=== PATIENT | male | born 1970 | race African-American/Black ===

== ENCOUNTER 2017-02-20 00:51 | Inpatient (IN) | payer OTHER ==
[~2017-02-20] VITALS: Ht 170.2 cm; Wt 78.5 kg
[~2017-02-20 00:51] MED LIST: GLYB3TAB2 PO; LISI-313 PO; METF500T4 PO; PT NOT TAKING MEDS
[2017-02-20 00:56] VITALS: Ht 170.2 cm; Wt 78.5 kg
[2017-02-20] MEDS ORDERED: SOD CHLORIDE 0.9% 1,000 ML IV STA (02:03)
[2017-02-20] MEDS ORDERED: LACTATED RINGER'S 1,000 ML IV STA (02:03)
[2017-02-20 02:28] LABS: BASOPHILS % 0.6 % (0.0-2.0); EOSINOPHILS # 0.2 10^3/ul (0.0-0.5); EOSINOPHILS % 2.5 % (0.0-7.0); HEMATOCRIT 35.2 % (42.0-52.0); HEMOGLOBIN 11.6 g/dl (14.0-18.0); LYMPHOCYTES # 2.4 10^3/ul (0.8-2.9); MEAN CORPUSCULAR HEMOGLOBIN 27.5 pg (29.0-33.0); MEAN CORPUSCULAR VOLUME 83.4 fl (82.0-101.0); MEAN PLATELET VOLUME 10.2 fl (7.4-10.4); MONOCYTE # 0.6 10^3/ul (0.3-0.9); MONOCYTES % 9.9 % (0.0-11.0); NEUTROPHIL # 3.1 10^3/ul (1.6-7.5); NEUTROPHILS % 48.7 % (39.0-77.0); PLATELET COUNT 368 10^3/UL (140-415); RED BLOOD COUNT 4.22 10^6/ul (4.70-6.10); RED CELL DISTRIBUTION WIDTH 12.7 % (11.5-14.5); WHITE BLOOD COUNT 6.3 10^3/ul (4.8-10.8)
[2017-02-20 02:56] LABS: ALBUMIN 3.9 g/dl (3.3-4.9); ALBUMIN/GLOBULIN RATIO 1.25; BILIRUBIN,INDIRECT 0.4 mg/dl (0-1.1); BILIRUBIN,TOTAL 0.4 mg/dl (0.2-1.3); CALCIUM 9.4 mg/dl (8.4-10.2); CREATININE 0.9 mg/dl (0.61-1.24); MAGNESIUM 2.1 mg/dl (1.7-2.5); POTASSIUM 4.7 mmol/L (3.5-5.1)
[2017-02-20 03:03] LABS: ADD UMIC NO; UR ASCORBIC ACID NEGATIVE (NEGATIVE); UR BILIRUBIN (Dip) NEGATIVE (NEGATIVE); UR BLOOD (Dip) NEGATIVE (NEGATIVE); UR CLARITY CLEAR (CLEAR); UR COLOR COLORLESS (YELLOW); UR GLUCOSE (Dip) 3+ mg/dL (NEGATIVE); UR KETONES (Dip) NEGATIVE (NEGATIVE); UR LEUKOCYTE ESTERASE (Dip) NEGATIVE Leu/ul (NEGATIVE); UR NITRITE (Dip) NEGATIVE (NEGATIVE); UR TOTAL PROTEIN (Dip) NEGATIVE (NEGATIVE); UR UROBILINOGEN (Dip) NEGATIVE (NEGATIVE)
[2017-02-20] MEDS ORDERED: VANCOMYCIN 1 GM (PMX) 250 ML IVPB SCH (04:30)
[2017-02-20] MEDS ORDERED: ACETAMINOPHEN 325 MG TAB PO PRN ×2 (04:30→09:00)
[2017-02-20] MEDS ORDERED: ONDANSETRON 4 MG INJ IV PRN ×2 (04:30→09:00)
[2017-02-20] MEDS ORDERED: PIPER-TAZO 3.375 GM IV (PMX) 100 ML IVPB ONE (04:30)
[2017-02-20 05:40] VITALS: TEMP 98.2
[2017-02-20] MEDS ORDERED: INSULIN ASPART [NOVOLOG] 3 ML PEN SC ONE (06:30)
[2017-02-20 06:50] VITALS: BP 148/84; PULSE 90; RESP 18
--- NOTE | 2017-02-20 07:06 | RADRPT ---
PROCEDURE: CT BRAIN WITHOUT CONTRAST CLINICAL INDICATION: 46-year-old male with trauma. TECHNIQUE: The study was performed utilizing [employer] VCT 64-slice CT scanner. Direct axial sections were obtained from the foramen magnum to the vertex without the use of intravenous contrast material. Sagittal and coronal reformations were obtained. One or more of the following dose reduc tion techniques were utilized: automated exposure control, adjustment of the mA and/or kV according to patient's size or use of iterative reconstruction technique. The images were viewed on a PACS w orkstation. CTD/vol = 44.4 mGy; Total Exam DLP = 720.2 mGy-cm. COMPARISON: None. FINDINGS: There is mild prominence of the sulci and cisternal spaces consistent with diffuse volume loss. Oth erwise, the ventricles have a normal shape and position. There is no evidence for mass effect or mid line shift. There are no intracranial areas of abnormal attenuation. There is no evidence for acut e intra or extra-axial blood. The bony calvarium is intact. There is opacification of the partially visualized right ethmoid air cells with moderate mucosal thickening within the right frontal sinuses . No air-fluid levels are noted. The partially visualized mastoid air cells are without significan t soft tissue. IMPRESSION: 1. Mild diffuse volume loss. 2. Opacified partially visualized right ethmoid air cells with moderate mucosal thickening within t he right frontal sinuses. .Antony Martinez MD, Date Time Electronically viewed and signed by .Antony Martinez MD, on 02/20/2017 07:06 .Elise/
--- NOTE | 2017-02-20 07:17 | RADRPT ---
PROCEDURE: CT CERVICAL SPINE WITHOUT CONTRAST CLINICAL INDICATION: 46-year-old male with trauma and neck pain. TECHNIQUE: The study was performed utilizing a [employer] VCT 64-slice CT scanner. Direct axia l sections were obtained through the cervical spine. Coronal and sagittal re-formations were obtain ed. One or more of the following dose reduction techniques were utilized: automated exposure control , adjustment of the mA and/or kV according to patient's size or use of iterative reconstruction tech nique. The images were viewed on a PACS workstation. CTD/vol = 22.2 mGy; Total Exam DLP = 498.4 mGy -cm. COMPARISON: None. FINDINGS: The patients head/neck is mildly tilted to the right. There is straightening of the normal cervical lordosis. Otherwise, the cervical vertebral bodies have normal heights and anatomic alignment. The re is no evidence for acute cervical spine fracture or subluxation. Mild degenerative changes are s een within the atlantoaxial junction. At C2-3 the disk space has a normal appearance. There is no significant central or foraminal stenos is. At C3-4 there are minimal uncovertebral degenerative changes without significant central or foramina l stenosis. At C4-5 there is mild disk space narrowing. There is posterior disk-osteophyte complex projecting a pproximately 3 mm beyond the posterior margin. There are bilateral uncovertebral degenerative shearer es resulting in mild left foraminal stenosis. At C5-6 there is mild disk space narrowing. There is mild posterior disk-osteophyte complex project ing 2 mm beyond the posterior margin. There are mild bilateral uncovertebral degenerative changes m ore prominently on the right side resulting in mild right foraminal stenosis. At C6-7 there is a prominent anterior and right lateral osteophyte. There is no significant central or foraminal stenosis. At C7-T1 the disk space has a normal appearance. There is no significant central or foraminal steno sis. IMPRESSION: 1. Straightening of the normal cervical lordosis. 2. No CT evidence for acute cervical spine fracture. 3. Mild cervical spondylosis. .Antony Martinez MD, MD Date Time Electronically viewed and signed by .Antony Martinez MD, MD on 02/20/2017 07:17 .Lynne
[2017-02-20] MEDS ORDERED: VANCOMYCIN IV PER PHARMACY XX SCH ×2 (08:00→09:00)
[2017-02-20] MEDS ORDERED: morphine 4 MG/ML VIAL IV PRN (08:00)
[2017-02-20] MEDS ORDERED: GLUCAGON 1 MG INJ IM PRN (09:00)
[2017-02-20] MEDS ORDERED: CEFEPIME 1GM/50 ML (PMX) 50 ML IVPB SCH (09:00)
[2017-02-20] MEDS ORDERED: INSULIN GLARGINE [LANtus] 3 ML PEN SC SCH (09:00)
[2017-02-20] MEDS ORDERED: NACL 0.9% 3 ML SYG IV SCH (09:00)
[2017-02-20] MEDS ORDERED: DEXTROSE 50% 50 ML SYRINGE IV PRN ×2 (09:00)
[2017-02-20] MEDS ORDERED: morphine 2 MG INJ IV PRN (09:00)
[2017-02-20] MEDS ORDERED: GLUCOSE GEL 15 GRAM TUBE BUCCAL PRN (09:00)
[2017-02-20] MEDS ORDERED: GLUCOSE GEL 15 GRAM TUBE PO PRN ×2 (09:00)
--- NOTE | 2017-02-20 10:37 | HP ---
Date/Time of Note Date/Time of Note DATE: 02/20/17 TIME: 10:28 Assessment/Plan Assessment/Plan Assessment/Plan 1. Left lower extremity cellulitis -Will be placed on broad spectrum antibiotics. We will follow-up blood culture results. Consider MRI of the foot 2. Diabetes with hyperglycemia -Insulin while in house. Will check A1c 3. s/p Mechanical fall. -Head CT and cervical spine have been negative for acute findings HPI/ROS Admit Date/Time Admit Date/Time Feb 20, 2017 at 04:21 Hx of Present Illness This is a 46-year-old male with a history of diabetes hypertension and left lower extremity cellulitis/wound who presented to the emergency department status post a fall. He said he tripped and fell hitting his head and also experiencing loss of consciousness. He denied any chest pain palpitations or lightheadedness. He further complains of left lower extremity infection including some blisters and possible gangrene on his toe. Patient was admitted here in 2013 for left lower extremity cellulitis/wound which was initially started as work related injury. In the ER, head CT was negative for acute processes. Cervical CT was negative for fracture. His vitals were stable. Lab shows blood glucose of greater than 600. Patient has not been compliant with his medication. PMH/Family/Social Social History Smoking Status: Current every day smoker Exam/Review of Systems Vital Signs Vitals Vital Signs Date Time Temp Pulse Resp B/P Pulse Ox O2 Delivery O2 Flow Rate FiO2 02/20/17 06:50 98.3 90 18 148/84 98 Room Air Exam Constitutional: alert, oriented, well developed Head: atraumatic, normocephalic Eyes: EOMI, PERRL Respiratory: clear to auscultation, normal air movement Gastrointestinal: non-tender, soft Extremities: other (blisters on left toe), tenderness Labs Result Diagram: 02/20/17 0155 02/20/17 0155 Medications Medications Current Medications Diagnostic Test (Pha) (Accu-Chek) 1 XX ; Start 02/21/17 at 02:00 Insulin Glargine (Lantus) 15 unit DAILY@08 SC ; Start 02/20/17 at 09:00 Diagnostic Test (Pha) 1 ea XX ; Start 02/21/17 at 02:00 Cefepime HCl (Maxipime 1gm/50 ml (Pmx)) 50 ml @ 100 mls/hr Q12 IVPB ; Start at 09:00 Miscellaneous Information 1 ea NOTE XX ; Start 02/20/17 at 09:00 Glucose (Glutose) 15 gm Q15M PRN PO DECREASED GLUCOSE; Start 02/20/17 at 09:00 Glucose (Glutose) 22.5 gm Q15M PRN PO DECREASED GLUCOSE; Start 02/20/17 at 09: 00 Dextrose (D50w Syringe) 25 ml Q15M PRN IV DECREASED GLUCOSE; Start 02/20/17 at 09:00 Dextrose (D50w Syringe) 50 ml Q15M PRN IV DECREASED GLUCOSE; Start 02/20/17 at 09:00 Glucagon (Glucagen) 1 mg Q15M PRN IM DECREASED GLUCOSE; Start 02/20/17 at 09:00 Glucose 15 gm 15 gm Q15M PRN BUCCAL DECREASED GLUCOSE; Start 02/20/17 at 09:00 Vancomycin HCl/ Sodium Chloride (Vancocin/NS) 250 ml @ 83.333 mls/ hr Q12H IVPB ; Start 02/20/17 at 10:00 Ondansetron HCl (Zofran Inj) 4 mg Q6H PRN IV NAUSEA AND/OR VOMITING; Start at 09:00 Acetaminophen (Tylenol Tab) 650 mg Q6H PRN PO PAIN LEVEL 1-3 OR FEVER; Start at 09:00 Morphine Sulfate (morphine) 2 mg Q4H PRN IV SEVERE PAIN LEVEL 7-10; Start 02/20 at 09:00 Heparin Sodium (Porcine) (Heparin (5000 Units/0.5 ml)) 5,000 unit Q12 SC ; Start 02/20/17 at 09:00 EVERARDO OG MD Feb 20, 2017 10:37
[2017-02-20] MEDS: HEPARIN 5,000 UNIT/0.5 ML VIAL SC SCH ×2 (11:11→21:33)
[2017-02-20] MEDS: INSULIN ASPART [NOVOLOG] 3 ML PEN SC SCH ×7 (11:50→21:00)
[2017-02-20] MEDS: CEFEPIME 1GM/50 ML (PMX) 50 ML IVPB SCH ×2 (11:56→21:24)
--- NOTE | 2017-02-20 11:57 | RADRPT ---
PROCEDURE: MRI OF THE LEFT FOOT CLINICAL INDICATION: Left foot pain and swelling, injury a week ago, evaluate for osteomyelitis TECHNIQUE: Multiple MRI images were obtained utilizing multiple sequences in multiple planes. Image s were interpreted on a high-resolution PACS system. COMPARISON: None available FINDINGS: There is a distal ulceration of the great toe with adjacent soft tissue swelling underlying abnormal bone marrow signal at the tip of the first distal phalanx suspicious for osteomyelitis (sagittal 23 and axial 16). There is no drainable fluid collection. There is no involvement of the first proxi mal phalanx, first metatarsal head, or sesamoids. The remainder of the forefoot demonstrates extensive subcutaneous soft tissue swelling, greatest xochilt carlos. There is no evidence of tendon tear. There is mild nonspecific muscle edema. IMPRESSION: 1. Distal skin ulceration of the great toe with adjacent soft tissue swelling and probable osteomyel itis involving the first distal tuft. 2. Significant dorsal subcutaneous soft tissue swelling throughout the foot , query cellulitis, wit hout discrete drainable fluid collection. 3. No evidence of tendon tear. RPTAT: UU .Roger Barbosa MD, MD Date Time Electronically viewed and signed by .Roger Barbosa MD, on 02/20/2017 11:56 .K/
[2017-02-20] MEDS ORDERED: INSULIN ASPART [NOVOLOG] 3 ML PEN SC SCH ×2 (12:15)
[2017-02-20] MEDS: INSULIN GLARGINE [LANtus] 3 ML PEN SC SCH (12:18)
[2017-02-20] MEDS: VANCOMYCIN 1.25 GM in SOD CHLORIDE 0.9% 250 ML IVPB SCH ×2 (13:15→22:16)
--- NOTE | 2017-02-20 13:19 | QN ---
Documentation Comment Patient is a 46-year-old -[place] male with past medical history of diabetes who presents with left lower extremity wound, found to have likely osteomyelitis and also complaining of left upper extremity weakness Assessment Left lower extremity wound, likely cellulitis and osteomyelitis Diabetes Left upper extremity weakness Medical noncompliance Chemical fall Hyperglycemia Plan -MRI of the foot shows osteomyelitis, ID will be consulted -Left upper extremity weakness is unexplained, MRI brain pending, neurology has been consulted, Dr. Lezama -Insulin for patient's hyperglycemia -Broad-spectrum antibiotics for now, infectious disease recommendations appreciated -Follow-up with brain MRI ROSA Ortiz Feb 20, 2017 13:19
[2017-02-20 13:29] VITALS: BP 140/88; RESP 20
--- NOTE | 2017-02-20 17:56 | CONS ---
Date/Time of Note Date/Time of Note DATE: 02/20/17 TIME: 17:46 Assessment/Plan Assessment/Plan Chief Complaint/Hosp Course 46 year old male uncontrolled DM admitted for LLE cellulitis with LUE weakness worsening in the past week. Exam findings suggestive of weakness in left dorsal interossei involving left index finger and thumb with thenar atrophy suspecting chronic median neuropathy. Would suggest MRI Cervical Spine w/o contrast and imaging also of Brachial plexus a short course of steroids may help improvement pain if inflammation is present in the plexus however in light of advanced diabetes and active infection will hold off he will require further outpatient testing EMG/NCV studies to further localize will follow up after imaging completed Problems: Consultation Date/Type/Reason Admit Date/Time Feb 20, 2017 at 04:21 Date of Consultation: Feb 20, 2017 Type of Consultation: Neurology Reason for Consultation left arm weakness Referring Provider: ROSA QUINTERO Hx of Present Illness 46 year old male with history of uncontrolled DM, LLE cellulitis presented to the ED after a reported fall. He states he tripped and fell hit his head with LOC, he has history of cellulitis in LLE in [address] negative, CT C Spine negative for fx, glucose >600 range, he has not been compliant with meds currently living in his RV and not employed. He complains of left arm weakness also increased over the past week, he has notable atrophy in left hand in thenar region per patient this has been ongoing. He does admit to neck pain, reports weakness is mostly in the left digits. He denies prior work up in the past. He denies numbness/weakness in LLE , no speech issues or facial involvement. LUE weakness Social History Smoking Status: Current every day smoker Exam/Review of Systems Vital Signs Vitals Vital Signs Date Time Temp Pulse Resp B/P Pulse Ox O2 Delivery O2 Flow Rate FiO2 02/20/17 13:29 98.0 89 20 140/88 100 02/20/17 06:50 Room Air Exam awake and alert oriented x3 speech mildly dysarthric no aphasia CN: II-XII intact Motor RUE 5/5 RLE 5/5 LLE 5/5 LUE- proximal deltoids, biceps and triceps 5/5 wrist flexion and extension 5/5 weakness is present in the dorsal interossei and most prominent on flexion of thumb and index finger suggestive of a probably median neuropathy suspect anterior interosseus n. involvement atrophy in thenar region of left hand prominent indicating a chronic process Reflexes RUE 1+ Triceps and Biceps, LUE absent reflexes KJ 1+ bilateral absent AJ Sensory intact throughout Coordination intact FTN Results Result Diagram: 02/20/17 0155 02/20/17 0155 Results 24 hrs Laboratory Tests Test 02/20/17 01:51 02/20/17 01:55 02/20/17 02:10 02/20/17 02:20 Bedside Glucose > 595 *H White Blood Count 6.3 Red Blood Count 4.22 L Hemoglobin 11.6 L Hematocrit 35.2 L Mean Corpuscular Volume 83.4 Mean Corpuscular Hemoglobin 27.5 L Mean Corpuscular Hemoglobin Concent 33.0 Red Cell Distribution Width 12.7 Platelet Count 368 Mean Platelet Volume 10.2 Neutrophils % 48.7 Lymphocytes % 38.0 Monocytes % 9.9 Eosinophils % 2.5 Basophils % 0.6 Nucleated Red Blood Cells % 0.0 Neutrophils # 3.1 Lymphocytes # 2.4 Monocytes # 0.6 Eosinophils # 0.2 Basophils # 0.0 Nucleated Red Blood Cells # 0.0 Sodium Level 135 Potassium Level 4.7 Chloride Level 92 L Carbon Dioxide Level 29 Anion Gap 19 H Blood Urea Nitrogen 13 Creatinine 0.90 Glucose Level 623 *H Calcium Level 9.4 Magnesium Level 2.1 Total Bilirubin 0.4 Direct Bilirubin 0.00 Indirect Bilirubin 0.4 Aspartate Amino Transf (AST/SGOT) 32 Alanine Aminotransferase (ALT/SGPT) 47 Alkaline Phosphatase 137 H Total Protein 7.0 Albumin 3.9 Globulin 3.10 Albumin/Globulin Ratio 1.25 Lactic Acid Level 2.0 Urine Color COLORLESS Urine Clarity CLEAR Urine pH 5.0 Urine Specific Elkins 1.030 Urine Ketones NEGATIVE Urine Nitrite NEGATIVE Urine Bilirubin NEGATIVE Urine Urobilinogen NEGATIVE Urine Leukocyte Esterase NEGATIVE Urine Hemoglobin NEGATIVE Urine Glucose 3+ H Urine Total Protein NEGATIVE Test 02/20/17 04:57 02/20/17 06:07 02/20/17 11:58 02/20/17 17:23 Bedside Glucose 328 H 450 *H 240 H 147 Medications Medications Current Medications Diagnostic Test (Pha) (Accu-Chek) 1 ea 02 XX ; Start 02/21/17 at 02:00 Insulin Glargine (Lantus) 15 unit DAILY@08 SC Last administered on 02/20/17 12 :18; Admin Dose 15 UNIT; Start 02/20/17 at 09:00 Diagnostic Test (Pha) 1 ea 1 ea 02 XX ; Start 02/21/17 at 02:00 Cefepime HCl (Maxipime 1gm/50 ml (Pmx)) 50 ml @ 100 mls/hr Q12 IVPB Last administered on 02/20/17 11:56; Admin Dose 100 MLS/HR; Start 02/20/17 at 09:00 Miscellaneous Information 1 ea NOTE XX ; Start 02/20/17 at 09:00 Glucose (Glutose) 15 gm Q15M PRN PO DECREASED GLUCOSE; Start 02/20/17 at 09:00 Glucose (Glutose) 22.5 gm Q15M PRN PO DECREASED GLUCOSE; Start 02/20/17 at 09: 00 Dextrose (D50w Syringe) 25 ml Q15M PRN IV DECREASED GLUCOSE; Start 02/20/17 at 09:00 Dextrose (D50w Syringe) 50 ml Q15M PRN IV DECREASED GLUCOSE; Start 02/20/17 at 09:00 Glucagon (Glucagen) 1 mg Q15M PRN IM DECREASED GLUCOSE; Start 02/20/17 at 09:00 Glucose 15 gm 15 gm Q15M PRN BUCCAL DECREASED GLUCOSE; Start 02/20/17 at 09:00 Vancomycin HCl/ Sodium Chloride (Vancocin/NS) 250 ml @ 83.333 mls/ hr Q12H IVPB Last administered on 02/20/17 13:15; Admin Dose 83.333 MLS/HR; Start at 10:00 Ondansetron HCl (Zofran Inj) 4 mg Q6H PRN IV NAUSEA AND/OR VOMITING; Start at 09:00 Acetaminophen (Tylenol Tab) 650 mg Q6H PRN PO PAIN LEVEL 1-3 OR FEVER; Start at 09:00 Morphine Sulfate (morphine) 2 mg Q4H PRN IV SEVERE PAIN LEVEL 7-10; Start 02/20 at 09:00 Heparin Sodium (Porcine) (Heparin (5000 Units/0.5 ml)) 5,000 unit Q12 SC Last administered on 02/20/17 11:11; Admin Dose 5,000 UNIT; Start 02/20/17 at 09:00 PETER MORRIS MD Feb 20, 2017 17:56
[2017-02-20 19:36] VITALS: BP 141/86; RESP 19
[2017-02-21 02:00] VITALS: BP 129/70; RESP 18
[2017-02-21] MEDS: ACCU-CHEK XX SCH (02:00)
[2017-02-21] MEDS ORDERED: ACCU-CHEK XX SCH ×3 (02:00)
[2017-02-21 07:05] LABS: WHITE BLOOD COUNT 7.4 10^3/ul (4.8-10.8)
[2017-02-21 07:06] LABS: BASOPHILS % 0.4 % (0.0-2.0); EOSINOPHILS # 0.1 10^3/ul (0.0-0.5); EOSINOPHILS % 1.9 % (0.0-7.0); HEMATOCRIT 36.9 % (42.0-52.0); LYMPHOCYTES # 2.7 10^3/ul (0.8-2.9); MEAN CORPUSCULAR HEMOGLOBIN 27.3 pg (29.0-33.0); MEAN CORPUSCULAR HGB CONC 32.5 g/dl (32.0-37.0); MEAN CORPUSCULAR VOLUME 83.9 fl (82.0-101.0); MEAN PLATELET VOLUME 10.2 fl (7.4-10.4); MONOCYTE # 0.5 10^3/ul (0.3-0.9); MONOCYTES % 7.1 % (0.0-11.0); NEUTROPHIL # 3.9 10^3/ul (1.6-7.5); NEUTROPHILS % 53.5 % (39.0-77.0); PLATELET COUNT 388 10^3/UL (140-415); RED CELL DISTRIBUTION WIDTH 12.5 % (11.5-14.5)
[2017-02-21 07:37] LABS: ALBUMIN 3.3 g/dl (3.3-4.9); ALBUMIN/GLOBULIN RATIO 1.17; BILIRUBIN,INDIRECT 0.2 mg/dl (0-1.1); BILIRUBIN,TOTAL 0.2 mg/dl (0.2-1.3); CALCIUM 8.9 mg/dl (8.4-10.2); CHOL/HDL RATIO 2.4 RATIO; CREATININE 0.78 mg/dl (0.61-1.24); MAGNESIUM 1.8 mg/dl (1.7-2.5); PHOSPHORUS 3.7 mg/dl (2.5-4.9); POTASSIUM 4.5 mmol/L (3.5-5.1); TOTAL PROTEIN 6.1 g/dl (6.1-8.1)
[2017-02-21 07:48] VITALS: BP 118/78; RESP 20
--- NOTE | 2017-02-21 07:54 | RADRPT ---
PROCEDURE: MRI Brain without contrast. CLINICAL INDICATION: Left upper extremity weakness TECHNIQUE: Multiplanar MRI of the brain without contrast was performed on a 3.0 T scanner with the following sequences obtained: T1-weighted, T2-weighted/FLAIR, diffusion weighted (with ADC map), GR E. COMPARISON: CT brain 02/20/2017 FINDINGS: No acute/recent ischemic infarction or intracranial hemorrhage / blood degradation products are iden tified. No extra-axial fluid collection is seen. There is no mass effect. No midline shift is identified. The ventricles and sulci are mildly enlarged compatible with volume loss. The signal intensity is unremarkable throughout the cerebrum, brainstem and cerebellum. Flow voids are identified in the proximal intracranial arteries and dural sinuses suggesting patency . Noted are complete right maxillary, extensive right frontal and ethmoid sinus opacification, left ma xillary sinus mucous retention cysts and minimal mastoid air cell opacification. IMPRESSION: 1. No evidence of acute intracranial pathology. 2. Mild volume loss. RPTAT: EE .Edison García MD, MD Date Time Electronically viewed and signed by .Edison García MD, on 02/21/2017 07:53 .O/
--- NOTE | 2017-02-21 08:11 | RADRPT ---
PROCEDURE: MRI cervical spine without contrast CLINICAL INDICATION: Left upper extremity weakness TECHNIQUE: Multiplanar MRI of the cervical spine without contrast was performed on a 3.0 T scanner including the following sequences: T1-weighted, T2-weighted, STIR, GRE. COMPARISON: CT cervical spine 02/20/2017 FINDINGS: There is preservation of the lordosis of the cervical spine. Alignment appears intact. The vertebr al bodies are maintained in height. The marrow signal intensity is unremarkable. Anterior osteophy jasmyn are seen at C4-5 through C7-T1. There is mild moderate disk space narrowing at C2-3 through C5- 6. The cervical cord is within normal limits for signal intensity. The craniocervical junction is g rossly unremarkable. C2-3: No significant disk bulge or herniation is identified. There is no central canal stenosis or foraminal narrowing. C3-4: There is a posterior disk/osteophyte , more pronounced centrally with focal 3 mm central disk protrusion, with mild to moderate central canal stenosis. The ventral cord is slightly effaced. Th ere are left uncovertebral osteophytes with mild left foraminal narrowing. C4-5: There is a broad posterior disk/osteophyte, slightly more pronounced centrally with 2 mm centr al disk protrusion. There is mild to moderate central canal stenosis. The ventral cord is slightly effaced. There are uncovertebral and osteophytes and facet arthropathy with mild-moderate bilatera l foraminal narrowing. C5-6: There is a broad posterior disk/osteophyte, greater on the right. There is mild-moderate cent ral canal stenosis. The ventral cord is slightly effaced. There are uncovertebral osteophytes and facet arthropathy. Moderate to severe right, mild-moderate left foraminal narrowing. C6-7: There is a broad posterior disk/osteophyte, slightly more pronounced centrally with 2 mm centr al disk protrusion. There is mild central canal stenosis. There are uncovertebral osteophytes and facet arthropathy with mild-moderate bilateral foraminal narrowing. C7-T1: No disk bulge or herniation is identified. There is no central canal stenosis or foraminal n arrowing. IMPRESSION: 1. At C3-4, mild to moderate central canal stenosis due to posterior disk/osteophyte with 3 mm cent ral disk protrusion. 2. At C4-5, mild to moderate central canal stenosis due to posterior disk/osteophyte with 2 mm cent ral disk protrusion. 3. At C5-6, mild to moderate central canal stenosis due to posterior disk/osteophyte. 4. At C6-7, mild central canal stenosis due to posterior disk/osteophyte with 2 mm central disk pro trusion. 5. Multilevel foraminal narrowing outlined in detail above. 6. Cervical spondylosis/degenerative enthesopathy. 7. No cervical cord signal abnormality. RPTAT: EE .Edison García MD, Date Time Electronically viewed and signed by .Edison García MD, on 02/21/2017 08:11 .O/
[2017-02-21] MEDS: CEFEPIME 1GM/50 ML (PMX) 50 ML IVPB SCH (08:41)
[2017-02-21] MEDS: INSULIN ASPART [NOVOLOG] 3 ML PEN SC SCH ×7 (09:05→21:09)
[2017-02-21] MEDS: INSULIN GLARGINE [LANtus] 3 ML PEN SC SCH (09:05)
[2017-02-21] MEDS: HEPARIN 5,000 UNIT/0.5 ML VIAL SC SCH ×2 (09:06→21:48)
[2017-02-21] MEDS: VANCOMYCIN 1.25 GM in SOD CHLORIDE 0.9% 250 ML IVPB SCH ×2 (10:34→22:42)
[2017-02-21 14:25] VITALS: BP 117/73; RESP 20
--- NOTE | 2017-02-21 15:00 | PN ---
Date/Time of Note Date/Time of Note DATE: 02/21/17 TIME: 14:57 Assessment/Plan VTE Prophylaxis VTE Prophylaxis Intervention: heparin Assessment/Plan Chief Complaint/Hosp Course Patient is a 46-year-old -[place] male with past medical history of diabetes who presents with left lower extremity wound, found to have likely osteomyelitis and also complaining of left upper extremity weakness Assessment Left lower extremity wound, likely cellulitis and osteomyelitis Diabetes Left upper extremity weakness, mostly tactile function of left hand. Medical noncompliance Chemical fall Hyperglycemia Plan -MRI of the foot shows osteomyelitis, ID consulted, likely 8 weeks abx needed. -Left upper extremity weakness is unexplained, MRI brain shows mild volume loss , MRI neck shows mild-moderate stenosis, f/u with neurology recs. -starting gabapentin for numbness/tingling/pain of hands and feet -bilateral US ordered for swelling. -Insulin for patient's hyperglycemia/uncontrolled DM -Broad-spectrum antibiotics for now, infectious disease recommendations appreciated Vic Quintero DO Problems: Subjective 24 Hr Interval Summary Free Text/Dictation no new complaints. 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 Exam/Review of Systems Vital Signs Vitals Vital Signs Date Time Temp Pulse Resp B/P Pulse Ox O2 Delivery O2 Flow Rate FiO2 02/21/17 14:25 98.2 94 20 117/73 100 02/20/17 06:50 Room Air Intake and Output 02/20/17 02/20/17 02/21/17 15:00 23:00 07:00 Intake Total 50 ml 1500 ml 650 ml Balance 50 ml 1500 ml 650 ml Exam Physical exam General: Patient is laying in bed and answers questions appropriately Mentation: Patient is alert and oriented 4, Head: Normocephalic atraumatic Eyes: EOMI, pupils reactive to light Neck: Supple, nontender, midline Respiratory: Clear to auscultation bilaterally Cardiovascular: regular rate, no obvious murmurs Gastrointestinal: non-tender to palpation, bowel sounds heard. Neurological: Moves all extremities spontaneously Skin: superficial ulcer on R foot, left LE toe shows ulceration. Results Result Diagram: 02/21/17 0515 02/21/17 0515 Results 24 hrs Laboratory Tests Test 02/20/17 17:23 02/20/17 21:23 02/21/17 05:15 02/21/17 08:07 Bedside Glucose 147 136 268 H White Blood Count 7.4 Red Blood Count 4.40 L Hemoglobin 12.0 L Hematocrit 36.9 L Mean Corpuscular Volume 83.9 Mean Corpuscular Hemoglobin 27.3 L Mean Corpuscular Hemoglobin Concent 32.5 Red Cell Distribution Width 12.5 Platelet Count 388 Mean Platelet Volume 10.2 Neutrophils % 53.5 Lymphocytes % 37.0 Monocytes % 7.1 Eosinophils % 1.9 Basophils % 0.4 Nucleated Red Blood Cells % 0.0 Neutrophils # 3.9 Lymphocytes # 2.7 Monocytes # 0.5 Eosinophils # 0.1 Basophils # 0.0 Nucleated Red Blood Cells # 0.0 Sodium Level 141 Potassium Level 4.5 Chloride Level 102 # Carbon Dioxide Level 28 Anion Gap 16 Blood Urea Nitrogen 16 Creatinine 0.78 Glucose Level 245 #H Hemoglobin A1c Calcium Level 8.9 Phosphorus Level 3.7 Magnesium Level 1.8 Total Bilirubin 0.2 Direct Bilirubin 0.00 Indirect Bilirubin 0.2 Aspartate Amino Transf (AST/SGOT) 41 Alanine Aminotransferase (ALT/SGPT) 46 Alkaline Phosphatase 119 Total Protein 6.1 Albumin 3.3 Globulin 2.80 Albumin/Globulin Ratio 1.17 Triglycerides Level 157 H Cholesterol Level 131 LDL Cholesterol, Calculated 46 HDL Cholesterol 54 Cholesterol/HDL Ratio 2.4 Test 02/21/17 12:07 Bedside Glucose 158 Medications Medications Current Medications Diagnostic Test (Pha) (Accu-Chek) 1 ea 02 XX ; Start 02/21/17 at 02:00 Insulin Glargine 15 unit 15 unit DAILY@08 SC Last administered on 02/21/17 09: 05; Admin Dose 15 UNIT; Start 02/20/17 at 09:00 Cefepime HCl (Maxipime 1gm/50 ml (Pmx)) 50 ml @ 100 mls/hr Q12 IVPB Last administered on 02/21/17 08:41; Admin Dose 100 MLS/HR; Start 02/20/17 at 09:00 Miscellaneous Information 1 ea NOTE XX ; Start 02/20/17 at 09:00 Glucose (Glutose) 15 gm Q15M PRN PO DECREASED GLUCOSE; Start 02/20/17 at 09:00 Glucose (Glutose) 22.5 gm Q15M PRN PO DECREASED GLUCOSE; Start 02/20/17 at 09: 00 Dextrose (D50w Syringe) 25 ml Q15M PRN IV DECREASED GLUCOSE; Start 02/20/17 at 09:00 Dextrose (D50w Syringe) 50 ml Q15M PRN IV DECREASED GLUCOSE; Start 02/20/17 at 09:00 Glucagon (Glucagen) 1 mg Q15M PRN IM DECREASED GLUCOSE; Start 02/20/17 at 09:00 Glucose 15 gm 15 gm Q15M PRN BUCCAL DECREASED GLUCOSE; Start 02/20/17 at 09:00 Vancomycin HCl/ Sodium Chloride (Vancocin/NS) 250 ml @ 83.333 mls/ hr Q12H IVPB Last administered on 02/21/17 10:34; Admin Dose 83.333 MLS/HR; Start at 10:00 Ondansetron HCl (Zofran Inj) 4 mg Q6H PRN IV NAUSEA AND/OR VOMITING; Start at 09:00 Acetaminophen (Tylenol Tab) 650 mg Q6H PRN PO PAIN LEVEL 1-3 OR FEVER; Start at 09:00 Morphine Sulfate (morphine) 2 mg Q4H PRN IV SEVERE PAIN LEVEL 7-10 Last administered on 02/21/17 09:08; Admin Dose 2 MG; Start 02/20/17 at 09:00 Heparin Sodium (Porcine) (Heparin (5000 Units/0.5 ml)) 5,000 unit Q12 SC Last administered on 02/21/17 09:06; Admin Dose 5,000 UNIT; Start 02/20/17 at 09:00 Miscellaneous Information (*Rx Drug Level Order Reminder*) VANCOMYCIN TROUGH AT 2100 ONCE ONCE XX ; Start 02/21/17 at 21:00; Stop 02/21/17 at 21:01 VIC QUINTERO Feb 21, 2017 15:00
--- NOTE | 2017-02-21 15:12 | CONS ---
Date/Time of Note Date/Time of Note DATE: 02/21/17 TIME: 15:11 Assessment/Plan Assessment/Plan Chief Complaint/Hosp Course No acute changes patient is alert family at bedside no fevers pain is better WBC 7.4 H&H 12 and 36.9 platelets 388 BUN 16 creatinine 0.78 Antibiotics: Vanco cefepime physical examination: Well-developed middle-aged -[place] male who is alert in no distress. Head atraumatic normocephalic sclera nonicteric. Neck is supple. Chest rise symmetrical, breath sounds clear. Heart: S1-S2. Abdomen soft bowel sounds present. Extremities with bilateral lower extremities edema and trace erythema with left lower extremity swelling and redness of the great toe Assessment: 1. Left lower extremity cellulitis with evidence of first distal part of the toe osteomyelitis as per MRI 2. Diabetes mellitus Plan: Remain stable, will change cefepime to Levaquin, consider podiatry evaluation, continue vancomycin DW pt/staff Problems: Consultation Date/Type/Reason Admit Date/Time Feb 20, 2017 at 11:15 Initial Consult Date 02/20/17 Type of Consultation: ID Referring Provider: ROSA QUINTERO Exam/Review of Systems Vital Signs Vitals Vital Signs Date Time Temp Pulse Resp B/P Pulse Ox O2 Delivery O2 Flow Rate FiO2 02/21/17 14:25 98.2 94 20 117/73 100 02/20/17 06:50 Room Air Intake and Output 02/20/17 02/20/17 02/21/17 15:00 23:00 07:00 Intake Total 50 ml 1500 ml 650 ml Balance 50 ml 1500 ml 650 ml Results Result Diagram: 02/21/17 0515 02/21/17 0515 Results 24 hrs Laboratory Tests Test 02/20/17 17:23 02/20/17 21:23 02/21/17 05:15 02/21/17 08:07 Bedside Glucose 147 136 268 H White Blood Count 7.4 Red Blood Count 4.40 L Hemoglobin 12.0 L Hematocrit 36.9 L Mean Corpuscular Volume 83.9 Mean Corpuscular Hemoglobin 27.3 L Mean Corpuscular Hemoglobin Concent 32.5 Red Cell Distribution Width 12.5 Platelet Count 388 Mean Platelet Volume 10.2 Neutrophils % 53.5 Lymphocytes % 37.0 Monocytes % 7.1 Eosinophils % 1.9 Basophils % 0.4 Nucleated Red Blood Cells % 0.0 Neutrophils # 3.9 Lymphocytes # 2.7 Monocytes # 0.5 Eosinophils # 0.1 Basophils # 0.0 Nucleated Red Blood Cells # 0.0 Sodium Level 141 Potassium Level 4.5 Chloride Level 102 # Carbon Dioxide Level 28 Anion Gap 16 Blood Urea Nitrogen 16 Creatinine 0.78 Glucose Level 245 #H Hemoglobin A1c Calcium Level 8.9 Phosphorus Level 3.7 Magnesium Level 1.8 Total Bilirubin 0.2 Direct Bilirubin 0.00 Indirect Bilirubin 0.2 Aspartate Amino Transf (AST/SGOT) 41 Alanine Aminotransferase (ALT/SGPT) 46 Alkaline Phosphatase 119 Total Protein 6.1 Albumin 3.3 Globulin 2.80 Albumin/Globulin Ratio 1.17 Triglycerides Level 157 H Cholesterol Level 131 LDL Cholesterol, Calculated 46 HDL Cholesterol 54 Cholesterol/HDL Ratio 2.4 Test 02/21/17 12:07 Bedside Glucose 158 Medications Medications Current Medications Diagnostic Test (Pha) (Accu-Chek) 1 ea 02 XX ; Start 02/21/17 at 02:00 Insulin Glargine 15 unit 15 unit DAILY@08 SC Last administered on 02/21/17 09: 05; Admin Dose 15 UNIT; Start 02/20/17 at 09:00 Cefepime HCl (Maxipime 1gm/50 ml (Pmx)) 50 ml @ 100 mls/hr Q12 IVPB Last administered on 02/21/17 08:41; Admin Dose 100 MLS/HR; Start 02/20/17 at 09:00 Miscellaneous Information 1 ea NOTE XX ; Start 02/20/17 at 09:00 Glucose (Glutose) 15 gm Q15M PRN PO DECREASED GLUCOSE; Start 02/20/17 at 09:00 Glucose (Glutose) 22.5 gm Q15M PRN PO DECREASED GLUCOSE; Start 02/20/17 at 09: 00 Dextrose (D50w Syringe) 25 ml Q15M PRN IV DECREASED GLUCOSE; Start 02/20/17 at 09:00 Dextrose (D50w Syringe) 50 ml Q15M PRN IV DECREASED GLUCOSE; Start 02/20/17 at 09:00 Glucagon (Glucagen) 1 mg Q15M PRN IM DECREASED GLUCOSE; Start 02/20/17 at 09:00 Glucose 15 gm 15 gm Q15M PRN BUCCAL DECREASED GLUCOSE; Start 02/20/17 at 09:00 Vancomycin HCl/ Sodium Chloride (Vancocin/NS) 250 ml @ 83.333 mls/ hr Q12H IVPB Last administered on 02/21/17 10:34; Admin Dose 83.333 MLS/HR; Start at 10:00 Ondansetron HCl (Zofran Inj) 4 mg Q6H PRN IV NAUSEA AND/OR VOMITING; Start at 09:00 Acetaminophen (Tylenol Tab) 650 mg Q6H PRN PO PAIN LEVEL 1-3 OR FEVER; Start at 09:00 Morphine Sulfate (morphine) 2 mg Q4H PRN IV SEVERE PAIN LEVEL 7-10 Last administered on 02/21/17 09:08; Admin Dose 2 MG; Start 02/20/17 at 09:00 Heparin Sodium (Porcine) (Heparin (5000 Units/0.5 ml)) 5,000 unit Q12 SC Last administered on 02/21/17 09:06; Admin Dose 5,000 UNIT; Start 02/20/17 at 09:00 Miscellaneous Information (*Rx Drug Level Order Reminder*) VANCOMYCIN TROUGH AT 2100 ONCE ONCE XX ; Start 02/21/17 at 21:00; Stop 02/21/17 at 21:01 ROCIO CALDERON NP Feb 21, 2017 15:11
--- NOTE | 2017-02-21 17:11 | RADRPT ---
PROCEDURE: Bilateral upper extremity venous ultrasound CLINICAL INDICATION: Bilateral upper extremity pain and swelling. Deep venous thrombosis. TECHNIQUE: Benites scale, color doppler, spectral doppler ultrasound imaging of the venous system of the bilateral upper extremities. Augmentation maneuvers were utilized. COMPARISON: No prior studies are available for comparison. FINDINGS: RIGHT: Internal jugular vein: Patent. Subclavian vein: Patent. Axillary vein: Patent. Brachial vein: Patent. Basilic vein: Patent. Cephalic vein: Patent. Radial vein: Patent. Ulnar vein: Patent. LEFT: Internal jugular vein: Patent. Subclavian vein: Patent. Axillary vein: Patent. Brachial vein: Patent. Basilic vein: Patent. Cephalic vein: Patent. Radial vein: Patent. Ulnar vein: Patent. IMPRESSION: No evidence of a deep vein thrombosis involving the bilateral upper extremities. RPTAT: AADD .Shantanu Smith MD, Date Time Electronically viewed and signed by .Shantanu Smith MD, on 02/21/2017 17:10 .B/
--- NOTE | 2017-02-21 17:11 | RADRPT ---
PROCEDURE: Ultrasound of the bilateral lower extremity venous system. CLINICAL INDICATION: Bilateral leg pain and swelling, deep venous thrombosis TECHNIQUE: Benites scale with and without compression, color doppler, spectral doppler of the venous system of the bilateral lower extremities was performed. Venous augmentation maneuvers were utilized . COMPARISON: No prior studies are available for comparison. FINDINGS: RIGHT: Common femoral vein: Patent. Femoral vein: Patent. Popliteal vein: Patent. Calf veins: Patent. No soft tissue abnormalities are identified. LEFT: Common femoral vein: Patent. Femoral vein: Patent. Popliteal vein: Patent. Calf veins: Patent. No soft tissue abnormalities are identified. IMPRESSION: No evidence of a deep vein thrombosis within the bilateral lower extremities. RPTAT: AADD .Shantanu Smith MD, MD Date Time Electronically viewed and signed by .Shantanu Smith MD, on 02/21/2017 17:11 .B/
--- NOTE | 2017-02-21 18:00 | CONS ---
Date/Time of Note Date/Time of Note DATE: 02/21/17 TIME: 17:57 Consult Date/Type/Reason Admit Date/Time Feb 20, 2017 at 11:15 Initial Consult Date 02/20/17 Type of Consultation: Neurology Reason for Consultation LUE weakness Ordering Provider: ROSA QUINTERO Subjective patient reports he experienced bilateral UE weakness, not only left arm family has also noted chronic atrophy left UE in hand MRI C Spine completed as well as brain Objective Vital Signs Date Time Temp Pulse Resp B/P Pulse Ox O2 Delivery O2 Flow Rate FiO2 02/21/17 14:25 98.2 94 20 117/73 100 02/20/17 06:50 Room Air Intake and Output 02/20/17 02/20/17 02/21/17 15:00 23:00 07:00 Intake Total 50 ml 1500 ml 650 ml Balance 50 ml 1500 ml 650 ml Exam awake and alert oriented x3 speech mildly dysarthric no aphasia CN: II-XII intact Motor RUE 5/5 RLE 5/5 LLE 5/5 LUE- proximal deltoids, biceps and triceps 5/5 wrist flexion and extension 5/5 weakness is present in the dorsal interossei and most prominent on flexion of thumb and index finger suggestive of a probably median neuropathy suspect anterior interosseus n. involvement atrophy in thenar region of left hand prominent indicating a chronic process Reflexes RUE 1+ Triceps and Biceps, LUE absent reflexes KJ 1+ bilateral absent AJ Sensory intact throughout Coordination intact FTN Results/Medications Result Diagram: 02/21/17 0515 02/21/17 0515 Results 24 hrs Laboratory Tests Test 02/20/17 21:23 02/21/17 05:15 02/21/17 08:07 02/21/17 12:07 Bedside Glucose 136 268 H 158 White Blood Count 7.4 Red Blood Count 4.40 L Hemoglobin 12.0 L Hematocrit 36.9 L Mean Corpuscular Volume 83.9 Mean Corpuscular Hemoglobin 27.3 L Mean Corpuscular Hemoglobin Concent 32.5 Red Cell Distribution Width 12.5 Platelet Count 388 Mean Platelet Volume 10.2 Neutrophils % 53.5 Lymphocytes % 37.0 Monocytes % 7.1 Eosinophils % 1.9 Basophils % 0.4 Nucleated Red Blood Cells % 0.0 Neutrophils # 3.9 Lymphocytes # 2.7 Monocytes # 0.5 Eosinophils # 0.1 Basophils # 0.0 Nucleated Red Blood Cells # 0.0 Sodium Level 141 Potassium Level 4.5 Chloride Level 102 # Carbon Dioxide Level 28 Anion Gap 16 Blood Urea Nitrogen 16 Creatinine 0.78 Glucose Level 245 #H Hemoglobin A1c Calcium Level 8.9 Phosphorus Level 3.7 Magnesium Level 1.8 Total Bilirubin 0.2 Direct Bilirubin 0.00 Indirect Bilirubin 0.2 Aspartate Amino Transf (AST/SGOT) 41 Alanine Aminotransferase (ALT/SGPT) 46 Alkaline Phosphatase 119 Total Protein 6.1 Albumin 3.3 Globulin 2.80 Albumin/Globulin Ratio 1.17 Triglycerides Level 157 H Cholesterol Level 131 LDL Cholesterol, Calculated 46 HDL Cholesterol 54 Cholesterol/HDL Ratio 2.4 Test 02/21/17 17:10 Bedside Glucose 144 Medications Current Medications Diagnostic Test (Pha) (Accu-Chek) 1 ea 02 XX ; Start 02/21/17 at 02:00 Insulin Glargine (Lantus) 15 unit DAILY@08 SC Last administered on 02/21/17 09 :05; Admin Dose 15 UNIT; Start 02/20/17 at 09:00 Miscellaneous Information 1 ea NOTE XX ; Start 02/20/17 at 09:00 Glucose (Glutose) 15 gm Q15M PRN PO DECREASED GLUCOSE; Start 02/20/17 at 09:00 Glucose (Glutose) 22.5 gm Q15M PRN PO DECREASED GLUCOSE; Start 02/20/17 at 09: 00 Dextrose (D50w Syringe) 25 ml Q15M PRN IV DECREASED GLUCOSE; Start 02/20/17 at 09:00 Dextrose (D50w Syringe) 50 ml Q15M PRN IV DECREASED GLUCOSE; Start 02/20/17 at 09:00 Glucagon (Glucagen) 1 mg Q15M PRN IM DECREASED GLUCOSE; Start 02/20/17 at 09:00 Glucose 15 gm 15 gm Q15M PRN BUCCAL DECREASED GLUCOSE; Start 02/20/17 at 09:00 Vancomycin HCl/ Sodium Chloride (Vancocin/NS) 250 ml @ 83.333 mls/ hr Q12H IVPB Last administered on 02/21/17 10:34; Admin Dose 83.333 MLS/HR; Start at 10:00 Ondansetron HCl (Zofran Inj) 4 mg Q6H PRN IV NAUSEA AND/OR VOMITING; Start at 09:00 Acetaminophen (Tylenol Tab) 650 mg Q6H PRN PO PAIN LEVEL 1-3 OR FEVER; Start at 09:00 Morphine Sulfate (morphine) 2 mg Q4H PRN IV SEVERE PAIN LEVEL 7-10 Last administered on 02/21/17 09:08; Admin Dose 2 MG; Start 02/20/17 at 09:00 Heparin Sodium (Porcine) (Heparin (5000 Units/0.5 ml)) 5,000 unit Q12 SC Last administered on 02/21/17 09:06; Admin Dose 5,000 UNIT; Start 02/20/17 at 09:00 Miscellaneous Information (*Rx Drug Level Order Reminder*) VANCOMYCIN TROUGH AT 2100 ONCE ONCE XX ; Start 02/21/17 at 21:00; Stop 02/21/17 at 21:01 Levofloxacin (Levaquin) 500 mg DAILY@06 PO ; Start 02/22/17 at 06:00 Gabapentin (Neurontin) 300 mg TID NGT ; Start 02/21/17 at 21:00 Assessment/Plan Chief Complaint/Hosp Course 46 year old male uncontrolled DM admitted for LLE cellulitis with LUE weakness worsening in the past week. Exam findings suggestive of weakness in left dorsal interossei involving left index finger and thumb with thenar atrophy suspecting chronic median neuropathy. MRI Brain : negative, MRI C Spine 1. At C3-4, mild to moderate central canal stenosis due to posterior disk/ osteophyte with 3 mm central disk protrusion. 2. At C4-5, mild to moderate central canal stenosis due to posterior disk/ osteophyte with 2 mm central disk protrusion. 3. At C5-6, mild to moderate central canal stenosis due to posterior disk/ osteophyte. 4. At C6-7, mild central canal stenosis due to posterior disk/osteophyte with 2 mm central disk protrusion. 5. Multilevel foraminal narrowing outlined in detail above. 6. Cervical spondylosis/degenerative enthesopathy. 7. No cervical cord signal abnormality. he will require further outpatient testing EMG/NCV studies to further localize PT/OT eval outpatient neurology follow up no further inpatient testing required Problems: PETER MORRIS MD Feb 21, 2017 17:59
[2017-02-21 19:14] VITALS: BP 134/97; RESP 20
[2017-02-21] MEDS: GABAPENTIN 300 MG CAP NGT SCH (21:01)
--- NOTE | 2017-02-22 00:51 | ERA ---
ER Documentation Chief Complaint Date/Time DATE: 02/22/17 TIME: 00:37 Chief Complaint left arm weakness since 3 days ago, both feet swelling HPI 46 year old male with a history of DM, noncompliant with medications, presenting with multiple complaints. He complains of bilateral foot wounds that he recently noticed that look infected to him. He denies much associated pain. No fevers. He does endorse increased urination and thirst for quite some time. His other complaint is left arm weakness after a fall 3 days ago, where he tripped over a box and landed head first on the ground, with loss of consciousness. Initially he didnt have any significant arm weakness, but he later noticed it. No associated paresthesias. He endorses associated 8/10 headache, nonradiating, left sided as well as left neck pain. No nausea, vomiting, memory loss, confusion, photophobia or other focal weakness or numbness. ROS All systems reviewed and are negative except as per history of present illness. Medications Home Meds Reported Medications Glyburide,Micronized (Glyburide Micronized) 3 Mg Tablet, 3 10 PO DAILY 04/24/13 Lisinopril* (Lisinopril*) 5 Mg Tablet, 5 MG PO DAILY 04/24/13 Metformin* (Glucophage*) 500 Mg Tab, 500 MG PO BID 04/24/13 Discontinued Reported Medications [Pt Not Taking Meds] No Conflict Check 01/26/14 Allergies Allergies: Coded Allergies: No Known Allergy (Unverified , 02/20/17) PMhx/Soc History of Surgery: Yes (Right shoulder surgery 2008) Anesthesia Reaction: No Hx Neurological Disorder: Yes (Neuropathy) Hx Respiratory Disorders: No Hx Cardiac Disorders: Yes (HTN) Hx Psychiatric Problems: Yes (Depression) Hx Miscellaneous Medical Probl: No Hx Alcohol Use: Yes (Hard liqour, once a week) Hx Substance Use: Yes (Marijuana, "a bowl" 02/17/2017 ) Hx Tobacco Use: Yes (Two cigars a day) Smoking Status: Current every day smoker FmHx Family History: No coronary disease Physical Exam Vitals Vital Signs Date Time Temp Pulse Resp B/P Pulse Ox O2 Delivery O2 Flow Rate FiO2 02/20/17 02:15 98.0 72 20 151/86 98 Room Air 02/20/17 00:56 98.3 88 20 137/108 97 Physical Exam Const: well appearing, no apparent distress Head: Atraumatic Eyes: Normal Conjunctiva, PERRLA, EOMI, no nystagmus ENT: Normal External Ears, Nose and Mouth. Neck: Full range of motion..~ No meningismus. Resp: Clear to auscultation bilaterally Cardio: Regular rate and rhythm, no murmurs Abd: Soft, non tender, non distended. Normal bowel sounds Skin: No petechiae or rashes Back: No midline or flank tenderness Ext: No cyanosis. 2+ distal pulses. Bilateral pedal edema to ankles. Left big toe with large pustule with purulent fluid under skin. 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 Sensations grossly intact. Normal gait, speech, balance Psych: Normal Mood and Affect Result Diagram: 02/21/17 0515 02/21/17 0515 Results 24 hrs Laboratory Tests Test 02/20/17 01:51 02/20/17 01:55 02/20/17 02:10 02/20/17 02:20 Bedside Glucose > 595mg/dL White Blood Count 6.310^3/ul Red Blood Count 4.2210^6/ul Hemoglobin 11.6g/dl Hematocrit 35.2% Mean Corpuscular Volume 83.4fl Mean Corpuscular Hemoglobin 27.5pg Mean Corpuscular Hemoglobin Concent 33.0g/dl Red Cell Distribution Width 12.7% Platelet Count 70797^3/UL Mean Platelet Volume 10.2fl Neutrophils % 48.7% Lymphocytes % 38.0% Monocytes % 9.9% Eosinophils % 2.5% Basophils % 0.6% Nucleated Red Blood Cells % 0.0/100WBC Neutrophils # 3.110^3/ul Lymphocytes # 2.410^3/ul Monocytes # 0.610^3/ul Eosinophils # 0.210^3/ul Basophils # 0.010^3/ul Nucleated Red Blood Cells # 0.010^3/ul Sodium Level 135mmol/L Potassium Level 4.7mmol/L Chloride Level 92mmol/L Carbon Dioxide Level 29mmol/L Anion Gap 19 Blood Urea Nitrogen 13mg/dl Creatinine 0.90mg/dl Glucose Level 623mg/dl Calcium Level 9.4mg/dl Magnesium Level 2.1mg/dl Total Bilirubin 0.4mg/dl Direct Bilirubin 0.00mg/dl Indirect Bilirubin 0.4mg/dl Aspartate Amino Transf (AST/SGOT) 32IU/L Alanine Aminotransferase (ALT/SGPT) 47IU/L Alkaline Phosphatase 137IU/L Total Protein 7.0g/dl Albumin 3.9g/dl Globulin 3.10g/dl Albumin/Globulin Ratio 1.25 Lactic Acid Level 2.0mmol/L Urine Color COLORLESS Urine Clarity CLEAR Urine pH 5.0 Urine Specific [place] 1.030 Urine Ketones NEGATIVEmg/dL Urine Nitrite NEGATIVEmg/dL Urine Bilirubin NEGATIVEmg/dL Urine Urobilinogen NEGATIVEmg/dL Urine Leukocyte Esterase NEGATIVELeu/ul Urine Hemoglobin NEGATIVEmg/dL Urine Glucose 3+mg/dL Urine Total Protein NEGATIVEmg/dl Current Medications Medications (Trade) Dose Ordered Sig/Maryjo Route PRN Reason Start Time Stop Time Status Last Admin Dose Admin Sodium Chloride 1,000 ml @ 1,000 mls/hr Q1H STAT IV 02/20/17 02:03 02/20/17 03:02 DC 02/20/17 02:22 Lactated Ringer's (Lr) 1,000 ml @ 1,000 mls/hr Q1H STAT IV 02/20/17 02:03 02/20/17 03:02 DC 02/20/17 02:21 Procedures/MDM Labs: CBC: anemia CMP: hyperglycemia Lactate: 2 UA + glucose MDM Patient is presenting with multiple issues. Vitals are stable and he is afebrile. IV fluids were started. Insulin was given for hyperglycemia without evidence of ketoacidosis. IV antibiotics started for diabetic foot infection. Imaging of the head and C-spine were ordered to rule out intracranial hemorrhage and spinal injury, though I have a low suspicion for these. His left arm weakness is more likely due to a peripheral nerve injury based on the exam. Patient is however not stable for discharge. He will require admission for IV antibiotics, control of his diabetes and further workup of his acute arm weakness. Admit MD: Vimal Pending studies: CT head and C-spine Departure Diagnosis: Primary Impression: Left arm weakness Additional Impressions: Head injury Qualified Code: S09.90XA - Head injury, initial encounter Hyperglycemia due to type 2 diabetes mellitus Qualified Code: E11.65 - Type 2 diabetes mellitus with hyperglycemia, without long-term current use of insulin Diabetic foot infection Condition: Serious VENICE THOMAS MD Feb 22, 2017 00:49
[2017-02-22 02:00] VITALS: BP 132/81; RESP 18
[2017-02-22] MEDS: ACCU-CHEK XX SCH (02:02)
[2017-02-22] MEDS ORDERED: INSULIN ASPART [NOVOLOG] 3 ML PEN SC ONE (02:30)
--- NOTE | 2017-02-22 05:31 | RADRPT ---
PROCEDURE: MRI of the left upper extremity CLINICAL INDICATION: Left upper extremity weakness TECHNIQUE: Multiplanar multisequence images of the left upper extremity without IV contrast. Imag es were interpreted at a independent PACS workstation. COMPARISON: MRI of the cervical spine performed same day FINDINGS: This study includes large field of view images of the left shoulder as well as the brachial plexus. There is no evidence of acute fracture. There is moderate acromioclavicular osteoarthrosis (axial 2 2). The glenohumeral joint is grossly preserved. There is suggestion of mild nonspecific edema within the medial aspect of the infraspinatus muscle b mary kate (sagittal 22), without atrophy. Remaining rotator cuff muscle appearance is normal. The rotat or cuff tendons are grossly intact though suboptimally assessed. Limited evaluation of the brachial plexus demonstrates no gross abnormality. There is no mass lesio n. The nerve roots appear grossly unremarkable. There are is no evidence of lymphadenopathy. Limited assessment of the chest appears normal. There are degenerative changes of the cervical spine, separately assessed. IMPRESSION: 1. No acute osseous abnormality. 2. Moderate acromioclavicular osteoarthrosis. 3. Suggestion of mild nonspecific edema within the infraspinatus muscle belly, possibly low grade m uscle strain or denervation change. Consider dedicated MRI of the left shoulder for further evaluat ion. 4. Limited evaluation of the brachial plexus appears grossly unremarkable. 5. Please see separately dictated MRI of the cervical spine for further assessment. RPTAT: UU .Roger Barbosa MD, MD Date Time Electronically viewed and signed by .Roger Barbosa MD, on 02/22/2017 05:30 .K/
[2017-02-22] MEDS: LEVOFLOXACIN 500 MG TAB PO SCH (06:12)
[2017-02-22 06:15] LABS: BASOPHILS % 0.5 % (0.0-2.0); EOSINOPHILS # 0.1 10^3/ul (0.0-0.5); EOSINOPHILS % 2.2 % (0.0-7.0); HEMATOCRIT 34.6 % (42.0-52.0); HEMOGLOBIN 11.2 g/dl (14.0-18.0); LYMPHOCYTES # 2.5 10^3/ul (0.8-2.9); LYMPHOCYTES % 42.7 % (15.0-51.0); MEAN CORPUSCULAR HEMOGLOBIN 26.9 pg (29.0-33.0); MEAN CORPUSCULAR HGB CONC 32.4 g/dl (32.0-37.0); MEAN PLATELET VOLUME 9.9 fl (7.4-10.4); MONOCYTE # 0.4 10^3/ul (0.3-0.9); MONOCYTES % 6.8 % (0.0-11.0); NEUTROPHIL # 2.8 10^3/ul (1.6-7.5); NEUTROPHILS % 47.6 % (39.0-77.0); PLATELET COUNT 376 10^3/UL (140-415); RED BLOOD COUNT 4.17 10^6/ul (4.70-6.10); RED CELL DISTRIBUTION WIDTH 12.7 % (11.5-14.5); WHITE BLOOD COUNT 5.9 10^3/ul (4.8-10.8)
[2017-02-22 06:29] LABS: CALCIUM 8.9 mg/dl (8.4-10.2); CREATININE 0.79 mg/dl (0.61-1.24); MAGNESIUM 1.9 mg/dl (1.7-2.5); PHOSPHORUS 3.5 mg/dl (2.5-4.9); POTASSIUM 4.3 mmol/L (3.5-5.1)
[2017-02-22 07:46] VITALS: BP 119/79; RESP 20
[2017-02-22] MEDS: GABAPENTIN 300 MG CAP NGT SCH ×3 (08:09→21:00)
[2017-02-22] MEDS: INSULIN ASPART [NOVOLOG] 3 ML PEN SC SCH ×7 (08:12→21:00)
[2017-02-22] MEDS: HEPARIN 5,000 UNIT/0.5 ML VIAL SC SCH ×2 (08:13→21:00)
[2017-02-22] MEDS: INSULIN GLARGINE [LANtus] 3 ML PEN SC SCH (08:14)
[2017-02-22] MEDS ORDERED: INSULIN ASPART [NOVOLOG] 3 ML PEN SC SCH (08:15)
[2017-02-22] MEDS: VANCOMYCIN 1.25 GM in SOD CHLORIDE 0.9% 250 ML IVPB SCH (10:08)
--- NOTE | 2017-02-22 11:47 | PN ---
Date/Time of Note Date/Time of Note DATE: 02/22/17 TIME: 11:44 Assessment/Plan VTE Prophylaxis VTE Prophylaxis Intervention: LMWH Lines/Catheters IV Catheter Type (from Nrsg): Saline Lock Urinary Cath still in place: No Assessment/Plan Chief Complaint/Hosp Course 46 yo male wt poorly controlled DMII who presented with LUE weakness, found to have hyperglycemia and concern for osteomyelitis in DM foot ulcer of left great toe Foot ulcer: - Presumed osteomyelitis of L great toe - vanco/levaquin per ID consult. Would personally favor 1 month of PO abx and reassessment wt repeat MRI as outpatient - Await podiatry evaluation - IZABELA pending to asess vasculature - Unclear sorce of peripheral edema, reassurign that duplex in negative for DVT Acute neuropathy of LUE: - No KNOCKDOWN WORKER pathology on MRI - PT/OT - Nerve conduction study as outpatient DMII: - Poorly controlled, only on metformian and glyburide as outpatinet. patient requiries insluin therapy - Continue to uptitrate basal insulin with sliding scale coverage - PASTORA and statin also indicated Problems: Subjective 24 Hr Interval Summary Free Text/Dictation Major concern is of continued weakness in RUE. Spoke at length about his DMII and improtance of glycemic control, lifelong Exam/Review of Systems Vital Signs Vitals Vital Signs Date Time Temp Pulse Resp B/P Pulse Ox O2 Delivery O2 Flow Rate FiO2 02/22/17 07:46 98.3 86 20 119/79 99 02/20/17 06:50 Room Air Intake and Output 02/21/17 02/21/17 02/22/17 15:00 23:00 07:00 Intake Total 300 ml 1200 ml 1050 ml Output Total 0 ml 900 ml Balance 300 ml 1200 ml 150 ml Exam Well appearing, NAD, aox3 Flat neck veins, RRR Soft nt nd LUE with 4/5 strength at shoulder and elbow, decreased strength in hand to 4/5, hypothenar atrophy noted Ext with pitting edema to ankles L < R Left great toe with unroofed toenail, no drainage. No warmth or erthema. blister over tip of digit. L foot with erosion Poorly palpable pulses in ankles Results Result Diagram: 02/22/17 0545 02/22/17 0545 Results 24 hrs Laboratory Tests Test 02/21/17 12:07 02/21/17 17:10 02/21/17 20:45 02/21/17 21:00 Bedside Glucose 158 144 193 Vancomycin Level Trough 12.3 Test 02/22/17 02:01 02/22/17 05:45 02/22/17 08:08 Bedside Glucose 339 H 261 H White Blood Count 5.9 # Red Blood Count 4.17 L Hemoglobin 11.2 L Hematocrit 34.6 L Mean Corpuscular Volume 83.0 Mean Corpuscular Hemoglobin 26.9 L Mean Corpuscular Hemoglobin Concent 32.4 Red Cell Distribution Width 12.7 Platelet Count 376 Mean Platelet Volume 9.9 Neutrophils % 47.6 Lymphocytes % 42.7 Monocytes % 6.8 Eosinophils % 2.2 Basophils % 0.5 Nucleated Red Blood Cells % 0.0 Neutrophils # 2.8 Lymphocytes # 2.5 Monocytes # 0.4 Eosinophils # 0.1 Basophils # 0.0 Nucleated Red Blood Cells # 0.0 Sodium Level 139 Potassium Level 4.3 Chloride Level 102 Carbon Dioxide Level 26 Anion Gap 15 Blood Urea Nitrogen 17 Creatinine 0.79 Glucose Level 317 H Calcium Level 8.9 Phosphorus Level 3.5 Magnesium Level 1.9 Medications Medications Current Medications Diagnostic Test (Pha) (Accu-Chek) 1 ea 02 XX Last administered on 02/22/17t 02: 02; Admin Dose 1 EA; Start 02/21/17 at 02:00 Miscellaneous Information 1 ea NOTE XX ; Start 02/20/17 at 09:00 Glucose (Glutose) 15 gm Q15M PRN PO DECREASED GLUCOSE; Start 02/20/17 at 09:00 Glucose (Glutose) 22.5 gm Q15M PRN PO DECREASED GLUCOSE; Start 02/20/17 at 09: 00 Dextrose (D50w Syringe) 25 ml Q15M PRN IV DECREASED GLUCOSE; Start 02/20/17 at 09:00 Dextrose (D50w Syringe) 50 ml Q15M PRN IV DECREASED GLUCOSE; Start 02/20/17 at 09:00 Glucagon (Glucagen) 1 mg Q15M PRN IM DECREASED GLUCOSE; Start 02/20/17 at 09:00 Glucose 15 gm 15 gm Q15M PRN BUCCAL DECREASED GLUCOSE; Start 02/20/17 at 09:00 Vancomycin HCl/ Sodium Chloride (Vancocin/NS) 250 ml @ 83.333 mls/ hr Q12H IVPB Last administered on 02/22/17 10:08; Admin Dose 83.333 MLS/HR; Start at 10:00 Ondansetron HCl (Zofran Inj) 4 mg Q6H PRN IV NAUSEA AND/OR VOMITING; Start at 09:00 Acetaminophen (Tylenol Tab) 650 mg Q6H PRN PO PAIN LEVEL 1-3 OR FEVER Last administered on 02/21/17 21:11; Admin Dose 650 MG; Start 02/20/17 at 09:00 Morphine Sulfate (morphine) 2 mg Q4H PRN IV SEVERE PAIN LEVEL 7-10 Last administered on 02/21/17 09:08; Admin Dose 2 MG; Start 02/20/17 at 09:00 Heparin Sodium (Porcine) (Heparin (5000 Units/0.5 ml)) 5,000 unit Q12 SC Last administered on 02/22/17 08:13; Admin Dose 5,000 UNIT; Start 02/20/17 at 09:00 Levofloxacin (Levaquin) 500 mg DAILY@06 PO Last administered on 02/22/17 06:12 ; Admin Dose 500 MG; Start 02/22/17 at 06:00 Gabapentin (Neurontin) 300 mg TID NGT Last administered on 02/22/17 08:09; Admin Dose 300 MG; Start 02/21/17 at 21:00 Insulin Glargine (Lantus) 18 unit DAILY@08 SC Last administered on 02/22/17 08 :14; Admin Dose 18 UNIT; Start 02/22/17 at 08:00 LAURENCE LOPEZ MD Feb 22, 2017 11:47
--- NOTE | 2017-02-22 13:19 | CONS ---
Date/Time of Note Date/Time of Note DATE: 02/22/17 TIME: 13:17 Assessment/Plan Assessment/Plan Chief Complaint/Hosp Course No acute changes patient is alert family looks comfortable, no fevers Antibiotics: Vanco Levaquin physical examination: Well-developed middle-aged -[place]ong[place]ian male who is alert in no distress. Head atraumatic normocephalic sclera nonicteric. Neck is supple. Chest rise symmetrical, breath sounds clear. Heart: S1-S2. Abdomen soft bowel sounds present. Extremities with bilateral lower extremities edema and trace erythema with left lower extremity swelling and redness of the great toe Assessment: 1. Left lower extremity cellulitis with evidence of first distal part of the toe osteomyelitis as per MRI 2. Diabetes mellitus 2. Bilateral lower extremities edema Plan: Remain stable, continue antibiotics, await for podiatry evaluation, patient will require 6 weeks of IV vancomycin and oral Levaquin if osteomyelitis confirmed by podiatry DW pt/staff Problems: Consultation Date/Type/Reason Admit Date/Time Feb 20, 2017 at 11:15 Initial Consult Date 02/20/17 Type of Consultation: id Referring Provider: ROSA QUINTERO Exam/Review of Systems Vital Signs Vitals Vital Signs Date Time Temp Pulse Resp B/P Pulse Ox O2 Delivery O2 Flow Rate FiO2 02/22/17 07:46 98.3 86 20 119/79 99 02/20/17 06:50 Room Air Intake and Output 02/21/17 02/21/17 02/22/17 15:00 23:00 07:00 Intake Total 300 ml 1200 ml 1050 ml Output Total 0 ml 900 ml Balance 300 ml 1200 ml 150 ml Results Result Diagram: 02/22/17 0545 02/22/17 0545 Results 24 hrs Laboratory Tests Test 02/21/17 17:10 02/21/17 20:45 02/21/17 21:00 02/22/17 02:01 Bedside Glucose 144 193 339 H Vancomycin Level Trough 12.3 Test 02/22/17 05:45 02/22/17 08:08 02/22/17 12:06 White Blood Count 5.9 # Red Blood Count 4.17 L Hemoglobin 11.2 L Hematocrit 34.6 L Mean Corpuscular Volume 83.0 Mean Corpuscular Hemoglobin 26.9 L Mean Corpuscular Hemoglobin Concent 32.4 Red Cell Distribution Width 12.7 Platelet Count 376 Mean Platelet Volume 9.9 Neutrophils % 47.6 Lymphocytes % 42.7 Monocytes % 6.8 Eosinophils % 2.2 Basophils % 0.5 Nucleated Red Blood Cells % 0.0 Neutrophils # 2.8 Lymphocytes # 2.5 Monocytes # 0.4 Eosinophils # 0.1 Basophils # 0.0 Nucleated Red Blood Cells # 0.0 Sodium Level 139 Potassium Level 4.3 Chloride Level 102 Carbon Dioxide Level 26 Anion Gap 15 Blood Urea Nitrogen 17 Creatinine 0.79 Glucose Level 317 H Calcium Level 8.9 Phosphorus Level 3.5 Magnesium Level 1.9 Bedside Glucose 261 H 188 Medications Medications Current Medications Diagnostic Test (Pha) (Accu-Chek) 1 ea 02 XX Last administered on 02/22/17 02: 02; Admin Dose 1 EA; Start 02/21/17 at 02:00 Miscellaneous Information 1 ea NOTE XX ; Start 02/20/17 at 09:00 Glucose (Glutose) 15 gm Q15M PRN PO DECREASED GLUCOSE; Start 02/20/17 at 09:00 Glucose (Glutose) 22.5 gm Q15M PRN PO DECREASED GLUCOSE; Start 02/20/17 at 09: 00 Dextrose (D50w Syringe) 25 ml Q15M PRN IV DECREASED GLUCOSE; Start 02/20/17 at 09:00 Dextrose (D50w Syringe) 50 ml Q15M PRN IV DECREASED GLUCOSE; Start 02/20/17 at 09:00 Glucagon (Glucagen) 1 mg Q15M PRN IM DECREASED GLUCOSE; Start 02/20/17 at 09:00 Glucose 15 gm 15 gm Q15M PRN BUCCAL DECREASED GLUCOSE; Start 02/20/17 at 09:00 Vancomycin HCl/ Sodium Chloride (Vancocin/NS) 250 ml @ 83.333 mls/ hr Q12H IVPB Last administered on 02/22/17 10:08; Admin Dose 83.333 MLS/HR; Start at 10:00 Ondansetron HCl (Zofran Inj) 4 mg Q6H PRN IV NAUSEA AND/OR VOMITING; Start at 09:00 Acetaminophen (Tylenol Tab) 650 mg Q6H PRN PO PAIN LEVEL 1-3 OR FEVER Last administered on 02/21/17 21:11; Admin Dose 650 MG; Start 02/20/17 at 09:00 Morphine Sulfate (morphine) 2 mg Q4H PRN IV SEVERE PAIN LEVEL 7-10 Last administered on 02/21/17 09:08; Admin Dose 2 MG; Start 02/20/17 at 09:00 Heparin Sodium (Porcine) (Heparin (5000 Units/0.5 ml)) 5,000 unit Q12 SC Last administered on 02/22/17 08:13; Admin Dose 5,000 UNIT; Start 02/20/17 at 09:00 Levofloxacin (Levaquin) 500 mg DAILY@06 PO Last administered on 02/22/17 06:12 ; Admin Dose 500 MG; Start 02/22/17 at 06:00 Gabapentin (Neurontin) 300 mg TID NGT Last administered on 02/22/17 08:09; Admin Dose 300 MG; Start 02/21/17 at 21:00 Insulin Glargine (Lantus) 18 unit DAILY@08 SC Last administered on 02/22/17 08 :14; Admin Dose 18 UNIT; Start 02/22/17 at 08:00 Atorvastatin Calcium (Lipitor) 20 mg HS PO ; Start 02/22/17 at 21:00 Aspirin (Aspirin) 81 mg DAILY PO ; Start 02/23/17 at 09:00 ROCIO CALDERON NP Feb 22, 2017 13:19
[2017-02-22 15:06] VITALS: BP 119/74; RESP 20
[2017-02-22 19:34] VITALS: BP 126/83; RESP 18
[2017-02-22] MEDS ORDERED: ATORVASTATIN 20 MG TAB PO SCH (21:00)
[2017-02-22] MEDS: VANCOMYCIN 1.5 GM in SOD CHLORIDE 0.9% 250 ML IVPB SCH (22:00)
[2017-02-23] MEDS: ACCU-CHEK XX SCH (01:53)
[2017-02-23 02:00] VITALS: BP 118/66; RESP 18
[2017-02-23 06:14] LABS: BASOPHILS % 0.6 % (0.0-2.0); EOSINOPHILS # 0.1 10^3/ul (0.0-0.5); EOSINOPHILS % 2.3 % (0.0-7.0); HEMATOCRIT 34.1 % (42.0-52.0); LYMPHOCYTES # 2.4 10^3/ul (0.8-2.9); LYMPHOCYTES % 47.7 % (15.0-51.0); MEAN CORPUSCULAR HEMOGLOBIN 27.2 pg (29.0-33.0); MEAN CORPUSCULAR HGB CONC 32.3 g/dl (32.0-37.0); MEAN CORPUSCULAR VOLUME 84.2 fl (82.0-101.0); MEAN PLATELET VOLUME 9.9 fl (7.4-10.4); MONOCYTE # 0.4 10^3/ul (0.3-0.9); MONOCYTES % 7.6 % (0.0-11.0); NEUTROPHIL # 2.1 10^3/ul (1.6-7.5); NEUTROPHILS % 41.6 % (39.0-77.0); PLATELET COUNT 357 10^3/UL (140-415); RED BLOOD COUNT 4.05 10^6/ul (4.70-6.10); RED CELL DISTRIBUTION WIDTH 12.7 % (11.5-14.5); WHITE BLOOD COUNT 5.1 10^3/ul (4.8-10.8)
[2017-02-23] MEDS: LEVOFLOXACIN 500 MG TAB PO SCH (06:48)
[2017-02-23 07:06] LABS: CREATININE 0.77 mg/dl (0.61-1.24); POTASSIUM 4.3 mmol/L (3.5-5.1)
[2017-02-23 07:18] VITALS: BP 131/91; RESP 18
[2017-02-23] MEDS: GABAPENTIN 300 MG CAP NGT SCH ×2 (08:24→12:17)
--- NOTE | 2017-02-23 08:34 | CONS ---
Date/Time of Note Date/Time of Note DATE: 02/23/17 TIME: 08:06 Assessment/Plan Assessment/Plan Chief Complaint/Hosp Course ID PROGRESS NOTE 24H INTERVAL SUMMARY * No F/C/N/V/D -- patient doing OK tells me BLEXT still edematous, yet erythema pre-tibial has improved. Denies significant pain at Bilateral feet ulcer sites. Patient had been soaking feet in full strength H202 followed by warm/hot water soaks prior to seeking medical attention for worsening left great toe edema/pain. I explained to patient warm/hot water soaks are contraindicated due to his peripheral neuropathy as he can't feel the temperature and this puts him at risk for thermal tissue injury; advised 1/2 strength H202 + water better than full strength as full strength also kills new granulation tissue. Patient has never been seen by DPM for DM foot care, he has hyperkeratotic thick, long toenails, I explained to him that only DPM recommended to cut nails, do not cut on his own, no nail salons. Lengthy discussion on basic DM foot care today. * Patient tells me he follows with OP Primary care on his HTN, and DM; however his A1c was a "send out lab" which indicates that his DM is poorly controlled if [facility] lab cannot calculate his A1C it must be significantly elevated. PROCEDURE: MRI OF THE LEFT FOOT CLINICAL INDICATION: Left foot pain and swelling, injury a week ago, evaluate for osteomyelitis TECHNIQUE: Multiple MRI images were obtained utilizing multiple sequences in multiple planes. Images were interpreted on a high-resolution PACS system. COMPARISON: None available FINDINGS: There is a distal ulceration of the great toe with adjacent soft tissue swelling underlying abnormal bone marrow signal at the tip of the first distal phalanx suspicious for osteomyelitis (sagittal 23 and axial 16). There is no drainable fluid collection. There is no involvement of the first proximal phalanx, first metatarsal head, or sesamoids. The remainder of the forefoot demonstrates extensive subcutaneous soft tissue swelling, greatest dorsally. There is no evidence of tendon tear. There is mild nonspecific muscle edema. IMPRESSION: 1. Distal skin ulceration of the great toe with adjacent soft tissue swelling and probable osteomyelitis involving the first distal tuft. 2. Significant dorsal subcutaneous soft tissue swelling throughout the foot , query cellulitis, without discrete drainable fluid collection. 3. No evidence of tendon tear. EXAM GEN: 46 yo M, WN,WD, NAD VITALS: Afebrile, VSS HEENT: Unremarkable, no oral thrush NECK: Supple, full ROM CHEST: Equal chest rise bilaterally, without dyspnea on room air on observation CV: Radial pulse RRR ABD: Soft, NT : Deferred EXT: Warm, (+)2+bilateral ankle edema/1(+)bilateral dorsal feet edema, (+)BLEXT hyperpigmentation/thickened skin pre-tibial/ankles, (+)hyperkeratotic thick long toenails, (+)right foot superficial ulcer ~5cm diameter w/small amount purulent drainage; left great toe w/closed blister at tip in addition to dry crusted healing ulcer at tip under raised toenail bed without drainage. SKIN: No rash, no diaphoresis, (+)tattoos upper ext NEURO: Grossly intact w/known Dm peripheral neuropathy ID ASSESSMENT 46 yo M admit with: 1. Bilateral lower extremity cellulitis w/bilateral diabetic feet infection as below: * Left great toe closed blister, open crusty healing ulcer, and evidence of first distal part of the toe osteomyelitis as per MRI * Right lateral dorsal healing ulcer w/mostly closed dry wound bed and small amount of purulent drainage today at wound border. 2. Diabetes mellitus w/complication of DM peripheral neuropathy 3. Bilateral lower extremities edema w/chronic venous stasis hyperpigmentation/ hyperkeratotic thick skin changes/hyperkeratotic long toenails in need of trimming * BLEXT US: No evidence of a deep vein thrombosis within the bilateral lower extremities. * 2013 2D ECHO: Normal systolic fx, mild cLVH, EF 60%, normal for age. 4. HTN w/possible HTN heart disease per (+)mild concentric LVH on 2013 ECHO, normal ECG this admission 5. DJD: * Left shoulder pain: MRI No acute process w/ Moderate acromioclavicular osteoarthrosis (+/-) ?mild nonspecific edema within the infraspinatus muscle belly, possibly low grade muscle strain or denervation change. * Hx of right shoulder surgery 6. Cervicalgia w/imaging findings: Multilevel foraminal narrowing outlined in detail above.Cervical spondylosis/degenerative enthesopathy. No cervical cord signal abnormality. 7. Chronic sinusitis per MRI/CT Brain * CT: Opacified partially visualized right ethmoid air cells with moderate mucosal thickening within the right frontal sinuses. * MRI: Noted are complete right maxillary, extensive right frontal and ethmoid sinus opacification, left maxillary sinus mucous retention cysts and minimal mastoid air cell opacification. 8. Tobaccoism -> 2 cigars/day 9. 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 Socioeconomic barriers to care: Homeless living out of w/friend CURRENT ABX: Vanco IV + Levaquin ID RECOMMENDATIONS 1. WOUND CULTURE TODAY PERFORMED at bedside * I sent wound culture (swab) from R-foot purulent drainage to micro for C&S. * Bilateral nares swab for MRSA screening sent 2. Lengthy patient education discussed with patient today at bedside: * No safe level tobacco-> smoking cessation strongly advocated * I discussed in lay terms with the patient the importance of seeking care with outpatient bilingual research interviewer for ongoing DM foot care, no hot water soaking, no self trimming of toenails, only Podiatry to cut nails. Pathophysiology of DM foot infections risk of severe injury, loss of limb function, risk of amputation and amputation prevention concepts discussed (Medical Tx of HTN, Hyperlipidemia, Blood Glucose, DPM outpatient monitoring, s/sx of DM infection; risk of injury due to peripheral neuropathy, need for DM shoes, elevation of legs with BLEXT edema, foot hygiene, and other aspects such as nutrition, smoking cessation, seek early medical care for worsening pain, edema, redness, eschar, fevers, chills. Patient expressed understanding and motivation to follow up with OP DPM and assume responsibility for compliance with medical recommendations. 3. Bilateral compression stockings - MAUREEN hose, low pressure, elevate BLEXT as much as possible= Ordered, I instructed nurse. 4. DM shoes -- Not sure who provides these @ [facility], usually ordered by DPM; will place order PTx/OTx? 5. Recommend inpatient vs OK to follow up with DPM/AP[facility] outpatient -- Case management order placed to assist. 6. DM Nutrition education consult in place per RN 7. Recommended to patient to follow up with [facility] APC center in 4 week with repeat imaging and evaluation by APC who will have access to wound and nares cultures sent today. 8. FINAL DISPOSITION ABX RECOMMENDATIONS => Continue IV Vanco + Levaquin while he remains on inpatient status => When cleared by primary care, patient may DC home on PO ABX as follows: * Bactrim DS 1 TAB PO Q12 w/full glass H20 for total 28 days * Levaquin 500mg PO daily for 28 days * Patient to follow up with primary care provider w/renal labs and DM management in 2 weeks, Patient to follow up with DPM in 4 weeks. Patient may f/ u with Dr. Funez OP; however I explained to patient that follow up with DPM/ APC in 4 weeks priority as APC can contact Dr. Funez directly if indicated on future ABX and treatment recommendations. * Patient expressed understanding and agreement with with my lengthy recommendations. I explained that the hourly sales staff will follow up with written education materials and he will be given contact information for DPM/APC consult and Dr. Funez contact info upon DC. . Problems: Consultation Date/Type/Reason Admit Date/Time Feb 20, 2017 at 11:15 Initial Consult Date 02/20/17 Type of Consultation: ID Referring Provider: ROSA QUINTERO Exam/Review of Systems Vital Signs Vitals Vital Signs Date Time Temp Pulse Resp B/P Pulse Ox O2 Delivery O2 Flow Rate FiO2 02/23/17 07:18 98.3 78 18 131/91 100 02/20/17 06:50 Room Air Intake and Output 02/22/17 02/22/17 02/23/17 15:00 23:00 07:00 Intake Total 250 ml 1440 ml 700 ml Output Total 1000 ml Balance 250 ml 440 ml 700 ml Results Result Diagram: 02/23/17 0520 02/23/17 0520 Results 24 hrs Laboratory Tests Test 02/22/17 08:08 02/22/17 12:06 02/22/17 17:26 02/22/17 21:24 Bedside Glucose 261 H 188 181 172 Test 02/23/17 05:20 White Blood Count 5.1 Red Blood Count 4.05 L Hemoglobin 11.0 L Hematocrit 34.1 L Mean Corpuscular Volume 84.2 Mean Corpuscular Hemoglobin 27.2 L Mean Corpuscular Hemoglobin Concent 32.3 Red Cell Distribution Width 12.7 Platelet Count 357 Mean Platelet Volume 9.9 Neutrophils % 41.6 Lymphocytes % 47.7 Monocytes % 7.6 Eosinophils % 2.3 Basophils % 0.6 Nucleated Red Blood Cells % 0.0 Neutrophils # 2.1 Lymphocytes # 2.4 Monocytes # 0.4 Eosinophils # 0.1 Basophils # 0.0 Nucleated Red Blood Cells # 0.0 Sodium Level 141 Potassium Level 4.3 Chloride Level 104 Carbon Dioxide Level 26 Anion Gap 15 Blood Urea Nitrogen 15 Creatinine 0.77 Glucose Level 201 # Calcium Level 9.0 Medications Medications Current Medications Diagnostic Test (Pha) (Accu-Chek) 1 ea 02 XX Last administered on 02/22/17 02: 02; Admin Dose 1 EA; Start 02/21/17 at 02:00 Miscellaneous Information 1 ea NOTE XX ; Start 02/20/17 at 09:00 Glucose (Glutose) 15 gm Q15M PRN PO DECREASED GLUCOSE; Start 02/20/17 at 09:00 Glucose (Glutose) 22.5 gm Q15M PRN PO DECREASED GLUCOSE; Start 02/20/17 at 09: 00 Dextrose (D50w Syringe) 25 ml Q15M PRN IV DECREASED GLUCOSE; Start 02/20/17 at 09:00 Dextrose (D50w Syringe) 50 ml Q15M PRN IV DECREASED GLUCOSE; Start 02/20/17 at 09:00 Glucagon (Glucagen) 1 mg Q15M PRN IM DECREASED GLUCOSE; Start 02/20/17 at 09:00 Glucose (Glutose) 15 gm Q15M PRN BUCCAL DECREASED GLUCOSE; Start 02/20/17 at 09 :00 Ondansetron HCl (Zofran Inj) 4 mg Q6H PRN IV NAUSEA AND/OR VOMITING; Start at 09:00 Acetaminophen (Tylenol Tab) 650 mg Q6H PRN PO PAIN LEVEL 1-3 OR FEVER Last administered on 02/21/17 21:11; Admin Dose 650 MG; Start 02/20/17 at 09:00 Morphine Sulfate (morphine) 2 mg Q4H PRN IV SEVERE PAIN LEVEL 7-10 Last administered on 02/21/17 09:08; Admin Dose 2 MG; Start 02/20/17 at 09:00 Heparin Sodium (Porcine) (Heparin (5000 Units/0.5 ml)) 5,000 unit Q12 SC Last administered on 02/22/17 21:00; Admin Dose 5,000 UNIT; Start 02/20/17 at 09:00 Levofloxacin (Levaquin) 500 mg DAILY@06 PO Last administered on 02/23/17 06:48 ; Admin Dose 500 MG; Start 02/22/17 at 06:00 Gabapentin (Neurontin) 300 mg TID NGT Last administered on 02/22/17 21:00; Admin Dose 300 MG; Start 02/21/17 at 21:00 Insulin Glargine (Lantus) 18 unit DAILY@08 SC Last administered on 02/22/17 08 :14; Admin Dose 18 UNIT; Start 02/22/17 at 08:00 Atorvastatin Calcium (Lipitor) 20 mg HS PO Last administered on 02/22/17 21:00 ; Admin Dose 20 MG; Start 02/22/17 at 21:00 Aspirin 81 mg 81 mg DAILY PO ; Start 02/23/17 at 09:00 Vancomycin HCl/ Sodium Chloride (Vancocin/NS) 250 ml @ 83.333 mls/ hr Q12H IVPB Last administered on 02/22/17 22:00; Admin Dose 83.333 MLS/HR; Start at 22:00 MARIANO VACA NP Feb 23, 2017 08:20
[2017-02-23] MEDS: INSULIN ASPART [NOVOLOG] 3 ML PEN SC SCH ×6 (08:37→17:55)
[2017-02-23] MEDS: INSULIN GLARGINE [LANtus] 3 ML PEN SC SCH (08:37)
[2017-02-23] MEDS: HEPARIN 5,000 UNIT/0.5 ML VIAL SC SCH (08:38)
[2017-02-23] MEDS ORDERED: ASPIRIN 81 MG TAB PO SCH (09:00)
[2017-02-23] MEDS: VANCOMYCIN 1.5 GM in SOD CHLORIDE 0.9% 250 ML IVPB SCH (10:03)
[2017-02-23] MEDS ORDERED: SILVER SULFADIAZINE 1% 25 GM CR TOP ONE (10:13)
[2017-02-23] MEDS ORDERED: SILVER SULFADIAZINE 1% 25 GM CR TOP SCH (11:30)
--- NOTE | 2017-02-23 13:09 | PDOCDIS ---
Discharge Instructions CONDITION Patient Condition: Good HOME CARE INSTRUCTIONS: Special Diet: CARB CONTROLLED ACTIVITY: Activity Restrictions: No Restrictions FOLLOW UP/APPOINTMENTS Follow-up Plan Follow up with primary care provider and hydro pneumatic tester within the next 1-2 weeks as well as your neurologist for your hand weakness It is very improtant for you to ensure you have good control of your blood sugar and to take your insulin SCHOOL/WORK RELEASE May return to School/Work with: No Restrictions LAURENCE LOPEZ MD Feb 23, 2017 13:09
[2017-02-23] MEDS ORDERED: LANT3I SC (13:17)
[2017-02-23] MEDS ORDERED: LEVO500T72 PO (13:17)
[2017-02-23] MEDS ORDERED: ASPI81TA3 PO (13:17)
[2017-02-23] MEDS ORDERED: ATOR20TA65 PO (13:17)
[2017-02-23] MEDS ORDERED: SULF1TAB31 PO (13:17)
--- NOTE | 2017-02-23 13:23 | DS ---
Date/Time of Note Date/Time of Note DATE: 02/23/17 TIME: 13:18 Discharge Summary Admission/Discharge Info Admit Date/Time Feb 20, 2017 at 11:15 Discharge Date/Time Discharge Diagnosis Diabetic foot ulcer, osteomyelitis, peripheral neuropathy Patient Condition: Good Consults Neurology Infectious Disease Hx of Present Illness This is a 46-year-old male with a history of diabetes hypertension and left lower extremity cellulitis/wound who presented to the emergency department status post a fall. He said he tripped and fell hitting his head and also experiencing loss of consciousness. He denied any chest pain palpitations or lightheadedness. He further complains of left lower extremity infection including some blisters and possible gangrene on his toe. Patient was admitted here in 2013 for left lower extremity cellulitis/wound which was initially started as work related injury. In the ER, head CT was negative for acute processes. Cervical CT was negative for fracture. His vitals were stable. Lab shows blood glucose of greater than 600. Patient has not been compliant with his medication. Hospital Course: MRI of head/spine showed no acute pathology. Seen by neurology consult who felt left hand pathology was related to peripheral nerve disease and recommended further workup as an outpatinet. MRI of foot showed likely L great toe osteomyelitis. He was treated with vancomycin and levaquin, which was converted to PO bactrim and PO levaquin at discharge to complete 4 weeks of therapy. He was started on basal insulin with adequate glycemic control. He was extensively counseled on importance of lifelong glycemic control. He was prescribed 20 units of lantus daily and continued on metformin. He will follow up with outpatient primary care for further diabetic management. Hospital Course ID PROGRESS NOTE 24H INTERVAL SUMMARY * No F/C/N/V/D -- patient doing OK tells me BLEXT still edematous, yet erythema pre-tibial has improved. Denies significant pain at Bilateral feet ulcer sites. Patient had been soaking feet in full strength H202 followed by warm/hot water soaks prior to seeking medical attention for worsening left great toe edema/pain. I explained to patient warm/hot water soaks are contraindicated due to his peripheral neuropathy as he can't feel the temperature and this puts him at risk for thermal tissue injury; advised 1/2 strength H202 + water better than full strength as full strength also kills new granulation tissue. Patient has never been seen by DPM for DM foot care, he has hyperkeratotic thick, long toenails, I explained to him that only DPM recommended to cut nails, do not cut on his own, no nail salons. Lengthy discussion on basic DM foot care today. * Patient tells me he follows with OP Primary care on his HTN, and DM; however his A1c was a "send out lab" which indicates that his DM is poorly controlled if [facility] lab cannot calculate his A1C it must be significantly elevated. PROCEDURE: MRI OF THE LEFT FOOT CLINICAL INDICATION: Left foot pain and swelling, injury a week ago, evaluate for osteomyelitis TECHNIQUE: Multiple MRI images were obtained utilizing multiple sequences in multiple planes. Images were interpreted on a high-resolution PACS system. COMPARISON: None available FINDINGS: There is a distal ulceration of the great toe with adjacent soft tissue swelling underlying abnormal bone marrow signal at the tip of the first distal phalanx suspicious for osteomyelitis (sagittal 23 and axial 16). There is no drainable fluid collection. There is no involvement of the first proximal phalanx, first metatarsal head, or sesamoids. The remainder of the forefoot demonstrates extensive subcutaneous soft tissue swelling, greatest dorsally. There is no evidence of tendon tear. There is mild nonspecific muscle edema. IMPRESSION: 1. Distal skin ulceration of the great toe with adjacent soft tissue swelling and probable osteomyelitis involving the first distal tuft. 2. Significant dorsal subcutaneous soft tissue swelling throughout the foot , query cellulitis, without discrete drainable fluid collection. 3. No evidence of tendon tear. EXAM GEN: 46 yo M, WN,WD, NAD VITALS: Afebrile, VSS HEENT: Unremarkable, no oral thrush NECK: Supple, full ROM CHEST: Equal chest rise bilaterally, without dyspnea on room air on observation CV: Radial pulse RRR ABD: Soft, NT : Deferred EXT: Warm, (+)2+bilateral ankle edema/1(+)bilateral dorsal feet edema, (+)BLEXT hyperpigmentation/thickened skin pre-tibial/ankles, (+)hyperkeratotic thick long toenails, (+)right foot superficial ulcer ~5cm diameter w/small amount purulent drainage; left great toe w/closed blister at tip in addition to dry crusted healing ulcer at tip under raised toenail bed without drainage. SKIN: No rash, no diaphoresis, (+)tattoos upper ext NEURO: Grossly intact w/known Dm peripheral neuropathy ID ASSESSMENT 46 yo M admit with: 1. Bilateral lower extremity cellulitis w/bilateral diabetic feet infection as below: * Left great toe closed blister, open crusty healing ulcer, and evidence of first distal part of the toe osteomyelitis as per MRI * Right lateral dorsal healing ulcer w/mostly closed dry wound bed and small amount of purulent drainage today at wound border. 2. Diabetes mellitus w/complication of DM peripheral neuropathy 3. Bilateral lower extremities edema w/chronic venous stasis hyperpigmentation/ hyperkeratotic thick skin changes/hyperkeratotic long toenails in need of trimming * BLEXT US: No evidence of a deep vein thrombosis within the bilateral lower extremities. * 2013 2D ECHO: Normal systolic fx, mild cLVH, EF 60%, normal for age. 4. HTN w/possible HTN heart disease per (+)mild concentric LVH on 2013 ECHO, normal ECG this admission 5. DJD: * Left shoulder pain: MRI No acute process w/ Moderate acromioclavicular osteoarthrosis (+/-) ?mild nonspecific edema within the infraspinatus muscle belly, possibly low grade muscle strain or denervation change. * Hx of right shoulder surgery 6. Cervicalgia w/imaging findings: Multilevel foraminal narrowing outlined in detail above.Cervical spondylosis/degenerative enthesopathy. No cervical cord signal abnormality. 7. Chronic sinusitis per MRI/CT Brain * CT: Opacified partially visualized right ethmoid air cells with moderate mucosal thickening within the right frontal sinuses. * MRI: Noted are complete right maxillary, extensive right frontal and ethmoid sinus opacification, left maxillary sinus mucous retention cysts and minimal mastoid air cell opacification. 8. Tobaccoism -> 2 cigars/day 9. 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 Socioeconomic barriers to care: Homeless living out of RV w/friend CURRENT ABX: Vanco IV + Levaquin ID RECOMMENDATIONS 1. WOUND CULTURE TODAY PERFORMED at bedside * I sent wound culture (swab) from R-foot purulent drainage to micro for C&S. * Bilateral nares swab for MRSA screening sent 2. Lengthy patient education discussed with patient today at bedside: * No safe level tobacco-> smoking cessation strongly advocated * I discussed in lay terms with the patient the importance of seeking care with outpatient spiritual care coordinator for ongoing DM foot care, no hot water soaking, no self trimming of toenails, only Podiatry to cut nails. Pathophysiology of DM foot infections risk of severe injury, loss of limb function, risk of amputation and amputation prevention concepts discussed (Medical Tx of HTN, Hyperlipidemia, Blood Glucose, DPM outpatient monitoring, s/sx of DM infection; risk of injury due to peripheral neuropathy, need for DM shoes, elevation of legs with BLEXT edema, foot hygiene, and other aspects such as nutrition, smoking cessation, seek early medical care for worsening pain, edema, redness, eschar, fevers, chills. Patient expressed understanding and motivation to follow up with OP DPM and assume responsibility for compliance with medical recommendations. 3. Bilateral compression stockings - MAUREEN hose, low pressure, elevate BLEXT as much as possible= Ordered, I instructed nurse. 4. DM shoes -- Not sure who provides these @ [facility], usually ordered by DPM; will place order PTx/OTx? 5. Recommend inpatient vs OK to follow up with DPM/[facility] outpatient -- Case management order placed to assist. 6. DM Nutrition education consult in place per RN 7. Recommended to patient to follow up with [facility] center in 4 week with repeat imaging and evaluation by [facility] who will have access to wound and nares cultures sent today. 8. FINAL DISPOSITION ABX RECOMMENDATIONS => Continue IV Vanco + Levaquin while he remains on inpatient status => When cleared by primary care, patient may DC home on PO ABX as follows: * Bactrim DS 1 TAB PO Q12 w/full glass H20 for total 28 days * Levaquin 500mg PO daily for 28 days * Patient to follow up with primary care provider w/renal labs and DM management in 2 weeks, Patient to follow up with DPM in 4 weeks. Patient may f/ u with Dr. Funez OP; however I explained to patient that follow up with DPM/ [facility] in 4 weeks priority as [facility] can contact Dr. Funez directly if indicated on future ABX and treatment recommendations. * Patient expressed understanding and agreement with with my lengthy recommendations. I explained that the administrative staff supervisor will follow up with written education materials and he will be given contact information for DPM/[facility] consult and Dr. Funez contact info upon DC. . Home Meds Active Scripts Atorvastatin Calcium (Atorvastatin Calcium) 20 Mg Tablet, 20 MG PO HS for 90 Days, #90 TAB Prov:LAURENCE LOPEZ MD 02/23/17 Sulfamethoxazole/Trimethoprim* (Bactrim Ds* Tablet) 1 Each Tablet, 1 TAB PO BID for 28 Days, #56 TAB Prov:LAURENCE LOPEZ MD 02/23/17 Insulin Glargine* (Lantus*) 100 Unit/Ml Soln, 20 UNIT SC DAILY for 90 Days, #90 Prov:LAURENCE LOPEZ MD 02/23/17 Aspirin (Aspirin) 81 Mg Chew, 81 MG PO DAILY for 90 Days, #90 TAB Prov:LAURENCE LOPEZ MD 02/23/17 Levofloxacin* (Levaquin*) 500 Mg Tablet, 500 MG PO DAILY for 28 Days, #28 TAB Prov:LAURENCE LOPEZ MD 02/23/17 Reported Medications Lisinopril* (Lisinopril*) 5 Mg Tablet, 5 MG PO DAILY 04/24/13 Metformin* (Glucophage*) 500 Mg Tab, 500 MG PO BID 04/24/13 Discontinued Reported Medications Glyburide,Micronized (Glyburide Micronized) 3 Mg Tablet, 3 10 PO DAILY 04/24/13 [Pt Not Taking Meds] No Conflict Check 01/26/14 Follow-up Plan Complete 28 days of levaquin and bactrim for osteomyelitis after discharge Continue basal insulin, follow up with primary care for further diabetes management Follow up with neurology for further management of hand weakness Primary Care Provider Not On Staff Doctor Time spent on discharge: > 30 minutes Pending Labs Laboratory Tests Test 02/22/17 17:26 02/22/17 21:24 02/23/17 05:20 02/23/17 08:21 Bedside Glucose 181mg/dL (70-220) 172mg/dL (70-220) 283mg/dL (70-220) White Blood Count 5.110^3/ul (4.8-10.8) Red Blood Count 4.0510^6/ul (4.70-6.10) Hemoglobin 11.0g/dl (14.0-18.0) Hematocrit 34.1% (42.0-52.0) Mean Corpuscular Volume 84.2fl (82.0-101.0) Mean Corpuscular Hemoglobin 27.2pg (29.0-33.0) Mean Corpuscular Hemoglobin Concent 32.3g/dl (32.0-37.0) Red Cell Distribution Width 12.7% (11.5-14.5) Platelet Count 45960^3/UL (140-415) Mean Platelet Volume 9.9fl (7.4-10.4) Neutrophils % 41.6% (39.0-77.0) Lymphocytes % 47.7% (15.0-51.0) Monocytes % 7.6% (0.0-11.0) Eosinophils % 2.3% (0.0-7.0) Basophils % 0.6% (0.0-2.0) Nucleated Red Blood Cells % 0.0/100WBC (0.0-0.0) Neutrophils # 2.110^3/ul (1.6-7.5) Lymphocytes # 2.410^3/ul (0.8-2.9) Monocytes # 0.410^3/ul (0.3-0.9) Eosinophils # 0.110^3/ul (0.0-0.5) Basophils # 0.010^3/ul (0.0-0.1) Nucleated Red Blood Cells # 0.010^3/ul (0.0-0.0) Sodium Level 141mmol/L (135-144) Potassium Level 4.3mmol/L (3.5-5.1) Chloride Level 104mmol/L (97-110) Carbon Dioxide Level 26mmol/L (21-31) Anion Gap 15 (8-16) Blood Urea Nitrogen 15mg/dl (7-20) Creatinine 0.77mg/dl (0.61-1.24) Glucose Level 201mg/dl (70-220) Calcium Level 9.0mg/dl (8.4-10.2) Test 02/23/17 09:51 02/23/17 12:19 Lab Scanned Report REFERENCE [id number] Bedside Glucose 184mg/dL (70-220) LAURENCE LOPEZ MD Feb 23, 2017 13:23
[2017-02-23 14:33] VITALS: BP 118/76; RESP 18
[2017-02-23] MEDS ORDERED: PEN1DIS.48 MC (14:34)
== END 2017-02-23 19:35 | disposition home or self-care (01) | DRG 638 ==
LOC: E/R 00:51 → MS2 04:21 → OBSVTOIN 11:15
PROVIDERS: ADMIT Internal Medicine; ATTEND Internal Medicine
DX: E11.69 Type 2 diabetes mellitus with other specified complication (principal); M86.8X7 Other osteomyelitis, ankle and foot; E11.52 Type 2 diabetes mellitus with diabetic peripheral angiopathy with gangrene; E11.621 Type 2 diabetes mellitus with foot ulcer; L03.115 Cellulitis of right lower limb; I11.9 Hypertensive heart disease without heart failure; S06.9X9A Unspecified intracranial injury with loss of consciousness of unspecified duration, initial encounter; E11.42 Type 2 diabetes mellitus with diabetic polyneuropathy; L03.116 Cellulitis of left lower limb; E11.65 Type 2 diabetes mellitus with hyperglycemia; I87.8 Other specified disorders of veins; F17.290 Nicotine dependence, other tobacco product, uncomplicated; F32.9 Major depressive disorder, single episode, unspecified; F12.90 Cannabis use, unspecified, uncomplicated; L97.519 Non-pressure chronic ulcer of other part of right foot with unspecified severity; M19.012 Primary osteoarthritis, left shoulder; M47.892 Other spondylosis, cervical region; J32.9 Chronic sinusitis, unspecified; Z59.0 Homelessness; Z79.84 Long term (current) use of oral hypoglycemic drugs; Z91.14 Patient's other noncompliance with medication regimen; W18.09XA Striking against other object with subsequent fall, initial encounter
CPT/HCPCS: 36415; 70450; 70551; 72125; 72141; 73218; 73718; 80048; 80053; 80061; 80202; 81003; 82962; 83036; 83605; 83735; 84100; 85025; 87040; 87070; 87081; 93005; 93970; 96372; 96374; 96375; 97162; G0378; J0692; J1644; J1815; J2270; J2543; J3370; J7030; J7050; J7120

== ENCOUNTER 2019-02-01 12:59 | Inpatient (IN) | payer OTHER ==
[~2019-02-01] VITALS: Ht 180.3 cm; Wt 70.0 kg
[~2019-02-01 12:59] MED LIST changes: +ASPI-831 PO; +ATOR20TA65 PO; -GLYB3TAB2 PO; +LANT3I SC; +LEVO500T48 PO; +METF-849 PO; -METF500T4 PO; +PEN1DIS.48 MC; -PT NOT TAKING MEDS; +SULF1TAB31 PO
[2019-02-01] MEDS ORDERED: SODIUM CHLORIDE 0.9% 1L BAG IV* STA (13:08)
[2019-02-01] MEDS ORDERED: VANCOMYCIN 1 GM (PMX) 250 ML IVPB STA (13:08)
[2019-02-01] MEDS ORDERED: PIPER-TAZO 3.375 GM IV (PMX) 100 ML IVPB STA (13:08)
[2019-02-01 13:16] VITALS: Ht 180.3 cm; Wt 70.0 kg
--- NOTE | 2019-02-01 13:38 | ERD ---
ER Documentation Chief Complaint Chief Complaint brought in from [place] [facility] for intermittent fever, wounds to feet HPI 48-year-old male presents by paramedics for evaluation of fever and wounds to his feet. Patient is a poor historian providing only limited insight. According to the transfer paperwork, patient developed a fever at his nursing care facility and was transported to the emergency department. No further history is available for transfer paperwork. ROS All systems reviewed and are negative except as per history of present illness. Medications Home Meds Active Scripts Pen Needle, Diabetic (Insulin Pen Needle) 1 Each Dis.needle, 1 EACH MC DAILY, #90 Prov:LAURENCE LOPEZ MD 02/23/17 Atorvastatin Calcium (Atorvastatin Calcium) 20 Mg Tablet, 20 MG PO HS for 90 Days, #90 TAB Prov:LAURENCE LOPEZ MD 02/23/17 Sulfamethoxazole/Trimethoprim* (Bactrim Ds* Tablet) 1 Each Tablet, 1 TAB PO BID for 28 Days, #56 TAB Prov:LAURENCE LOPEZ MD 02/23/17 Insulin Glargine* (Lantus*) 100 Unit/Ml Soln, 20 UNIT SC DAILY for 90 Days, #90 Prov:LAURENCE LOPEZ MD 02/23/17 Aspirin (Aspirin) 81 Mg Chew, 81 MG PO DAILY for 90 Days, #90 TAB Prov:LAURENCE LOPEZ MD 02/23/17 Levofloxacin* (Levaquin*) 500 Mg Tablet, 500 MG PO DAILY for 28 Days, #28 TAB Prov:LAURENCE LOPEZ MD 02/23/17 Reported Medications Lisinopril* (Lisinopril*) 5 Mg Tablet, 5 MG PO DAILY 04/24/13 Metformin* (Glucophage*) 500 Mg Tab, 500 MG PO BID 04/24/13 Allergies Allergies: Coded Allergies: No Known Allergy (Unverified , 02/20/17) PMhx/Soc History of Surgery: Yes (Right shoulder surgery 2008) Anesthesia Reaction: No Hx Neurological Disorder: Yes (Neuropathy) Hx Respiratory Disorders: No Hx Cardiac Disorders: Yes (HTN) Hx Psychiatric Problems: Yes (Depression) Hx Miscellaneous Medical Probl: Yes (cellulitis) Hx Alcohol Use: Yes (Hard liqour, once a week) Hx Substance Use: Yes (marijuana) Hx Tobacco Use: Yes (Two cigars a day) Smoking Status: Current every day smoker FmHx Noncontributory for chief complaint Physical Exam Vitals Vital Signs Date Temp Pulse Resp B/P (MAP) Pulse Ox O2 O2 Flow FiO2 Time Delivery Rate 02/01/19 98.3 79 18 105/67 97 13:16 (80) Physical Exam GENERAL: Frail, chronically ill male in no acute distress HEENT: Pupils equal, round, and reactive to light. EOMI. There is no scleral icterus. NECK: C-spine is soft and supple, there is no meningismus. There is no cervical lymphadenopathy. LUNGS: Clear to auscultation bilaterally. There are no rales, wheezes or rhonchi. HEART: Regular rate and rhythm, no murmurs, clicks, rubs or gallops. ABDOMEN: Soft, non-tender, non-distended. There are bowel sounds in all four quadrants. No rebound or guarding. EXTREMITIES: There is no peripheral cyanosis or edema. No focal swelling or erythema. NEURO: The patient moves all four extremities with 5/5 strength. Cranial nerves II - XII are intact. Normal gait. Alert and oriented SKIN: Multiple nonhealing wounds with what appear to be a acute infection in the left foot. He has multiple wounds on the right lower extremity as well. There are cellulitic changes. HEME/LYMPHATIC: There is no evidence of excessive bruising or lymphedema. PSYCHIATRIC: The patient does not appear anxious or depressed. He has a bizarre affect and demeanor Result Diagram: 02/01/19 1314 02/01/19 1314 Results 24 hrs Laboratory Tests Test 02/01/19 13:14 White Blood Count 14.0 10^3/ul Red Blood Count 3.85 10^6/ul Hemoglobin 10.1 g/dl Hematocrit 31.3 % Mean Corpuscular Volume 81.3 fl Mean Corpuscular Hemoglobin 26.2 pg Mean Corpuscular Hemoglobin Concent 32.3 g/dl Red Cell Distribution Width 12.6 % Platelet Count 288 10^3/UL Mean Platelet Volume 9.3 fl Immature Granulocytes % 1.100 % Neutrophils % 80.7 % Lymphocytes % 11.6 % Monocytes % 6.1 % Eosinophils % 0.3 % Basophils % 0.2 % Nucleated Red Blood Cells % 0.0 /100WBC Immature Granulocytes # 0.150 10^3/ul Neutrophils # 11.3 10^3/ul Lymphocytes # 1.6 10^3/ul Monocytes # 0.9 10^3/ul Eosinophils # 0.0 10^3/ul Basophils # 0.0 10^3/ul Nucleated Red Blood Cells # 0.0 10^3/ul Sodium Level 135 mmol/L Potassium Level 4.8 mmol/L Chloride Level 96 mmol/L Carbon Dioxide Level 30 mmol/L Anion Gap 9 Blood Urea Nitrogen 18 mg/dl Creatinine 1.10 mg/dl Est Glomerular Filtrat Rate mL/min > 60 mL/min Glucose Level 269 mg/dl Calcium Level 9.2 mg/dl Total Bilirubin 0.8 mg/dl Direct Bilirubin 0.00 mg/dl Indirect Bilirubin 0.8 mg/dl Aspartate Amino Transf (AST/SGOT) 18 IU/L Alanine Aminotransferase (ALT/SGPT) 17 IU/L Alkaline Phosphatase 129 IU/L Troponin I Pending Total Protein 7.2 g/dl Albumin 3.3 g/dl Globulin 3.90 g/dl Albumin/Globulin Ratio 0.84 Current Medications Medications Dose Sig/Maryjo Start Time Status Last (Trade) Ordered Route PRN Stop Time Admin Dose Reason Admin Sodium 2,100 ml BOLUS OVER 2 02/01/19 DC 02/01/19 Chloride HOURS STAT 13:08 02/01/19 13:27 (NS) IV* 13:09 Vancomycin 250 ml @ ONCE STAT 02/01/19 HCl 125 mls/hr IVPB 13:08 02/01/19 15:07 Piperacillin 100 ml @ ONCE STAT 02/01/19 DC 02/01/19 Sod/ 200 mls/hr IVPB 13:08 02/01/19 13:34 Tazobactam 13:37 Sod Procedures/MDM Patient was taken to a room, seen and evaluated. Comfort measures were initiated. A code sepsis was initiated upon arrival Diagnostic tests were ordered and reviewed. 3 LEAD RHYTHM STRIP: Normal sinus rhythm without ectopy EK lead EKG reviewed by myself: Normal Sinus Rhythm Normal [place] and intervals No ST elevation, depression, or T wave inversion Impression: Normal EKG RADIOLOGY: Reviewed with the radiologist CONSULTATION: Hospitalist was notified for admission REEVALUATION: [id number]: Diagnostic tests were appreciated and arrangements were made for admission. Patient remained hemodynamically stable and comfortable. MEDICAL DECISION MAKIN-year-old male with multiple comorbid conditions including uncontrolled diabetes presents the emergency department with a fever. She has clear evidence of what appears to be an osteomyelitis versus significant soft tissue infection of the left lower extremity which is likely source. Patient will be admitted to the hospital for IV fluids, IV antibiotics and further supportive care SEVERE SEPSIS CRITERIA: Infectious source: Soft tissue infections, likely osteomyelitis End organ damage indicated by: NA- no evidence of severe sepsis, lactate < 2. SEPSIS MANAGEMENT Time of recognition of sepsis: Upon arrival. Time of recognition of severe sepsis: No severe sepsis at this time. Time of recognition of septic shock: No septic shock at this time. 3 HOUR BUNDLE Blood cultures x 2 before broad-spectrum antibiotics: Yes 30 ml/kg NS bolus completed Initial lactate reviewed Repeat lactate pending SEPTIC SHOCK ASSESSMENT: No lactic acid > 4.0 No persistent hypotension (SBP < 90 or 40 mmHg drop, MAP < 65) despite 30 mL/kg IV fluid bolus Departure Diagnosis: Primary Impression: Cellulitis Condition: DEVI Johnson Feb 01, 2019 13:38
[2019-02-01] MEDS ORDERED: ONDANSETRON 4 MG INJ IV PRN ×2 (14:00→14:30)
[2019-02-01] MEDS ORDERED: ACETAMINOPHEN 325 MG TAB PO PRN (14:00)
[2019-02-01] MEDS ORDERED: SOD CHLORIDE 0.9% 1,000 ML IV SCH (14:11)
[2019-02-01] MEDS ORDERED: NACL 0.9% 3 ML SYG IV SCH (14:30)
[2019-02-01] MEDS ORDERED: HYDROCODONE/APAP (5/325) TAB PO PRN (14:30)
[2019-02-01] MEDS ORDERED: VANCOMYCIN IV PER PHARMACY XX SCH (14:30)
[2019-02-01] MEDS ORDERED: ARGI1POW19 PO (14:35)
[2019-02-01] MEDS ORDERED: ACET-2047 PO (14:36)
[2019-02-01] MEDS ORDERED: SERT25TA83 PO (14:37)
[2019-02-01] MEDS ORDERED: ZINC220T PO (14:37)
[2019-02-01] MEDS ORDERED: ASCO500C7 PO (14:37)
[2019-02-01] MEDS ORDERED: AMIN30LI5 PO (14:38)
[2019-02-01] MEDS ORDERED: METF100010 PO (14:39)
[2019-02-01] MEDS ORDERED: MULT-275 PO (14:39)
[2019-02-01] MEDS ORDERED: LISI-313 PO (14:40)
[2019-02-01] MEDS ORDERED: IBUP-1542 PO (14:41)
[2019-02-01] MEDS ORDERED: LANT3I SC (14:41)
[2019-02-01] MEDS ORDERED: INSU500I SQ (14:43)
[2019-02-01] MEDS ORDERED: GABA100C14 PO (14:43)
--- NOTE | 2019-02-01 14:48 | HP ---
Date/Time of Note Date/Time of Note DATE: 02/01/19 TIME: 14:48 Assessment/Plan VTE Prophylaxis Pharmacological prophylaxis: other Lines/Catheters IV Catheter Type (from Nrs): Saline Lock Assessment/Plan Hospital Course Patient is a -Danish male with a past medical history significant for chronic foot wounds, diabetes mellitus, dyslipidemia, hypertension who presents to [facility] from custodial for worsening left foot ulcer. Patient states that he woke up this morning and found the foot worse however does not know the onset. Patient was recently hospitalized at [facility] for similar foot wounds and was [facility] to [facility]. Patient states that his issues with his chronic foot wounds has been going on for months and has been getting worse and worse. Patient otherwise feels well, denies chest pain, shortness of breath, headache, nausea, vomiting, abdominal pain or bowel or bladder dysfunction. Patient denies any surgical history Patient denies smoking or drinking, has a remote history of using cocaine more than 5 years ago Objective Physical exam General: Patient is laying in bed and answers questions appropriately Mentation: Patient is alert and oriented 4, Head: Normocephalic atraumatic Eyes: EOMI, pupils reactive to light Neck: Supple, nontender, midline Respiratory: Clear to auscultation bilaterally Cardiovascular: regular rate, no obvious murmurs Gastrointestinal: non-tender to palpation, bowel sounds heard. Neurological: Moves all extremities spontaneously Skin: Chronic venous stasis changes bilaterally on lower extremity, left foot wound has pustular drainage on the ventral side Assessment and plan Bilateral lower extremity wounds, postural left foot wound -X-ray and MRI pending -IV antibiotic -Infectious disease and podiatry consulted -Wound cultures pending Diabetes mellitus -Insulin while in house Dyslipidemia -Continue atorvastatin Questionable history of CVA -No known residual effect -Continue daily aspirin Chronic diabetic foot wounds -Patient was homeless previous to his current stay at his [facility] facility, likely chronic diabetic foot wounds due to homeless nature and noncompliant medical care. Disposition -MRI and x-ray pending, infectious disease and podiatry recommendations appreciated, continue broad-spectrum antibiotics Result Diagram: 02/01/19 1314 02/01/19 1314 Results 24hrs Laboratory Tests Test 02/01/19 13:14 02/01/19 13:17 White Blood Count 14.0 #H Red Blood Count 3.85 L Hemoglobin 10.1 L Hematocrit 31.3 L Mean Corpuscular Volume 81.3 L Mean Corpuscular Hemoglobin 26.2 L Mean Corpuscular Hemoglobin Concent 32.3 Red Cell Distribution Width 12.6 Platelet Count 288 Mean Platelet Volume 9.3 Immature Granulocytes % 1.100 H Neutrophils % 80.7 H Lymphocytes % 11.6 L Monocytes % 6.1 Eosinophils % 0.3 Basophils % 0.2 Nucleated Red Blood Cells % 0.0 Immature Granulocytes # 0.150 H Neutrophils # 11.3 H Lymphocytes # 1.6 Monocytes # 0.9 Eosinophils # 0.0 Basophils # 0.0 Nucleated Red Blood Cells # 0.0 Prothrombin Time 14.0 Prothrombin Time Ratio 1.1 INR International Normalized Ratio 1.07 Activated Partial Thromboplast Time 36.9 H Sodium Level 135 Potassium Level 4.8 Chloride Level 96 L Carbon Dioxide Level 30 Anion Gap 9 Blood Urea Nitrogen 18 Creatinine 1.10 Est Glomerular Filtrat Rate mL/min > 60 Glucose Level 269 H Calcium Level 9.2 Total Bilirubin 0.8 Direct Bilirubin 0.00 Indirect Bilirubin 0.8 Aspartate Amino Transf (AST/SGOT) 18 Alanine Aminotransferase (ALT/SGPT) 17 Alkaline Phosphatase 129 H Troponin I < 0.012 Total Protein 7.2 Albumin 3.3 Globulin 3.90 H Albumin/Globulin Ratio 0.84 POC Venous Lactate 1.8 HPI/ROS Admit Date/Time Admit Date/Time PMH/Family/Social Past Medical History Medications Current Medications Vancomycin HCl 250 ml @ 125 mls/hr ONCE STAT IVPB Last administered on 02/01/19at 14:17; Admin Dose 125 MLS/HR; Start 02/01/19 at 13:08; Stop 02/01/19 at 15:07 Sodium Chloride 1,000 ml @ 50 mls/hr Q20H IV ; Start 02/01/19 at 14:11; Stop 02/02/19 at 10:10 IV Flush (NS 3 ml) 3 ml PER PROTOCOL IV ; Start 02/01/19 at 14:30 Ondansetron HCl (Zofran Inj) 4 mg Q6H PRN IV NAUSEA/VOMITING; Start 02/01/19 at 14:30 Acetaminophen (Tylenol Tab) 650 mg Q6H PRN PO .PAIN 1-3 OR TEMP; Start 02/01/19 at 14:30 Acetaminophen/ Hydrocodone Bitart ([place] (5/325)) 1 tab Q6H PRN PO .PAIN 4-6; Start 02/01/19 at 14:30 Morphine Sulfate (morphine) 2 mg Q4H PRN IV .PAIN 7-10; Start 02/01/19 at 14:30 Piperacillin Sod/ Tazobactam Sod 100 ml @ 200 mls/hr Q6 IVPB ; Start 02/01/19 at 18:00 Vancomycin HCl (Vanco Iv Per Pharmacy) VANCOMYCIN PER PHARMACY PER PROTOCOL XX ; Start 02/01/19 at 14:30 Diagnostic Test (Pha) (Accu-Chek) XX ; Start 02/02/19 at 02:00 Insulin Glargine (Lantus) 18 units DAILY@2000 SC ; Start 02/01/19 at 20:00 Insulin Aspart (Novolog Insulin Pen) 6 unit WITH MEALS SC ; Start 02/01/19 at 18:00 Insulin Aspart (Novolog Insulin Pen) NOVOLOG *MILD* ALGORITHM WITH MEALS BEDTIME SC ; Start 02/01/19 at 18:00 Coded Allergies: No Known Allergy (Unverified , 02/20/17) Social History Smoking Status: Current every day smoker Exam/Review of Systems Vital Signs Vitals Vital Signs Date Temp Pulse Resp B/P (MAP) Pulse Ox O2 O2 Flow FiO2 Time Delivery Rate 02/01/19 97.8 76 16 113/82 100 Room Air 14:43 (92) ROSA QUINTERO Feb 01, 2019 14:48
--- NOTE | 2019-02-01 15:53 | CONS ---
Assessment/Plan Assessment/Plan Assessment/Plan (Daily) b/l diabetic foot ulcerations Left foot abscess Left lower extremity cellulitis Left lower extremity edema Left foot soft tissue mass Left foot deep tissue injury DM2 with peripheral neuropathy leukocytosis Homelessness Plan Consent was obtained and performed excisional debridement of bilateral foot ulceration sites of skin/subQ to the right and skin/subQ/muscle/fascia of the left. Necrotic and fibrotic tissue removed of bilateral feet, along with 4mL of purulence to the left foot. Scalpel blade and scissor/pickup was used. Cultures were obtained of bilateral feet. Biopsy of hypertrophied ulceration/mass of left foot. 38.46cm2 area was debrided. Reviewed X-rays and no sign of soft tissue gas or acute osteomyelitis. MRI of foot and ankle ordered bilateral. Non invasive arterial studies ordered. Venous studies also ordered concern for DVT. Appreciate input from ID and abx recommendations. Recommend tight glycemic control. Appreciate input case management regarding SNF placement or if patient can return to previous SNF location. Nails debrided x10 with nail nipper Consultation Date/Type/Reason Admit Date/Time Date/Time of Note DATE: 02/01/19 TIME: 15:53 Hx of Present Illness 48 y/o diabetic M patient who presents to the floor with bilateral foot wounds. Patient states he didn't notice wounds to his feet until the last two months ago. He reports signs of infection to the left foot within the last couple days. He noticed increased swelling, redness and pain. He was previously hospitalized at [facility] and then discharged to [facility]. Patient reports that he is homeless. Patient states mild pain to the left posterior calf which also began around the same time as the infection. Patient states he does a lot of walking because he is homeless. Patient had denied fevers, nausea vomiting, chest pains or shortness of breath, but he did notice chills for the past couple days. ROS Negative except for HPI Past Medical History chronic foot wounds, diabetes mellitus, dyslipidemia, hypertension Home Meds Reported Medications Gabapentin* (Gabapentin*) 100 Mg Capsule, 100 MG PO TID, #90 CAP 02/01/19 Insulin Regular, Human (Humulin R U-500 Kwikpen) 500 Unit/1 Ml Insuln.pen, 7 UNIT SQ AC A 02/01/19 Ibuprofen* (Motrin*) 600 Mg Tab, 600 MG PO Q8H PRN for PAIN LEVEL 6-10, TAB 02/01/19 Insulin Glargine* (Lantus*) 100 Unit/Ml Soln, 10 UNIT SC QHS, #1 VIAL 02/01/19 Lisinopril* (Lisinopril*) 5 Mg Tablet, 5 MG PO DAILY, #30 TAB HOLD IF SBP <110 OR HR <60 02/01/19 Metformin Hcl* (Metformin Hcl*) 1,000 Mg Tablet, 1000 MG PO WITH BREAKFAST DINNE, #60 TAB 02/01/19 Multivitamin with Minerals (Daily Vitamin Formula-Minerals) 1 Each Tablet, 1 EACH PO DAILY, TAB 02/01/19 Amino Acids/Protein Hydrolys (Pro-Stat Awc Liquid) 30 Ml Liquid, 30 ML PO BID 02/01/19 Sertraline Hcl* (Sertraline Hcl*) 25 Mg Tablet, 25 MG PO DAILY, #30 TAB 02/01/19 Ascorbic Acid* (Vitamin C*) 500 Mg Capsule.sa, 500 MG PO DAILY, CAP 02/01/19 Zinc Sulfate* (Zinc Sulfate*) 220 Mg Tablet, 220 MG PO DAILY, TAB STOP 7-8-02/01/19 Acetaminophen* (Acetaminophen*) 650 Mg Tablet, 650 MG PO Q6H PRN for PAIN LEVEL 1-5, #30 TAB AND FEVER 02/01/19 Arginine/Ascorbate Sod/Fred AC (Arginaid Powder) 1 Each Powd.pack, 1 EACH PO BID 02/01/19 Discontinued Reported Medications Lisinopril* (Lisinopril*) 5 Mg Tablet, 5 MG PO DAILY 04/24/13 Metformin* (Glucophage*) 500 Mg Tab, 500 MG PO BID 04/24/13 Discontinued Scripts Pen Needle, Diabetic (Insulin Pen Needle) 1 Each Dis.needle, 1 EACH [facility] DAILY, #90 Prov:LAURENCE LOPEZ MD 02/23/17 Atorvastatin Calcium (Atorvastatin Calcium) 20 Mg Tablet, 20 MG PO HS for 90 Days, #90 TAB Prov:LAURENCE LOPEZ MD 02/23/17 Sulfamethoxazole/Trimethoprim* (Bactrim Ds* Tablet) 1 Each Tablet, 1 TAB PO BID for 28 Days, #56 TAB Prov:LAURENCE LOPEZ MD 02/23/17 Insulin Glargine* (Lantus*) 100 Unit/Ml Soln, 20 UNIT SC DAILY for 90 Days, #90 Prov:LAURENCE LOPEZ MD 02/23/17 Aspirin (Aspirin) 81 Mg Chew, 81 MG PO DAILY for 90 Days, #90 TAB Prov:LAURENCE LOPEZ MD 02/23/17 Levofloxacin* (Levaquin*) 500 Mg Tablet, 500 MG PO DAILY for 28 Days, #28 TAB Prov:LAURENCE LOPEZ MD 02/23/17 Medications Current Medications Sodium Chloride 1,000 ml @ 50 mls/hr Q20H IV ; Start 02/01/19 at 14:11; Stop 02/02/19 at 10:10 IV Flush (NS 3 ml) 3 ml PER PROTOCOL IV ; Start 02/01/19 at 14:30 Ondansetron HCl (Zofran Inj) 4 mg Q6H PRN IV NAUSEA/VOMITING; Start 02/01/19 at 14:30 Acetaminophen (Tylenol Tab) 650 mg Q6H PRN PO .PAIN 1-3 OR TEMP; Start 02/01/19 at 14:30 Acetaminophen/ Hydrocodone Bitart ([place] (5/325)) 1 tab Q6H PRN PO .PAIN 4-6; Start 02/01/19 at 14:30 Morphine Sulfate (morphine) 2 mg Q4H PRN IV .PAIN 7-10; Start 02/01/19 at 14:30 Piperacillin Sod/ Tazobactam Sod 100 ml @ 200 mls/hr Q6 IVPB ; Start 02/01/19 at 18:00 Vancomycin HCl (Vanco Iv Per Pharmacy) VANCOMYCIN PER PHARMACY PER PROTOCOL XX ; Start 02/01/19 at 14:30 Diagnostic Test (Pha) (Accu-Chek) XX ; Start 02/02/19 at 02:00 Insulin Glargine (Lantus) 18 units DAILY@2000 SC ; Start 02/01/19 at 20:00 Insulin Aspart (Novolog Insulin Pen) 6 unit WITH MEALS SC ; Start 02/01/19 at 18:00 Insulin Aspart (Novolog Insulin Pen) NOVOLOG *MILD* ALGORITHM WITH MEALS BEDTIME SC ; Start 02/01/19 at 18:00 Vancomycin HCl 250 ml @ 125 mls/hr Q12H IVPB ; Start 02/01/19 at 21:00 Ascorbic Acid (Vitamin C) 500 mg DAILY PO ; Start 02/02/19 at 09:00 Gabapentin (Neurontin) 300 mg TID PO ; Start 02/01/19 at 21:00 Lisinopril (Zestril) 5 mg DAILY PO ; Start 02/02/19 at 09:00 Sertraline HCl (Zoloft) 25 mg DAILY PO ; Start 02/02/19 at 09:00 Zinc Sulfate (Zinc Sulfate) 220 mg DAILY PO ; Start 02/02/19 at 09:00 Allergies: Coded Allergies: No Known Allergy (Unverified , 02/20/17) Past Surgical History clavicle surgery 20 years ago Social History homeless Smoking Status: Current every day smoker Exam/Review of Systems Exam Vitals Vital Signs Date Temp Pulse Resp B/P (MAP) Pulse Ox O2 O2 Flow FiO2 Time Delivery Rate 02/01/19 79 13 141/99 100 Room Air 15:25 (113) 02/01/19 97.8 14:43 Exam DP pulses palpable Right PT pulse palpable unable to palpate left PT pulse 2+ pitting edema left lower extremity Absent protective sensations Diffuse dry xerosis White scaling lesions mycotic toe nails Pain to the ulceration sites Right hallux HPK lesions Right plantar 1st metatarsal 1.5 x 1.2 x 0.2cm fibrogranular wound bed Right plantar 4th and 5th ulceration 1.5 x 3 x 0.2cm fibrogranular wound bed Right plantar 5th metatarsal base extending to heel ulceration 6 x 3 x 0.2cm fibronecrotic wound base with areas of granular tissue Left medial 1st MPJ ulceration granular with surrounding erythema and purulent drainage, granular wound bed 3 x 4 x 0.5cm Left plantar 1st metatarsal ulcer 0.8 x 0.6 x 0.5 cm ulceration fibrogranular with purulent drainage Left plantar 5th metatarsal ulceration 1.2 x 1.4 x 0.4 hypergranular tissue with purulent drainage appreciated Left plantar heel deep tissue injury noted Results Result Diagram: 02/01/19 1314 02/01/19 1314 Results 24hrs Laboratory Tests Test 02/01/19 13:14 02/01/19 13:17 White Blood Count 14.0 #H Red Blood Count 3.85 L Hemoglobin 10.1 L Hematocrit 31.3 L Mean Corpuscular Volume 81.3 L Mean Corpuscular Hemoglobin 26.2 L Mean Corpuscular Hemoglobin Concent 32.3 Red Cell Distribution Width 12.6 Platelet Count 288 Mean Platelet Volume 9.3 Immature Granulocytes % 1.100 H Neutrophils % 80.7 H Lymphocytes % 11.6 L Monocytes % 6.1 Eosinophils % 0.3 Basophils % 0.2 Nucleated Red Blood Cells % 0.0 Immature Granulocytes # 0.150 H Neutrophils # 11.3 H Lymphocytes # 1.6 Monocytes # 0.9 Eosinophils # 0.0 Basophils # 0.0 Nucleated Red Blood Cells # 0.0 Prothrombin Time 14.0 Prothrombin Time Ratio 1.1 INR International Normalized Ratio 1.07 Activated Partial Thromboplast Time 36.9 H Sodium Level 135 Potassium Level 4.8 Chloride Level 96 L Carbon Dioxide Level 30 Anion Gap 9 Blood Urea Nitrogen 18 Creatinine 1.10 Est Glomerular Filtrat Rate mL/min > 60 Glucose Level 269 H Calcium Level 9.2 Total Bilirubin 0.8 Direct Bilirubin 0.00 Indirect Bilirubin 0.8 Aspartate Amino Transf (AST/SGOT) 18 Alanine Aminotransferase (ALT/SGPT) 17 Alkaline Phosphatase 129 H Troponin I < 0.012 Total Protein 7.2 Albumin 3.3 Globulin 3.90 H Albumin/Globulin Ratio 0.84 POC Venous Lactate 1.8 Medications Medication Current Medications Sodium Chloride 1,000 ml @ 50 mls/hr Q20H IV ; Start 02/01/19 at 14:11; Stop 02/02/19 at 10:10 IV Flush (NS 3 ml) 3 ml PER PROTOCOL IV ; Start 02/01/19 at 14:30 Ondansetron HCl (Zofran Inj) 4 mg Q6H PRN IV NAUSEA/VOMITING; Start 02/01/19 at 14:30 Acetaminophen (Tylenol Tab) 650 mg Q6H PRN PO .PAIN 1-3 OR TEMP; Start 02/01/19 at 14:30 Acetaminophen/ Hydrocodone Bitart ([place] (5/325)) 1 tab Q6H PRN PO .PAIN 4-6; Start 02/01/19 at 14:30 Morphine Sulfate (morphine) 2 mg Q4H PRN IV .PAIN 7-10; Start 02/01/19 at 14:30 Piperacillin Sod/ Tazobactam Sod 100 ml @ 200 mls/hr Q6 IVPB ; Start 02/01/19 at 18:00 Vancomycin HCl (Vanco Iv Per Pharmacy) VANCOMYCIN PER PHARMACY PER PROTOCOL XX ; Start 7/3/19 at 14:30 Diagnostic Test (Pha) (Accu-Chek) 1 ea 02 XX ; Start 02/02/19 at 02:00 Insulin Glargine (Lantus) 18 units DAILY@2000 SC ; Start 02/01/19 at 20:00 Insulin Aspart (Novolog Insulin Pen) 6 unit WITH MEALS SC ; Start 02/01/19 at 18:00 Insulin Aspart (Novolog Insulin Pen) NOVOLOG *MILD* ALGORITHM WITH MEALS BEDTIME SC ; Start 02/01/19 at 18:00 Vancomycin HCl 250 ml @ 125 mls/hr Q12H IVPB ; Start 02/01/19 at 21:00 Ascorbic Acid (Vitamin C) 500 mg DAILY PO ; Start 02/02/19 at 09:00 Gabapentin (Neurontin) 300 mg TID PO ; Start 02/01/19 at 21:00 Lisinopril (Zestril) 5 mg DAILY PO ; Start 02/02/19 at 09:00 Sertraline HCl (Zoloft) 25 mg DAILY PO ; Start 02/02/19 at 09:00 Zinc Sulfate (Zinc Sulfate) 220 mg DAILY PO ; Start 02/02/19 at 09:00 YING ALMAZAN DPM Feb 01, 2019 15:53
[2019-02-01 16:00] VITALS: BP 160/96; PULSE 82; RESP 17
[2019-02-01] MEDS ORDERED: LIDOCAINE 1% (MPF) 30 ML INJ INJ PRN (16:30)
--- NOTE | 2019-02-01 17:55 | CONS ---
DATE OF ADMISSION: 02/01/2019 DATE OF CONSULTATION: 02/01/2019 TYPE OF CONSULTATION: Infectious disease. REASON FOR CONSULTATION: Antibiotic management. HISTORY OF PRESENT ILLNESS: Luis Enrique Hoff is a 48-year-old male who comes in from custodial with fe ruslan and wounds on his feet. He is a poor historian. His past problems include: 1. Right shoulder surgery. 2. Hypertension. 3. Peripheral neuropathy. 4. Depression. 5. Cellulitis. FAMILY HISTORY: Noncontributory. SOCIAL HISTORY: He is a current every day smoker, 2 cigars a day. He drinks. He uses marijuana. PHYSICAL EXAMINATION: GENERAL: A frail, chronically ill male in no acute distress. VITAL SIGNS: Stable. He is afebrile. SKIN: Without generalized rash. HEENT: Within normal limits. NECK: Supple. LYMPH NODES: None palpable. CHEST: Decreased breath sounds at the bases. HEART: Without murmur or gallop. ABDOMEN: Soft, nontender without organosplenomegaly or masses. EXTREMITIES: Without cyanosis, clubbing or edema. He has multiple wounds on the right lower extremi ty with cellulitic changes. RECTAL AND GENITAL: Deferred. NEUROLOGIC: No focal neurological abnormality. ANCILLARY LABORATORY DATA: White count 14,000, H and H 10.1 and 31.3, platelet count 288,000. BUN a nd creatinine is 18/1.1, glucose of 269 with 81% neutrophils. IMPRESSION AND PLAN: The patient was started on vancomycin and Zosyn. He should be seen by podiatry . Chest x-ray shows no acute cardiopulmonary disease. The patient may have likely osteomyelitis. W e will continue him on vancomycin and Zosyn, have podiatry see and probably do an MRI of the foot. I will dictate my findings to the hospitalist. Dictated By: ABEL BACK MD, JD/KUNAL Conf#: [id number] DID#: [id number] CC: ROSA QUINTERO MD;*EndCC*
[2019-02-01] MEDS: PIPER-TAZO 3.375 GM IV (PMX) 100 ML IVPB SCH (18:03)
[2019-02-01] MEDS: INSULIN ASPART [NOVOLOG] 3 ML PEN SC SCH ×3 (18:06→23:00)
[2019-02-01 20:09] VITALS: BP 140/86; PULSE 104; RESP 16
[2019-02-01] MEDS: ACETAMINOPHEN 325 MG TAB PO PRN (20:47)
[2019-02-01] MEDS: VANCOMYCIN 1 GM 250 ML IVPB SCH (20:50)
[2019-02-01] MEDS: GABAPENTIN 300 MG CAP PO SCH (22:59)
[2019-02-01] MEDS: INSULIN GLARGINE [LANTus] (100 UNITS/ML) SYG SC SCH (22:59)
[2019-02-02] MEDS: PIPER-TAZO 3.375 GM IV (PMX) 100 ML IVPB SCH ×4 (01:07→17:36)
[2019-02-02 01:58] VITALS: BP 112/61; PULSE 92; RESP 16
[2019-02-02] MEDS: ACCU-CHEK XX SCH (02:00)
[2019-02-02 08:06] VITALS: BP 101/56; PULSE 68; RESP 20
[2019-02-02] MEDS: VANCOMYCIN 1 GM 250 ML IVPB SCH ×2 (08:11→21:32)
[2019-02-02] MEDS: ZINC SULFATE 220 MG CAP PO SCH (08:13)
[2019-02-02] MEDS: ASCORBIC ACID 500 MG TAB PO SCH (08:13)
[2019-02-02] MEDS: GABAPENTIN 300 MG CAP PO SCH ×3 (08:13→21:31)
[2019-02-02] MEDS: LISINOPRIL 5 MG TAB PO SCH (08:14)
[2019-02-02] MEDS: SERTRALINE 50 MG TAB PO SCH (08:14)
[2019-02-02] MEDS: COLLAGENASE 5 GM (UD JAR) TOP SCH (08:20)
[2019-02-02] MEDS: ACETAMINOPHEN 325 MG TAB PO PRN ×2 (08:20→17:36)
[2019-02-02] MEDS: INSULIN ASPART [NOVOLOG] 3 ML PEN SC SCH ×7 (08:24→21:00)
[2019-02-02] MEDS ORDERED: GLUCAGON 1 MG INJ IM PRN (08:30)
[2019-02-02] MEDS ORDERED: DEXTROSE 50% 50 ML SYRINGE IV PRN ×2 (08:30)
[2019-02-02] MEDS ORDERED: GLUCOSE GEL 15 GRAM TUBE PO PRN ×2 (08:30)
[2019-02-02] MEDS ORDERED: GLUCOSE GEL 15 GRAM TUBE BUCCAL PRN (08:30)
[2019-02-02] MEDS: DAKINS 0.0125%(1/40) 473 ML SOLUTION TP SCH (12:28)
--- NOTE | 2019-02-02 12:40 | CONS ---
Assessment/Plan Assessment/Plan Assessment/Plan (Daily) b/l diabetic foot ulcerations Left foot osteomyelitis Left foot abscess Left lower extremity cellulitis Left lower extremity edema Left foot soft tissue mass Left foot deep tissue injury DM2 with peripheral neuropathy Possible early signs of charcot neuroarthropathy leukocytosis Homelessness Plan Dressings were changed and copious dakins irrigation was used for the wound site. Left foot plantar 1st metatarsal wound was dilated and thoroughly irrigated with dakins. Additional 2-3mL of purulence to the left foot was expressed. Cultures were obtained of bilateral feet currently showing strep group A. Biopsy of hypertrophied ulceration/mass of left foot and results are pending. MRI of foot and ankle ordered bilateral which showed osteomyelitis to the left foot, fracture deformities and neuropathic changes. Concern for early signs of charcot neuroarthropathy. Non invasive arterial studies ordered. Venous studies showed negative findings of DVT. Appreciate input from ID and abx recommendations. Recommend tight glycemic control A1C is 12.6 and patient w ould benefit from diabetes education. Appreciate input case management regarding SNF placement or if patient can return to previous SNF location. Plan to take to OR tomorrow for further debridement, NPO after midnight tonight. Consultation Date/Type/Reason Admit Date/Time Feb 01, 2019 at 13:59 Initial Consult Date Date/Time of Note DATE: 02/02/19 TIME: 12:39 24 HR Interval Summary Free Text/Dictation reported fevers over night Exam/Review of Systems Exam Vitals Vital Signs Date Temp Pulse Resp B/P (MAP) Pulse Ox O2 O2 Flow FiO2 Time Delivery Rate 02/02/19 99.8 09:19 02/02/19 68 20 101/56 93 08:06 (71) 02/01/19 Room Air 15:25 Intake and Output 02/01/19 02/01/19 02/02/19 1515:00 23:00 07:00 IntakeIntake Total 100 ml 590 ml 800 ml OutputOutput Total 1200 ml BalanceBalance 100 ml -610 ml 800 ml Exam DP pulses palpable Right PT pulse palpable unable to palpate left PT pulse 2+ pitting edema left lower extremity Absent protective sensations Diffuse dry xerosis White scaling lesions mycotic toe nails Pain to the ulceration sites Right hallux HPK lesions Right plantar 1st metatarsal 1.5 x 1.2 x 0.2cm fibrogranular wound bed Right plantar 4th and 5th ulceration 1.5 x 3 x 0.2cm fibrogranular wound bed Right plantar 5th metatarsal base extending to heel ulceration 6 x 3 x 0.2cm fibronecrotic wound base with areas of granular tissue Left medial 1st MPJ ulceration granular with surrounding erythema and purulent drainage, granular wound bed 3 x 4 x 0.5cm Left plantar 1st metatarsal ulcer 2 x 2 x 1.5 cm ulceration fibrogranular with purulent drainage there is tunneling noted towards the 2nd metatarsal region left 1st and 5th metatarsal ulcers probe to bone Left plantar 5th metatarsal ulceration 1.2 x 1.4 x 0.4 hypergranular tissue with purulent drainage appreciated Left plantar heel deep tissue injury noted Results Result Diagram: 02/02/19 0516 02/02/19 0517 Results 24hrs Laboratory Tests Test 02/01/19 13:14 02/01/19 13:17 02/01/19 16:00 02/01/19 18:02 White Blood Count 14.0 #H Red Blood Count 3.85 L Hemoglobin 10.1 L Hematocrit 31.3 L Mean Corpuscular Volume 81.3 L Mean Corpuscular 26.2 L Hemoglobin Mean Corpuscular 32.3 Hemoglobin Concent Red Cell Distribution 12.6 Width Platelet Count 288 Mean Platelet Volume 9.3 Immature Granulocytes % 1.100 H Neutrophils % 80.7 H Lymphocytes % 11.6 L Monocytes % 6.1 Eosinophils % 0.3 Basophils % 0.2 Nucleated Red Blood 0.0 Cells % Immature Granulocytes # 0.150 H Neutrophils # 11.3 H Lymphocytes # 1.6 Monocytes # 0.9 Eosinophils # 0.0 Basophils # 0.0 Nucleated Red Blood 0.0 Cells # Prothrombin Time 14.0 Prothrombin Time Ratio 1.1 INR International 1.07 Normalized Ratio Activated 36.9 H Partial Thromboplast Time Sodium Level 135 Potassium Level 4.8 Chloride Level 96 L Carbon Dioxide Level 30 Anion Gap 9 Blood Urea Nitrogen 18 Creatinine 1.10 Est Glomerular Filtrat > 60 Rate mL/min Glucose Level 269 H Calcium Level 9.2 Total Bilirubin 0.8 Direct Bilirubin 0.00 Indirect Bilirubin 0.8 Aspartate Amino 18 Transf (AST/SGOT) Alanine 17 Aminotransferase (ALT/SG PT) Alkaline Phosphatase 129 H Troponin I < 0.012 Total Protein 7.2 Albumin 3.3 Globulin 3.90 H Albumin/Globulin Ratio 0.84 POC Venous Lactate 1.8 Lactic Acid Level 2.0 Bedside Glucose 153 Test 02/01/19 18:19 02/01/19 22:57 02/02/19 02:40 02/02/19 05:15 Erythrocyte 102 H 100 H Sedimentation Rate Lactic Acid Level 2.3 *H 1.3 C-Reactive Protein 21.9 H 24.3 H Procalcitonin 0.98 H 1.14 H Bedside Glucose 176 Test 02/02/19 05:16 02/02/19 05:17 02/02/19 08:10 02/02/19 12:25 White Blood Count 11.9 H Red Blood Count 3.60 L Hemoglobin 9.3 L Hematocrit 28.8 L Mean Corpuscular Volume 80.0 L Mean Corpuscular 25.8 L Hemoglobin Mean Corpuscular 32.3 Hemoglobin Concent Red Cell Distribution 12.7 Width Platelet Count 287 Mean Platelet Volume 9.9 Immature Granulocytes % 1.400 H Neutrophils % 72.2 Lymphocytes % 17.2 Monocytes % 8.0 Eosinophils % 0.9 Basophils % 0.3 Nucleated Red Blood 0.0 Cells % Immature Granulocytes # 0.170 H Neutrophils # 8.6 H Lymphocytes # 2.0 Monocytes # 1.0 H Eosinophils # 0.1 Basophils # 0.0 Nucleated Red Blood 0.0 Cells # Sodium Level 137 Potassium Level 4.7 Chloride Level 100 Carbon Dioxide Level 28 Anion Gap 9 Blood Urea Nitrogen 16 Creatinine 1.01 Est Glomerular Filtrat > 60 Rate mL/min Glucose Level 184 Hemoglobin A1c 12.6 H Calcium Level 8.9 Magnesium Level 1.8 Total Bilirubin 0.7 Direct Bilirubin 0.00 Indirect Bilirubin 0.7 Aspartate Amino 33 # Transf (AST/SGOT) Alanine 21 Aminotransferase (ALT/SG PT) Alkaline Phosphatase 145 H Total Protein 7.0 Albumin 3.2 L Globulin 3.80 H Albumin/Globulin Ratio 0.84 Triglycerides Level 90 Cholesterol Level 107 LDL Cholesterol, 61 Calculated HDL Cholesterol 28 Cholesterol/HDL Ratio 3.8 Thyroid Stimulating 1.120 Hormone (TSH) Bedside Glucose 144 134 Medications Medication Current Medications IV Flush (NS 3 ml) 3 ml PER PROTOCOL IV ; Start 02/01/19 at 14:30 Ondansetron HCl (Zofran Inj) 4 mg Q6H PRN IV NAUSEA/VOMITING; Start 02/01/19 at 14:30 Acetaminophen (Tylenol Tab) 650 mg Q6H PRN PO .PAIN 1-3 OR TEMP Last administered on 02/02/19 08:20; Admin Dose 650 MG; Start 02/01/19 at 14:30 Acetaminophen/ Hydrocodone Bitart ([place] (5/325)) 1 tab Q6H PRN PO .PAIN 4-6; Start 02/01/19 at 14:30 Morphine Sulfate (morphine) 2 mg Q4H PRN IV .PAIN 7-10; Start 02/01/19 at 14:30 Piperacillin Sod/ Tazobactam Sod 100 ml @ 200 mls/hr Q6 IVPB Last administered on 02/02/19at 05:17; Admin Dose 200 MLS/HR; Start 02/01/19 at 18:00 Vancomycin HCl (Vanco Iv Per Pharmacy) VANCOMYCIN PER PHARMACY PER PROTOCOL XX ; Start 02/01/19 at 14:30 Diagnostic Test (Pha) (Accu-Chek) 1 ea XX ; Start 02/02/19 at 02:00 Insulin Glargine (Lantus) 18 units DAILY@2000 SC Last administered on 02/01/19at 22:59; Admin Dose 18 UNITS; Start 02/01/19 at 20:00 Insulin Aspart (Novolog Insulin Pen) 6 unit WITH MEALS SC Last administered on 02/02/19 08:24; Admin Dose 6 UNIT; Start 02/01/19 at 18:00 Insulin Aspart (Novolog Insulin Pen) NOVOLOG *MILD* ALGORITHM WITH MEALS BEDTIME SC Last administered on 02/02/19 08:24; Admin Dose 1 UNIT; Start 02/01/19 at 18:00 Vancomycin HCl 250 ml @ 125 mls/hr Q12H IVPB Last administered on 02/02/19at 08:11; Admin Dose 125 MLS/HR; Start 02/01/19 at 21:00 Ascorbic Acid (Vitamin C) 500 mg DAILY PO Last administered on 02/02/19 08:13; Admin Dose 500 MG; Start 02/02/19 at 09:00 Gabapentin (Neurontin) 300 mg TID PO Last administered on 02/02/19 08:13; Admin Dose 300 MG; Start 02/01/19 at 21:00 Lisinopril (Zestril) 5 mg DAILY PO ; Start 02/02/19 at 09:00 Sertraline HCl (Zoloft) 25 mg DAILY PO Last administered on 02/02/19at 08:14; Admin Dose 25 MG; Start 02/02/19 at 09:00 Zinc Sulfate (Zinc Sulfate) 220 mg DAILY PO Last administered on 02/02/19at 08:13; Admin Dose 220 MG; Start 02/02/19 at 09:00 Lidocaine (Xylocaine 1% (Mpf)) 30 ml ONCE PRN INJ PAIN; Start 02/01/19 at 16:30 Collagenase (Santyl) 1 applic DAILY TOP Last administered on 02/02/19at 08:20; Admin Dose 1 APPLIC; Start 02/02/19 at 09:00 Miscellaneous Information 1 ea NOTE XX ; Start 02/02/19 at 08:30 Glucose (Glutose) 15 gm Q15M PRN PO DECREASED GLUCOSE; Start 02/02/19 at 08:30 Glucose (Glutose) 22.5 gm Q15M PRN PO DECREASED GLUCOSE; Start 02/02/19 at 08:30 Dextrose (D50w Syringe) 25 ml Q15M PRN IV DECREASED GLUCOSE; Start 02/02/19 at 08:30 Dextrose (D50w Syringe) 50 ml Q15M PRN IV DECREASED GLUCOSE; Start 02/02/19 at 08:30 Glucagon (Glucagen) 1 mg Q15M PRN IM DECREASED GLUCOSE; Start 02/02/19 at 08:30 Glucose (Glutose) 15 gm Q15M PRN BUCCAL DECREASED GLUCOSE; Start 02/02/19 at 08:30 Miscellaneous Information (*Rx Drug Level Order Reminder*) VANCO TROUGH @ 0,800 ON... 0800 ONCE XX ; Start 02/03/19 at 08:00; Stop 02/03/19 at 08:01 Sodium Hypochlorite (Dakins Diluted ()) 1 applic DAILY TP ; Start 02/02/19 at 11:30 YING ALMAZAN DPElise Feb 02, 2019 12:39
--- NOTE | 2019-02-02 14:51 | PN ---
Date/Time of Note Date/Time of Note DATE: 02/02/19 TIME: 14:50 Objective Vitals Vital Signs Date Temp Pulse Resp B/P (MAP) Pulse Ox O2 O2 Flow FiO2 Time Delivery Rate 02/02/19 99.8 09:19 02/02/19 68 20 101/56 93 08:06 (71) 02/01/19 Room Air 15:25 Intake and Output 02/01/19 02/01/19 02/02/19 1515:00 23:00 07:00 IntakeIntake Total 100 ml 590 ml 800 ml OutputOutput Total 1200 ml BalanceBalance 100 ml -610 ml 800 ml Results Result Diagram: 02/02/19 0516 02/02/19 0517 Medications Medications Current Medications IV Flush (NS 3 ml) 3 ml PER PROTOCOL IV ; Start 02/01/19 at 14:30 Ondansetron HCl (Zofran Inj) 4 mg Q6H PRN IV NAUSEA/VOMITING; Start 02/01/19 at 14:30 Acetaminophen (Tylenol Tab) 650 mg Q6H PRN PO .PAIN 1-3 OR TEMP Last administered on 02/02/19at 08:20; Admin Dose 650 MG; Start 02/01/19 at 14:30 Acetaminophen/ Hydrocodone Bitart ([place] (5/325)) 1 tab Q6H PRN PO .PAIN 4-6; Start 02/01/19 at 14:30 Morphine Sulfate (morphine) 2 mg Q4H PRN IV .PAIN 7-10; Start 02/01/19 at 14:30 Piperacillin Sod/ Tazobactam Sod 100 ml @ 200 mls/hr Q6 IVPB Last administered on 02/02/19at 12:28; Admin Dose 200 MLS/HR; Start 02/01/19 at 18:00 Vancomycin HCl (Vanco Iv Per Pharmacy) VANCOMYCIN PER PHARMACY PER PROTOCOL XX ; Start 02/01/19 at 14:30 Diagnostic Test (Pha) (Accu-Chek) XX ; Start 02/02/19 at 02:00 Insulin Glargine (Lantus) 18 units DAILY@2000 SC Last administered on 02/01/19at 22:59; Admin Dose 18 UNITS; Start 02/01/19 at 20:00 Insulin Aspart (Novolog Insulin Pen) 6 unit WITH MEALS SC Last administered on 7/4/19at 12:29; Admin Dose 6 UNIT; Start 02/01/19 at 18:00 Insulin Aspart (Novolog Insulin Pen) NOVOLOG *MILD* ALGORITHM WITH MEALS BEDTIME SC Last administered on 02/02/19 08:24; Admin Dose 1 UNIT; Start 02/01/19 at 18:00 Vancomycin HCl 250 ml @ 125 mls/hr Q12H IVPB Last administered on 02/02/19 08:11; Admin Dose 125 MLS/HR; Start 02/01/19 at 21:00 Ascorbic Acid (Vitamin C) 500 mg DAILY PO Last administered on 02/02/19 08:13; Admin Dose 500 MG; Start 02/02/19 at 09:00 Gabapentin (Neurontin) 300 mg TID PO Last administered on 02/02/19 12:26; Admin Dose 300 MG; Start 02/01/19 at 21:00 Lisinopril (Zestril) 5 mg DAILY PO ; Start 02/02/19 at 09:00 Sertraline HCl (Zoloft) 25 mg DAILY PO Last administered on 02/02/19at 08:14; Admin Dose 25 MG; Start 02/02/19 at 09:00 Zinc Sulfate (Zinc Sulfate) 220 mg DAILY PO Last administered on 02/02/19 08:13; Admin Dose 220 MG; Start 02/02/19 at 09:00 Lidocaine (Xylocaine 1% (Mpf)) 30 ml ONCE PRN INJ PAIN; Start 02/01/19 at 16:30 Collagenase (Santyl) 1 applic DAILY TOP Last administered on 02/02/19 08:20; Admin Dose 1 APPLIC; Start 02/02/19 at 09:00 Miscellaneous Information 1 ea NOTE XX ; Start 02/02/19 at 08:30 Glucose (Glutose) 15 gm Q15M PRN PO DECREASED GLUCOSE; Start 02/02/19 at 08:30 Glucose (Glutose) 22.5 gm Q15M PRN PO DECREASED GLUCOSE; Start 02/02/19 at 08:30 Dextrose (D50w Syringe) 25 ml Q15M PRN IV DECREASED GLUCOSE; Start 02/02/19 at 08:30 Dextrose (D50w Syringe) 50 ml Q15M PRN IV DECREASED GLUCOSE; Start 02/02/19 at 08:30 Glucagon (Glucagen) 1 mg Q15M PRN IM DECREASED GLUCOSE; Start 02/02/19 at 08:30 Glucose (Glutose) 15 gm Q15M PRN BUCCAL DECREASED GLUCOSE; Start 02/02/19 at 08:30 Miscellaneous Information (*Rx Drug Level Order Reminder*) VANCO TROUGH @ 0,800 ON... 0800 ONCE XX ; Start 02/03/19 at 08:00; Stop 02/03/19 at 08:01 Sodium Hypochlorite (Dakins Diluted ()) 1 applic DAILY TP Last administered on 02/02/19at 12:28; Admin Dose 1 APPLIC; Start 02/02/19 at 11:30 VTE Prophylaxis [place] [facility] risk: 4 SCD applied [place] [facility] No SCD contraindication: other Lines/Catheters IV Catheter Type: Mccormick in Place: No Assessment/Plan Hospital Course Subjective Other than foot pain patient doing well no acute changes Objective Physical exam General: Patient is laying in bed and answers questions appropriately Mentation: Patient is alert and oriented 4, Head: Normocephalic atraumatic Eyes: EOMI, pupils reactive to light Neck: Supple, nontender, midline Respiratory: Clear to auscultation bilaterally Cardiovascular: regular rate, no obvious murmurs Gastrointestinal: non-tender to palpation, bowel sounds heard. Neurological: Moves all extremities spontaneously Skin: Chronic venous stasis changes bilaterally on lower extremity, left foot wound has pustular drainage on the ventral side Assessment and plan Bilateral lower extremity wounds, left foot osteomyelitis -X-ray and MRI noted -IV antibiotic -Infectious disease and podiatry consulted -Wound cultures pending Diabetes mellitus -Insulin while in house Dyslipidemia -Continue atorvastatin Questionable history of CVA -No known residual effect -Continue daily aspirin Chronic diabetic foot wounds -Patient was homeless previous to his current stay at his alf [facility], likely chronic diabetic foot wounds due to homeless nature and noncompliant medical care. Disposition -Infectious disease and podiatry recommendations for osteomyelitis. ROSA QUINTERO Feb 02, 2019 14:51
[2019-02-02 16:43] VITALS: BP 177/88; PULSE 106; RESP 20
[2019-02-02 17:23] VITALS: BP 181/99; PULSE 112; RESP 20
--- NOTE | 2019-02-02 19:04 | CONS ---
Assessment/Plan Assessment/Plan Hospital Course (Demo Recall) ID PROGRESS NOTE CURRENT ABX: DAY #2 =>VANCO IV + Zosyn 02/02/19 0516 02/02/19 0517 24H INTERVAL SUMMARY * Sepsis on admission resolved -- feels better * Bilateral complex DM Charcot neuroarthropathic feet w/open ulcers DIAGNOSTIC IMAGING * 02/01/19 RIGHT FOOT/ANKLE MRI: Charcot foot changes w/no evidence osteomyelitis reported. * 02/01/19 LEFT FOOT/ANKLE MRI: 1. Osteomyelitis of the proximal phalanx of the left great toe, with soft tissue ulceration at the medial aspect of the base of the left great toe. 2. Soft tissue ulceration is also seen at the plantar aspect of the head of the first metatarsal, with suspected osteomyelitis in the sesamoids at the plantar aspect of the head of the fifth metatarsal. * 02/01/19 BLEXT VENOUS US: 1. No evidence of deep vein thrombosis involving either lower extremity. * 02/01/19 LEFT LOWER EXT ARTERIAL US: 2. Atypical monophasic wave form of the left dorsalis pedis artery suggests a degree of stenosis. MICRO * 02/01/19 BCX (-) * 02/01/19 LEFT FOOT CX (+) WOUND CULTURE Preliminary Organism 1 STREP PYOGENES (GRP A) QUANTITY 2+ * 02/01/19 RIGHT FOOT CX => PENDING PHYSICAL EXAMINATION: GEN: 46 yo M, WN,WD, NAD VITALS: Afebrile, VSS HEENT: Unremarkable, no oral thrush NECK: Supple, full ROM CHEST: Equal chest rise bilaterally, without dyspnea on room air on observation CV: Radial pulse RRR ABD: Soft, NT : Deferred EXT: Warm, LEFT LEG 2+ pitting edema noted, left foot wound has pustular drainage on the ventral side, right foot ulcers SKIN: No rash, no diaphoresis, (+)tattoos upper ext NEURO: Grossly intact w/known Dm peripheral neuropathy ID ASSESSMENT 48 yo M admit with: 1. Sepsis indicators on admission: Fever 102.7, Leukocytosis, lactic acid 2.3, procalcitonin 0.98-> 1.14 , ESR 110, CRP >24 2. COMPLEX Bilateral lower extremity cellulitis w/bilateral diabetic feet infection as below: * Left foot osteomyelitis / abscess w/gas / cellulitis / tissue mass / deep tissue injury / edema per MRI 7/3/19 * 02/01/19 LEFT FOOT CX (+) WOUND CULTURE Preliminary Organism 1 STREP PYOGENES (GRP A) QUANTITY 2+ * Right foot Charcot foot changes w/open ulcerations/cellulitis, no evidence osteomyelitis on MRI 02/01/19 * 02/01/19 RIGHT FOOT CX => PENDING 2. Diabetes mellitus w/complication of DM peripheral neuropathy * 02/02/19 A1C @ 12.4 * BILATERAL FEET Charcot neuroarthropathy 3. PERIPHERAL ARTERIAL AND VENOUS artery disease * Bilateral lower extremities edema w/chronic venous stasis hyperpigm entation/hyperkeratotic thick skin changes/hyperkeratotic long toenails * 02/01/19 LEFT LOWER EXT ARTERIAL US: 2. Atypical monophasic wave form of the left dorsalis pedis artery suggests a degree of stenosis. 4. HTN w/possible HTN heart disease per (+)mild concentric LVH on 2013 ECHO w/EF 60% 5. DJD: * Left shoulder pain: PRIOR MRI No acute process * Hx of right shoulder surgery 6. Cervicalgia w/prior imaging findings: * Multilevel foraminal narrowing outlined in detail above.Cervical spondylosis/degenerative enthesopathy. No cervical cord signal abnormality. 7. Chronic sinusitis per MRI/CT Brain prior admission * CT: Opacified partially visualized right ethmoid air cells with moderate mucosal thickening within the right frontal sinuses. * MRI: Noted are complete right maxillary, extensive right frontal and ethmoid sinus opacification, left maxillary sinus mucous retention cysts and minimal mastoid air cell opacification. 8. Tobaccoism -> 2 cigars/day 9. 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 Socioeconomic barriers to care: Homeless prior was living in w/friend - >recently living @ SNF prior to admission ABX ALLERGIES: KNDA INVASIVES: PIV CURRENT ABX: DAY # 2=> =>VANCO IV + Zosyn ID RECOMMENDATIONS/PLAN: 1. Continue current ABX -Awaiting final micro * Watch renal fx closely on this renally cleared ABX combo 2. Plan per Podiatry -> TO OR = follow APC recommendations 3. SMOKING CESSATION STRONGLY ADVOCATED 4. Hx of noncompliance @ SNF -- multiple barriers to self-care Consultation Date/Type/Reason Admit Date/Time Feb 01, 2019 at 13:59 Initial Consult Date Date/Time of Note DATE: 02/02/19 TIME: 19:01 Exam/Review of Systems Exam Vitals Vital Signs Date Temp Pulse Resp B/P (MAP) Pulse Ox O2 O2 Flow FiO2 Time Delivery Rate 02/02/19 100.0 18:21 02/02/19 112 20 181/99 100 Room Air 17:23 (126) Intake and Output 02/01/19 02/01/19 02/02/19 1515:00 23:00 07:00 IntakeIntake Total 100 ml 590 ml 800 ml OutputOutput Total 1200 ml BalanceBalance 100 ml -610 ml 800 ml Results Result Diagram: 02/02/19 0516 02/02/19 0517 Results 24hrs Laboratory Tests Test 02/01/19 22:57 02/02/19 02:40 02/02/19 05:15 02/02/19 05:16 Bedside Glucose 176 Lactic Acid Level 1.3 Erythrocyte 100 H Sedimentation Rate C-Reactive Protein 24.3 H Procalcitonin 1.14 H White Blood Count 11.9 H Red Blood Count 3.60 L Hemoglobin 9.3 L Hematocrit 28.8 L Mean Corpuscular Volume 80.0 L Mean Corpuscular 25.8 L Hemoglobin Mean Corpuscular 32.3 Hemoglobin Concent Red Cell Distribution 12.7 Width Platelet Count 287 Mean Platelet Volume 9.9 Immature Granulocytes % 1.400 H Neutrophils % 72.2 Lymphocytes % 17.2 Monocytes % 8.0 Eosinophils % 0.9 Basophils % 0.3 Nucleated Red Blood 0.0 Cells % Immature Granulocytes # 0.170 H Neutrophils # 8.6 H Lymphocytes # 2.0 Monocytes # 1.0 H Eosinophils # 0.1 Basophils # 0.0 Nucleated Red Blood 0.0 Cells # Test 02/02/19 05:17 02/02/19 08:10 02/02/19 12:25 02/02/19 17:35 Sodium Level 137 Potassium Level 4.7 Chloride Level 100 Carbon Dioxide Level 28 Anion Gap 9 Blood Urea Nitrogen 16 Creatinine 1.01 Est Glomerular Filtrat > 60 Rate mL/min Glucose Level 184 Hemoglobin A1c 12.6 H Calcium Level 8.9 Magnesium Level 1.8 Total Bilirubin 0.7 Direct Bilirubin 0.00 Indirect Bilirubin 0.7 Aspartate Amino 33 # Transf (AST/SGOT) Alanine 21 Aminotransferase (ALT/SG PT) Alkaline Phosphatase 145 H Total Protein 7.0 Albumin 3.2 L Globulin 3.80 H Albumin/Globulin Ratio 0.84 Triglycerides Level 90 Cholesterol Level 107 LDL Cholesterol, 61 Calculated HDL Cholesterol 28 Cholesterol/HDL Ratio 3.8 Thyroid Stimulating 1.120 Hormone (TSH) Bedside Glucose 144 134 146 Medications Medication Current Medications IV Flush (NS 3 ml) 3 ml PER PROTOCOL IV ; Start 02/01/19 at 14:30 Ondansetron HCl (Zofran Inj) 4 mg Q6H PRN IV NAUSEA/VOMITING; Start 02/01/19 at 14:30 Acetaminophen (Tylenol Tab) 650 mg Q6H PRN PO .PAIN 1-3 OR TEMP Last administered on 02/02/19 17:36; Admin Dose 650 MG; Start 02/01/19 at 14:30 Acetaminophen/ Hydrocodone Bitart ([employer] (5/325)) 1 tab Q6H PRN PO .PAIN 4-6; Start 02/01/19 at 14:30 Morphine Sulfate (morphine) 2 mg Q4H PRN IV .PAIN 7-10; Start 02/01/19 at 14:30 Piperacillin Sod/ Tazobactam Sod 100 ml @ 200 mls/hr Q6 IVPB Last administered on 02/02/19 17:36; Admin Dose 200 MLS/HR; Start 02/01/19 at 18:00 Vancomycin HCl (Vanco Iv Per Pharmacy) VANCOMYCIN PER PHARMACY PER PROTOCOL XX ; Start 02/01/19 at 14:30 Diagnostic Test (Pha) (Accu-Chek) 1 XX ; Start 02/02/19 at 02:00 Insulin Glargine (Lantus) 18 units DAILY@2000 SC Last administered on 02/01/19 22:59; Admin Dose 18 UNITS; Start 02/01/19 at 20:00 Insulin Aspart (Novolog Insulin Pen) 6 unit WITH MEALS SC Last administered on 02/02/19 17:43; Admin Dose 6 UNIT; Start 02/01/19 at 18:00 Insulin Aspart (Novolog Insulin Pen) NOVOLOG *MILD* ALGORITHM WITH MEALS BEDTIME SC Last administered on 02/02/19 17:43; Admin Dose 1 UNIT; Start at 18:00 Vancomycin HCl 250 ml @ 125 mls/hr Q12H IVPB Last administered on 02/02/19 08:11; Admin Dose 125 MLS/HR; Start 02/01/19 at 21:00 Ascorbic Acid (Vitamin C) 500 mg DAILY PO Last administered on 02/02/19at 08:13; Admin Dose 500 MG; Start 02/02/19 at 09:00 Gabapentin (Neurontin) 300 mg TID PO Last administered on 02/02/19at 12:26; Admin Dose 300 MG; Start 02/01/19 at 21:00 Lisinopril (Zestril) 5 mg DAILY PO ; Start 02/02/19 at 09:00 Sertraline HCl (Zoloft) 25 mg DAILY PO Last administered on 02/02/19at 08:14; Admin Dose 25 MG; Start 02/02/19 at 09:00 Zinc Sulfate (Zinc Sulfate) 220 mg DAILY PO Last administered on 02/02/19at 08:13; Admin Dose 220 MG; Start 02/02/19 at 09:00 Lidocaine (Xylocaine 1% (Mpf)) 30 ml ONCE PRN INJ PAIN; Start 02/01/19 at 16:30 Collagenase (Santyl) 1 applic DAILY TOP Last administered on 02/02/19at 08:20; Admin Dose 1 APPLIC; Start 02/02/19 at 09:00 Miscellaneous Information 1 ea NOTE XX ; Start 02/02/19 at 08:30 Glucose (Glutose) 15 gm Q15M PRN PO DECREASED GLUCOSE; Start 02/02/19 at 08:30 Glucose (Glutose) 22.5 gm Q15M PRN PO DECREASED GLUCOSE; Start 02/02/19 at 08:30 Dextrose (D50w Syringe) 25 ml Q15M PRN IV DECREASED GLUCOSE; Start 02/02/19 at 08:30 Dextrose (D50w Syringe) 50 ml Q15M PRN IV DECREASED GLUCOSE; Start 02/02/19 at 08:30 Glucagon (Glucagen) 1 mg Q15M PRN IM DECREASED GLUCOSE; Start 02/02/19 at 08:30 Glucose (Glutose) 15 gm Q15M PRN BUCCAL DECREASED GLUCOSE; Start 02/02/19 at 08:30 Miscellaneous Information (*Rx Drug Level Order Reminder*) VANCO TROUGH @ 0,800 ON... 0800 ONCE XX ; Start 02/03/19 at 08:00; Stop 02/03/19 at 08:01 Sodium Hypochlorite (Dakins Diluted (1/40)) 1 applic DAILY TP Last administered on 02/02/19at 12:28; Admin Dose 1 APPLIC; Start 02/02/19 at 11:30 Clonidine (Catapres) 0.1 mg Q6H PRN PO ELEVATED BLOOD PRESSURE Last administered on 02/02/19at 17:35; Admin Dose 0.1 MG; Start 02/02/19 at 17:30 MARIANO VACA NP Feb 02, 2019 19:04
[2019-02-02 19:40] VITALS: BP 110/57; PULSE 95; RESP 18
[2019-02-02] MEDS: INSULIN GLARGINE [LANTus] (100 UNITS/ML) SYG SC SCH (21:31)
[2019-02-03] VITALS (16 sets, daily range): BP systolic 90–157; BP diastolic 53–95; PULSE 72–78; RESP 13–23
[2019-02-03] MEDS: PIPER-TAZO 3.375 GM IV (PMX) 100 ML IVPB SCH ×4 (00:28→20:12)
[2019-02-03] MEDS: ACCU-CHEK XX SCH (01:38)
[2019-02-03] MEDS: morphine 2 MG INJ IV PRN ×2 (05:48→22:42)
[2019-02-03] MEDS: INSULIN ASPART [NOVOLOG] 3 ML PEN SC SCH ×7 (08:00→22:36)
[2019-02-03] MEDS: DEXTROSE 5%-0.45% NACL 1,000 ML IV SCH ×2 (08:06→16:30)
[2019-02-03] MEDS: ZINC SULFATE 220 MG CAP PO SCH (08:08)
[2019-02-03] MEDS: GABAPENTIN 300 MG CAP PO SCH ×3 (08:08→22:37)
[2019-02-03] MEDS: SERTRALINE 50 MG TAB PO SCH (08:08)
[2019-02-03] MEDS: ASCORBIC ACID 500 MG TAB PO SCH (08:08)
[2019-02-03] MEDS: LISINOPRIL 5 MG TAB PO SCH (08:11)
[2019-02-03] MEDS: COLLAGENASE 5 GM (UD JAR) TOP SCH (08:12)
[2019-02-03] MEDS: DAKINS 0.0125%(1/40) 473 ML SOLUTION TP SCH (08:12)
[2019-02-03] MEDS: VANCOMYCIN 1 GM 250 ML IVPB SCH ×2 (08:58→22:37)
--- NOTE | 2019-02-03 09:11 | HPN ---
Date/Time of Note Date/Time of Note DATE: 02/03/19 TIME: 09:11 Interval H&P Admission Note Pt. seen H&P reviewed: No system changes YING ALMAZAN DPM Feb 03, 2019 09:11
--- NOTE | 2019-02-03 13:51 | PREAC ---
Date/Time of Note Date/Time of Note DATE: 02/03/19 TIME: 13:49 Anesthesia Eval and Record Evaluation Time Pre-Procedure Interview DATE: 02/03/19 TIME: 13:49 Age 48 Sex male NPO: 8 hrs Preoperative diagnosis bilateral diabetic foot wounds Planned procedure bilateral foot wound excisional debridement, incision and drainage, possible application of allograft, possible wound closure. Past Medical History Past Medical History: Includes Cardio: HTN, Dyslipidemia, Other (vascular disease ) Endo: Diabetes Recreational drugs: Marijuana Surgery & Anesthesia Issues No known issue Meds Anticoagulation: No Beta Kaylan within 24 hr: No Reason Beta Kaylan not given: Pt. not on B-Kaylan Reported Medications Gabapentin* (Gabapentin*) 100 Mg Capsule, 100 MG PO TID, #90 CAP 02/01/19 Insulin Regular, Human (Humulin R U-500 Kwikpen) 500 Unit/1 Ml Insuln.pen, 7 UNIT SQ AC A 02/01/19 Ibuprofen* (Motrin*) 600 Mg Tab, 600 MG PO Q8H PRN for PAIN LEVEL 6-10, TAB 02/01/19 Insulin Glargine* (Lantus*) 100 Unit/Ml Soln, 10 UNIT SC QHS, #1 VIAL 02/01/19 Lisinopril* (Lisinopril*) 5 Mg Tablet, 5 MG PO DAILY, #30 TAB HOLD IF SBP <110 OR HR <60 02/01/19 Metformin Hcl* (Metformin Hcl*) 1,000 Mg Tablet, 1000 MG PO WITH BREAKFAST DINNE, #60 TAB 02/01/19 Multivitamin with Minerals (Daily Vitamin Formula-Minerals) 1 Each Tablet, 1 EACH PO DAILY, TAB 02/01/19 Amino Acids/Protein Hydrolys (Pro-Stat Awc Liquid) 30 Ml Liquid, 30 ML PO BID 02/01/19 Sertraline Hcl* (Sertraline Hcl*) 25 Mg Tablet, 25 MG PO DAILY, #30 TAB 02/01/19 Ascorbic Acid* (Vitamin C*) 500 Mg Capsule.sa, 500 MG PO DAILY, CAP 02/01/19 Zinc Sulfate* (Zinc Sulfate*) 220 Mg Tablet, 220 MG PO DAILY, TAB STOP 7-8-19 02/01/19 Acetaminophen* (Acetaminophen*) 650 Mg Tablet, 650 MG PO Q6H PRN for PAIN LEVEL 1-5, #30 TAB AND FEVER 02/01/19 Arginine/Ascorbate Sod/Fred AC (Arginaid Powder) 1 Each Powd.pack, 1 EACH PO BID 02/01/19 Discontinued Reported Medications Lisinopril* (Lisinopril*) 5 Mg Tablet, 5 MG PO DAILY 04/24/13 Metformin* (Glucophage*) 500 Mg Tab, 500 MG PO BID 04/24/13 Discontinued Scripts Pen Needle, Diabetic (Insulin Pen Needle) 1 Each Dis.needle, 1 EACH MC DAILY, #90 Prov:LAURENCE LOPEZ MD 02/23/17 Atorvastatin Calcium (Atorvastatin Calcium) 20 Mg Tablet, 20 MG PO HS for 90 Days, #90 TAB Prov:LAURENCE LOPEZ MD 02/23/17 Sulfamethoxazole/Trimethoprim* (Bactrim Ds* Tablet) 1 Each Tablet, 1 TAB PO BID for 28 Days, #56 TAB Prov:LAURENCE LOPEZ MD 02/23/17 Insulin Glargine* (Lantus*) 100 Unit/Ml Soln, 20 UNIT SC DAILY for 90 Days, #90 Prov:LAURENCE LOPEZ MD 02/23/17 Aspirin (Aspirin) 81 Mg Chew, 81 MG PO DAILY for 90 Days, #90 TAB Prov:LAURENCE LOPEZ MD 02/23/17 Levofloxacin* (Levaquin*) 500 Mg Tablet, 500 MG PO DAILY for 28 Days, #28 TAB Prov:LAURENCE LOPEZ MD 02/23/17 Current Medications IV Flush (NS 3 ml) 3 ml PER PROTOCOL IV ; Start 02/01/19 at 14:30 Ondansetron HCl (Zofran Inj) 4 mg Q6H PRN IV NAUSEA/VOMITING; Start 02/01/19 at 14:30 Acetaminophen (Tylenol Tab) 650 mg Q6H PRN PO .PAIN 1-3 OR TEMP Last administered on 02/02/19at 17:36; Admin Dose 650 MG; Start 02/01/19 at 14:30 Acetaminophen/ Hydrocodone Bitart ([place] (5/325)) 1 tab Q6H PRN PO .PAIN 4-6; Start 02/01/19 at 14:30 Morphine Sulfate (morphine) 2 mg Q4H PRN IV .PAIN 7-10 Last administered on 02/03/19at 05:48; Admin Dose 2 MG; Start 02/01/19 at 14:30 Piperacillin Sod/ Tazobactam Sod 100 ml @ 200 mls/hr Q6 IVPB Last administered on 02/03/19 05:47; Admin Dose 200 MLS/HR; Start 02/01/19 at 18:00 Vancomycin HCl (Vanco Iv Per Pharmacy) VANCOMYCIN PER PHARMACY PER PROTOCOL XX ; Start 02/01/19 at 14:30 Insulin Glargine (Lantus) 18 units DAILY@2000 SC Last administered on 02/01/19 22:59; Admin Dose 18 UNITS; Start 02/01/19 at 20:00 Insulin Aspart (Novolog Insulin Pen) 6 unit WITH MEALS SC Last administered on 02/02/19 17:43; Admin Dose 6 UNIT; Start 02/01/19 at 18:00 Vancomycin HCl 250 ml @ 125 mls/hr Q12H IVPB Last administered on 02/03/19 08:58; Admin Dose 125 MLS/HR; Start 02/01/19 at 21:00 Ascorbic Acid (Vitamin C) 500 mg DAILY PO Last administered on 02/03/19at 08:08; Admin Dose 500 MG; Start 02/02/19 at 09:00 Gabapentin (Neurontin) 300 mg TID PO Last administered on 02/03/19 08:08; Admin Dose 300 MG; Start 02/01/19 at 21:00 Lisinopril (Zestril) 5 mg DAILY PO ; Start 02/02/19 at 09:00 Sertraline HCl (Zoloft) 25 mg DAILY PO Last administered on 02/03/19at 08:08; A dmin Dose 25 MG; Start 02/02/19 at 09:00 Zinc Sulfate (Zinc Sulfate) 220 mg DAILY PO Last administered on 02/03/19at 08:08; Admin Dose 220 MG; Start 02/02/19 at 09:00 Lidocaine (Xylocaine 1% (Mpf)) 30 ml ONCE PRN INJ PAIN; Start 02/01/19 at 16:30 Collagenase (Santyl) 1 applic DAILY TOP Last administered on 02/03/19at 08:12; Admin Dose 1 APPLIC; Start 02/02/19 at 09:00 Miscellaneous Information 1 ea NOTE XX ; Start 02/02/19 at 08:30 Glucose (Glutose) 15 gm Q15M PRN PO DECREASED GLUCOSE; Start 02/02/19 at 08:30 Glucose (Glutose) 22.5 gm Q15M PRN PO DECREASED GLUCOSE; Start 02/02/19 at 08:30 Dextrose (D50w Syringe) 25 ml Q15M PRN IV DECREASED GLUCOSE; Start 02/02/19 at 08:30 Dextrose (D50w Syringe) 50 ml Q15M PRN IV DECREASED GLUCOSE; Start 02/02/19 at 08:30 Glucagon (Glucagen) 1 mg Q15M PRN IM DECREASED GLUCOSE; Start 02/02/19 at 08:30 Glucose (Glutose) 15 gm Q15M PRN BUCCAL DECREASED GLUCOSE; Start 02/02/19 at 08:30 Sodium Hypochlorite (Dakins Diluted ()) 1 applic DAILY TP Last administered on 02/03/19at 08:12; Admin Dose 1 APPLIC; Start 02/02/19 at 11:30 Clonidine (Catapres) 0.1 mg Q6H PRN PO ELEVATED BLOOD PRESSURE Last administered on 02/02/19at 17:35; Admin Dose 0.1 MG; Start 02/02/19 at 17:30 Insulin Aspart (Novolog Insulin Pen) NOVOLOG *MILD* ALGORI... Q4 SC Last administered on 02/03/19at 08:18; Admin Dose 3 UNIT; Start 02/03/19 at 09:00 Dextrose/Sodium Chloride 1,000 ml @ 100 mls/hr Q10H IV Last administered on 02/03/19at 08:06; Admin Dose 100 MLS/HR; Start 02/03/19 at 06:30 Meds reviewed: Yes Allergies Coded Allergies: No Known Allergy (Unverified , 02/20/17) Allergies Reviewed: Yes Labs/Studies Labs Reviewed: Reviewed by anesthesiologist Result Diagram: 02/02/1951502/02/19516 test: N/A Pre-procedure Exam Last vitals Vital Signs Date Temp Pulse Resp B/P (MAP) Pulse Ox O2 O2 Flow FiO2 Time Delivery Rate 02/03/19 99.4 75 18 90/53 (65) 95 Room Air 08:00 Airway: Adequate mouth opening, Adequate thyromental dist Mallampati: Mallampati II Teeth: Abnormal (poor dentition. decay. multiple missing and chipped ) Lung: Normal Heart: Normal ASA Physical Status ASA physical status: 3 Emergency: None Planned Anesthetic General/MAC: Mask (vs. ), LMA Planned Pain Management Parenteral pain med Pre-operative Attestations Prior to commencing anesthesia and surgery, the patient was re-evaluated, there was verification of: *The patient's identity *The results of appropriate recent lab work and preoperative vital signs *The above evaluation not changing prior to induction *Anesthetic plan, risk benefits, alternative and complications discussed with patient/family; questions answered; patient/family understands, accepts and wishes to proceed. JARED KRAMER MD Feb 03, 2019 13:51
[2019-02-03] MEDS ORDERED: FENTAnyl 50 MCG/ML VIAL IV PRN (14:00)
[2019-02-03] MEDS ORDERED: MEPERIDINE 25 MG INJ IV PRN (14:00)
[2019-02-03] MEDS ORDERED: DIPHENHYDRAMINE 50 MG INJ IV PRN (14:00)
[2019-02-03] MEDS ORDERED: HYDROmorphONE 1 MG/5 ML IV SYRINGE IV PRN ×3 (14:00)
[2019-02-03] MEDS ORDERED: PROCHLORPERAZINE 10 MG INJ IV PRN (14:00)
[2019-02-03] MEDS ORDERED: ONDANSETRON 4 MG INJ IV PRN (14:00)
[2019-02-03] MEDS ORDERED: POLYMYXIN B 500000 UNIT INJ ONE (14:02)
[2019-02-03] MEDS ORDERED: POLYMYXIN/BACITRACIN 1L IRRIG ONE (14:02)
[2019-02-03] MEDS ORDERED: BACITRACIN 50000 UNITS INJ ONE (14:04)
[2019-02-03] MEDS ORDERED: MIDAZOLAM 1 MG/ML 2 ML INJ ONE (14:10)
[2019-02-03] MEDS ORDERED: FENTAnyl 50 MCG/ML VIAL ONE (14:27)
[2019-02-03] MEDS ORDERED: LIDOCAINE 2% (SDV) 5 ML INJ ONE (14:27)
[2019-02-03] MEDS ORDERED: PROPOFOL 20 ML ONE (14:27)
[2019-02-03] MEDS ORDERED: FAMOTIDINE 20 MG INJ ONE (14:28)
[2019-02-03] MEDS ORDERED: EPHEDrine 25 MG/5 ML SYG ONE (14:28)
[2019-02-03] MEDS ORDERED: ONDANSETRON 4 MG INJ ONE (14:29)
[2019-02-03] MEDS ORDERED: LIDOCAINE 1% (MPF) 30 ML INJ ONE (14:36)
[2019-02-03] MEDS ORDERED: VANCOMYCIN 1 GM INJ ONE (14:36)
--- NOTE | 2019-02-03 14:55 | PN ---
Date/Time of Note Date/Time of Note DATE: 02/03/19 TIME: 14:53 Objective Vitals Vital Signs Date Temp Pulse Resp B/P (MAP) Pulse Ox O2 O2 Flow FiO2 Time Delivery Rate 02/03/19 99.4 75 18 90/53 (65) 95 Room Air 08:00 Intake and Output 02/02/19 02/02/19 02/03/19 1515:00 23:00 07:00 IntakeIntake Total 1370 ml 100 ml 450 ml OutputOutput Total 200 ml BalanceBalance 1170 ml 100 ml 450 ml Results Result Diagram: 02/02/19 0516 02/02/19 0517 Medications Medications Current Medications IV Flush (NS 3 ml) 3 ml PER PROTOCOL IV ; Start 02/01/19 at 14:30 Ondansetron HCl (Zofran Inj) 4 mg Q6H PRN IV NAUSEA/VOMITING; Start 02/01/19 at 14:30 Acetaminophen (Tylenol Tab) 650 mg Q6H PRN PO .PAIN 1-3 OR TEMP Last administered on 02/02/19at 17:36; Admin Dose 650 MG; Start 02/01/19 at 14:30 Acetaminophen/ Hydrocodone Bitart ([place] (5/325)) 1 tab Q6H PRN PO .PAIN 4-6; Start 02/01/19 at 14:30 Morphine Sulfate (morphine) 2 mg Q4H PRN IV .PAIN 7-10 Last administered on 02/03/19at 05:48; Admin Dose 2 MG; Start 02/01/19 at 14:30 Piperacillin Sod/ Tazobactam Sod 100 ml @ 200 mls/hr Q6 IVPB Last administered on 02/03/19at 05:47; Admin Dose 200 MLS/HR; Start 02/01/19 at 18:00 Vancomycin HCl (Vanco Iv Per Pharmacy) VANCOMYCIN PER PHARMACY PER PROTOCOL XX ; Start 02/01/19 at 14:30 Insulin Glargine (Lantus) 18 units DAILY@2000 SC Last administered on 02/01/19at 22:59; Admin Dose 18 UNITS; Start 02/01/19 at 20:00 Insulin Aspart (Novolog Insulin Pen) 6 unit WITH MEALS SC Last administered on 02/02/19at 17:43; Admin Dose 6 UNIT; Start 02/01/19 at 18:00 Vancomycin HCl 250 ml @ 125 mls/hr Q12H IVPB Last administered on 02/03/19at 08:58; Admin Dose 125 MLS/HR; Start 02/01/19 at 21:00 Ascorbic Acid (Vitamin C) 500 mg DAILY PO Last administered on 02/03/19at 08:08; Admin Dose 500 MG; Start 02/02/19 at 09:00 Gabapentin (Neurontin) 300 mg TID PO Last administered on 02/03/19at 08:08; Admin Dose 300 MG; Start 02/01/19 at 21:00 Lisinopril (Zestril) 5 mg DAILY PO ; Start 02/02/19 at 09:00 Sertraline HCl (Zoloft) 25 mg DAILY PO Last administered on 02/03/19at 08:08; Admin Dose 25 MG; Start 02/02/19 at 09:00 Zinc Sulfate (Zinc Sulfate) 220 mg DAILY PO Last administered on 02/03/19at 08:08; Admin Dose 220 MG; Start 02/02/19 at 09:00 Lidocaine (Xylocaine 1% (Mpf)) 30 ml ONCE PRN INJ PAIN; Start 02/01/19 at 16:30 Collagenase (Santyl) 1 applic DAILY TOP Last administered on 02/03/19at 08:12; Admin Dose 1 APPLIC; Start 02/02/19 at 09:00 Miscellaneous Information 1 ea NOTE XX ; Start 02/02/19 at 08:30 Glucose (Glutose) 15 gm Q15M PRN PO DECREASED GLUCOSE; Start 02/02/19 at 08:30 Glucose (Glutose) 22.5 gm Q15M PRN PO DECREASED GLUCOSE; Start 02/02/19 at 08:30 Dextrose (D50w Syringe) 25 ml Q15M PRN IV DECREASED GLUCOSE; Start 02/02/19 at 08:30 Dextrose (D50w Syringe) 50 ml Q15M PRN IV DECREASED GLUCOSE; Start 02/02/19 at 08:30 Glucagon (Glucagen) 1 mg Q15M PRN IM DECREASED GLUCOSE; Start 02/02/19 at 08:30 Glucose (Glutose) 15 gm Q15M PRN BUCCAL DECREASED GLUCOSE; Start 02/02/19 at 08:30 Sodium Hypochlorite (Dakins Diluted (1/40)) 1 applic DAILY TP Last administered on 02/03/19at 08:12; Admin Dose 1 APPLIC; Start 02/02/19 at 11:30 Clonidine (Catapres) 0.1 mg Q6H PRN PO ELEVATED BLOOD PRESSURE Last administered on 02/02/19at 17:35; Admin Dose 0.1 MG; Start 02/02/19 at 17:30 Insulin Aspart (Novolog Insulin Pen) NOVOLOG *MILD* ALGORI... Q4 SC Last administered on 02/03/19at 08:18; Admin Dose 3 UNIT; Start 02/03/19 at 09:00 Dextrose/Sodium Chloride 1,000 ml @ 100 mls/hr Q10H IV Last administered on 02/03/19at 08:06; Admin Dose 100 MLS/HR; Start 02/03/19 at 06:30 Hydromorphone HCl (Dilaudid) 0.2 mg PACU PRN IV MILD PAIN 1-3; Start 02/03/19 at 14:00; Stop 02/03/19 at 18:00 Hydromorphone HCl (Dilaudid) 0.4 mg PACU PRN IV MOD PAIN 4-6; Start 02/03/19 at 14:00; Stop 02/03/19 at 18:00 Hydromorphone HCl (Dilaudid) 0.6 mg PACU PRN IV SEVERE PAIN 7-10; Start 02/03/19 at 14:00; Stop 02/03/19 at 18:00 Fentanyl (Sublimaze) 25 mcg PACU ORDER PRN IV MILD PAIN 1-3; Start 02/03/19 at 14:00; Stop 02/03/19 at 18:00 Ondansetron HCl (Zofran Inj) 4 mg PACU ORDER PRN IV NAUSEA/VOMITING; Start 02/03/19 at 14:00; Stop 02/03/19 at 18:00 Prochlorperazine (Compazine Inj) 5 mg PACU ORDER PRN IV NAUSEA/VOMITING; Start 02/03/19 at 14:00; Stop 02/03/19 at 18:00 Meperidine HCl (Demerol) 25 mg PACU ORDER PRN IV .RIGORS; Start 02/03/19 at 14:00; Stop 02/03/19 at 18:00 Diphenhydramine HCl (Benadryl) 25 mg PACU ORDER PRN IV .PRURITUS; Start 02/03/19 at 14:00; Stop 02/03/19 at 18:00 VTE Prophylaxis Risk score (from Ns)>0 risk: 2 SCD applied (from [facility]): Yes Lines/Catheters IV Catheter Type: Mccormick in Place: No Assessment/Plan Hospital Course Subjective Patient away getting debridement, according to the nurse patient had some subjective stiffness of her arms bilaterally with no numbness tingling or weakness. Assessment and plan Bilateral lower extremity wounds, left foot osteomyelitis -X-ray and MRI noted -IV antibiotic -Infectious disease and podiatry consulted -Wound cultures pending arm stiffness -will get mri cervical (patient states this has happened before they got an MRI.) Diabetes mellitus -Insulin while in house Dyslipidemia -Continue atorvastatin Questionable history of CVA -No known residual effect -Continue daily aspirin Chronic diabetic foot wounds -Patient was homeless previous to his current stay at his residential facility, likely chronic diabetic foot wounds due to homeless nature and noncompliant medical care. Disposition -Pending debridement and MRI ROSA QUINTERO Feb 03, 2019 14:55
--- NOTE | 2019-02-03 15:40 | SIPON ---
Date/Time of Note Date/Time of Note DATE: 02/03/19 TIME: 15:40 Operative Report Preoperative Diagnosis b/l diabetic foot ulcerations Left foot osteomyelitis Left foot abscess Left lower extremity cellulitis Left lower extremity edema Left foot deep tissue injury DM2 with peripheral neuropathy Postoperative Diagnosis b/l diabetic foot ulcerations Left foot osteomyelitis Left foot abscess Left lower extremity cellulitis Left lower extremity edema Left foot callus DM2 with peripheral neuropathy Operation/Procedure Performed bilateral foot excisional debridement biopsy of left foot bone Surgeon see signature line nurse assistant none Anesthesia: general Estimated blood loss: 10 - 50 ml's Transfusion Required none Specimen left foot wound culture right foot wound culture Left tibial sesamoid bone pathology left hallux bone pathology left 5th metatarsal bone Grafts/Implants none Complications none YING ALMAZAN DPElise Feb 03, 2019 15:40
--- NOTE | 2019-02-03 15:48 | OPR ---
Date/Time of Note Date/Time of Note DATE: 02/03/19 TIME: 15:48 Operative Report Preoperative Diagnosis b/l diabetic foot ulcerations Left foot osteomyelitis Left foot abscess Left lower extremity cellulitis Left lower extremity edema Left foot deep tissue injury DM2 with peripheral neuropathy Postoperative Diagnosis b/l diabetic foot ulcerations Left foot osteomyelitis Left foot abscess Left lower extremity cellulitis Left lower extremity edema Left foot callus DM2 with peripheral neuropathy Operation/Procedure Performed bilateral foot excisional debridement biopsy of left foot bone Left heel callus paring Surgeon see signature line Packing And Shipping Clerk none Anesthesia Type: general Estimated Blood Loss: 10 - 50 ml's Transfusion none Specimen left foot wound culture right foot wound culture Left tibial sesamoid bone pathology left hallux bone pathology left 5th metatarsal bone Grafts/Implants none Complications none Indications 48 y/o poorly controlled diabetic male patient who is homeless presents with bilateral diabetic foot ulcerations and osteomyelitis to the left foot. Patient had persistent ulcerations and infection, discussed surgical intervention to further debride and remove infection from the foot. Patient is amenable to surgical treatment. Addressed all of the patient's questions and concerns. No promises or guarantees were given. Procedure Description Patient was brought into the OR and placed in the supine position. Bilateral lower extremities were scrubbed, prepped, and draped in the usual aseptic manner. A formal time out was conducted. Attention was directed to the left foot. There is a plantar left 1st metatarsal ulceration and a medial which communicated which each other. An incision was made to decompress the ulceration and infection site. There was also tunneling toward the left 2nd metatarsal area and to the left 1st webspace. An incision was made to the tunneling of the left 1st webspace and the incision was dilated and purulence was appreciated. There was also purulence noted to the proximal plantar aspect of the 1st metatarsal and tunneling was noted. The tunneling site was dilated and purulence was appreciated at this site as well. Total left 1st MPJ ulceration wound dimension 3 x 6 x 2.0 cm, there was approximately 2-3cm of tunneling at each site. Excisional debridement of skin/subQ/muscle/tendon/bone using scalpel and rongeurs. The ulceration site was also deepened to the tibial sesamoid and 1st metatarsal phalangeal joint sites and additional 1-2mL of purulence was expressed. Bone biopsies were obtained from the tibial sesamoid and left hallux sites. These specimens were sent for pathology studies. 18cm2 of area was debrided, necrotic, fibrotic tissue was removed. Total of 5-6mL of purulence was expressed from the left 1st MPJ ulceration site. Next, excisional debridement of skin/subQ/muscle/tendon/bone using scalpel and rongeurs of the left 5th metatarsal plantar ulceration site. Left plantar 5th metatarsal ulceration 1.2 x 1.4 x 0.4cm which probed to bone. Bone biopsy was obtained of the left 5th metatarsal and sent for pathology specimens. Fibrotic and necrotic tissue was removed. 1.68cm2 of area was debrided. No purulence was expressed from the ulceration site. Subsequently, left heel callus paring was performed and no deep tissue injury and no open ulceration was appreciated. Copious antibiotic infused pulse lavage saline irrigation was used at all ulcerations sites of the left foot. Left foot wound cultures were obtained. Vancomycin powder was applied to the ulceration sites, 1/4in iodoform packing was applied to the left 1st MPJ ulceration site. Betadine 4x4 gauze was applied, dry sterile dressings with zita wrap applied to the left lower extremity. Attention was directed to the right foot. Excisional debridement of skin/subQ was performed using versajet water scalpel. Right plantar 1st metatarsal 1.5 x 1.2 x 0.2cm fibrogranular wound bed. Right plantar 4th and 5th ulceration 1.5 x 3 x 0.2cm fibrogranular wound bed. Right plantar 5th metatarsal base extending to heel ulceration 6 x 3 x 0.2cm fibrogranular wound bed. None of the wounds probed to bone, no purulence was appreciated. Fibrotic and biofilm tissue was removed from the wound beds. Copious irrigation was used at the right foot ulceration sites. Right foot wound cultures were obtained. Betadine 4x4 gauze was applied, dry sterile dressings with zita wrap applied to the right lower extremity. Total area of debridement: 43.98cm2 Patient was transferred to PACU with vital signs stable and neurovascular status intact. YING ALMAZAN DPM Feb 03, 2019 15:48
--- NOTE | 2019-02-03 15:50 | PAC ---
Date/Time of Note Date/Time of Note DATE: 02/03/19 TIME: 15:49 Post-Anesthesia Notes Post-Anesthesia Note Last documented vital signs Vital Signs Date Temp Pulse Resp B/P (MAP) Pulse Ox O2 O2 Flow FiO2 Time Delivery Rate 02/03/19 99.4 75 18 90/53 (65) 95 Room Air 08:00 Activity: WNL Respiratory function: WNL Cardiovascular function: WNL Mental status: Baseline Pain reasonably controlled: Yes Hydration appropriate: Yes Nausea/Vomiting absent: Yes Comments BP: 124/76 HR: 75 RR: 15 T: 97.6 SaO2: 99 JARED KRAMER MD Feb 03, 2019 15:50
--- NOTE | 2019-02-03 17:30 | CONS ---
Assessment/Plan Assessment/Plan Hospital Course (Demo Recall) ID PROGRESS NOTE CURRENT ABX: DAY #23 =>VANCO IV + Zosyn 02/02/19 0516 02/02/19 0517 24H INTERVAL SUMMARY * Awake, pain issues persisting -- afebrile, WBC down, ESR elevated to 110 * s/p Sepsis on admission resolved -- feels better * Bilateral complex DM Charcot neuroarthropathic feet w/open ulcers DIAGNOSTIC IMAGING * * 02/03/19 left-ANKLE: 1. No acute osseous abnormality.2. Moderate osteoarthritis.3. Plantar calcaneal spur.4. Soft tissue swelling. * 02/01/19 RIGHT FOOT/ANKLE MRI: Charcot foot changes w/no evidence osteomyelitis reported. * 02/01/19 LEFT FOOT/ANKLE MRI: 1. Osteomyelitis of the proximal phalanx of the left great toe, with soft tissue ulceration at the medial aspect of the base of the left great toe. 2. Soft tissue ulceration is also seen at the plantar aspect of the head of the first metatarsal, with suspected osteomyelitis in the sesamoids at the plantar aspect of the head of the fifth metatarsal. * 02/01/19 BLEXT VENOUS US: 1. No evidence of deep vein thrombosis involving either lower extremity. * 02/01/19 LEFT LOWER EXT ARTERIAL US: 2. Atypical monophasic wave form of the left dorsalis pedis artery suggests a degree of stenosis. MICRO * 02/01/19 BCX (-) * 02/01/19 LEFT FOOT CX (+) WOUND CULTURE Preliminary Organism 1 STAPHYLOCOCCUS AUREUS QUANTITY 2+ Organism 2 STREP PYOGENES (GRP A) QUANTITY 1+ Organism 3 STAPHYLOCOCCUS SPECIES QUANTITY 1+ * 02/01/19 RIGHT FOOT CX => WOUND CULTURE Preliminary Organism 1 STAPHYLOCOCCUS AUREUS QUANTITY SCANT GROWTH Organism 2 STREP PYOGENES (GRP A) QUANTITY SCANT GROWTH Organism 3 STAPHYLOCOCCUS SPECIES QUANTITY 1+ PHYSICAL EXAMINATION: GEN: 46 yo M, WN,WD, NAD VITALS: Afebrile, VSS HEENT: Unremarkable, no oral thrush NECK: Supple, full ROM CHEST: Equal chest rise bilaterally, without dyspnea on room air on observation CV: Radial pulse RRR ABD: Soft, NT : Deferred EXT: Warm, LEFT LEG 2+ pitting edema noted, left foot wound has pustular drainage on the ventral side, right foot ulcers SKIN: No rash, no diaphoresis, (+)tattoos upper ext NEURO: Grossly intact w/known Dm peripheral neuropathy ID ASSESSMENT 48 yo M admit with: 1. Sepsis indicators on admission: Fever 102.7, Leukocytosis, lactic acid 2.3, procalcitonin 0.98-> 1.14 , ESR 110, CRP >24 2. COMPLEX Bilateral lower extremity cellulitis w/bilateral diabetic feet infection as below: * Left foot osteomyelitis / abscess w/gas / cellulitis / tissue mass / deep tissue injury / edema per MRI 02/01/19 * 02/01/19 LEFT FOOT CX (+) WOUND CULTURE STAPH X2 + STREP PYOGENES * Right foot Charcot foot changes w/open ulcerations/cellulitis, no evidence osteomyelitis on MRI 02/01/19 * 02/01/19 RIGHT FOOT CX (+) WOUND CULTURE STAPH X2 + STREP PYOGENES 2. Diabetes mellitus w/complication of DM peripheral neuropathy * 02/02/19 A1C @ 12.4 * BILATERAL FEET Charcot neuroarthropathy 3. PERIPHERAL ARTERIAL AND VENOUS artery disease * Bilateral lower extremities edema w/chronic venous stasis hyperpigmentation/hyperkeratotic thick skin changes/hyperkeratotic long toenails * 02/01/19 LEFT LOWER EXT ARTERIAL US: 2. Atypical monophasic wave form of the left dorsalis pedis artery suggests a degree of stenosis. 4. HTN w/possible HTN heart disease per (+)mild concentric LVH on 2013 ECHO w/EF 60% 5. DJD: * Left shoulder pain: PRIOR MRI No acute process * Hx of right shoulder surgery 6. Cervicalgia w/prior imaging findings: * Multilevel foraminal narrowing outlined in detail above.Cervical spondylosis/degenerative enthesopathy. No cervical cord signal abnormality. 7. Chronic sinusitis per MRI/CT Brain prior admission * CT: Opacified partially visualized right ethmoid air cells with moderate mucosal thickening within the right frontal sinuses. * MRI: Noted are complete right maxillary, extensive right frontal and ethmoid sinus opacification, left maxillary sinus mucous retention cysts and minimal mastoid air cell opacification. 8. Tobaccoism -> 2 cigars/day 9. 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 Socioeconomic barriers to care: Homeless prior was living in RV w/friend - >recently living @ SNF prior to admission ABX ALLERGIES: KNDA INVASIVES: PIV CURRENT ABX: DAY # 3=> =>VANCO IV + Zosyn ID RECOMMENDATIONS/PLAN: 1. Continue current ABX -Awaiting final micro * Watch renal fx closely on this renally cleared ABX combo 2. Plan per Podiatry -> TO OR = follow APC recommendations 3. SMOKING CESSATION STRONGLY ADVOCATED 4. Hx of noncompliance @ SNF -- multiple barriers to self-care Consultation Date/Type/Reason Admit Date/Time Feb 01, 2019 at 13:59 Initial Consult Date Date/Time of Note DATE: 02/03/19 TIME: 17:26 Exam/Review of Systems Exam Vitals Vital Signs Date Temp Pulse Resp B/P (MAP) Pulse Ox O2 O2 Flow FiO2 Time Delivery Rate 02/03/19 72 13 143/87 97 Room Air 16:49 (105) 02/03/19 6.0 16:08 02/03/19 97.6 15:53 Intake and Output 02/02/19 02/02/19 02/03/19 1414:59 22:59 06:59 IntakeIntake Total 1370 ml 100 ml 450 ml OutputOutput Total 200 ml BalanceBalance 1170 ml 100 ml 450 ml Results Result Diagram: 02/02/19 0516 02/02/19 0517 Results 24hrs Laboratory Tests Test 02/02/19 17:35 02/02/19 21:31 02/03/19 07:58 02/03/19 13:55 Bedside Glucose 146 84 231 H 205 Erythrocyte 111 H Sedimentation Rate C-Reactive Protein 20.6 H Procalcitonin 0.97 H Vancomycin Level Trough 15.0 Test 02/03/19 17:06 Bedside Glucose 216 Medications Medication Current Medications IV Flush (NS 3 ml) 3 ml PER PROTOCOL IV ; Start 02/01/19 at 14:30 Ondansetron HCl (Zofran Inj) 4 mg Q6H PRN IV NAUSEA/VOMITING; Start 02/01/19 at 14:30 Acetaminophen (Tylenol Tab) 650 mg Q6H PRN PO .PAIN 1-3 OR TEMP Last administered on 02/02/19at 17:36; Admin Dose 650 MG; Start 02/01/19 at 14:30 Acetaminophen/ Hydrocodone Bitart ([place] (5/325)) 1 tab Q6H PRN PO .PAIN 4-6; Start 02/01/19 at 14:30 Morphine Sulfate (morphine) 2 mg Q4H PRN IV .PAIN 7-10 Last administered on 02/03/19 05:48; Admin Dose 2 MG; Start 02/01/19 at 14:30 Piperacillin Sod/ Tazobactam Sod 100 ml @ 200 mls/hr Q6 IVPB Last administered on 02/03/19 05:47; Admin Dose 200 MLS/HR; Start 02/01/19 at 18:00 Vancomycin HCl (Vanco Iv Per Pharmacy) VANCOMYCIN PER PHARMACY PER PROTOCOL XX ; Start 02/01/19 at 14:30 Insulin Glargine (Lantus) 18 units DAILY@2000 SC Last administered on 02/01/19 22:59; Admin Dose 18 UNITS; Start 02/01/19 at 20:00 Insulin Aspart (Novolog Insulin Pen) 6 unit WITH MEALS SC Last administered on 02/02/19 17:43; Admin Dose 6 UNIT; Start 02/01/19 at 18:00 Vancomycin HCl 250 ml @ 125 mls/hr Q12H IVPB Last administered on 02/03/19 08:58; Admin Dose 125 MLS/HR; Start 02/01/19 at 21:00 Ascorbic Acid (Vitamin C) 500 mg DAILY PO Last administered on 02/03/19 08:08; Admin Dose 500 MG; Start 02/02/19 at 09:00 Gabapentin (Neurontin) 300 mg TID PO Last administered on 02/03/19 08:08; Admin Dose 300 MG; Start 02/01/19 at 21:00 Lisinopril (Zestril) 5 mg DAILY PO ; Start 02/02/19 at 09:00 Sertraline HCl (Zoloft) 25 mg DAILY PO Last administered on 02/03/19 08:08; Admin Dose 25 MG; Start 02/02/19 at 09:00 Zinc Sulfate (Zinc Sulfate) 220 mg DAILY PO Last administered on 02/03/19 08:08; Admin Dose 220 MG; Start 02/02/19 at 09:00 Lidocaine (Xylocaine 1% (Mpf)) 30 ml ONCE PRN INJ PAIN; Start 02/01/19 at 16:30 Collagenase (Santyl) 1 applic DAILY TOP Last administered on 02/03/19 08:12; Admin Dose 1 APPLIC; Start 02/02/19 at 09:00 Miscellaneous Information 1 ea NOTE XX ; Start 02/02/19 at 08:30 Glucose (Glutose) 15 gm Q15M PRN PO DECREASED GLUCOSE; Start 02/02/19 at 08:30 Glucose (Glutose) 22.5 gm Q15M PRN PO DECREASED GLUCOSE; Start 02/02/19 at 08:30 Dextrose (D50w Syringe) 25 ml Q15M PRN IV DECREASED GLUCOSE; Start 02/02/19 at 08:30 Dextrose (D50w Syringe) 50 ml Q15M PRN IV DECREASED GLUCOSE; Start 02/02/19 at 08:30 Glucagon (Glucagen) 1 mg Q15M PRN IM DECREASED GLUCOSE; Start 02/02/19 at 08:30 Glucose (Glutose) 15 gm Q15M PRN BUCCAL DECREASED GLUCOSE; Start 02/02/19 at 08:30 Sodium Hypochlorite (Dakins Diluted ()) 1 applic DAILY TP Last administered on 02/03/19at 08:12; Admin Dose 1 APPLIC; Start 02/02/19 at 11:30 Clonidine (Catapres) 0.1 mg Q6H PRN PO ELEVATED BLOOD PRESSURE Last administered on 02/02/19at 17:35; Admin Dose 0.1 MG; Start 02/02/19 at 17:30 Insulin Aspart (Novolog Insulin Pen) NOVOLOG *MILD* ALGORI... Q4 SC Last administered on 02/03/19at 08:18; Admin Dose 3 UNIT; Start 02/03/19 at 09:00 Dextrose/Sodium Chloride 1,000 ml @ 100 mls/hr Q10H IV Last administered on 02/03/19at 08:06; Admin Dose 100 MLS/HR; Start 02/03/19 at 06:30 Hydromorphone HCl (Dilaudid) 0.2 mg PACU PRN IV MILD PAIN 1-3; Start 02/03/19 at 14:00; Stop 02/03/19 at 18:00 Hydromorphone HCl (Dilaudid) 0.4 mg PACU PRN IV MOD PAIN 4-6; Start 02/03/19 at 14:00; Stop 02/03/19 at 18:00 Hydromorphone HCl (Dilaudid) 0.6 mg PACU PRN IV SEVERE PAIN 7-10; Start 02/03/19 at 14:00; Stop 02/03/19 at 18:00 Fentanyl (Sublimaze) 25 mcg PACU ORDER PRN IV MILD PAIN 1-3; Start 02/03/19 at 14:00; Stop 02/03/19 at 18:00 Ondansetron HCl (Zofran Inj) 4 mg PACU ORDER PRN IV NAUSEA/VOMITING; Start 02/03/19 at 14:00; Stop 02/03/19 at 18:00 Prochlorperazine (Compazine Inj) 5 mg PACU ORDER PRN IV NAUSEA/VOMITING; Start 02/03/19 at 14:00; Stop 02/03/19 at 18:00 Meperidine HCl (Demerol) 25 mg PACU ORDER PRN IV .RIGORS; Start 02/03/19 at 14:00; Stop 02/03/19 at 18:00 Diphenhydramine HCl (Benadryl) 25 mg PACU ORDER PRN IV .PRURITUS; Start 02/03/19 at 14:00; Stop 02/03/19 at 18:00 MARIANO VACA NP Feb 03, 2019 17:30
[2019-02-03] MEDS: INSULIN GLARGINE [LANTus] (100 UNITS/ML) SYG SC SCH (22:36)
[2019-02-04] MEDS: PIPER-TAZO 3.375 GM IV (PMX) 100 ML IVPB SCH ×5 (01:08→23:55)
[2019-02-04] MEDS: INSULIN ASPART [NOVOLOG] 3 ML PEN SC SCH ×9 (01:45→20:35)
[2019-02-04 02:08] VITALS: BP 128/74; PULSE 82; RESP 18
[2019-02-04] MEDS: DEXTROSE 5%-0.45% NACL 1,000 ML IV SCH ×4 (02:30→22:30)
[2019-02-04] MEDS: morphine 2 MG INJ IV PRN ×2 (07:42→20:51)
--- NOTE | 2019-02-04 07:48 | CONS ---
Assessment/Plan Assessment/Plan Assessment/Plan (Daily) b/l diabetic foot ulcerations Villatoro stage 3 ulcerations Left foot osteomyelitis Left foot abscess Left lower extremity cellulitis Left lower extremity edema Left foot callus PAD DM2 with peripheral neuropathy Possible early signs of charcot neuroarthropathy leukocytosis Homelessness Plan Patient is s/p debridement and tolerated procedure well. There was no purulence expressed during evaluation of the wound sites. Discussed with patient concerns for charcot neuroarthropathy in both feet due to the MRI findings of neuropathic changes. Patient would benefit from a vascular evaluation given the results of his arterial studies. Awaiting intra op cultures and pathology. Also awaiting soft tissue specimen biopsy results. Continue with daily dressing changes. Re commend non weight bearing bilateral. Recommend SNF placement. Due to his osteomyelitis patient will likely benefit from HBO therapy in the outpatient setting. Consultation Date/Type/Reason Admit Date/Time Feb 01, 2019 at 13:59 Initial Consult Date Date/Time of Note DATE: 02/04/19 TIME: 07:47 24 HR Interval Summary Free Text/Dictation No acute events overnight. Exam/Review of Systems Exam Vitals Vital Signs Date Temp Pulse Resp B/P (MAP) Pulse Ox O2 O2 Flow FiO2 Time Delivery Rate 02/04/19 100.0 82 18 128/74 97 02:08 (92) 02/03/19 Room Air 16:49 02/03/19 6.0 16:08 Intake and Output 02/03/19 02/03/19 02/04/19 1515:00 23:00 07:00 IntakeIntake Total 250 ml 1220 ml 1250 ml OutputOutput Total 20 ml 1700 ml BalanceBalance 250 ml 1200 ml -450 ml Exam left 1st MPJ ulceration wound dimension 3 x 6 x 2.0 cm, there was approximately 2-3cm of tunneling towards 2nd metatarsal area and 1st webspace area, wound base more fibrogranular Left plantar 5th metatarsal ulceration 1.2 x 1.4 x 0.4cm which probed to bone. Granular wound base No purulence expressed at the left foot ulceration site Right plantar 1st metatarsal 1.5 x 1.2 x 0.2cm fibrogranular wound bed. Right plantar 4th and 5th ulceration 1.5 x 3 x 0.2cm fibrogranular wound bed. Right plantar 5th metatarsal base extending to heel ulceration 6 x 3 x 0.2cm fibrogranular wound bed. None of the wounds probed to bone, no purulence was appreciated. Absent protective sensations Decreased edema to left lower extremity Results Result Diagram: 02/04/19 0516 02/04/19 0516 Results 24hrs Laboratory Tests Test 02/03/19 07:58 02/03/19 13:55 02/03/19 17:06 02/03/19 22:32 Erythrocyte 111 H Sedimentation Rate Bedside Glucose 231 H 205 216 189 C-Reactive Protein 20.6 H Procalcitonin 0.97 H Vancomycin Level Trough 15.0 Test 02/04/19 01:42 02/04/19 05:15 02/04/19 05:16 Bedside Glucose 196 195 White Blood Count 11.3 H Red Blood Count 2.79 #L Hemoglobin 7.2 #L Hematocrit 22.5 #L Mean Corpuscular Volume 80.6 L Mean Corpuscular 25.8 L Hemoglobin Mean Corpuscular 32.0 Hemoglobin Concent Red Cell Distribution 12.8 Width Platelet Count 289 Mean Platelet Volume 9.5 Immature Granulocytes % 0.700 H Neutrophils % Lymphocytes % Monocytes % Eosinophils % Basophils % Nucleated Red Blood 0.0 Cells % Immature Granulocytes # 0.080 H Neutrophils # Lymphocytes # Monocytes # Eosinophils # Basophils # Nucleated Red Blood Cells # Erythrocyte 123 H Sedimentation Rate Sodium Level 138 Potassium Level 4.3 Chloride Level 107 Carbon Dioxide Level 26 Anion Gap 5 Blood Urea Nitrogen 11 Creatinine 1.14 Est Glomerular Filtrat > 60 Rate mL/min Glucose Level 166 Calcium Level 8.2 L Phosphorus Level 3.3 Magnesium Level 1.9 C-Reactive Protein 15.7 H Procalcitonin 0.58 H Medications Medication Current Medications IV Flush (NS 3 ml) 3 ml PER PROTOCOL IV ; Start 02/01/19 at 14:30 Ondansetron HCl (Zofran Inj) 4 mg Q6H PRN IV NAUSEA/VOMITING; Start 02/01/19 at 14:30 Acetaminophen (Tylenol Tab) 650 mg Q6H PRN PO .PAIN 1-3 OR TEMP Last administered on 02/02/19at 17:36; Admin Dose 650 MG; Start 02/01/19 at 14:30 Acetaminophen/ Hydrocodone Bitart ([place] (5/325)) 1 tab Q6H PRN PO .PAIN 4-6; Start 02/01/19 at 14:30 Morphine Sulfate (morphine) 2 mg Q4H PRN IV .PAIN 7-10 Last administered on 02/04/19 07:42; Admin Dose 2 MG; Start 02/01/19 at 14:30 Piperacillin Sod/ Tazobactam Sod 100 ml @ 200 mls/hr Q6 IVPB Last administered on 02/04/19 05:46; Admin Dose 200 MLS/HR; Start 02/01/19 at 18:00 Vancomycin HCl (Vanco Iv Per Pharmacy) VANCOMYCIN PER PHARMACY PER PROTOCOL XX ; Start 02/01/19 at 14:30 Insulin Glargine (Lantus) 18 units DAILY@2000 SC Last administered on 02/03/19 22:36; Admin Dose 18 UNITS; Start 02/01/19 at 20:00 Insulin Aspart (Novolog Insulin Pen) 6 unit WITH MEALS SC Last administered on 02/03/19 17:36; Admin Dose 6 UNIT; Start 02/01/19 at 18:00 Vancomycin HCl 250 ml @ 125 mls/hr Q12H IVPB Last administered on 02/03/19 22:37; Admin Dose 125 MLS/HR; Start 02/01/19 at 21:00 Ascorbic Acid (Vitamin C) 500 mg DAILY PO Last administered on 02/03/19 08:08; Admin Dose 500 MG; Start 02/02/19 at 09:00 Gabapentin (Neurontin) 300 mg TID PO Last administered on 02/03/19 22:37; Admin Dose 300 MG; Start 02/01/19 at 21:00 Lisinopril (Zestril) 5 mg DAILY PO ; Start 02/02/19 at 09:00 Sertraline HCl (Zoloft) 25 mg DAILY PO Last administered on 02/03/19 08:08; Admin Dose 25 MG; Start 02/02/19 at 09:00 Zinc Sulfate (Zinc Sulfate) 220 mg DAILY PO Last administered on 02/03/19 08:08; Admin Dose 220 MG; Start 02/02/19 at 09:00 Lidocaine (Xylocaine 1% (Mpf)) 30 ml ONCE PRN INJ PAIN; Start 02/01/19 at 16:30 Collagenase (Santyl) 1 applic DAILY TOP Last administered on 02/03/19 08:12; Admin Dose 1 APPLIC; Start 02/02/19 at 09:00 Miscellaneous Information 1 ea NOTE XX ; Start 02/02/19 at 08:30 Glucose (Glutose) 15 gm Q15M PRN PO DECREASED GLUCOSE; Start 02/02/19 at 08:30 Glucose (Glutose) 22.5 gm Q15M PRN PO DECREASED GLUCOSE; Start 02/02/19 at 08:30 Dextrose (D50w Syringe) 25 ml Q15M PRN IV DECREASED GLUCOSE; Start 02/02/19 at 08:30 Dextrose (D50w Syringe) 50 ml Q15M PRN IV DECREASED GLUCOSE; Start 02/02/19 at 08:30 Glucagon (Glucagen) 1 mg Q15M PRN IM DECREASED GLUCOSE; Start 02/02/19 at 08:30 Glucose (Glutose) 15 gm Q15M PRN BUCCAL DECREASED GLUCOSE; Start 02/02/19 at 08:30 Sodium Hypochlorite (Dakins Diluted ()) 1 applic DAILY TP Last administered on 02/03/19at 08:12; Admin Dose 1 APPLIC; Start 02/02/19 at 11:30 Clonidine (Catapres) 0.1 mg Q6H PRN PO ELEVATED BLOOD PRESSURE Last administered on 02/02/19at 17:35; Admin Dose 0.1 MG; Start 02/02/19 at 17:30 Insulin Aspart (Novolog Insulin Pen) NOVOLOG *MILD* ALGORI... Q4 SC Last administered on 02/04/19at 05:20; Admin Dose 2 UNIT; Start 02/03/19 at 09:00 Dextrose/Sodium Chloride 1,000 ml @ 100 mls/hr Q10H IV Last administered on 02/03/19at 08:06; Admin Dose 100 MLS/HR; Start 02/03/19 at 06:30 YING ALMAZAN DPElise Feb 04, 2019 07:48
[2019-02-04 07:56] VITALS: BP 125/75; PULSE 74; RESP 20
[2019-02-04] MEDS: COLLAGENASE 5 GM (UD JAR) TOP SCH (08:12)
[2019-02-04] MEDS: DAKINS 0.0125%(1/40) 473 ML SOLUTION TP SCH (08:12)
[2019-02-04] MEDS: VANCOMYCIN 1 GM 250 ML IVPB SCH ×2 (09:42→20:33)
[2019-02-04] MEDS: GABAPENTIN 300 MG CAP PO SCH ×3 (09:43→20:34)
[2019-02-04] MEDS: ZINC SULFATE 220 MG CAP PO SCH (09:43)
[2019-02-04] MEDS: ASCORBIC ACID 500 MG TAB PO SCH (09:43)
[2019-02-04] MEDS: LISINOPRIL 5 MG TAB PO SCH (09:43)
[2019-02-04] MEDS: SERTRALINE 50 MG TAB PO SCH (09:43)
--- NOTE | 2019-02-04 13:41 | PN ---
Date/Time of Note Date/Time of Note DATE: 02/04/19 TIME: 13:35 Objective Vitals Vital Signs Date Temp Pulse Resp B/P (MAP) Pulse Ox O2 O2 Flow FiO2 Time Delivery Rate 02/04/19 99.6 74 20 125/75 98 07:56 (92) 02/03/19 Room Air 16:49 02/03/19 6.0 16:08 Intake and Output 02/03/19 02/03/19 02/04/19 1515:00 23:00 07:00 IntakeIntake Total 250 ml 1220 ml 1250 ml OutputOutput Total 20 ml 1700 ml BalanceBalance 250 ml 1200 ml -450 ml Results Result Diagram: 02/04/19 0516 02/04/19 0516 Medications Medications Current Medications IV Flush (NS 3 ml) 3 ml PER PROTOCOL IV ; Start 02/01/19 at 14:30 Ondansetron HCl (Zofran Inj) 4 mg Q6H PRN IV NAUSEA/VOMITING; Start 02/01/19 at 14:30 Acetaminophen (Tylenol Tab) 650 mg Q6H PRN PO .PAIN 1-3 OR TEMP Last administered on 02/02/19at 17:36; Admin Dose 650 MG; Start 02/01/19 at 14:30 Acetaminophen/ Hydrocodone Bitart ([place] (5/325)) 1 tab Q6H PRN PO .PAIN 4-6; Start 02/01/19 at 14:30 Morphine Sulfate (morphine) 2 mg Q4H PRN IV .PAIN 7-10 Last administered on at 07:42; Admin Dose 2 MG; Start 02/01/19 at 14:30 Piperacillin Sod/ Tazobactam Sod 100 ml @ 200 mls/hr Q6 IVPB Last administered on 02/04/19at 12:38; Admin Dose 200 MLS/HR; Start 02/01/19 at 18:00 Vancomycin HCl (Vanco Iv Per Pharmacy) VANCOMYCIN PER PHARMACY PER PROTOCOL XX ; Start 02/01/19 at 14:30 Insulin Glargine (Lantus) 18 units DAILY@2000 SC Last administered on 02/03/19at 22:36; Admin Dose 18 UNITS; Start 02/01/19 at 20:00 Insulin Aspart (Novolog Insulin Pen) 6 unit WITH MEALS SC Last administered on 02/04/19at 12:44; Admin Dose 6 UNIT; Start 02/01/19 at 18:00 Vancomycin HCl 250 ml @ 125 mls/hr Q12H IVPB Last administered on 02/04/19 09:42; Admin Dose 125 MLS/HR; Start 02/01/19 at 21:00 Ascorbic Acid (Vitamin C) 500 mg DAILY PO Last administered on 02/04/19 09:43; Admin Dose 500 MG; Start 02/02/19 at 09:00 Gabapentin (Neurontin) 300 mg TID PO Last administered on 02/04/19 09:43; Admin Dose 300 MG; Start 02/01/19 at 21:00 Lisinopril (Zestril) 5 mg DAILY PO Last administered on 02/04/19 09:43; Admin Dose 5 MG; Start 02/02/19 at 09:00 Sertraline HCl (Zoloft) 25 mg DAILY PO Last administered on 02/04/19 09:43; Admin Dose 25 MG; Start 02/02/19 at 09:00 Zinc Sulfate (Zinc Sulfate) 220 mg DAILY PO Last administered on 02/04/19 09:43; Admin Dose 220 MG; Start 02/02/19 at 09:00 Lidocaine (Xylocaine 1% (Mpf)) 30 ml ONCE PRN INJ PAIN; Start 02/01/19 at 16:30 Collagenase (Santyl) 1 applic DAILY TOP Last administered on 02/03/19at 08:12; Admin Dose 1 APPLIC; Start 02/02/19 at 09:00 Miscellaneous Information 1 ea NOTE XX ; Start 02/02/19 at 08:30 Glucose (Glutose) 15 gm Q15M PRN PO DECREASED GLUCOSE; Start 02/02/19 at 08:30 Glucose (Glutose) 22.5 gm Q15M PRN PO DECREASED GLUCOSE; Start 02/02/19 at 08:30 Dextrose (D50w Syringe) 25 ml Q15M PRN IV DECREASED GLUCOSE; Start 02/02/19 at 08:30 Dextrose (D50w Syringe) 50 ml Q15M PRN IV DECREASED GLUCOSE; Start 02/02/19 at 08:30 Glucagon (Glucagen) 1 mg Q15M PRN IM DECREASED GLUCOSE; Start 02/02/19 at 08:30 Glucose (Glutose) 15 gm Q15M PRN BUCCAL DECREASED GLUCOSE; Start 02/02/19 at 08:30 Sodium Hypochlorite (Dakins Diluted ()) 1 applic DAILY TP Last administered on 02/03/19at 08:12; Admin Dose 1 APPLIC; Start 02/02/19 at 11:30 Clonidine (Catapres) 0.1 mg Q6H PRN PO ELEVATED BLOOD PRESSURE Last administered on 02/02/19at 17:35; Admin Dose 0.1 MG; Start 02/02/19 at 17:30 Insulin Aspart (Novolog Insulin Pen) NOVOLOG *MILD* ALGORI... Q4 SC Last administered on 02/04/19 12:44; Admin Dose 1 UNIT; Start 02/03/19 at 09:00 Dextrose/Sodium Chloride 1,000 ml @ 100 mls/hr Q10H IV Last administered on 02/04/19 09:44; Admin Dose 100 MLS/HR; Start 02/03/19 at 06:30 VTE Prophylaxis Risk score (from [facility] [place])>0 risk: 2 SCD applied (from [facility] [place]): No SCD contraindication: other Lines/Catheters IV Catheter Type: Mccormick in Place: No Assessment/Plan Hospital Course Subjective No acute issues overnight Objective Physical exam General: Patient is laying in bed and answers questions appropriately Mentation: Patient is alert and oriented 4, Head: Normocephalic atraumatic Eyes: EOMI, pupils reactive to light Neck: Supple, nontender, midline Respiratory: Clear to auscultation bilaterally Cardiovascular: regular rate, no obvious murmurs Gastrointestinal: non-tender to palpation, bowel sounds heard. Neurological: Moves all extremities spontaneously Skin: bilateral feet, bandaged, CDI Assessment and plan Bilateral lower extremity wounds, left foot osteomyelitis -Status post multiple debridement -X-ray and MRI noted -IV antibiotic -Infectious disease and podiatry consulted -Wound cultures pending arm stiffness, persistent tingling, -Chronic since 2017 -Patient states that there was some issues with previous MRI -Current MRI showing moderate canal stenosis, will monitor for now, patient may benefit from outpatient neurology follow-up, will discuss case with neurosurgeon Diabetes mellitus -Insulin while in house Dyslipidemia -Continue atorvastatin Questionable history of CVA -No known residual effect -Continue daily aspirin Chronic diabetic foot wounds -Patient was homeless previous to his current stay at his long term facility, likely chronic diabetic foot wounds due to homeless nature and noncompliant medical care. Disposition -awaiting cultures ROSA QUINTERO Feb 04, 2019 13:41
[2019-02-04 13:42] VITALS: BP 108/61; PULSE 81; RESP 20
--- NOTE | 2019-02-04 18:06 | CONS ---
Assessment/Plan Assessment/Plan Hospital Course (Demo Recall) ID PROGRESS NOTE CURRENT ABX: DAY #4 =>VANCO IV + Zosyn 02/04/19 0516 02/04/19 0516 24H INTERVAL SUMMARY * NO NEW ISSUES -- Awake, pain issues persisting -- afebrile, WBC down * ESR 123 - CRP 15.7 - Procalcitonin 0.58 * Bilateral complex DM Charcot neuroarthropathic feet w/open ulcers * FINAL MICRO RESULTS STILL PENDING == WAITING FOR ENTEROCOCCUS RESULT TO R/O VRE DIAGNOSTIC IMAGING * * 02/03/19 left-ANKLE: 1. No acute osseous abnormality.2. Moderate osteoarthritis.3. Plantar calcaneal spur.4. Soft tissue swelling. * 02/01/19 RIGHT FOOT/ANKLE MRI: Charcot foot changes w/no evidence osteomyelitis reported. * 02/01/19 LEFT FOOT/ANKLE MRI: 1. Osteomyelitis of the proximal phalanx of the left great toe, with soft tissue ulceration at the medial aspect of the base of the left great toe. 2. Soft tissue ulceration is also seen at the plantar aspect of the head of the first metatarsal, with suspected osteomyelitis in the sesamoids at the plantar aspect of the head of the fifth metatarsal. * 02/01/19 BLEXT VENOUS US: 1. No evidence of deep vein thrombosis involving either lower extremity. * 02/01/19 LEFT LOWER EXT ARTERIAL US: 2. Atypical monophasic wave form of the left dorsalis pedis artery suggests a degree of stenosis. MICRO * 02/01/19 BCX (-) * 02/01/19 LEFT FOOT CX (+) WOUND CULTURE Preliminary Organism 1 STAPHYLOCOCCUS AUREUS QUANTITY 2+ Organism 2 STREP PYOGENES (GRP A) QUANTITY 1+ Organism 3 STAPHYLOCOCCUS SPECIES QUANTITY 1+ * 02/01/19 RIGHT FOOT CX => WOUND CULTURE Preliminary Organism 1 STAPHYLOCOCCUS AUREUS QUANTITY SCANT GROWTH Organism 2 STREP PYOGENES (GRP A) QUANTITY SCANT GROWTH Organism 3 STAPHYLOCOCCUS SPECIES QUANTITY 1+ PHYSICAL EXAMINATION: GEN: 46 yo M, WN,WD, NAD VITALS: Afebrile, VSS HEENT: Unremarkable, no oral thrush NECK: Supple, full ROM CHEST: Equal chest rise bilaterally, without dyspnea on room air on observation CV: Radial pulse RRR ABD: Soft, NT : Deferred EXT: Warm, LEFT LEG 2+ pitting edema noted, left foot wound has pustular drainage on the ventral side, right foot ulcers SKIN: No rash, no diaphoresis, (+)tattoos upper ext NEURO: Grossly intact w/known Dm peripheral neuropathy ID ASSESSMENT 48 yo M admit with: 1. Sepsis indicators on admission: Fever 102.7, Leukocytosis, lactic acid 2.3, procalcitonin 0.98-> 1.14 , ESR 110, CRP >24 2. COMPLEX Bilateral lower extremity cellulitis w/bilateral diabetic feet infection as below: * Left foot osteomyelitis / abscess w/gas / cellulitis / tissue mass / deep tissue injury / edema per MRI 02/01/19 * 02/01/19 LEFT FOOT CX (+) WOUND CULTURE STAPH X2 + STREP PYOGENES * Right foot Charcot foot changes w/open ulcerations/cellulitis, no evidence osteomyelitis on MRI 02/01/19 * 02/01/19 RIGHT FOOT CX (+) WOUND CULTURE STAPH X2 + STREP PYOGENES 2. Diabetes mellitus w/complication of DM peripheral neuropathy * 02/02/19 A1C @ 12.4 * BILATERAL FEET Charcot neuroarthropathy 3. PERIPHERAL ARTERIAL AND VENOUS artery disease * Bilateral lower extremities edema w/chronic venous stasis hyperpigmentation/hyperkeratotic thick skin changes/hyperkeratotic long toenails * 02/01/19 LEFT LOWER EXT ARTERIAL US: 2. Atypical monophasic wave form of the left dorsalis pedis artery suggests a degree of stenosis. 4. HTN w/possible HTN heart disease per (+)mild concentric LVH on 2013 ECHO w/EF 60% 5. DJD: * Left shoulder pain: PRIOR MRI No acute process * Hx of right shoulder surgery 6. Cervicalgia w/prior imaging findings: * Multilevel foraminal narrowing outlined in detail above.Cervical spondylosis/degenerative enthesopathy. No cervical cord signal abnormality. 7. Chronic sinusitis per MRI/CT Brain prior admission * CT: Opacified partially visualized right ethmoid air cells with moderate mucosal thickening within the right frontal sinuses. * MRI: Noted are complete right maxillary, extensive right frontal and ethmoid sinus opacification, left maxillary sinus mucous retention cysts and minimal mastoid air cell opacification. 8. Tobaccoism -> 2 cigars/day 9. 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 Socioeconomic barriers to care: Homeless prior was living in RV w/friend - >recently living @ SNF prior to admission ABX ALLERGIES: KNDA INVASIVES: PIV CURRENT ABX: DAY #4=> =>VANCO IV + Zosyn ID RECOMMENDATIONS/PLAN: 1. Continue current ABX -Awaiting final micro * Watch renal fx closely on this renally cleared ABX combo * FINAL MICRO RESULTS STILL PENDING == WAITING FOR ENTEROCOCCUS RESULT TO R/O VRE 2.Follow APC recommendations 3. SMOKING CESSATION STRONGLY ADVOCATED 4. Hx of noncompliance @ SNF -- multiple barriers to self-care Consultation Date/Type/Reason Admit Date/Time Feb 01, 2019 at 13:59 Initial Consult Date Date/Time of Note DATE: 02/04/19 TIME: 18:01 Exam/Review of Systems Exam Vitals Vital Signs Date Temp Pulse Resp B/P (MAP) Pulse Ox O2 O2 Flow FiO2 Time Delivery Rate 02/04/19 99.6 81 20 108/61 98 13:42 (77) 02/03/19 Room Air 16:49 02/03/19 6.0 16:08 Intake and Output 02/03/19 02/03/19 02/04/19 1515:00 23:00 07:00 IntakeIntake Total 250 ml 1220 ml 1250 ml OutputOutput Total 20 ml 1700 ml BalanceBalance 250 ml 1200 ml -450 ml Results Result Diagram: 02/04/19 0516 02/04/19 0516 Results 24hrs Laboratory Tests Test 02/03/19 22:32 02/04/19 01:42 02/04/19 05:15 02/04/19 05:16 Bedside Glucose 189 196 195 White Blood Count 11.3 H Red Blood Count 2.79 #L Hemoglobin 7.2 #L Hematocrit 22.5 #L Mean Corpuscular Volume 80.6 L Mean Corpuscular 25.8 L Hemoglobin Mean Corpuscular 32.0 Hemoglobin Concent Red Cell Distribution 12.8 Width Platelet Count 289 Mean Platelet Volume 9.5 Immature Granulocytes % 0.700 H Neutrophils % Segmented Neutrophils 64 % (Manual) Band Neutrophils % 11 H (Manual) Lymphocytes % Lymphocytes % (Manual) 19 Monocytes % Monocytes % (Manual) 5 Eosinophils % Eosinophils % (Manual) 1 Basophils % Nucleated Red Blood 0.0 Cells % Immature Granulocytes # 0.080 H Neutrophils # Neutrophils # (Manual) 7.4 Band Neutrophils # 1.2 H Lymphocytes (Manual) 2.1 Lymphocytes # Monocytes # Monocytes # (Manual) 0.5 Eosinophils # Basophils # Nucleated Red Blood Cells # Platelet Estimate NORMAL Giant Platelets 2 H Polychromasia 3+ Poikilocytosis 3+ Anisocytosis 1+ Ovalocytes 1+ Erythrocyte 123 H Sedimentation Rate Sodium Level 138 Potassium Level 4.3 Chloride Level 107 Carbon Dioxide Level 26 Anion Gap 5 Blood Urea Nitrogen 11 Creatinine 1.14 Est Glomerular Filtrat > 60 Rate mL/min Glucose Level 166 Calcium Level 8.2 L Phosphorus Level 3.3 Magnesium Level 1.9 C-Reactive Protein 15.7 H Procalcitonin 0.58 H Test 02/04/19 08:04 02/04/19 12:37 02/04/19 17:47 Bedside Glucose 182 148 230 H Medications Medication Current Medications IV Flush (NS 3 ml) 3 ml PER PROTOCOL IV ; Start 02/01/19 at 14:30 Ondansetron HCl (Zofran Inj) 4 mg Q6H PRN IV NAUSEA/VOMITING; Start 02/01/19 at 14:30 Acetaminophen (Tylenol Tab) 650 mg Q6H PRN PO .PAIN 1-3 OR TEMP Last administered on 02/02/19 17:36; Admin Dose 650 MG; Start 02/01/19 at 14:30 Acetaminophen/ Hydrocodone Bitart ([place] (5/325)) 1 tab Q6H PRN PO .PAIN 4-6; Start 02/01/19 at 14:30 Morphine Sulfate (morphine) 2 mg Q4H PRN IV .PAIN 7-10 Last administered on 02/04/19at 07:42; Admin Dose 2 MG; Start 02/01/19 at 14:30 Piperacillin Sod/ Tazobactam Sod 100 ml @ 200 mls/hr Q6 IVPB Last administered on 02/04/19at 12:38; Admin Dose 200 MLS/HR; Start 02/01/19 at 18:00 Vancomycin HCl (Vanco Iv Per Pharmacy) VANCOMYCIN PER PHARMACY PER PROTOCOL XX ; Start 02/01/19 at 14:30 Insulin Glargine (Lantus) 18 units DAILY@2000 SC Last administered on 02/03/19at 22:36; Admin Dose 18 UNITS; Start 02/01/19 at 20:00 Insulin Aspart (Novolog Insulin Pen) 6 unit WITH MEALS SC Last administered on 02/04/19at 12:44; Admin Dose 6 UNIT; Start 02/01/19 at 18:00 Vancomycin HCl 250 ml @ 125 mls/hr Q12H IVPB Last administered on 02/04/19 09:42; Admin Dose 125 MLS/HR; Start 02/01/19 at 21:00 Ascorbic Acid (Vitamin C) 500 mg DAILY PO Last administered on 02/04/19 09:43; Admin Dose 500 MG; Start 02/02/19 at 09:00 Gabapentin (Neurontin) 300 mg TID PO Last administered on 02/04/19 09:43; Admin Dose 300 MG; Start 02/01/19 at 21:00 Lisinopril (Zestril) 5 mg DAILY PO Last administered on 02/04/19 09:43; Admin Dose 5 MG; Start 02/02/19 at 09:00 Sertraline HCl (Zoloft) 25 mg DAILY PO Last administered on 02/04/19 09:43; Admin Dose 25 MG; Start 02/02/19 at 09:00 Zinc Sulfate (Zinc Sulfate) 220 mg DAILY PO Last administered on 02/04/19 09:43; Admin Dose 220 MG; Start 02/02/19 at 09:00 Lidocaine (Xylocaine 1% (Mpf)) 30 ml ONCE PRN INJ PAIN; Start 02/01/19 at 16:30 Collagenase (Santyl) 1 applic DAILY TOP Last administered on 02/03/19at 08:12; Admin Dose 1 APPLIC; Start 02/02/19 at 09:00 Miscellaneous Information 1 ea NOTE XX ; Start 02/02/19 at 08:30 Glucose (Glutose) 15 gm Q15M PRN PO DECREASED GLUCOSE; Start 02/02/19 at 08:30 Glucose (Glutose) 22.5 gm Q15M PRN PO DECREASED GLUCOSE; Start 02/02/19 at 08:30 Dextrose (D50w Syringe) 25 ml Q15M PRN IV DECREASED GLUCOSE; Start 02/02/19 at 08:30 Dextrose (D50w Syringe) 50 ml Q15M PRN IV DECREASED GLUCOSE; Start 02/02/19 at 08:30 Glucagon (Glucagen) 1 mg Q15M PRN IM DECREASED GLUCOSE; Start 02/02/19 at 08:30 Glucose (Glutose) 15 gm Q15M PRN BUCCAL DECREASED GLUCOSE; Start 02/02/19 at 08:30 Sodium Hypochlorite (Dakins Diluted ()) 1 applic DAILY TP Last administered on 02/03/19at 08:12; Admin Dose 1 APPLIC; Start 02/02/19 at 11:30 Clonidine (Catapres) 0.1 mg Q6H PRN PO ELEVATED BLOOD PRESSURE Last administered on 02/02/19at 17:35; Admin Dose 0.1 MG; Start 02/02/19 at 17:30 Insulin Aspart (Novolog Insulin Pen) NOVOLOG *MILD* ALGORI... Q4 SC Last a dministered on 02/04/19 12:44; Admin Dose 1 UNIT; Start 02/03/19 at 09:00 Dextrose/Sodium Chloride 1,000 ml @ 100 mls/hr Q10H IV Last administered on 02/04/19 09:44; Admin Dose 100 MLS/HR; Start 02/03/19 at 06:30 MARIANO VACA NP Feb 04, 2019 18:06
[2019-02-04 20:30] VITALS: BP 117/66; PULSE 78; RESP 18
[2019-02-04] MEDS: INSULIN GLARGINE [LANTus] (100 UNITS/ML) SYG SC SCH (20:36)
[2019-02-05] MEDS: INSULIN ASPART [NOVOLOG] 3 ML PEN SC SCH ×9 (01:14→20:36)
[2019-02-05 02:00] VITALS: BP 132/78; PULSE 73; RESP 16
[2019-02-05] MEDS: DEXTROSE 5%-0.45% NACL 1,000 ML IV SCH ×2 (03:58→08:21)
[2019-02-05] MEDS: PIPER-TAZO 3.375 GM IV (PMX) 100 ML IVPB SCH ×3 (05:45→17:09)
[2019-02-05 07:45] VITALS: BP 129/82; PULSE 79; RESP 20
[2019-02-05] MEDS: ZINC SULFATE 220 MG CAP PO SCH (08:14)
[2019-02-05] MEDS: GABAPENTIN 300 MG CAP PO SCH ×3 (08:14→20:21)
[2019-02-05] MEDS: SERTRALINE 50 MG TAB PO SCH (08:14)
[2019-02-05] MEDS: LISINOPRIL 5 MG TAB PO SCH (08:14)
[2019-02-05] MEDS: ASCORBIC ACID 500 MG TAB PO SCH (08:14)
[2019-02-05] MEDS: VANCOMYCIN 1 GM 250 ML IVPB SCH ×2 (08:20→20:21)
[2019-02-05] MEDS: ACETAMINOPHEN 325 MG TAB PO PRN (08:31)
[2019-02-05] MEDS: COLLAGENASE 5 GM (UD JAR) TOP SCH ×2 (09:00→14:20)
[2019-02-05] MEDS: DAKINS 0.0125%(1/40) 473 ML SOLUTION TP SCH ×2 (09:00→14:20)
--- NOTE | 2019-02-05 09:53 | PN ---
Date/Time of Note Date/Time of Note DATE: 02/05/19 TIME: 09:52 Objective Vitals Vital Signs Date Temp Pulse Resp B/P (MAP) Pulse Ox O2 O2 Flow FiO2 Time Delivery Rate 02/05/19 99.4 79 20 129/82 95 07:45 (98) 02/03/19 Room Air 16:49 02/03/19 6.0 16:08 Intake and Output 02/04/19 02/04/19 02/05/19 1515:00 23:00 07:00 IntakeIntake Total 1430 ml 1260 ml 850 ml OutputOutput Total 550 ml 1300 ml BalanceBalance 880 ml -40 ml 850 ml Results Result Diagram: 02/05/1950 02/05/19 0548 Medications Medications Current Medications IV Flush (NS 3 ml) 3 ml PER PROTOCOL IV ; Start 02/01/19 at 14:30 Ondansetron HCl (Zofran Inj) 4 mg Q6H PRN IV NAUSEA/VOMITING; Start 02/01/19 at 14:30 Acetaminophen (Tylenol Tab) 650 mg Q6H PRN PO .PAIN 1-3 OR TEMP Last administered on 02/05/19at 08:31; Admin Dose 650 MG; Start 02/01/19 at 14:30 Acetaminophen/ Hydrocodone Bitart ([place] (5/325)) 1 tab Q6H PRN PO .PAIN 4-6; Start 02/01/19 at 14:30 Morphine Sulfate (morphine) 2 mg Q4H PRN IV .PAIN 7-10 Last administered on 02/04/19at 20:51; Admin Dose 2 MG; Start 02/01/19 at 14:30 Piperacillin Sod/ Tazobactam Sod 100 ml @ 200 mls/hr Q6 IVPB Last administered on 02/05/19at 05:45; Admin Dose 200 MLS/HR; Start 02/01/19 at 18:00 Vancomycin HCl (Vanco Iv Per Pharmacy) VANCOMYCIN PER PHARMACY PER PROTOCOL XX ; Start 02/01/19 at 14:30 Insulin Glargine (Lantus) 18 units DAILY@2000 SC Last administered on 02/04/19at 20:36; Admin Dose 18 UNITS; Start 02/01/19 at 20:00 Insulin Aspart (Novolog Insulin Pen) 6 unit WITH MEALS SC Last administered on 02/05/19at 08:19; Admin Dose 6 UNIT; Start 02/01/19 at 18:00 Vancomycin HCl 250 ml @ 125 mls/hr Q12H IVPB Last administered on 02/05/19 08:20; Admin Dose 125 MLS/HR; Start 02/01/19 at 21:00 Ascorbic Acid (Vitamin C) 500 mg DAILY PO Last administered on 02/05/19 08:14; Admin Dose 500 MG; Start 02/02/19 at 09:00 Gabapentin (Neurontin) 300 mg TID PO Last administered on 02/05/19 08:14; Admin Dose 300 MG; Start 02/01/19 at 21:00 Lisinopril (Zestril) 5 mg DAILY PO Last administered on 02/05/19 08:14; Admin Dose 5 MG; Start 02/02/19 at 09:00 Sertraline HCl (Zoloft) 25 mg DAILY PO Last administered on 02/05/19 08:14; Admin Dose 25 MG; Start 02/02/19 at 09:00 Zinc Sulfate (Zinc Sulfate) 220 mg DAILY PO Last administered on 02/05/19 08:14; Admin Dose 220 MG; Start 02/02/19 at 09:00 Lidocaine (Xylocaine 1% (Mpf)) 30 ml ONCE PRN INJ PAIN; Start 02/01/19 at 16:30 Collagenase (Santyl) 1 applic DAILY TOP Last administered on 02/03/19at 08:12; Admin Dose 1 APPLIC; Start 02/02/19 at 09:00 Miscellaneous Information 1 ea NOTE XX ; Start 02/02/19 at 08:30 Glucose (Glutose) 15 gm Q15M PRN PO DECREASED GLUCOSE; Start 02/02/19 at 08:30 Glucose (Glutose) 22.5 gm Q15M PRN PO DECREASED GLUCOSE; Start 02/02/19 at 08:30 Dextrose (D50w Syringe) 25 ml Q15M PRN IV DECREASED GLUCOSE; Start 02/02/19 at 08:30 Dextrose (D50w Syringe) 50 ml Q15M PRN IV DECREASED GLUCOSE; Start 02/02/19 at 08:30 Glucagon (Glucagen) 1 mg Q15M PRN IM DECREASED GLUCOSE; Start 02/02/19 at 08:30 Glucose (Glutose) 15 gm Q15M PRN BUCCAL DECREASED GLUCOSE; Start 02/02/19 at 08:30 Sodium Hypochlorite (Dakins Diluted (40)) 1 applic DAILY TP Last administered on 02/03/19at 08:12; Admin Dose 1 APPLIC; Start 02/02/19 at 11:30 Clonidine (Catapres) 0.1 mg Q6H PRN PO ELEVATED BLOOD PRESSURE Last administered on 02/02/19at 17:35; Admin Dose 0.1 MG; Start 02/02/19 at 17:30 Insulin Aspart (Novolog Insulin Pen) NOVOLOG *MILD* ALGORI... Q4 SC Last administered on 02/05/19at 08:19; Admin Dose 1 UNIT; Start 02/03/19 at 09:00 Diagnostic Test (Pha) (Accu-Chek) 1 ea AC MEALS AND BEDTIME XX ; Start 02/05/19 at 11:30 VTE Prophylaxis Risk score (from [facility])>0 risk: 2 SCD applied (from [facility]): No SCD contraindication: other Lines/Catheters IV Catheter Type: Mccormick in Place: No Assessment/Plan Hospital Course Subjective No acute issues overnight Objective Physical exam General: Patient is laying in bed and answers questions appropriately Mentation: Patient is alert and oriented 4, Head: Normocephalic atraumatic Eyes: EOMI, pupils reactive to light Neck: Supple, nontender, midline Respiratory: Clear to auscultation bilaterally Cardiovascular: regular rate, no obvious murmurs Gastrointestinal: non-tender to palpation, bowel sounds heard. Neurological: Moves all extremities spontaneously Skin: bilateral feet, bandaged, CDI Assessment and plan Bilateral lower extremity wounds, left foot osteomyelitis -Status post multiple debridement -X-ray and MRI noted -IV antibiotic -Infectious disease and podiatry consulted -Wound cultures pending Cervical stenosis, arm stiffness, persistent tingling, -Chronic since 2017 -Patient states that there was some issues with previous MRI -Current MRI showing moderate canal stenosis, neurosurgeon states likely elective outpatient surgery should be pursued given current infection, neurosurgery will consult and see patient today. Dr. Branch Diabetes mellitus -Insulin while in house Dyslipidemia -Continue atorvastatin Questionable history of CVA -No known residual effect -Continue daily aspirin Chronic diabetic foot wounds -Patient was homeless previous to his current stay at his [facility] facility, likely chronic diabetic foot wounds due to homeless nature and noncompliant medical care. Disposition -awaiting cultures ROSA QUINTERO Feb 05, 2019 09:53
--- NOTE | 2019-02-05 09:59 | CONS ---
Assessment/Plan Assessment/Plan Assessment/Plan (Daily) Diagnosis: 1) Cervical stenosis 2) Diabetic neuropathy Mr. Hoff is a 48 year old male with multiple medical comorbidities who possibly would benefit from cervical decompression. However, he should recover from his current infection before considering surgery. He should first follow-up with neurology as an outpatient to obtain an EMG/NCS and determine if his changes are purely diabetic, or if there is an element of cervical radiculopathy. Consultation Date/Type/Reason Admit Date/Time Feb 01, 2019 at 13:59 Type of Consult Neurosurgery Reason for Consultation Cervical radiculopathy Date/Time of Note DATE: 02/05/19 TIME: 09:52 Hx of Present Illness 48 year old male with diabetic neuropathy and foot osteomyelitis who has had hand numbness and weakness since August 2016 after a fall. He has had progressive worsening of these changes. He is here for treatment of foot osteo and sepsis. Past Medical History Home Meds Reported Medications Gabapentin* (Gabapentin*) 100 Mg Capsule, 100 MG PO TID, #90 CAP 02/01/19 Insulin Regular, Human (Humulin R U-500 Kwikpen) 500 Unit/1 Ml Insuln.pen, 7 UNIT SQ AC A 02/01/19 Ibuprofen* (Motrin*) 600 Mg Tab, 600 MG PO Q8H PRN for PAIN LEVEL 6-10, TAB 02/01/19 Insulin Glargine* (Lantus*) 100 Unit/Ml Soln, 10 UNIT SC QHS, #1 VIAL 02/01/19 Lisinopril* (Lisinopril*) 5 Mg Tablet, 5 MG PO DAILY, #30 TAB HOLD IF SBP <110 OR HR <60 02/01/19 Metformin Hcl* (Metformin Hcl*) 1,000 Mg Tablet, 1000 MG PO WITH BREAKFAST DINNE, #60 TAB 02/01/19 Multivitamin with Minerals (Daily Vitamin Formula-Minerals) 1 Each Tablet, 1 EACH PO DAILY, TAB 02/01/19 Amino Acids/Protein Hydrolys (Pro-Stat Awc Liquid) 30 Ml Liquid, 30 ML PO BID 02/01/19 Sertraline Hcl* (Sertraline Hcl*) 25 Mg Tablet, 25 MG PO DAILY, #30 TAB 02/01/19 Ascorbic Acid* (Vitamin C*) 500 Mg Capsule.sa, 500 MG PO DAILY, CAP 02/01/19 Zinc Sulfate* (Zinc Sulfate*) 220 Mg Tablet, 220 MG PO DAILY, TAB STOP 02-06-19 02/01/19 Acetaminophen* (Acetaminophen*) 650 Mg Tablet, 650 MG PO Q6H PRN for PAIN LEVEL 1-5, #30 TAB AND FEVER 02/01/19 Arginine/Ascorbate Sod/Fred AC (Arginaid Powder) 1 Each Powd.pack, 1 EACH PO BID 02/01/19 Discontinued Reported Medications Lisinopril* (Lisinopril*) 5 Mg Tablet, 5 MG PO DAILY 04/24/13 Metformin* (Glucophage*) 500 Mg Tab, 500 MG PO BID 04/24/13 Discontinued Scripts Pen Needle, Diabetic (Insulin Pen Needle) 1 Each Dis.needle, 1 EACH MC DAILY, #90 Prov:LAURENCE LOPEZ MD 02/23/17 Atorvastatin Calcium (Atorvastatin Calcium) 20 Mg Tablet, 20 MG PO HS for 90 Days, #90 TAB Prov:LAURENCE LOPEZ MD 02/23/17 Sulfamethoxazole/Trimethoprim* (Bactrim Ds* Tablet) 1 Each Tablet, 1 TAB PO BID for 28 Days, #56 TAB Prov:LAURENCE LOPEZ MD 02/23/17 Insulin Glargine* (Lantus*) 100 Unit/Ml Soln, 20 UNIT SC DAILY for 90 Days, #90 Prov:LAURENCE LOPEZ MD 02/23/17 Aspirin (Aspirin) 81 Mg Chew, 81 MG PO DAILY for 90 Days, #90 TAB Prov:LAURENCE LOPEZ MD 02/23/17 Levofloxacin* (Levaquin*) 500 Mg Tablet, 500 MG PO DAILY for 28 Days, #28 TAB Prov:LAURENCE LOPEZ MD 02/23/17 Medications Current Medications IV Flush (NS 3 ml) 3 ml PER PROTOCOL IV ; Start 02/01/19 at 14:30 Ondansetron HCl (Zofran Inj) 4 mg Q6H PRN IV NAUSEA/VOMITING; Start 02/01/19 at 14:30 Acetaminophen (Tylenol Tab) 650 mg Q6H PRN PO .PAIN 1-3 OR TEMP Last administered on 02/05/19at 08:31; Admin Dose 650 MG; Start 02/01/19 at 14:30 Acetaminophen/ Hydrocodone Bitart ([place] (5/325)) 1 tab Q6H PRN PO .PAIN 4-6; Start 02/01/19 at 14:30 Morphine Sulfate (morphine) 2 mg Q4H PRN IV .PAIN 7-10 Last administered on 02/04/19 20:51; Admin Dose 2 MG; Start 02/01/19 at 14:30 Piperacillin Sod/ Tazobactam Sod 100 ml @ 200 mls/hr Q6 IVPB Last administered on 02/05/19 05:45; Admin Dose 200 MLS/HR; Start 02/01/19 at 18:00 Vancomycin HCl (Vanco Iv Per Pharmacy) VANCOMYCIN PER PHARMACY PER PROTOCOL XX ; Start 02/01/19 at 14:30 Insulin Glargine (Lantus) 18 units DAILY@2000 SC Last administered on 02/04/19 20:36; Admin Dose 18 UNITS; Start 02/01/19 at 20:00 Insulin Aspart (Novolog Insulin Pen) 6 unit WITH MEALS SC Last administered on 02/05/19 08:19; Admin Dose 6 UNIT; Start 02/01/19 at 18:00 Vancomycin HCl 250 ml @ 125 mls/hr Q12H IVPB Last administered on 02/05/19 08:20; Admin Dose 125 MLS/HR; Start 02/01/19 at 21:00 Ascorbic Acid (Vitamin C) 500 mg DAILY PO Last administered on 02/05/19 08:14; Admin Dose 500 MG; Start 02/02/19 at 09:00 Gabapentin (Neurontin) 300 mg TID PO Last administered on 02/05/19 08:14; Admin Dose 300 MG; Start 02/01/19 at 21:00 Lisinopril (Zestril) 5 mg DAILY PO Last administered on 02/05/19 08:14; Admin Dose 5 MG; Start 02/02/19 at 09:00 Sertraline HCl (Zoloft) 25 mg DAILY PO Last administered on 02/05/19 08:14; Admin Dose 25 MG; Start 02/02/19 at 09:00 Zinc Sulfate (Zinc Sulfate) 220 mg DAILY PO Last administered on 02/05/19 08:14; Admin Dose 220 MG; Start 02/02/19 at 09:00 Lidocaine (Xylocaine 1% (Mpf)) 30 ml ONCE PRN INJ PAIN; Start 02/01/19 at 16:30 Collagenase (Santyl) 1 applic DAILY TOP Last administered on 02/03/19at 08:12; Admin Dose 1 APPLIC; Start 02/02/19 at 09:00 Miscellaneous Information 1 ea NOTE XX ; Start 02/02/19 at 08:30 Glucose (Glutose) 15 gm Q15M PRN PO DECREASED GLUCOSE; Start 02/02/19 at 08:30 Glucose (Glutose) 22.5 gm Q15M PRN PO DECREASED GLUCOSE; Start 02/02/19 at 08:30 Dextrose (D50w Syringe) 25 ml Q15M PRN IV DECREASED GLUCOSE; Start 02/02/19 at 08:30 Dextrose (D50w Syringe) 50 ml Q15M PRN IV DECREASED GLUCOSE; Start 02/02/19 at 08:30 Glucagon (Glucagen) 1 mg Q15M PRN IM DECREASED GLUCOSE; Start 02/02/19 at 08:30 Glucose (Glutose) 15 gm Q15M PRN BUCCAL DECREASED GLUCOSE; Start 02/02/19 at 08:30 Sodium Hypochlorite (Dakins Diluted (40)) 1 applic DAILY TP Last administered on 02/03/19at 08:12; Admin Dose 1 APPLIC; Start 02/02/19 at 11:30 Clonidine (Catapres) 0.1 mg Q6H PRN PO ELEVATED BLOOD PRESSURE Last administered on 02/02/19at 17:35; Admin Dose 0.1 MG; Start 02/02/19 at 17:30 Insulin Aspart (Novolog Insulin Pen) NOVOLOG *MILD* ALGORI... Q4 SC Last administered on 02/05/19at 08:19; Admin Dose 1 UNIT; Start 02/03/19 at 09:00 Diagnostic Test (Pha) (Accu-Chek) 1 ea AC MEALS AND BEDTIME XX ; Start 02/05/19 at 11:30 Allergies: Coded Allergies: No Known Allergy (Unverified , 02/20/17) Social History Smoking Status: Smoker,current status unk Exam/Review of Systems Exam Vitals Vital Signs Date Temp Pulse Resp B/P (MAP) Pulse Ox O2 O2 Flow FiO2 Time Delivery Rate 02/05/19 99.4 79 20 129/82 95 07:45 (98) 02/03/19 Room Air 16:49 02/03/19 6.0 16:08 Intake and Output 02/04/19 02/04/19 02/05/19 1515:00 23:00 07:00 IntakeIntake Total 1430 ml 1260 ml 850 ml OutputOutput Total 550 ml 1300 ml BalanceBalance 880 ml -40 ml 850 ml Exam 5/5 B delts/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 no LE weakness feet bandaged, but reports numbness Results Result Diagram: 02/05/19 0548 02/05/19 0548 Results 24hrs Laboratory Tests Test 02/04/19 12:37 02/04/19 17:47 02/04/19 20:31 02/05/19 01:13 Bedside Glucose 148 230 H 176 205 Test 02/05/19 05:47 02/05/19 05:48 02/05/19 08:05 Bedside Glucose 189 166 White Blood Count 10.3 Red Blood Count 2.90 L Hemoglobin 7.4 L Hematocrit 23.7 L Mean Corpuscular Volume 81.7 L Mean Corpuscular 25.5 L Hemoglobin Mean Corpuscular 31.2 L Hemoglobin Concent Red Cell Distribution 13.2 Width Platelet Count 357 # Mean Platelet Volume 9.6 Immature Granulocytes % 1.200 H Neutrophils % 63.6 Lymphocytes % 25.9 Monocytes % 5.8 Eosinophils % 3.2 Basophils % 0.3 Nucleated Red Blood 0.0 Cells % Immature Granulocytes # 0.120 H Neutrophils # 6.5 Lymphocytes # 2.7 Monocytes # 0.6 Eosinophils # 0.3 Basophils # 0.0 Nucleated Red Blood 0.0 Cells # Sodium Level 141 Potassium Level 4.6 Chloride Level 108 Carbon Dioxide Level 27 Anion Gap 6 Blood Urea Nitrogen 9 Creatinine 1.22 Est Glomerular Filtrat > 60 Rate mL/min Glucose Level 182 Calcium Level 8.7 Phosphorus Level 3.4 Magnesium Level 2.0 Imaging Imaging Multilevel cervical degenerative changes extending from C3/4 to C6/7. Cervical stenosis at C5/6 to C6/7. There is neuroforaminal stenosis bilaterally at C4/5- C6/7 Medications Medication Current Medications IV Flush (NS 3 ml) 3 ml PER PROTOCOL IV ; Start 02/01/19 at 14:30 Ondansetron HCl (Zofran Inj) 4 mg Q6H PRN IV NAUSEA/VOMITING; Start 02/01/19 at 14:30 Acetaminophen (Tylenol Tab) 650 mg Q6H PRN PO .PAIN 1-3 OR TEMP Last administered on 02/05/19 08:31; Admin Dose 650 MG; Start 02/01/19 at 14:30 Acetaminophen/ Hydrocodone Bitart ([place] (5/325)) 1 tab Q6H PRN PO .PAIN 4-6; Start 02/01/19 at 14:30 Morphine Sulfate (morphine) 2 mg Q4H PRN IV .PAIN 7-10 Last administered on 02/04/19 20:51; Admin Dose 2 MG; Start 02/01/19 at 14:30 Piperacillin Sod/ Tazobactam Sod 100 ml @ 200 mls/hr Q6 IVPB Last administered on 02/05/19 05:45; Admin Dose 200 MLS/HR; Start 02/01/19 at 18:00 Vancomycin HCl (Vanco Iv Per Pharmacy) VANCOMYCIN PER PHARMACY PER PROTOCOL XX ; Start 02/01/19 at 14:30 Insulin Glargine (Lantus) 18 units DAILY@2000 SC Last administered on 02/04/19 20:36; Admin Dose 18 UNITS; Start 02/01/19 at 20:00 Insulin Aspart (Novolog Insulin Pen) 6 unit WITH MEALS SC Last administered on 02/05/19 08:19; Admin Dose 6 UNIT; Start 02/01/19 at 18:00 Vancomycin HCl 250 ml @ 125 mls/hr Q12H IVPB Last administered on 02/05/19 08:20; Admin Dose 125 MLS/HR; Start 02/01/19 at 21:00 Ascorbic Acid (Vitamin C) 500 mg DAILY PO Last administered on 02/05/19 08:14; Admin Dose 500 MG; Start 02/02/19 at 09:00 Gabapentin (Neurontin) 300 mg TID PO Last administered on 02/05/19 08:14; Admin Dose 300 MG; Start 02/01/19 at 21:00 Lisinopril (Zestril) 5 mg DAILY PO Last administered on 02/05/19 08:14; Admin Dose 5 MG; Start 02/02/19 at 09:00 Sertraline HCl (Zoloft) 25 mg DAILY PO Last administered on 02/05/19 08:14; Admin Dose 25 MG; Start 02/02/19 at 09:00 Zinc Sulfate (Zinc Sulfate) 220 mg DAILY PO Last administered on 02/05/19at 08:14; Admin Dose 220 MG; Start 02/02/19 at 09:00 Lidocaine (Xylocaine 1% (Mpf)) 30 ml ONCE PRN INJ PAIN; Start 02/01/19 at 16:30 Collagenase (Santyl) 1 applic DAILY TOP Last administered on 02/03/19 08:12; Admin Dose 1 APPLIC; Start 02/02/19 at 09:00 Miscellaneous Information 1 ea NOTE XX ; Start 02/02/19 at 08:30 Glucose (Glutose) 15 gm Q15M PRN PO DECREASED GLUCOSE; Start 02/02/19 at 08:30 Glucose (Glutose) 22.5 gm Q15M PRN PO DECREASED GLUCOSE; Start 02/02/19 at 08:30 Dextrose (D50w Syringe) 25 ml Q15M PRN IV DECREASED GLUCOSE; Start 02/02/19 at 08:30 Dextrose (D50w Syringe) 50 ml Q15M PRN IV DECREASED GLUCOSE; Start 02/02/19 at 08:30 Glucagon (Glucagen) 1 mg Q15M PRN IM DECREASED GLUCOSE; Start 02/02/19 at 08:30 Glucose (Glutose) 15 gm Q15M PRN BUCCAL DECREASED GLUCOSE; Start 02/02/19 at 08:30 Sodium Hypochlorite (Dakins Diluted (1/40)) 1 applic DAILY TP Last administered on 02/03/19at 08:12; Admin Dose 1 APPLIC; Start 02/02/19 at 11:30 Clonidine (Catapres) 0.1 mg Q6H PRN PO ELEVATED BLOOD PRESSURE Last administered on 02/02/19at 17:35; Admin Dose 0.1 MG; Start 02/02/19 at 17:30 Insulin Aspart (Novolog Insulin Pen) NOVOLOG *MILD* ALGORI... Q4 SC Last administered on 02/05/19at 08:19; Admin Dose 1 UNIT; Start 02/03/19 at 09:00 Diagnostic Test (Pha) (Accu-Chek) 1 ea AC MEALS AND BEDTIME XX ; Start 02/05/19 at 11:30 FAVIOLA REZA MD Feb 05, 2019 09:59
[2019-02-05] MEDS: ACCU-CHEK XX SCH ×3 (11:30→21:00)
[2019-02-05 13:43] VITALS: BP 106/65; PULSE 73; RESP 18
--- NOTE | 2019-02-05 17:28 | CONS ---
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 Discussed with patient concerns for [place] neuroarthropathy in both feet due to the MRI findings of neuropathic changes and would benefit from being non weight bearing. Appreciate and PT/OT input. Patient would benefit from a vascular evaluation given the results of his arterial studies. Intra op cultures currently showing right foot with staph aureus and left foot no growth. Intra op pathology pending. Also awaiting soft tissue specimen biopsy results. Recommend SNF placement. Due to his osteomyelitis patient will likely benefit from HBO therapy in the outpatient setting. Patient would also benefit from PICC line IV abx. Patient in the past had positive HepA results and spoke with primary physician who will order a hep panel. Consultation Date/Type/Reason Admit Date/Time Feb 01, 2019 at 13:59 Initial Consult Date Date/Time of Note DATE: 02/05/19 TIME: 17:27 24 HR Interval Summary Free Text/Dictation No acute events overnight. Exam/Review of Systems Exam Vitals Vital Signs Date Temp Pulse Resp B/P (MAP) Pulse Ox O2 O2 Flow FiO2 Time Delivery Rate 02/05/19 97.9 73 18 106/65 97 13:43 (79) 02/03/19 Room Air 16:49 02/03/19 6.0 16:08 Intake and Output 02/04/19 02/04/19 02/05/19 1414:59 22:59 06:59 IntakeIntake Total 1430 ml 1260 ml 850 ml OutputOutput Total 550 ml 1300 ml BalanceBalance 880 ml -40 ml 850 ml Exam left 1st MPJ ulceration wound dimension 3 x 6 x 2.0 cm, there was approximately 2-3cm of tunneling towards 2nd metatarsal area and 1st webspace area, wound base more fibrogranular Left plantar 5th metatarsal ulceration 1.2 x 1.4 x 0.4cm which probed to bone. Granular wound base No purulence expressed at the left foot ulceration site Right plantar 1st metatarsal 1.5 x 1.2 x 0.2cm fibrogranular wound bed. Right plantar 4th and 5th ulceration 1.5 x 3 x 0.2cm fibrogranular wound bed. Right plantar 5th metatarsal base extending to heel ulceration 6 x 3 x 0.2cm fibrogranular wound bed. None of the wounds probed to bone, no purulence was appreciated. Absent protective sensations Decreased edema to left lower extremity Results Result Diagram: 02/05/19 0548 02/05/19 0548 Results 24hrs Laboratory Tests Test 02/04/19 17:47 02/04/19 20:31 02/05/19 01:13 02/05/19 05:47 Bedside Glucose 230 H 176 205 189 Test 02/05/19 05:48 02/05/19 08:05 02/05/19 12:29 White Blood Count 10.3 Red Blood Count 2.90 L Hemoglobin 7.4 L Hematocrit 23.7 L Mean Corpuscular Volume 81.7 L Mean Corpuscular 25.5 L Hemoglobin Mean Corpuscular 31.2 L Hemoglobin Concent Red Cell Distribution 13.2 Width Platelet Count 357 # Mean Platelet Volume 9.6 Immature Granulocytes % 1.200 H Neutrophils % 63.6 Lymphocytes % 25.9 Monocytes % 5.8 Eosinophils % 3.2 Basophils % 0.3 Nucleated Red Blood 0.0 Cells % Immature Granulocytes # 0.120 H Neutrophils # 6.5 Lymphocytes # 2.7 Monocytes # 0.6 Eosinophils # 0.3 Basophils # 0.0 Nucleated Red Blood 0.0 Cells # Sodium Level 141 Potassium Level 4.6 Chloride Level 108 Carbon Dioxide Level 27 Anion Gap 6 Blood Urea Nitrogen 9 Creatinine 1.22 Est Glomerular Filtrat > 60 Rate mL/min Glucose Level 182 Calcium Level 8.7 Phosphorus Level 3.4 Magnesium Level 2.0 Bedside Glucose 166 135 Medications Medication Current Medications IV Flush (NS 3 ml) 3 ml PER PROTOCOL IV ; Start 02/01/19 at 14:30 Ondansetron HCl (Zofran Inj) 4 mg Q6H PRN IV NAUSEA/VOMITING; Start 02/01/19 at 14:30 Acetaminophen (Tylenol Tab) 650 mg Q6H PRN PO .PAIN 1-3 OR TEMP Last administered on 02/05/19at 08:31; Admin Dose 650 MG; Start 02/01/19 at 14:30 Acetaminophen/ Hydrocodone Bitart ([place] (5/325)) 1 tab Q6H PRN PO .PAIN 4-6; Start 02/01/19 at 14:30 Morphine Sulfate (morphine) 2 mg Q4H PRN IV .PAIN 7-10 Last administered on 02/04/19 20:51; Admin Dose 2 MG; Start 02/01/19 at 14:30 Piperacillin Sod/ Tazobactam Sod 100 ml @ 200 mls/hr Q6 IVPB Last administered on 02/05/19 17:09; Admin Dose 200 MLS/HR; Start 02/01/19 at 18:00 Vancomycin HCl (Vanco Iv Per Pharmacy) VANCOMYCIN PER PHARMACY PER PROTOCOL XX ; Start 02/01/19 at 14:30 Insulin Glargine (Lantus) 18 units DAILY@2000 SC Last administered on 02/04/19 20:36; Admin Dose 18 UNITS; Start 02/01/19 at 20:00 Insulin Aspart (Novolog Insulin Pen) 6 unit WITH MEALS SC Last administered on 02/05/19 12:36; Admin Dose 6 UNIT; Start 02/01/19 at 18:00 Vancomycin HCl 250 ml @ 125 mls/hr Q12H IVPB Last administered on 02/05/19 08:20; Admin Dose 125 MLS/HR; Start 02/01/19 at 21:00 Ascorbic Acid (Vitamin C) 500 mg DAILY PO Last administered on 02/05/19 08:14; Admin Dose 500 MG; Start 02/02/19 at 09:00 Gabapentin (Neurontin) 300 mg TID PO Last administered on 02/05/19 12:30; Admin Dose 300 MG; Start 02/01/19 at 21:00 Lisinopril (Zestril) 5 mg DAILY PO Last administered on 02/05/19 08:14; Admin Dose 5 MG; Start 02/02/19 at 09:00 Sertraline HCl (Zoloft) 25 mg DAILY PO Last administered on 02/05/19 08:14; Admin Dose 25 MG; Start 02/02/19 at 09:00 Zinc Sulfate (Zinc Sulfate) 220 mg DAILY PO Last administered on 02/05/19 08:14; Admin Dose 220 MG; Start 02/02/19 at 09:00 Lidocaine (Xylocaine 1% (Mpf)) 30 ml ONCE PRN INJ PAIN; Start 02/01/19 at 16:30 Collagenase (Santyl) 1 applic DAILY TOP Last administered on 02/05/19 14:20; Admin Dose 1 APPLIC; Start 02/02/19 at 09:00 Miscellaneous Information 1 ea NOTE XX ; Start 02/02/19 at 08:30 Glucose (Glutose) 15 gm Q15M PRN PO DECREASED GLUCOSE; Start 02/02/19 at 08:30 Glucose (Glutose) 22.5 gm Q15M PRN PO DECREASED GLUCOSE; Start 02/02/19 at 08:30 Dextrose (D50w Syringe) 25 ml Q15M PRN IV DECREASED GLUCOSE; Start 02/02/19 at 08:30 Dextrose (D50w Syringe) 50 ml Q15M PRN IV DECREASED GLUCOSE; Start 02/02/19 at 08:30 Glucagon (Glucagen) 1 mg Q15M PRN IM DECREASED GLUCOSE; Start 02/02/19 at 08:30 Glucose (Glutose) 15 gm Q15M PRN BUCCAL DECREASED GLUCOSE; Start 02/02/19 at 08:30 Sodium Hypochlorite (Dakins Diluted (40)) 1 applic DAILY TP Last administered on 02/05/19at 14:20; Admin Dose 1 APPLIC; Start 02/02/19 at 11:30 Clonidine (Catapres) 0.1 mg Q6H PRN PO ELEVATED BLOOD PRESSURE Last administered on 02/02/19 17:35; Admin Dose 0.1 MG; Start 02/02/19 at 17:30 Insulin Aspart (Novolog Insulin Pen) NOVOLOG *MILD* ALGORI... Q4 SC Last administered on 02/05/19 08:19; Admin Dose 1 UNIT; Start 02/03/19 at 09:00 Diagnostic Test (Pha) (Accu-Chek) 1 ea AC MEALS AND BEDTIME XX Last ad ministered on 02/05/19 11:30; Admin Dose 1 EA; Start 02/05/19 at 11:30 YING ALMAZAN DPElise Feb 05, 2019 17:27
--- NOTE | 2019-02-05 18:02 | CONS ---
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 MULTI DRUG RESISTANT ORGANISM Organism 2 STREP PYOGENES (GRP A) QUANTITY SCANT GROWTH Organism 3 COAGULASE NEGATIVE STAPH QUANTITY 1+ Organism 4 ENTEROCOCCUS SPECIES QUANTITY 1+ Organism 5 CORYNEBACTERIUM SPECIES QUANTITY 1+ RE: STREPTOCOCCUS PYOGENES Susceptibilities previously reported, see prior culture report of same specimen site. VanC genotype resistance is an intrinsic characteristic of Enterococcus gallinarum and Enterococcus casseliflavus strain, not a true Vancomycin reistant enterococcus (VRE). The need to differentiate VanC strain is clinically significant for therapeutic infection control and surveillance reason. Clinical susceptibiltiy testing standard for this organism have not been established. However, this organism has demonstrated in vitro growth inhibition to the following chemotherapeutic agents listed as susceptible. MRSA COAG NEG ENT SPS M.I.C. RX M.I.C. RX M.I.C. RX --------- --- --------- --- --------- --- AMPICILLIN <=2 S CEFAZOLIN R R CIPROFLOXACIN >=8 R >=8 R CLINDAMYCIN <=0.25 S >=8 R DOXYCYCLINE S S ERYTHROMYCIN <=0.25 S >=8 R GENTAMICIN 8 I LEVOFLOXACIN >=8 R >=8 R OXACILLIN >=4 R >=4 R PENICILLIN-G >=0.5 R >=0.5 R 1 S RIFAMPIN <=0.5 S <=0.5 S VANCOMYCIN <=0.5 S 2 S R TRIMETHOPRIM/SULFAMETHOXAZOLE <=10 S <=10 S CORYN SPS Zone Size RX --------- --- * AMPICILLIN S * CEFAZOLIN S * CEFOTAXIME S * CEFUROXIME S * CIPROFLOXACIN R * CLINDAMYCIN R * ERYTHROMYCIN R * PENICILLIN S * VANCOMYCIN S DIAGNOSTIC IMAGING * 02/03/19 left-ANKLE: 1. No acute osseous abnormality.2. Moderate osteoarthritis.3. Plantar calcaneal spur.4. Soft tissue swelling. * 02/01/19 RIGHT FOOT/ANKLE MRI: Charcot foot changes w/no evidence osteomyelitis reported. * 02/01/19 LEFT FOOT/ANKLE MRI: 1. Osteomyelitis of the proximal phalanx of the left great toe, with soft tissue ulceration at the medial aspect of the base of the left great toe. 2. Soft tissue ulceration is also seen at the plantar aspect of the head of the first metatarsal, with suspected osteomyelitis in the sesamoids at the plantar aspect of the head of the fifth metatarsal. * 02/01/19 BLEXT VENOUS US: 1. No evidence of deep vein thrombosis involving either lower extremity. * 02/01/19 LEFT LOWER EXT ARTERIAL US: 2. Atypical monophasic wave form of the left dorsalis pedis artery suggests a degree of stenosis. PHYSICAL EXAMINATION: GEN: 46 yo M, WN,WD, NAD VITALS: Afebrile, VSS HEENT: Unremarkable, no oral thrush NECK: Supple, full ROM CHEST: Equal chest rise bilaterally, without dyspnea on room air on observation CV: Radial pulse RRR ABD: Soft, NT : Deferred EXT: Warm, LEFT LEG 2+ pitting edema noted, left foot wound has pustular drainage on the ventral side, right foot ulcers SKIN: No rash, no diaphoresis, (+)tattoos upper ext NEURO: Grossly intact w/known Dm peripheral neuropathy ID ASSESSMENT 48 yo M admit with: 1. Sepsis indicators on admission: Fever 102.7, Leukocytosis, lactic acid 2.3, procalcitonin 0.98-> 1.14 , ESR 110, CRP >24 2. COMPLEX Bilateral lower extremity cellulitis w/bilateral diabetic feet infection as below: * Left foot osteomyelitis / abscess w/gas / cellulitis / tissue mass / deep tissue injury / edema per MRI 02/01/19 * Right foot Charcot foot changes w/open ulcerations/cellulitis, no evidence osteomyelitis on MRI 02/01/19 2. Diabetes mellitus w/complication of DM peripheral neuropathy * 02/02/19 A1C @ 12.4 * BILATERAL FEET Charcot neuroarthropathy 3. PERIPHERAL ARTERIAL AND VENOUS artery disease * Bilateral lower extremities edema w/chronic venous stasis hyperpigmentation/hyperkeratotic thick skin changes/hyperkeratotic long toenails * 02/01/19 LEFT LOWER EXT ARTERIAL US: 2. Atypical monophasic wave form of the left dorsalis pedis artery suggests a degree of stenosis. 4. HTN w/possible HTN heart disease per (+)mild concentric LVH on 2013 ECHO w/EF 60% 5. DJD: * Left shoulder pain: PRIOR MRI No acute process * Hx of right shoulder surgery 6. Cervicalgia w/prior imaging findings: * Multilevel foraminal narrowing outlined in detail above.Cervical spondylosis/ degenerative enthesopathy. No cervical cord signal abnormality. 7. Chronic sinusitis per MRI/CT Brain prior admission * CT: Opacified partially visualized right ethmoid air cells with moderate mucosal thickening within the right frontal sinuses. * MRI: Noted are complete right maxillary, extensive right frontal and ethmoid sinus opacification, left maxillary sinus mucous retention cysts and minimal mastoid air cell opacification. 8. Tobaccoism -> 2 cigars/day 9. 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 Socioeconomic barriers to care: Homeless prior was living in RV w/friend -> recently living @ SNF prior to admission ABX ALLERGIES: KNDA INVASIVES: PIV CURRENT ABX: DAY #5=> =>VANCO IV + Zosyn ID RECOMMENDATIONS/PLAN: 1. Continue current ABX -Awaiting final micro * Watch renal fx closely on this renally cleared ABX combo .Follow APC recommendations 3. SMOKING CESSATION STRONGLY ADVOCATED 4. Hx of noncompliance @ [facility] -- multiple barriers to self-care Consultation Date/Type/Reason Admit Date/Time Feb 01, 2019 at 13:59 Initial Consult Date Date/Time of Note DATE: 02/05/19 TIME: 17:54 Exam/Review of Systems Exam Vitals Vital Signs Date Temp Pulse Resp B/P (MAP) Pulse Ox O2 O2 Flow FiO2 Time Delivery Rate 02/05/19 97.9 73 18 106/65 97 13:43 (79) 02/03/19 Room Air 16:49 02/03/19 6.0 16:08 Intake and Output 02/04/19 02/04/19 02/05/19 1515:00 23:00 07:00 IntakeIntake Total 1430 ml 1260 ml 850 ml OutputOutput Total 550 ml 1300 ml BalanceBalance 880 ml -40 ml 850 ml Results Result Diagram: 02/05/19 0548 02/05/19 0548 Results 24hrs Laboratory Tests Test 02/04/19 20:31 02/05/19 01:13 02/05/19 05:45 02/05/19 05:47 Bedside Glucose 176 205 189 Procalcitonin 0.35 H Test 02/05/19 05:48 02/05/19 08:05 02/05/19 12:29 02/05/19 17:28 White Blood Count 10.3 Red Blood Count 2.90 L Hemoglobin 7.4 L Hematocrit 23.7 L Mean Corpuscular Volume 81.7 L Mean Corpuscular 25.5 L Hemoglobin Mean Corpuscular 31.2 L Hemoglobin Concent Red Cell Distribution 13.2 Width Platelet Count 357 # Mean Platelet Volume 9.6 Immature Granulocytes % 1.200 H Neutrophils % 63.6 Lymphocytes % 25.9 Monocytes % 5.8 Eosinophils % 3.2 Basophils % 0.3 Nucleated Red Blood 0.0 Cells % Immature Granulocytes # 0.120 H Neutrophils # 6.5 Lymphocytes # 2.7 Monocytes # 0.6 Eosinophils # 0.3 Basophils # 0.0 Nucleated Red Blood 0.0 Cells # Sodium Level 141 Potassium Level 4.6 Chloride Level 108 Carbon Dioxide Level 27 Anion Gap 6 Blood Urea Nitrogen 9 Creatinine 1.22 Est Glomerular Filtrat > 60 Rate mL/min Glucose Level 182 Calcium Level 8.7 Phosphorus Level 3.4 Magnesium Level 2.0 Bedside Glucose 166 135 124 Medications Medication Current Medications IV Flush (NS 3 ml) 3 ml PER PROTOCOL IV ; Start 02/01/19 at 14:30 Ondansetron HCl (Zofran Inj) 4 mg Q6H PRN IV NAUSEA/VOMITING; Start 02/01/19 at 14:30 Acetaminophen (Tylenol Tab) 650 mg Q6H PRN PO .PAIN 1-3 OR TEMP Last administered on 02/05/19 08:31; Admin Dose 650 MG; Start 02/01/19 at 14:30 Acetaminophen/ Hydrocodone Bitart ([place] (5/325)) 1 tab Q6H PRN PO .PAIN 4-6; Start 02/01/19 at 14:30 Morphine Sulfate (morphine) 2 mg Q4H PRN IV .PAIN 7-10 Last administered on 02/04/19 20:51; Admin Dose 2 MG; Start 02/01/19 at 14:30 Piperacillin Sod/ Tazobactam Sod 100 ml @ 200 mls/hr Q6 IVPB Last administered on 02/05/19 17:09; Admin Dose 200 MLS/HR; Start 02/01/19 at 18:00 Vancomycin HCl (Vanco Iv Per Pharmacy) VANCOMYCIN PER PHARMACY PER PROTOCOL XX ; Start 02/01/19 at 14:30 Insulin Glargine (Lantus) 18 units DAILY@2000 SC Last administered on 02/04/19 20:36; Admin Dose 18 UNITS; Start 02/01/19 at 20:00 Insulin Aspart (Novolog Insulin Pen) 6 unit WITH MEALS SC Last administered on 02/05/19 17:31; Admin Dose 6 UNIT; Start 02/01/19 at 18:00 Vancomycin HCl 250 ml @ 125 mls/hr Q12H IVPB Last administered on 02/05/19 08:20; Admin Dose 125 MLS/HR; Start 02/01/19 at 21:00 Ascorbic Acid (Vitamin C) 500 mg DAILY PO Last administered on 02/05/19 08:14; Admin Dose 500 MG; Start 02/02/19 at 09:00 Gabapentin (Neurontin) 300 mg TID PO Last administered on 02/05/19at 12:30; Admin Dose 300 MG; Start 02/01/19 at 21:00 Lisinopril (Zestril) 5 mg DAILY PO Last administered on 02/05/19 08:14; Admin Dose 5 MG; Start 02/02/19 at 09:00 Sertraline HCl (Zoloft) 25 mg DAILY PO Last administered on 02/05/19 08:14; Admin Dose 25 MG; Start 02/02/19 at 09:00 Zinc Sulfate (Zinc Sulfate) 220 mg DAILY PO Last administered on 02/05/19 08:14; Admin Dose 220 MG; Start 02/02/19 at 09:00 Lidocaine (Xylocaine 1% (Mpf)) 30 ml ONCE PRN INJ PAIN; Start 02/01/19 at 16:30 Collagenase (Santyl) 1 applic DAILY TOP Last administered on 02/05/19 14:20; Admin Dose 1 APPLIC; Start 02/02/19 at 09:00 Miscellaneous Information 1 ea NOTE XX ; Start 02/02/19 at 08:30 Glucose (Glutose) 15 gm Q15M PRN PO DECREASED GLUCOSE; Start 02/02/19 at 08:30 Glucose (Glutose) 22.5 gm Q15M PRN PO DECREASED GLUCOSE; Start 02/02/19 at 08:30 Dextrose (D50w Syringe) 25 ml Q15M PRN IV DECREASED GLUCOSE; Start 02/02/19 at 08:30 Dextrose (D50w Syringe) 50 ml Q15M PRN IV DECREASED GLUCOSE; Start 02/02/19 at 08:30 Glucagon (Glucagen) 1 mg Q15M PRN IM DECREASED GLUCOSE; Start 02/02/19 at 08:30 Glucose (Glutose) 15 gm Q15M PRN BUCCAL DECREASED GLUCOSE; Start 02/02/19 at 08:30 Sodium Hypochlorite (Dakins Diluted ()) 1 applic DAILY TP Last administered on 02/05/19at 14:20; Admin Dose 1 APPLIC; Start 02/02/19 at 11:30 Clonidine (Catapres) 0.1 mg Q6H PRN PO ELEVATED BLOOD PRESSURE Last administered on 02/02/19at 17:35; Admin Dose 0.1 MG; Start 02/02/19 at 17:30 Insulin Aspart (Novolog Insulin Pen) NOVOLOG *MILD* ALGORI... Q4 SC Last administered on 02/05/19at 08:19; Admin Dose 1 UNIT; Start 02/03/19 at 09:00 Diagnostic Test (Pha) (Accu-Chek) 1 ea AC MEALS AND BEDTIME XX Last administered on 02/05/19at 17:29; Admin Dose 1 EA; Start 02/05/19 at 11:30 MARIANO VACA NP Feb 05, 2019 18:02
[2019-02-05 20:00] VITALS: BP 145/76; PULSE 75; RESP 18
[2019-02-05] MEDS: morphine 2 MG INJ IV PRN (20:21)
[2019-02-05] MEDS: INSULIN GLARGINE [LANTus] (100 UNITS/ML) SYG SC SCH (20:38)
[2019-02-06] MEDS: PIPER-TAZO 3.375 GM IV (PMX) 100 ML IVPB SCH ×3 (00:55→12:45)
[2019-02-06] MEDS: INSULIN ASPART [NOVOLOG] 3 ML PEN SC SCH ×8 (01:05→21:00)
[2019-02-06] MEDS: ACETAMINOPHEN 325 MG TAB PO PRN (01:24)
[2019-02-06 02:00] VITALS: BP 163/106; PULSE 77; RESP 18
[2019-02-06 05:15] VITALS: BP 126/79; PULSE 76
[2019-02-06] MEDS: morphine 2 MG INJ IV PRN (05:17)
[2019-02-06] MEDS: ACCU-CHEK XX SCH ×4 (07:00→21:00)
[2019-02-06 08:03] VITALS: BP 119/82; PULSE 70; RESP 20
[2019-02-06] MEDS: LISINOPRIL 5 MG TAB PO SCH (08:21)
[2019-02-06] MEDS: GABAPENTIN 300 MG CAP PO SCH ×4 (08:21→21:00)
[2019-02-06] MEDS: VANCOMYCIN 1 GM 250 ML IVPB SCH ×2 (08:21→21:11)
[2019-02-06] MEDS: SERTRALINE 50 MG TAB PO SCH (08:22)
[2019-02-06] MEDS: ZINC SULFATE 220 MG CAP PO SCH (08:22)
[2019-02-06] MEDS: ASCORBIC ACID 500 MG TAB PO SCH (08:22)
--- NOTE | 2019-02-06 08:30 | CONS ---
DATE OF ADMISSION: 02/01/2019 DATE OF CONSULTATION: 02/06/2019 REFERRING PHYSICIAN: Dr. Karlo Johnson and Dr. Ying Almazan. REASON FOR CONSULTATION: Left foot abscess. HISTORY OF PRESENT ILLNESS: This is a 48-year-old diabetic hypertensive gentleman, who was admitted with an abscess in the left foot. He has had a blister on the right foot, but that has apparently go ne on to heal. He had incision and drainage of the abscess several days ago and had arterial studies which were done some days prior to that, which were essentially normal. He has triphasic flow all t he way down except the distal dorsalis pedis is monophasic flow on the left, but otherwise normal. I was asked to evaluate from the vascular standpoint. PAST MEDICAL HISTORY: Significant for diabetes, poorly controlled. He admits his hemoglobin A1c is over 10. He has had problems with foot wounds for months, especially this left foot ulcer. His past medical history otherwise is significant for diabetes, hyperlipidemia, diabetic foot wounds, questio nable history of stroke, he does not appear to have any residual from that. MEDICATIONS: Currently consist of: 1. Insulin. 2. NovoLog. 3. Catapres. 4. Vitamin C. 5. Zestril. 6. Zoloft. 7. Zinc. 8. Santyl. 9. Gabapentin. 10. Vancomycin. 11. Lantus. 12. Zosyn. ALLERGIES: NO KNOWN DRUG ALLERGIES. SOCIAL HISTORY: He smokes cigars. He denies alcohol or drug abuse. FAMILY HISTORY: Significant for coronary disease in his mother. REVIEW OF SYSTEMS: Currently he denies any chest pain, shortness of breath, nausea, vomiting, diarrh ea. No fever, no chills, no recent weight gain or weight loss. No abdominal or back pain. PHYSICAL EXAMINATION: GENERAL: He is a middle-aged -[place] gentleman. He is in no acute distress. He speaks Eng marianne fluently. VITAL SIGNS: He has been afebrile. His blood pressure is 126/79, heart rate 76, respiratory rate is 18. He is 98% sat on room air. NECK: He has 2+ radial, brachial, and carotid pulses bilaterally. LUNGS: Clear. HEART: Regular rate and rhythm. ABDOMEN: Soft, nontender, nondistended. EXTREMITIES: He has 2+ femoral and popliteal pulses bilaterally. His feet are both wrapped, but he can feel PT pulses bilaterally. The DP is under the dressings. He has got on the left foot about st aining coming in from the bottom of the foot, where it was debrided and we repeated his arterial stud ies that were done on the and are essentially normal all the way down. He has got triphasic flow all the way down on the right. On the left, he has got triphasic flow in the posterior tibial and m onophasic in dorsalis pedis. This is really significant. It appears a fairly normal studies consist ent with his clinical exam. LABORATORY DATA: White count has come down to 7.8. His creatinine is 1.2, slightly elevated from hi s baseline when he came in, not terribly high and has had the left foot abscess incision and drainage . IMPRESSION AND PLAN: Diabetic foot infection left foot with status post incision and drainage of the abscess. Based on his arterial studies and clinical exam it looks like he has had good circulation to heal. I will follow him along with you. I will set him up in the wound center, so I can keep an eye on him there in the future, but I do not see any need for any further intervention at this time f rom a vascular standpoint. Dictated By: ESTELLE FERNANDEZ/KUNAL Conf#: [id number] DID#: [id number] CC: ROSA QUINTERO MD; ABEL BACK MD; YING ALMAZAN; KARLO JOHNSON DPM;*EndCC*
[2019-02-06] MEDS: COLLAGENASE 5 GM (UD JAR) TOP SCH (09:00)
[2019-02-06] MEDS: DAKINS 0.0125%(1/40) 473 ML SOLUTION TP SCH (09:00)
--- NOTE | 2019-02-06 12:45 | PN ---
Date/Time of Note Date/Time of Note DATE: 02/06/19 TIME: 12:31 Assessment/Plan VTE Prophylaxis Risk score (from Ns)>0 risk: 3 SCD applied (from Ns): No SCD contraindicated: other Pharmacological prophylaxis: heparin Lines/Catheters IV Catheter Type (from [facility]): Saline Lock Urinary Cath still in place: No Assessment/Plan Assessment/Plan 1. Bilateral lower extremity wounds with left foot osteomyelitis - Podiatry on board and appreciate recommendations. Will need IV antibiotics and HBO treatment to help with wound healing as outpatient. Continue local wound care and awaiting intraoperative path/bx results - Status post multiple debridement - Imaging studies reviewed. - ID on board and appreciate recommendations - Vascular input appreciated as well and no need for intervention at this time. Will need to follow up as outpatient 2. Cervical stenosis, arm stiffness, persistent tingling - Neurosurgery consultation appreciated and recommending outpatient follow up once osteomyelitis treatment is completed - Chronic since 2017 - MRI showing moderate canal stenosis 3. Diabetes mellitus - A1c noted - continue lantus and novolog - ISS and accuchecks 4. Dyslipidemia - Continue atorvastatin 5. Questionable history of CVA - No known residual effect - Continue daily aspirin 6. Chronic diabetic foot wounds - Podiatry on board - local wound care - pain control 7. Disposition - Awaiting intraoperative path and bx results. Antibiotics per ID - Pain control adjusted with plans to transition to PO Result Diagram: 02/06/199 02/06/19448 Results 24hrs Laboratory Tests Test 02/05/19 17:28 02/05/19 17:45 02/05/19 20:31 02/06/19 00:59 Bedside Glucose 124 188 144 Erythrocyte 113 H Sedimentation Rate Test 02/06/19 04:44 02/06/19 04:48 02/06/19 04:49 02/06/19 05:22 Erythrocyte 93 H Sedimentation Rate C-Reactive Protein 5.7 H Procalcitonin 0.23 H Hepatitis A Antibody BORDERLINE Total Hepatitis B Surface NEGATIVE Antigen Hepatitis B Core NEGATIVE Total Antibody Hepatitis C Antibody NEGATIVE White Blood Count 7.8 # Red Blood Count 2.96 L Hemoglobin 7.6 L Hematocrit 24.2 L Mean Corpuscular Volume 81.8 L Mean Corpuscular 25.7 L Hemoglobin Mean Corpuscular 31.4 L Hemoglobin Concent Red Cell Distribution 13.2 Width Platelet Count 417 H Mean Platelet Volume 9.4 Immature Granulocytes % 1.000 H Neutrophils % 71.1 Lymphocytes % 20.2 Monocytes % 5.0 Eosinophils % 2.4 Basophils % 0.3 Nucleated Red Blood 0.0 Cells % Immature Granulocytes # 0.080 H Neutrophils # 5.6 Lymphocytes # 1.6 Monocytes # 0.4 Eosinophils # 0.2 Basophils # 0.0 Nucleated Red Blood 0.0 Cells # Sodium Level 140 Potassium Level 4.2 Chloride Level 107 Carbon Dioxide Level 29 Anion Gap 4 L Blood Urea Nitrogen 11 Creatinine 1.26 H Est Glomerular Filtrat > 60 Rate mL/min Glucose Level 99 # Calcium Level 8.7 Phosphorus Level 3.3 Magnesium Level 1.9 Bedside Glucose 111 Test 02/06/19 08:19 Bedside Glucose 84 Subjective 24 Hr Interval Summary Free Text/Dictation Patient doing well and states pain controlled with Morphine. Discussed needing to transition off IV pain control prior to d/c. Exam/Review of Systems Exam Vitals Vital Signs Date Temp Pulse Resp B/P (MAP) Pulse Ox O2 O2 Flow FiO2 Time Delivery Rate 02/06/19 98.2 70 20 119/82 98 Room Air 08:03 (94) 02/03/19 6.0 16:08 Intake and Output 02/05/19 02/05/19 02/06/19 1515:00 23:00 07:00 IntakeIntake Total 1660 ml 1030 ml 300 ml OutputOutput Total 700 ml 500 ml 1400 ml BalanceBalance 960 ml 530 ml -1100 ml Exam General: Patient is laying in bed and answers questions appropriately. no acute distress Neck: Supple, nontender, midline Respiratory: Clear to auscultation bilaterally. no wheezing or rhonchi Cardiovascular: regular rate and rhythm, no obvious murmurs Gastrointestinal: soft, non-tender to palpation, nondistended, bowel sounds heard. Neurological: Moves all extremities spontaneously Skin: bilateral feet, bandaged, CDI Results Results 24hrs Laboratory Tests Test 02/05/19 17:28 02/05/19 17:45 02/05/19 20:31 02/06/19 00:59 Bedside Glucose 124 188 144 Erythrocyte 113 H Sedimentation Rate Test 02/06/19 04:44 02/06/19 04:48 02/06/19 04:49 02/06/19 05:22 Erythrocyte 93 H Sedimentation Rate C-Reactive Protein 5.7 H Procalcitonin 0.23 H Hepatitis A Antibody BORDERLINE Total Hepatitis B Surface NEGATIVE Antigen Hepatitis B Core NEGATIVE Total Antibody Hepatitis C Antibody NEGATIVE White Blood Count 7.8 # Red Blood Count 2.96 L Hemoglobin 7.6 L Hematocrit 24.2 L Mean Corpuscular Volume 81.8 L Mean Corpuscular 25.7 L Hemoglobin Mean Corpuscular 31.4 L Hemoglobin Concent Red Cell Distribution 13.2 Width Platelet Count 417 H Mean Platelet Volume 9.4 Immature Granulocytes % 1.000 H Neutrophils % 71.1 Lymphocytes % 20.2 Monocytes % 5.0 Eosinophils % 2.4 Basophils % 0.3 Nucleated Red Blood 0.0 Cells % Immature Granulocytes # 0.080 H Neutrophils # 5.6 Lymphocytes # 1.6 Monocytes # 0.4 Eosinophils # 0.2 Basophils # 0.0 Nucleated Red Blood 0.0 Cells # Sodium Level 140 Potassium Level 4.2 Chloride Level 107 Carbon Dioxide Level 29 Anion Gap 4 L Blood Urea Nitrogen 11 Creatinine 1.26 H Est Glomerular Filtrat > 60 Rate mL/min Glucose Level 99 # Calcium Level 8.7 Phosphorus Level 3.3 Magnesium Level 1.9 Bedside Glucose 111 Test 02/06/19 08:19 Bedside Glucose 84 Medications Medication Current Medications IV Flush (NS 3 ml) 3 ml PER PROTOCOL IV ; Start 02/01/19 at 14:30 Ondansetron HCl (Zofran Inj) 4 mg Q6H PRN IV NAUSEA/VOMITING; Start 02/01/19 at 14:30 Acetaminophen (Tylenol Tab) 650 mg Q6H PRN PO .PAIN 1-3 OR TEMP Last administered on 02/06/19at 01:24; Admin Dose 650 MG; Start 02/01/19 at 14:30 Acetaminophen/ Hydrocodone Bitart ([place] (5/325)) 1 tab Q6H PRN PO .PAIN 4-6; Start 02/01/19 at 14:30 Morphine Sulfate (morphine) 2 mg Q4H PRN IV .PAIN 7-10 Last administered on 02/06/19at 05:17; Admin Dose 2 MG; Start 02/01/19 at 14:30 Piperacillin Sod/ Tazobactam Sod 100 ml @ 200 mls/hr Q6 IVPB Last administered on 02/06/19at 06:39; Admin Dose 200 MLS/HR; Start 02/01/19 at 18:00 Vancomycin HCl (Vanco Iv Per Pharmacy) VANCOMYCIN PER PHARMACY PER PROTOCOL XX ; Start 02/01/19 at 14:30 Insulin Glargine (Lantus) 18 units DAILY@2000 SC Last administered on 02/05/19 20:38; Admin Dose 18 UNITS; Start 02/01/19 at 20:00 Insulin Aspart (Novolog Insulin Pen) 6 unit WITH MEALS SC Last administered on 02/06/19 08:28; Admin Dose 6 UNIT; Start 02/01/19 at 18:00 Vancomycin HCl 250 ml @ 125 mls/hr Q12H IVPB Last administered on 02/06/19 08:21; Admin Dose 125 MLS/HR; Start 02/01/19 at 21:00 Ascorbic Acid (Vitamin C) 500 mg DAILY PO Last administered on 02/06/19 08:22; Admin Dose 500 MG; Start 02/02/19 at 09:00 Gabapentin (Neurontin) 300 mg TID PO Last administered on 02/06/19 08:21; Admin Dose 300 MG; Start 02/01/19 at 21:00 Lisinopril (Zestril) 5 mg DAILY PO Last administered on 02/06/19 08:21; Admin Dose 5 MG; Start 02/02/19 at 09:00 Sertraline HCl (Zoloft) 25 mg DAILY PO Last administered on 02/06/19 08:22; Admin Dose 25 MG; Start 02/02/19 at 09:00 Zinc Sulfate (Zinc Sulfate) 220 mg DAILY PO Last administered on 02/06/19 08:22; Admin Dose 220 MG; Start 02/02/19 at 09:00 Lidocaine (Xylocaine 1% (Mpf)) 30 ml ONCE PRN INJ PAIN; Start 02/01/19 at 16:30 Collagenase (Santyl) 1 applic DAILY TOP Last administered on 02/05/19 14:20; Admin Dose 1 APPLIC; Start 02/02/19 at 09:00 Miscellaneous Information 1 ea NOTE XX ; Start 02/02/19 at 08:30 Glucose (Glutose) 15 gm Q15M PRN PO DECREASED GLUCOSE; Start 02/02/19 at 08:30 Glucose (Glutose) 22.5 gm Q15M PRN PO DECREASED GLUCOSE; Start 02/02/19 at 08:30 Dextrose (D50w Syringe) 25 ml Q15M PRN IV DECREASED GLUCOSE; Start 02/02/19 at 08:30 Dextrose (D50w Syringe) 50 ml Q15M PRN IV DECREASED GLUCOSE; Start 02/02/19 at 08:30 Glucagon (Glucagen) 1 mg Q15M PRN IM DECREASED GLUCOSE; Start 02/02/19 at 08:30 Glucose (Glutose) 15 gm Q15M PRN BUCCAL DECREASED GLUCOSE; Start 02/02/19 at 08:30 Sodium Hypochlorite (Dakins Diluted ()) 1 applic DAILY TP Last administered on 02/05/19at 14:20; Admin Dose 1 APPLIC; Start 02/02/19 at 11:30 Clonidine (Catapres) 0.1 mg Q6H PRN PO ELEVATED BLOOD PRESSURE Last administered on 02/06/19at 01:18; Admin Dose 0.1 MG; Start 02/02/19 at 17:30 Diagnostic Test (Pha) (Accu-Chek) 1 ea AC MEALS AND BEDTIME XX Last administe red on 02/05/19at 17:29; Admin Dose 1 EA; Start 02/05/19 at 11:30 Tramadol HCl (Ultram) 50 mg Q6H PRN PO MODERATE PAIN LEVEL 4-6; Start 02/06/19 at 10:30 Acetaminophen/ Hydrocodone Bitart ([place] (5/325)) 1 tab Q4H PRN PO SEVERE PAIN LEVEL 7-10; Start 02/06/19 at 10:30 Miscellaneous Information (* Miscellaneous Pharmacy Order) Discontinue current oral sulfonylur... ONCE ONCE XX ; Start 02/06/19 at 12:30; Stop 02/06/19 at 12:31; Status UNV Diagnostic Test (Pha) (Accu-Chek) 1 ea 02 XX ; Start 02/07/19 at 02:00; Status UNV Miscellaneous Information (* Miscellaneous Pharmacy Order) HYPOGLYCEMIA PROTOCOL w... ONCE ONCE XX ; Start 02/06/19 at 12:30; Stop 02/06/19 at 12:31; Status UNV Insulin Aspart (Novolog Insulin Pen) NOVOLOG *MILD* ALGORITHM WITH MEALS BEDTIME SC ; Start 02/06/19 at 18:00; Status UNV Miscellaneous Information (* Miscellaneous Pharmacy Order) Discontinue all previ... ONCE ONCE XX ; Start 02/06/19 at 12:30; Stop 02/06/19 at 12:31; Status UNV SOLOMON CARLOS MD Feb 06, 2019 12:45
[2019-02-06 14:30] VITALS: BP 129/71; PULSE 75; RESP 18
--- NOTE | 2019-02-06 15:05 | CONS ---
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 RX --------- --- CEFAZOLIN R CIPROFLOXACIN 4 R CLINDAMYCIN >=8 R DOXYCYCLINE R ERYTHROMYCIN >=8 R LEVOFLOXACIN 4 R OXACILLIN >=4 R PENICILLIN-G >=0.5 R RIFAMPIN <=0.5 S VANCOMYCIN 2 S TRIMETHOPRIM/SULFAMETHOXAZOLE 80 R * 02/01/19 BCX (-) * 02/01/19 LEFT FOOT CX (+) WOUND CULTURE Preliminary Organism 1 STAPHYLOCOCCUS AUREUS QUANTITY 2+ Organism 2 STREP PYOGENES (GRP A) QUANTITY 1+ Organism 3 STAPHYLOCOCCUS SPECIES QUANTITY 1+ * 02/01/19 RIGHT FOOT CX => WOUND CULTURE Final Organism 1 METHICILLIN RESISTANT S.AUREUS QUANTITY SCANT GROWTH . MULTI DRUG RESISTANT ORGANISM Organism 2 STREP PYOGENES (GRP A) QUANTITY SCANT GROWTH Organism 3 COAGULASE NEGATIVE STAPH QUANTITY 1+ Organism 4 ENTEROCOCCUS SPECIES QUANTITY 1+ Organism 5 CORYNEBACTERIUM SPECIES QUANTITY 1+ RE: STREPTOCOCCUS PYOGENES Susceptibilities previously reported, see prior culture report of same specimen site. VanC genotype resistance is an intrinsic characteristic of Enterococcus gallinarum and Enterococcus casseliflavus strain, not a true Vancomycin reistant enterococcus (VRE). The need to differentiate VanC strain is clinically significant for therapeutic infection control and surveillance reason. Clinical susceptibiltiy testing standard for this organism have not been established. However, this organism has demonstrated in vitro growth inhibition to the following chemotherapeutic agents listed as susceptible. MRSA COAG NEG ENT SPS M.I.C. RX M.I.C. RX M.I.C. RX --------- --- --------- --- --------- --- AMPICILLIN <=2 S CEFAZOLIN R R CIPROFLOXACIN >=8 R >=8 R CLINDAMYCIN <=0.25 S >=8 R DOXYCYCLINE S S ERYTHROMYCIN <=0.25 S >=8 R GENTAMICIN 8 I LEVOFLOXACIN >=8 R >=8 R OXACILLIN >=4 R >=4 R PENICILLIN-G >=0.5 R >=0.5 R 1 S RIFAMPIN <=0.5 S <=0.5 S VANCOMYCIN <=0.5 S 2 S R TRIMETHOPRIM/SULFAMETHOXAZOLE <=10 S <=10 S KEI SPS Zone Size RX --------- --- * AMPICILLIN S * CEFAZOLIN S * CEFOTAXIME S * CEFUROXIME S * CIPROFLOXACIN R * CLINDAMYCIN R * ERYTHROMYCIN R * PENICILLIN S * VANCOMYCIN S DIAGNOSTIC IMAGING * 02/03/19 left-ANKLE: 1. No acute osseous abnormality.2. Moderate osteoarthritis.3. Plantar calcaneal spur.4. Soft tissue swelling. * 02/01/19 RIGHT FOOT/ANKLE MRI: Charcot foot changes w/no evidence osteomyelitis reported. * 02/01/19 LEFT FOOT/ANKLE MRI: 1. Osteomyelitis of the proximal phalanx of the left great toe, with soft tissue ulceration at the medial aspect of the base of the left great toe. 2. Soft tissue ulceration is also seen at the plantar aspect of the head of the first metatarsal, with suspected osteomyelitis in the sesamoids at the plantar aspect of the head of the fifth metatarsal. * 02/01/19 BLEXT VENOUS US: 1. No evidence of deep vein thrombosis involving either lower extremity. * 02/01/19 LEFT LOWER EXT ARTERIAL US: 2. Atypical monophasic wave form of the left dorsalis pedis artery suggests a degree of stenosis. PHYSICAL EXAMINATION: GEN: 46 yo M, WN,WD, NAD VITALS: Afebrile, VSS HEENT: Unremarkable, no oral thrush NECK: Supple, full ROM CHEST: Equal chest rise bilaterally, without dyspnea on room air on observation CV: Radial pulse RRR ABD: Soft, NT : Deferred EXT: Warm, LEFT LEG 2+ pitting edema noted, left foot wound has pustular drainage on the ventral side, right foot ulcers SKIN: No rash, no diaphoresis, (+)tattoos upper ext NEURO: Grossly intact w/known Dm peripheral neuropathy ID ASSESSMENT 48 yo M admit with: 1. Sepsis indicators on admission: Fever 102.7, Leukocytosis, lactic acid 2.3, procalcitonin 0.98-> 1.14 , ESR 110, CRP >24=> RESOLVED 2. COMPLEX Bilateral lower extremity cellulitis w/bilateral diabetic feet infection as below: * Left foot osteomyelitis / abscess w/gas / cellulitis / tissue mass / deep tissue injury / edema per MRI 02/01/19 * Right foot Charcot foot changes w/open ulcerations/cellulitis, no evidence osteomyelitis on MRI 02/01/19 2. Diabetes mellitus w/complication of DM peripheral neuropathy * 02/02/19 A1C @ 12.4 * BILATERAL FEET Charcot neuroarthropathy 3. PERIPHERAL ARTERIAL AND VENOUS artery disease * Bilateral lower extremities edema w/chronic venous stasis hyperpigmentation/hyperkeratotic thick skin changes/hyperkeratotic long toenails * 02/01/19 LEFT LOWER EXT ARTERIAL US: 2. Atypical monophasic wave form of the left dorsalis pedis artery suggests a degree of stenosis. 4. HTN w/possible HTN heart disease per (+)mild concentric LVH on 2013 ECHO w/EF 60% 5. DJD: * Left shoulder pain: PRIOR MRI No acute process * Hx of right shoulder surgery 6. Cervicalgia w/prior imaging findings: * Multilevel foraminal narrowing outlined in detail above.Cervical spondylosis/degenerative enthesopathy. No cervical cord signal abnormality. 7. Chronic sinusitis per MRI/CT Brain prior admission * CT: Opacified partially visualized right ethmoid air cells with moderate mucosal thickening within the right frontal sinuses. * MRI: Noted are complete right maxillary, extensive right frontal and ethmoid sinus opacification, left maxillary sinus mucous retention cysts and minimal mastoid air cell opacification. 8. Tobaccoism -> 2 cigars/day 9. 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 Socioeconomic barriers to care: Homeless prior was living in RV w/friend - >recently living @ SNF prior to admission ABX ALLERGIES: KNDA INVASIVES: PIV CURRENT ABX: DAY #6=> =>VANCO IV + Zosyn ID RECOMMENDATIONS/PLAN: 1. Continue Vanco for MRSA * Change Zosyn to Unasyn as serum creatinine elevated today .Follow APC recommendations 3. SMOKING CESSATION STRONGLY ADVOCATED 4. Hx of noncompliance @ SNF -- multiple barriers to self-care Consultation Date/Type/Reason Admit Date/Time Feb 01, 2019 at 13:59 Initial Consult Date Date/Time of Note DATE: 02/06/19 TIME: 15:01 Exam/Review of Systems Exam Vitals Vital Signs Date Temp Pulse Resp B/P (MAP) Pulse Ox O2 O2 Flow FiO2 Time Delivery Rate 02/06/19 98.2 70 20 119/82 98 Room Air 08:03 (94) 02/03/19 6.0 16:08 Intake and Output 02/05/19 02/05/19 02/06/19 1515:00 23:00 07:00 IntakeIntake Total 1660 ml 1030 ml 300 ml OutputOutput Total 700 ml 500 ml 1400 ml BalanceBalance 960 ml 530 ml -1100 ml Results Result Diagram: 02/06/19 0449 02/06/19 0449 Results 24hrs Laboratory Tests Test 02/05/19 17:28 02/05/19 17:45 02/05/19 20:31 02/06/19 00:59 Bedside Glucose 124 188 144 Erythrocyte 113 H Sedimentation Rate Test 02/06/19 04:44 02/06/19 04:48 02/06/19 04:49 02/06/19 05:22 Erythrocyte 93 H Sedimentation Rate C-Reactive Protein 5.7 H Procalcitonin 0.23 H Hepatitis A Antibody BORDERLINE Total Hepatitis B Surface NEGATIVE Antigen Hepatitis B Core NEGATIVE Total Antibody Hepatitis C Antibody NEGATIVE White Blood Count 7.8 # Red Blood Count 2.96 L Hemoglobin 7.6 L Hematocrit 24.2 L Mean Corpuscular Volume 81.8 L Mean Corpuscular 25.7 L Hemoglobin Mean Corpuscular 31.4 L Hemoglobin Concent Red Cell Distribution 13.2 Width Platelet Count 417 H Mean Platelet Volume 9.4 Immature Granulocytes % 1.000 H Neutrophils % 71.1 Lymphocytes % 20.2 Monocytes % 5.0 Eosinophils % 2.4 Basophils % 0.3 Nucleated Red Blood 0.0 Cells % Immature Granulocytes # 0.080 H Neutrophils # 5.6 Lymphocytes # 1.6 Monocytes # 0.4 Eosinophils # 0.2 Basophils # 0.0 Nucleated Red Blood 0.0 Cells # Sodium Level 140 Potassium Level 4.2 Chloride Level 107 Carbon Dioxide Level 29 Anion Gap 4 L Blood Urea Nitrogen 11 Creatinine 1.26 H Est Glomerular Filtrat > 60 Rate mL/min Glucose Level 99 # Calcium Level 8.7 Phosphorus Level 3.3 Magnesium Level 1.9 Bedside Glucose 111 Test 02/06/19 08:19 02/06/19 12:46 Bedside Glucose 84 126 Medications Medication Current Medications IV Flush (NS 3 ml) 3 ml PER PROTOCOL IV ; Start 02/01/19 at 14:30 Ondansetron HCl (Zofran Inj) 4 mg Q6H PRN IV NAUSEA/VOMITING; Start 02/01/19 at 14:30 Acetaminophen (Tylenol Tab) 650 mg Q6H PRN PO .PAIN 1-3 OR TEMP Last administered on 02/06/19at 01:24; Admin Dose 650 MG; Start 02/01/19 at 14:30 Acetaminophen/ Hydrocodone Bitart (Homer (5/325)) 1 tab Q6H PRN PO .PAIN 4-6; Start 02/01/19 at 14:30 Morphine Sulfate (morphine) 2 mg Q4H PRN IV .PAIN 7-10 Last administered on 02/06/19at 05:17; Admin Dose 2 MG; Start 02/01/19 at 14:30 Piperacillin Sod/ Tazobactam Sod 100 ml @ 200 mls/hr Q6 IVPB Last administered on 02/06/19at 12:45; Admin Dose 200 MLS/HR; Start 02/01/19 at 18:00 Vancomycin HCl (Vanco Iv Per Pharmacy) VANCOMYCIN PER PHARMACY PER PROTOCOL XX ; Start 02/01/19 at 14:30 Insulin Glargine (Lantus) 18 units DAILY@2000 SC Last administered on 02/05/19 20:38; Admin Dose 18 UNITS; Start 02/01/19 at 20:00 Insulin Aspart (Novolog Insulin Pen) 6 unit WITH MEALS SC Last administered on 02/06/19 12:48; Admin Dose 6 UNIT; Start 02/01/19 at 18:00 Vancomycin HCl 250 ml @ 125 mls/hr Q12H IVPB Last administered on 02/06/19 08:21; Admin Dose 125 MLS/HR; Start 02/01/19 at 21:00 Ascorbic Acid (Vitamin C) 500 mg DAILY PO Last administered on 02/06/19 08:22; Admin Dose 500 MG; Start 02/02/19 at 09:00 Gabapentin (Neurontin) 300 mg TID PO Last administered on 02/06/19 12:45; Admin Dose 300 MG; Start 02/01/19 at 21:00 Lisinopril (Zestril) 5 mg DAILY PO Last administered on 02/06/19 08:21; Admin Dose 5 MG; Start 02/02/19 at 09:00 Sertraline HCl (Zoloft) 25 mg DAILY PO Last administered on 02/06/19 08:22; Admin Dose 25 MG; Start 02/02/19 at 09:00 Zinc Sulfate (Zinc Sulfate) 220 mg DAILY PO Last administered on 02/06/19 08:22; Admin Dose 220 MG; Start 02/02/19 at 09:00 Lidocaine (Xylocaine 1% (Mpf)) 30 ml ONCE PRN INJ PAIN; Start 02/01/19 at 16:30 Collagenase (Santyl) 1 applic DAILY TOP Last administered on 02/05/19 14:20; Admin Dose 1 APPLIC; Start 02/02/19 at 09:00 Miscellaneous Information 1 ea NOTE XX ; Start 02/02/19 at 08:30 Glucose (Glutose) 15 gm Q15M PRN PO DECREASED GLUCOSE; Start 02/02/19 at 08:30 Glucose (Glutose) 22.5 gm Q15M PRN PO DECREASED GLUCOSE; Start 02/02/19 at 08:30 Dextrose (D50w Syringe) 25 ml Q15M PRN IV DECREASED GLUCOSE; Start 02/02/19 at 08:30 Dextrose (D50w Syringe) 50 ml Q15M PRN IV DECREASED GLUCOSE; Start 02/02/19 at 08:30 Glucagon (Glucagen) 1 mg Q15M PRN IM DECREASED GLUCOSE; Start 02/02/19 at 08:30 Glucose (Glutose) 15 gm Q15M PRN BUCCAL DECREASED GLUCOSE; Start 02/02/19 at 08:30 Sodium Hypochlorite (Dakins Diluted ()) 1 applic DAILY TP Last administered on 02/05/19at 14:20; Admin Dose 1 APPLIC; Start 02/02/19 at 11:30 Clonidine (Catapres) 0.1 mg Q6H PRN PO ELEVATED BLOOD PRESSURE Last administered on 02/06/19at 01:18; Admin Dose 0.1 MG; Start 02/02/19 at 17:30 Diagnostic Test (Pha) (Accu-Chek) 1 ea AC MEALS AND BEDTIME XX Last administered on 02/05/19at 17:29; Admin Dose 1 EA; Start 02/05/19 at 11:30 Tramadol HCl (Ultram) 50 mg Q6H PRN PO MODERATE PAIN LEVEL 4-6; Start 02/06/19 at 10:30 Acetaminophen/ Hydrocodone Bitart (Homer (5/325)) 1 tab Q4H PRN PO SEVERE PAIN LEVEL 7-10; Start 02/06/19 at 10:30 Diagnostic Test (Pha) (Accu-Chek) 1 02 XX ; Start 02/07/19 at 02:00 Insulin Aspart (Novolog Insulin Pen) NOVOLOG *MILD* ALGORITHM WITH MEALS BEDTIME SC ; Start 02/06/19 at 18:00 Heparin Sodium (Porcine) (Heparin (5000 Units/1ml)) 5,000 unit BID SC ; Start 02/06/19 at 21:00 Miscellaneous Information (*Rx Drug Level Order Reminder*) 1999 ONCE XX ; Start 02/06/19 at 20:00; Stop 02/06/19 at 20:01 MARIANO VACA NP Feb 06, 2019 15:04
[2019-02-06] MEDS: AMPICILLIN/SULBAC 3 GM in SOD CHLORIDE 0.9% 100 ML IVPB SCH (17:38)
[2019-02-06] MEDS ORDERED: AMPICILLIN/SULB 3 GM/NS (PMX) 100 ML IVPB SCH (18:00)
[2019-02-06 20:00] VITALS: BP 131/75; PULSE 75; RESP 19
[2019-02-06] MEDS: HEPARIN 5,000 UNIT/1 ML VIAL SC SCH (21:05)
[2019-02-06] MEDS: INSULIN GLARGINE [LANTus] (100 UNITS/ML) SYG SC SCH (21:06)
[2019-02-07] MEDS: morphine 2 MG INJ IV PRN (00:08)
[2019-02-07] MEDS: AMPICILLIN/SULBAC 3 GM in SOD CHLORIDE 0.9% 100 ML IVPB SCH ×4 (00:12→17:18)
[2019-02-07 02:00] VITALS: BP 151/84; PULSE 84; RESP 18
[2019-02-07] MEDS: ACCU-CHEK XX SCH ×5 (02:00→21:00)
[2019-02-07 07:57] VITALS: BP 178/95; PULSE 86; RESP 20
[2019-02-07] MEDS: INSULIN ASPART [NOVOLOG] 3 ML PEN SC SCH ×7 (08:00→20:41)
[2019-02-07] MEDS: VANCOMYCIN 1 GM 250 ML IVPB SCH ×2 (08:14→20:39)
[2019-02-07] MEDS: LISINOPRIL 5 MG TAB PO SCH (08:15)
[2019-02-07] MEDS: SERTRALINE 50 MG TAB PO SCH (08:15)
[2019-02-07] MEDS: ASCORBIC ACID 500 MG TAB PO SCH (08:15)
[2019-02-07] MEDS: GABAPENTIN 300 MG CAP PO SCH ×3 (08:16→20:38)
[2019-02-07] MEDS: ZINC SULFATE 220 MG CAP PO SCH (08:16)
[2019-02-07] MEDS: HEPARIN 5,000 UNIT/1 ML VIAL SC SCH ×2 (08:26→20:42)
[2019-02-07 11:36] VITALS: BP 123/73; PULSE 76; RESP 18
[2019-02-07] MEDS: DAKINS 0.0125%(1/40) 473 ML SOLUTION TP SCH (12:52)
[2019-02-07] MEDS: COLLAGENASE 5 GM (UD JAR) TOP SCH (12:52)
--- NOTE | 2019-02-07 13:44 | PN ---
Date/Time of Note Date/Time of Note DATE: 02/07/19 TIME: 13:36 Assessment/Plan VTE Prophylaxis Risk score (from Ns)>0 risk: 7 SCD applied (from Ns): No SCD contraindicated: other Pharmacological prophylaxis: heparin Lines/Catheters [facility] Peripheral IV Urinary Cath still in place: No Assessment/Plan Assessment/Plan 1. Bilateral lower extremity wounds with left foot osteomyelitis - Podiatry on board and appreciate recommendations. Will need IV antibiotics and HBO treatment to help with wound healing as outpatient. Continue local wou nd care. Intraoperative bx results noted - Status post multiple debridement - Imaging studies reviewed. - ID on board and appreciate recommendations - Vascular input appreciated as well and no need for intervention at this time. Will need to follow up as outpatient 2. Cervical stenosis, arm stiffness, persistent tingling - Neurosurgery consultation appreciated and recommending outpatient follow up once osteomyelitis treatment is completed - Chronic since 2017 - MRI showing moderate canal stenosis 3. Diabetes mellitus - A1c noted - continue lantus and novolog - ISS and accuchecks 4. Dyslipidemia - Continue atorvastatin 5. Questionable history of CVA - No known residual effect - Continue daily aspirin 6. Chronic diabetic foot wounds - Podiatry on board - local wound care - pain control 7. Disposition - Awaiting final antibiotic recommendations and will need PICC line placement prior to d/c Result Diagram: 02/07/19 0455 02/07/19 0455 Results 24hrs Laboratory Tests Test 02/06/19 17:38 02/06/19 19:54 02/06/19 21:00 02/07/19 04:55 Bedside Glucose 155 118 Vancomycin Level Trough 15.3 White Blood Count 6.8 Red Blood Count 2.94 L Hemoglobin 7.5 L Hematocrit 23.8 L Mean Corpuscular Volume 81.0 L Mean Corpuscular 25.5 L Hemoglobin Mean Corpuscular 31.5 L Hemoglobin Concent Red Cell Distribution 13.4 Width Platelet Count 446 H Mean Platelet Volume 9.0 Immature Granulocytes % 0.900 H Neutrophils % 64.4 Lymphocytes % 24.2 Monocytes % 8.0 Eosinophils % 2.2 Basophils % 0.3 Nucleated Red Blood 0.0 Cells % Immature Granulocytes # 0.060 H Neutrophils # 4.4 Lymphocytes # 1.6 Monocytes # 0.5 Eosinophils # 0.2 Basophils # 0.0 Nucleated Red Blood 0.0 Cells # Sodium Level 141 Potassium Level 4.7 Chloride Level 109 Carbon Dioxide Level 26 Anion Gap 6 Blood Urea Nitrogen 14 Creatinine 1.24 Glucose Level 78 Calcium Level 8.6 Phosphorus Level 3.6 Magnesium Level 1.8 Albumin 2.5 L Test 02/07/19 08:12 02/07/19 12:46 Bedside Glucose 81 170 Subjective 24 Hr Interval Summary Free Text/Dictation Patient doing well but states has not tried any PO pain control yet. Concerned about losing his bed hold at SNF. Exam/Review of Systems Exam Vitals Vital Signs Date Temp Pulse Resp B/P (MAP) Pulse Ox O2 O2 Flow FiO2 Time Delivery Rate 02/07/19 76 18 123/73 93 11:36 (90) 02/07/19 99.7 07:57 02/07/19 Room Air 02:00 02/03/19 6.0 16:08 Intake and Output 02/06/19 02/06/19 02/07/19 1515:00 23:00 07:00 IntakeIntake Total 690 ml 450 ml OutputOutput Total 300 ml 700 ml 1950 ml BalanceBalance 390 ml -700 ml -1500 ml Exam General: Patient is sitting up in bed, no acute distress Neck: Supple, nontender, midline Respiratory: Clear to auscultation bilaterally. no wheezing or rhonchi Cardiovascular: regular rate and rhythm, no obvious murmurs Gastrointestinal: soft, non-tender to palpation, nondistended, bowel sounds heard. Neurological: Moves all extremities spontaneously Skin: bilateral feet, bandaged, CDI Results Results 24hrs Laboratory Tests Test 02/06/19 17:38 02/06/19 19:54 02/06/19 21:00 02/07/19 04:55 Bedside Glucose 155 118 Vancomycin Level Trough 15.3 White Blood Count 6.8 Red Blood Count 2.94 L Hemoglobin 7.5 L Hematocrit 23.8 L Mean Corpuscular Volume 81.0 L Mean Corpuscular 25.5 L Hemoglobin Mean Corpuscular 31.5 L Hemoglobin Concent Red Cell Distribution 13.4 Width Platelet Count 446 H Mean Platelet Volume 9.0 Immature Granulocytes % 0.900 H Neutrophils % 64.4 Lymphocytes % 24.2 Monocytes % 8.0 Eosinophils % 2.2 Basophils % 0.3 Nucleated Red Blood 0.0 Cells % Immature Granulocytes # 0.060 H Neutrophils # 4.4 Lymphocytes # 1.6 Monocytes # 0.5 Eosinophils # 0.2 Basophils # 0.0 Nucleated Red Blood 0.0 Cells # Sodium Level 141 Potassium Level 4.7 Chloride Level 109 Carbon Dioxide Level 26 Anion Gap 6 Blood Urea Nitrogen 14 Creatinine 1.24 Glucose Level 78 Calcium Level 8.6 Phosphorus Level 3.6 Magnesium Level 1.8 Albumin 2.5 L Test 02/07/19 08:12 02/07/19 12:46 Bedside Glucose 81 170 Medications Medication Current Medications IV Flush (NS 3 ml) 3 ml PER PROTOCOL IV ; Start 02/01/19 at 14:30 Ondansetron HCl (Zofran Inj) 4 mg Q6H PRN IV NAUSEA/VOMITING; Start 02/01/19 at 14:30 Acetaminophen (Tylenol Tab) 650 mg Q6H PRN PO .PAIN 1-3 OR TEMP Last administered on 02/06/19at 01:24; Admin Dose 650 MG; Start 02/01/19 at 14:30 Acetaminophen/ Hydrocodone Bitart (Mineral (5/325)) 1 tab Q6H PRN PO .PAIN 4-6; Start 02/01/19 at 14:30 Morphine Sulfate (morphine) 2 mg Q4H PRN IV .PAIN 7-10 Last administered on 02/07/19at 00:08; Admin Dose 2 MG; Start 02/01/19 at 14:30 Vancomycin HCl (Vanco Iv Per Pharmacy) VANCOMYCIN PER PHARMACY PER PROTOCOL XX ; Start 02/01/19 at 14:30 Insulin Glargine (Lantus) 18 units DAILY@2000 SC Last administered on 02/06/19 21:06; Admin Dose 18 UNITS; Start 02/01/19 at 20:00 Insulin Aspart (Novolog Insulin Pen) 6 unit WITH MEALS SC Last administered on 02/07/19at 12:51; Admin Dose 6 UNIT; Start 02/01/19 at 18:00 Vancomycin HCl 250 ml @ 125 mls/hr Q12H IVPB Last administered on 02/07/19at 08:14; Admin Dose 125 MLS/HR; Start 02/01/19 at 21:00 Ascorbic Acid (Vitamin C) 500 mg DAILY PO Last administered on 02/07/19at 08:15; Admin Dose 500 MG; Start 02/02/19 at 09:00 Gabapentin (Neurontin) 300 mg TID PO Last administered on 02/07/19at 13:01; Admin Dose 300 MG; Start 02/01/19 at 21:00 Lisinopril (Zestril) 5 mg DAILY PO Last administered on 02/07/19 08:15; Admin Dose 5 MG; Start 02/02/19 at 09:00 Sertraline HCl (Zoloft) 25 mg DAILY PO Last administered on 02/07/19 08:15; Admin Dose 25 MG; Start 02/02/19 at 09:00 Zinc Sulfate (Zinc Sulfate) 220 mg DAILY PO Last administered on 02/07/19 08:16; Admin Dose 220 MG; Start 02/02/19 at 09:00 Lidocaine (Xylocaine 1% (Mpf)) 30 ml ONCE PRN INJ PAIN; Start 02/01/19 at 16:30 Collagenase (Santyl) 1 applic DAILY TOP Last administered on 02/07/19 12:52; Admin Dose 1 APPLIC; Start 02/02/19 at 09:00 Miscellaneous Information 1 ea NOTE XX ; Start 02/02/19 at 08:30 Glucose (Glutose) 15 gm Q15M PRN PO DECREASED GLUCOSE; Start 02/02/19 at 08:30 Glucose (Glutose) 22.5 gm Q15M PRN PO DECREASED GLUCOSE; Start 02/02/19 at 08:30 Dextrose (D50w Syringe) 25 ml Q15M PRN IV DECREASED GLUCOSE; Start 02/02/19 at 08:30 Dextrose (D50w Syringe) 50 ml Q15M PRN IV DECREASED GLUCOSE; Start 02/02/19 at 08:30 Glucagon (Glucagen) 1 mg Q15M PRN IM DECREASED GLUCOSE; Start 02/02/19 at 08:30 Glucose (Glutose) 15 gm Q15M PRN BUCCAL DECREASED GLUCOSE; Start 02/02/19 at 08:30 Sodium Hypochlorite (Dakins Diluted (40)) 1 applic DAILY TP Last administered on 02/07/19at 12:52; Admin Dose 1 APPLIC; Start 02/02/19 at 11:30 Clonidine (Catapres) 0.1 mg Q6H PRN PO ELEVATED BLOOD PRESSURE Last administered on 02/07/19at 08:15; Admin Dose 0.1 MG; Start 02/02/19 at 17:30 Diagnostic Test (Pha) (Accu-Chek) 1 ea AC MEALS AND BEDTIME XX Last administered on 02/07/19at 11:30; Admin Dose 1 EA; Start 02/05/19 at 11:30 Tramadol HCl (Ultram) 50 mg Q6H PRN PO MODERATE PAIN LEVEL 4-6; Start 02/06/19 at 10:30 Acetaminophen/ Hydrocodone Bitart (Mineral (5/325)) 1 tab Q4H PRN PO SEVERE PAIN LEVEL 7-10; Start 02/06/19 at 10:30 Diagnostic Test (Pha) (Accu-Chek) 1 ea 02 XX ; Start 02/07/19 at 02:00 Insulin Aspart (Novolog Insulin Pen) NOVOLOG *MILD* ALGORITHM WITH MEALS BEDTIME SC Last administered on 02/07/19at 12:52; Admin Dose 1 UNIT; Start 02/06/19 at 18:00 Heparin Sodium (Porcine) (Heparin (5000 Units/1ml)) 5,000 unit BID SC Last administered on 02/07/19 08:26; Admin Dose 5,000 UNIT; Start 02/06/19 at 21:00 Ampicillin Sodium/ Sulbactam Sodium 3 gm/Sodium Chloride 100 ml @ 100 mls/hr Q6 IVPB Last administered on 02/07/19at 13:01; Admin Dose 100 MLS/HR; Start 02/06/19 at 18:00 Miscellaneous Information (*Rx Drug Level Order Reminder*) VANCOMYCIN TROUGH AT 0800 0800 ONCE XX ; Start 02/10/19 at 08:00; Stop 02/10/19 at 08:01 SOLOMON CARLOS MD Feb 07, 2019 13:44
[2019-02-07] MEDS ORDERED: LIDOCAINE 1% (MPF) 5 ML VIAL SC ONE (14:00)
[2019-02-07 14:36] VITALS: BP 147/79; PULSE 61; RESP 20
--- NOTE | 2019-02-07 16:32 | CONS ---
Assessment/Plan Assessment/Plan Hospital Course (Demo Recall) No acute events patient is awake looks comfortable no fevers overnight. Wound culture grew MRSA, enterococcus strep pyogenous and coag negative staph species Antimicrobials: Patient is on Unasyn and vancomycin Physical examination: Well-developed middle-aged -[place] male who is alert in no distress. Head atraumatic normocephalic sclera nonicteric. Neck is supple. Chest rise symmetrical, breath sounds clear. Heart: S1-S2. Abdomen soft bowel sounds present. Extremities with bilateral lower extremities edema and trace erythema with left lower extremity swelling and redness of the great toe Assessment: 1. Status post sepsis on admission 2. Bilateral lower extremities diabetic ulceration 3. Left lower extremity cellulitis/osteomyelitis 4. Diabetes mellitus Plan: Remain stable, continue antibiotics, wound care per podiatry recommendations, anticipate to keep on antibiotics for at least 2 weeks, will discuss with podiatry final plan, vascular surgery recommendations noted Consultation Date/Type/Reason Admit Date/Time Feb 01, 2019 at 13:59 Initial Consult Date Type of Consult id Date/Time of Note DATE: 02/07/19 TIME: 16:26 Exam/Review of Systems Exam Vitals Vital Signs Date Temp Pulse Resp B/P (MAP) Pulse Ox O2 O2 Flow FiO2 Time Delivery Rate 02/07/19 99.0 61 20 147/79 93 14:36 (101) 02/07/19 Room Air 02:00 02/03/19 6.0 16:08 Intake and Output 02/06/19 02/06/19 02/07/19 1515:00 23:00 07:00 IntakeIntake Total 690 ml 450 ml OutputOutput Total 300 ml 700 ml 1950 ml BalanceBalance 390 ml -700 ml -1500 ml Results Result Diagram: 02/07/19 0455 02/07/19 0455 Results 24hrs Laboratory Tests Test 02/06/19 17:38 02/06/19 19:54 02/06/19 21:00 02/07/19 04:55 Bedside Glucose 155 118 Vancomycin Level Trough 15.3 White Blood Count 6.8 Red Blood Count 2.94 L Hemoglobin 7.5 L Hematocrit 23.8 L Mean Corpuscular Volume 81.0 L Mean Corpuscular 25.5 L Hemoglobin Mean Corpuscular 31.5 L Hemoglobin Concent Red Cell Distribution 13.4 Width Platelet Count 446 H Mean Platelet Volume 9.0 Immature Granulocytes % 0.900 H Neutrophils % 64.4 Lymphocytes % 24.2 Monocytes % 8.0 Eosinophils % 2.2 Basophils % 0.3 Nucleated Red Blood 0.0 Cells % Immature Granulocytes # 0.060 H Neutrophils # 4.4 Lymphocytes # 1.6 Monocytes # 0.5 Eosinophils # 0.2 Basophils # 0.0 Nucleated Red Blood 0.0 Cells # Sodium Level 141 Potassium Level 4.7 Chloride Level 109 Carbon Dioxide Level 26 Anion Gap 6 Blood Urea Nitrogen 14 Creatinine 1.24 Glucose Level 78 Calcium Level 8.6 Phosphorus Level 3.6 Magnesium Level 1.8 Albumin 2.5 L Test 02/07/19 08:12 02/07/19 12:46 Bedside Glucose 81 170 Medications Medication Current Medications IV Flush (NS 3 ml) 3 ml PER PROTOCOL IV ; Start 02/01/19 at 14:30 Ondansetron HCl (Zofran Inj) 4 mg Q6H PRN IV NAUSEA/VOMITING; Start 02/01/19 at 14:30 Acetaminophen (Tylenol Tab) 650 mg Q6H PRN PO .PAIN 1-3 OR TEMP Last administered on 02/06/19at 01:24; Admin Dose 650 MG; Start 02/01/19 at 14:30 Acetaminophen/ Hydrocodone Bitart ([place] (5/325)) 1 tab Q6H PRN PO .PAIN 4-6; Start 02/01/19 at 14:30 Morphine Sulfate (morphine) 2 mg Q4H PRN IV .PAIN 7-10 Last administered on 02/07/19at 00:08; Admin Dose 2 MG; Start 02/01/19 at 14:30 Vancomycin HCl (Vanco Iv Per Pharmacy) VANCOMYCIN PER PHARMACY PER PROTOCOL XX ; Start 02/01/19 at 14:30 Insulin Glargine (Lantus) 18 units DAILY@2000 SC Last administered on 02/06/19 21:06; Admin Dose 18 UNITS; Start 02/01/19 at 20:00 Insulin Aspart (Novolog Insulin Pen) 6 unit WITH MEALS SC Last administered on 02/07/19at 12:51; Admin Dose 6 UNIT; Start 02/01/19 at 18:00 Vancomycin HCl 250 ml @ 125 mls/hr Q12H IVPB Last administered on 02/07/19at 08:14; Admin Dose 125 MLS/HR; Start 02/01/19 at 21:00 Ascorbic Acid (Vitamin C) 500 mg DAILY PO Last administered on 02/07/19 08:15; Admin Dose 500 MG; Start 02/02/19 at 09:00 Gabapentin (Neurontin) 300 mg TID PO Last administered on 02/07/19 13:01; Admin Dose 300 MG; Start 02/01/19 at 21:00 Lisinopril (Zestril) 5 mg DAILY PO Last administered on 02/07/19 08:15; Admin Dose 5 MG; Start 02/02/19 at 09:00 Sertraline HCl (Zoloft) 25 mg DAILY PO Last administered on 02/07/19 08:15; Admin Dose 25 MG; Start 02/02/19 at 09:00 Zinc Sulfate (Zinc Sulfate) 220 mg DAILY PO Last administered on 02/07/19 08:16; Admin Dose 220 MG; Start 02/02/19 at 09:00 Lidocaine (Xylocaine 1% (Mpf)) 30 ml ONCE PRN INJ PAIN; Start 02/01/19 at 16:30 Collagenase (Santyl) 1 applic DAILY TOP Last administered on 02/07/19 12:52; Admin Dose 1 APPLIC; Start 02/02/19 at 09:00 Miscellaneous Information 1 ea NOTE XX ; Start 02/02/19 at 08:30 Glucose (Glutose) 15 gm Q15M PRN PO DECREASED GLUCOSE; Start 02/02/19 at 08:30 Glucose (Glutose) 22.5 gm Q15M PRN PO DECREASED GLUCOSE; Start 02/02/19 at 08:30 Dextrose (D50w Syringe) 25 ml Q15M PRN IV DECREASED GLUCOSE; Start 02/02/19 at 08:30 Dextrose (D50w Syringe) 50 ml Q15M PRN IV DECREASED GLUCOSE; Start 02/02/19 at 08:30 Glucagon (Glucagen) 1 mg Q15M PRN IM DECREASED GLUCOSE; Start 02/02/19 at 08:30 Glucose (Glutose) 15 gm Q15M PRN BUCCAL DECREASED GLUCOSE; Start 02/02/19 at 08:30 Sodium Hypochlorite (Dakins Diluted (40)) 1 applic DAILY TP Last administered on 02/07/19 12:52; Admin Dose 1 APPLIC; Start 02/02/19 at 11:30 Clonidine (Catapres) 0.1 mg Q6H PRN PO ELEVATED BLOOD PRESSURE Last administered on 02/07/19 08:15; Admin Dose 0.1 MG; Start 02/02/19 at 17:30 Diagnostic Test (Pha) (Accu-Chek) 1 ea AC MEALS AND BEDTIME XX Last administered on 02/07/19 11:30; Admin Dose 1 EA; Start 02/05/19 at 11:30 Tramadol HCl (Ultram) 50 mg Q6H PRN PO MODERATE PAIN LEVEL 4-6; Start 02/06/19 at 10:30 Acetaminophen/ Hydrocodone Bitart ([place] (5/325)) 1 tab Q4H PRN PO SEVERE PAIN LEVEL 7-10; Start 02/06/19 at 10:30 Diagnostic Test (Pha) (Accu-Chek) 1 ea 02 XX ; Start 02/07/19 at 02:00 Insulin Aspart (Novolog Insulin Pen) NOVOLOG *MILD* ALGORITHM WITH MEALS BEDTIME SC Last administered on 02/07/19 12:52; Admin Dose 1 UNIT; Start 02/06/19 at 18:00 Heparin Sodium (Porcine) (Heparin (5000 Units/1ml)) 5,000 unit BID SC Last administered on 02/07/19 08:26; Admin Dose 5,000 UNIT; Start 02/06/19 at 21:00 Ampicillin Sodium/ Sulbactam Sodium 3 gm/Sodium Chloride 100 ml @ 100 mls/hr Q6 IVPB Last administered on 02/07/19at 13:01; Admin Dose 100 MLS/HR; Start 02/06/19 at 18:00 Miscellaneous Information (*Rx Drug Level Order Reminder*) VANCOMYCIN TROUGH AT 0800 0800 ONCE XX ; Start 02/10/19 at 08:00; Stop 02/10/19 at 08:01 ROCIO CALDERON NP Feb 07, 2019 16:31
--- NOTE | 2019-02-07 18:07 | CONS ---
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 Discussed with patient concerns for charcot neuroarthropathy in both feet due to the MRI findings of neuropathic changes and would benefit from being non weight bearing. Appreciate and PT/OT input. Appreciate input from vascular surgery. Intra op cultures currently showing right foot with staph aureus and left foot no growth. Intra op p athology showing osteomyelitis to the right hallux. Tissue biopsy showing no signs of malignancy. Recommend SNF placement. Due to his osteomyelitis patient will likely benefit from HBO therapy in the outpatient setting. Patient would also benefit from PICC line IV abx. Appreciate input from ID. Consultation Date/Type/Reason Admit Date/Time Feb 01, 2019 at 13:59 Initial Consult Date Date/Time of Note DATE: 02/07/19 TIME: 18:07 24 HR Interval Summary Free Text/Dictation No acute events overnight. Exam/Review of Systems Exam Vitals Vital Signs Date Temp Pulse Resp B/P (MAP) Pulse Ox O2 O2 Flow FiO2 Time Delivery Rate 02/07/19 99.0 61 20 147/79 93 14:36 (101) 02/07/19 Room Air 02:00 02/03/19 6.0 16:08 Intake and Output 02/06/19 02/06/19 02/07/19 1515:00 23:00 07:00 IntakeIntake Total 690 ml 450 ml OutputOutput Total 300 ml 700 ml 1950 ml BalanceBalance 390 ml -700 ml -1500 ml Exam left 1st MPJ ulceration wound dimension 3 x 6 x 2.0 cm, there was approximately 2-3cm of tunneling towards 2nd metatarsal area and 1st webspace area, wound base more fibrogranular Left plantar 5th metatarsal ulceration 1.2 x 1.4 x 0.4cm which probed to bone. Granular wound base No purulence expressed at the left foot ulceration site Right plantar 1st metatarsal 1.5 x 1.2 x 0.2cm fibrogranular wound bed. Right plantar 4th and 5th ulceration 1.5 x 3 x 0.2cm fibrogranular wound bed. Right plantar 5th metatarsal base extending to heel ulceration 6 x 3 x 0.2cm fibrogranular wound bed. None of the wounds probed to bone, no purulence was appreciated. Absent protective sensations Decreased edema to left lower extremity Results Result Diagram: 02/07/19 0455 02/07/19 0455 Results 24hrs Laboratory Tests Test 02/06/19 19:54 02/06/19 21:00 02/07/19 04:55 02/07/19 08:12 Vancomycin Level Trough 15.3 Bedside Glucose 118 81 White Blood Count 6.8 Red Blood Count 2.94 L Hemoglobin 7.5 L Hematocrit 23.8 L Mean Corpuscular Volume 81.0 L Mean Corpuscular 25.5 L Hemoglobin Mean Corpuscular 31.5 L Hemoglobin Concent Red Cell Distribution 13.4 Width Platelet Count 446 H Mean Platelet Volume 9.0 Immature Granulocytes % 0.900 H Neutrophils % 64.4 Lymphocytes % 24.2 Monocytes % 8.0 Eosinophils % 2.2 Basophils % 0.3 Nucleated Red Blood 0.0 Cells % Immature Granulocytes # 0.060 H Neutrophils # 4.4 Lymphocytes # 1.6 Monocytes # 0.5 Eosinophils # 0.2 Basophils # 0.0 Nucleated Red Blood 0.0 Cells # Sodium Level 141 Potassium Level 4.7 Chloride Level 109 Carbon Dioxide Level 26 Anion Gap 6 Blood Urea Nitrogen 14 Creatinine 1.24 Glucose Level 78 Calcium Level 8.6 Phosphorus Level 3.6 Magnesium Level 1.8 Albumin 2.5 L Test 02/07/19 12:46 02/07/19 17:15 Bedside Glucose 170 169 Medications Medication Current Medications IV Flush (NS 3 ml) 3 ml PER PROTOCOL IV ; Start 02/01/19 at 14:30 Ondansetron HCl (Zofran Inj) 4 mg Q6H PRN IV NAUSEA/VOMITING; Start 02/01/19 at 14:30 Acetaminophen (Tylenol Tab) 650 mg Q6H PRN PO .PAIN 1-3 OR TEMP Last administered on 02/06/19at 01:24; Admin Dose 650 MG; Start 02/01/19 at 14:30 Acetaminophen/ Hydrocodone Bitart ([place] (5/325)) 1 tab Q6H PRN PO .PAIN 4-6; Start 02/01/19 at 14:30 Morphine Sulfate (morphine) 2 mg Q4H PRN IV .PAIN 7-10 Last administered on 02/07/19 00:08; Admin Dose 2 MG; Start 02/01/19 at 14:30 Vancomycin HCl (Vanco Iv Per Pharmacy) VANCOMYCIN PER PHARMACY PER PROTOCOL XX ; Start 02/01/19 at 14:30 Insulin Glargine (Lantus) 18 units DAILY@2000 SC Last administered on 02/06/19 21:06; Admin Dose 18 UNITS; Start 02/01/19 at 20:00 Insulin Aspart (Novolog Insulin Pen) 6 unit WITH MEALS SC Last administered on 02/07/19 17:16; Admin Dose 6 UNIT; Start 02/01/19 at 18:00 Vancomycin HCl 250 ml @ 125 mls/hr Q12H IVPB Last administered on 02/07/19 08:14; Admin Dose 125 MLS/HR; Start 02/01/19 at 21:00 Ascorbic Acid (Vitamin C) 500 mg DAILY PO Last administered on 02/07/19 08:15; Admin Dose 500 MG; Start 02/02/19 at 09:00 Gabapentin (Neurontin) 300 mg TID PO Last administered on 02/07/19 13:01; Admin Dose 300 MG; Start 02/01/19 at 21:00 Lisinopril (Zestril) 5 mg DAILY PO Last administered on 02/07/19 08:15; Admin Dose 5 MG; Start 02/02/19 at 09:00 Sertraline HCl (Zoloft) 25 mg DAILY PO Last administered on 02/07/19 08:15; Admin Dose 25 MG; Start 02/02/19 at 09:00 Zinc Sulfate (Zinc Sulfate) 220 mg DAILY PO Last administered on 02/07/19 08:16; Admin Dose 220 MG; Start 02/02/19 at 09:00 Lidocaine (Xylocaine 1% (Mpf)) 30 ml ONCE PRN INJ PAIN; Start 02/01/19 at 16:30 Collagenase (Santyl) 1 applic DAILY TOP Last administered on 02/07/19 12:52; Admin Dose 1 APPLIC; Start 02/02/19 at 09:00 Miscellaneous Information 1 ea NOTE XX ; Start 02/02/19 at 08:30 Glucose (Glutose) 15 gm Q15M PRN PO DECREASED GLUCOSE; Start 02/02/19 at 08:30 Glucose (Glutose) 22.5 gm Q15M PRN PO DECREASED GLUCOSE; Start 02/02/19 at 08:30 Dextrose (D50w Syringe) 25 ml Q15M PRN IV DECREASED GLUCOSE; Start 02/02/19 at 08:30 Dextrose (D50w Syringe) 50 ml Q15M PRN IV DECREASED GLUCOSE; Start 02/02/19 at 08:30 Glucagon (Glucagen) 1 mg Q15M PRN IM DECREASED GLUCOSE; Start 02/02/19 at 08:30 Glucose (Glutose) 15 gm Q15M PRN BUCCAL DECREASED GLUCOSE; Start 02/02/19 at 08:30 Sodium Hypochlorite (Dakins Diluted ()) 1 applic DAILY TP Last administered on 02/07/19 12:52; Admin Dose 1 APPLIC; Start 02/02/19 at 11:30 Clonidine (Catapres) 0.1 mg Q6H PRN PO ELEVATED BLOOD PRESSURE Last administered on 02/07/19 08:15; Admin Dose 0.1 MG; Start 02/02/19 at 17:30 Diagnostic Test (Pha) (Accu-Chek) 1 ea AC MEALS AND BEDTIME XX Last administered on 02/07/19at 11:30; Admin Dose 1 EA; Start 02/05/19 at 11:30 Tramadol HCl (Ultram) 50 mg Q6H PRN PO MODERATE PAIN LEVEL 4-6; Start 02/06/19 at 10:30 Acetaminophen/ Hydrocodone Bitart ([place] (5/325)) 1 tab Q4H PRN PO SEVERE PAIN LEVEL 7-10; Start 02/06/19 at 10:30 Diagnostic Test (Pha) (Accu-Chek) 1 ea 02 XX ; Start 02/07/19 at 02:00 Insulin Aspart (Novolog Insulin Pen) NOVOLOG *MILD* ALGORITHM WITH MEALS BEDTIME SC Last administered on 02/07/19 17:18; Admin Dose 1 UNIT; Start 02/06/19 at 18:00 Heparin Sodium (Porcine) (Heparin (5000 Units/1ml)) 5,000 unit BID SC Last administered on 02/07/19 08:26; Admin Dose 5,000 UNIT; Start 02/06/19 at 21:00 Ampicillin Sodium/ Sulbactam Sodium 3 gm/Sodium Chloride 100 ml @ 100 mls/hr Q6 IVPB Last administered on 7/9/19at 17:18; Admin Dose 100 MLS/HR; Start 02/06/19 at 18:00 Miscellaneous Information (*Rx Drug Level Order Reminder*) VANCOMYCIN TROUGH AT 0800 0800 ONCE XX ; Start 02/10/19 at 08:00; Stop 02/10/19 at 08:01 YING ALMAZAN DPM Feb 07, 2019 18:07
[2019-02-07 20:06] VITALS: BP 163/93; PULSE 75; RESP 18
[2019-02-07] MEDS: HYDROCODONE/APAP (5/325) TAB PO PRN (20:37)
[2019-02-07] MEDS: INSULIN GLARGINE [LANTus] (100 UNITS/ML) SYG SC SCH (20:40)
[2019-02-08] MEDS: AMPICILLIN/SULBAC 3 GM in SOD CHLORIDE 0.9% 100 ML IVPB SCH ×3 (00:18→13:53)
[2019-02-08 01:22] VITALS: BP 163/102; PULSE 74; RESP 20
[2019-02-08] MEDS: traMADol 50 MG TAB PO PRN ×2 (01:50→18:41)
[2019-02-08] MEDS: ACCU-CHEK XX SCH ×5 (02:00→21:00)
[2019-02-08 03:17] VITALS: BP 161/101; PULSE 77
[2019-02-08 07:35] VITALS: BP 137/89; PULSE 61; RESP 18
[2019-02-08] MEDS: INSULIN ASPART [NOVOLOG] 3 ML PEN SC SCH ×7 (08:00→21:00)
[2019-02-08] MEDS: COLLAGENASE 5 GM (UD JAR) TOP SCH (08:33)
[2019-02-08] MEDS: DAKINS 0.0125%(1/40) 473 ML SOLUTION TP SCH (08:34)
[2019-02-08] MEDS: LISINOPRIL 5 MG TAB PO SCH (08:34)
[2019-02-08] MEDS: SERTRALINE 50 MG TAB PO SCH (08:36)
[2019-02-08] MEDS: ZINC SULFATE 220 MG CAP PO SCH (08:36)
[2019-02-08] MEDS: ASCORBIC ACID 500 MG TAB PO SCH (08:36)
[2019-02-08] MEDS: GABAPENTIN 300 MG CAP PO SCH ×3 (08:36→21:21)
[2019-02-08] MEDS: VANCOMYCIN 1 GM 250 ML IVPB SCH ×2 (08:36→21:18)
[2019-02-08] MEDS: HEPARIN 5,000 UNIT/1 ML VIAL SC SCH ×2 (08:41→21:20)
--- NOTE | 2019-02-08 14:28 | CONS ---
Assessment/Plan Assessment/Plan Hospital Course (Demo Recall) No acute events patient is awake looks comfortable no fevers overnight. Wound culture grew MRSA, enterococcus, strep pyogenous and coag negative staph species Antimicrobials: Unasyn and vancomycin Physical examination: Well-developed middle-aged -[place] male who is alert in no distress. Head atraumatic normocephalic sclera nonicteric. Neck is supple. Chest rise symmetrical, breath sounds clear. Heart: S1-S2. Abdomen soft bowel sounds present. Extremities with bilateral lower extremities edema and trace erythema with left lower extremity swelling and redness of the great toe Assessment: 1. Status post sepsis on admission 2. Bilateral lower extremities diabetic ulceration 3. Left lower extremity cellulitis/osteomyelitis 4. Diabetes mellitus Plan: Remain stable, continue wound care per podiatry recommendations, patient needs to be on IV antibiotics for 6 weeks to treat osteomyelitis, will monitor renal function closely and change vancomycin if it continues to get worse, YELENA Ortega Consultation Date/Type/Reason Admit Date/Time Feb 01, 2019 at 13:59 Initial Consult Date Type of Consult id Date/Time of Note DATE: 02/08/19 TIME: 14:26 Exam/Review of Systems Exam Vitals Vital Signs Date Temp Pulse Resp B/P (MAP) Pulse Ox O2 O2 Flow FiO2 Time Delivery Rate 02/08/19 98.1 61 18 137/89 93 07:35 (105) 02/07/19 Room Air 02:00 Intake and Output 02/07/19 02/07/19 02/08/19 1515:00 23:00 07:00 IntakeIntake Total 1730 ml 950 ml 100 ml OutputOutput Total 500 ml 1800 ml 1000 ml BalanceBalance 1230 ml -850 ml -900 ml Results Result Diagram: 02/08/19 0451 02/08/19 0451 Results 24hrs Laboratory Tests Test 02/07/19 17:15 02/07/19 20:37 02/08/19 01:55 02/08/19 04:49 Bedside Glucose 169 216 175 C-Reactive Protein 3.8 H Test 02/08/19 04:51 02/08/19 08:33 02/08/19 13:55 White Blood Count 6.8 Red Blood Count 2.82 L Hemoglobin 7.3 L Hematocrit 23.3 L Mean Corpuscular 82.6 Volume Mean Corpuscular 25.9 L Hemoglobin Mean Corpuscular 31.3 L Hemoglobin Concent Red Cell 13.4 Distribution Width Platelet Count 441 H Mean Platelet Volume 8.9 Immature 1.200 H Granulocytes % Neutrophils % 53.8 Lymphocytes % 31.2 Monocytes % 10.7 Eosinophils % 2.8 Basophils % 0.3 Nucleated Red Blood 0.0 Cells % Immature 0.080 H Granulocytes # Neutrophils # 3.7 Lymphocytes # 2.1 Monocytes # 0.7 Eosinophils # 0.2 Basophils # 0.0 Nucleated Red Blood 0.0 Cells # Sodium Level 140 Potassium Level 4.7 Chloride Level 107 Carbon Dioxide Level 29 Anion Gap 4 L Blood Urea Nitrogen 19 Creatinine 1.28 H Glucose Level 138 # Calcium Level 8.9 Phosphorus Level 3.6 Magnesium Level 1.8 Albumin 2.9 L Bedside Glucose 106 100 Medications Medication Current Medications IV Flush (NS 3 ml) 3 ml PER PROTOCOL IV ; Start 02/01/19 at 14:30 Ondansetron HCl (Zofran Inj) 4 mg Q6H PRN IV NAUSEA/VOMITING; Start 02/01/19 at 14:30 Acetaminophen (Tylenol Tab) 650 mg Q6H PRN PO .PAIN 1-3 OR TEMP Last administered on 02/06/19at 01:24; Admin Dose 650 MG; Start 02/01/19 at 14:30 Acetaminophen/ Hydrocodone Bitart ([place] (5/325)) 1 tab Q6H PRN PO .PAIN 4-6; Start 02/01/19 at 14:30 Morphine Sulfate (morphine) 2 mg Q4H PRN IV .PAIN 7-10 Last administered on 02/07/19at 00:08; Admin Dose 2 MG; Start 02/01/19 at 14:30 Vancomycin HCl (Vanco Iv Per Pharmacy) VANCOMYCIN PER PHARMACY PER PROTOCOL XX ; Start 02/01/19 at 14:30 Insulin Glargine (Lantus) 18 units DAILY@2000 SC Last administered on 02/07/19at 20:40; Admin Dose 18 UNITS; Start 02/01/19 at 20:00 Insulin Aspart (Novolog Insulin Pen) 6 unit WITH MEALS SC Last administered on 02/08/19at 14:01; Admin Dose 6 UNIT; Start 02/01/19 at 18:00 Vancomycin HCl 250 ml @ 125 mls/hr Q12H IVPB Last administered on 02/08/19at 08:36; Admin Dose 125 MLS/HR; Start 02/01/19 at 21:00 Ascorbic Acid (Vitamin C) 500 mg DAILY PO Last administered on 02/08/19 08:36; Admin Dose 500 MG; Start 02/02/19 at 09:00 Gabapentin (Neurontin) 300 mg TID PO Last administered on 02/08/19 13:53; Admin Dose 300 MG; Start 02/01/19 at 21:00 Lisinopril (Zestril) 5 mg DAILY PO Last administered on 02/08/19 08:34; Admin Dose 5 MG; Start 02/02/19 at 09:00 Sertraline HCl (Zoloft) 25 mg DAILY PO Last administered on 02/08/19 08:36; Admin Dose 25 MG; Start 02/02/19 at 09:00 Zinc Sulfate (Zinc Sulfate) 220 mg DAILY PO Last administered on 02/08/19 08:36; Admin Dose 220 MG; Start 02/02/19 at 09:00 Lidocaine (Xylocaine 1% (Mpf)) 30 ml ONCE PRN INJ PAIN; Start 02/01/19 at 16:30 Collagenase (Santyl) 1 applic DAILY TOP Last administered on 02/08/19 08:33; Admin Dose 1 APPLIC; Start 02/02/19 at 09:00 Miscellaneous Information 1 ea NOTE XX ; Start 02/02/19 at 08:30 Glucose (Glutose) 15 gm Q15M PRN PO DECREASED GLUCOSE; Start 02/02/19 at 08:30 Glucose (Glutose) 22.5 gm Q15M PRN PO DECREASED GLUCOSE; Start 02/02/19 at 08:30 Dextrose (D50w Syringe) 25 ml Q15M PRN IV DECREASED GLUCOSE; Start 02/02/19 at 08:30 Dextrose (D50w Syringe) 50 ml Q15M PRN IV DECREASED GLUCOSE; Start 02/02/19 at 08:30 Glucagon (Glucagen) 1 mg Q15M PRN IM DECREASED GLUCOSE; Start 02/02/19 at 08:30 Glucose (Glutose) 15 gm Q15M PRN BUCCAL DECREASED GLUCOSE; Start 02/02/19 at 08:30 Sodium Hypochlorite (Dakins Diluted (40)) 1 applic DAILY TP Last administered on 02/08/19 08:34; Admin Dose 1 APPLIC; Start 02/02/19 at 11:30 Clonidine (Catapres) 0.1 mg Q6H PRN PO ELEVATED BLOOD PRESSURE Last administered on 02/08/19 01:51; Admin Dose 0.1 MG; Start 02/02/19 at 17:30 Diagnostic Test (Pha) (Accu-Chek) 1 ea AC MEALS AND BEDTIME XX Last administered on 02/07/19 11:30; Admin Dose 1 EA; Start 02/05/19 at 11:30 Tramadol HCl (Ultram) 50 mg Q6H PRN PO MODERATE PAIN LEVEL 4-6 Last administered on 02/08/19 01:50; Admin Dose 50 MG; Start 02/06/19 at 10:30 Acetaminophen/ Hydrocodone Bitart ([place] (5/325)) 1 tab Q4H PRN PO SEVERE PAIN LEVEL 7-10 Last administered on 02/07/19 20:37; Admin Dose 1 TAB; Start 02/06/19 at 10:30 Diagnostic Test (Pha) (Accu-Chek) 1 ea 02 XX ; Start 02/07/19 at 02:00 Insulin Aspart (Novolog Insulin Pen) NOVOLOG *MILD* ALGORITHM WITH MEALS BEDTIME SC Last administered on 02/07/19 20:41; Admin Dose 1 UNIT; Start 02/06/19 at 18:00 Heparin Sodium (Porcine) (Heparin (5000 Units/1ml)) 5,000 unit BID SC Last administered on 02/08/19 08:41; Admin Dose 5,000 UNIT; Start 02/06/19 at 21:00 Ampicillin Sodium/ Sulbactam Sodium 3 gm/Sodium Chloride 100 ml @ 100 mls/hr Q6 IVPB Last administered on 02/08/19 13:53; Admin Dose 100 MLS/HR; Start 02/06/19 at 18:00 Miscellaneous Information (*Rx Drug Level Order Reminder*) VANCOMYCIN TROUGH AT 0800 0800 ONCE XX ; Start 02/10/19 at 08:00; Stop 02/10/19 at 08:01 ROCIO CALDERON NP Feb 08, 2019 14:28
[2019-02-08 14:30] VITALS: BP 168/100; PULSE 66; RESP 18
--- NOTE | 2019-02-08 15:24 | PN ---
Date/Time of Note Date/Time of Note DATE: 02/08/19 TIME: 15:21 Assessment/Plan VTE Prophylaxis Risk score (from Ns)>0 risk: 5 SCD applied (from Ns): No SCD contraindicated: other Pharmacological prophylaxis: heparin Lines/Catheters IV C[facility]ter Type (from [facility] PICC Line Central line still needed: Yes Urinary Cath still in place: No Assessment/Plan Assessment/Plan 1. Bilateral lower extremity wounds with left foot osteomyelitis - Podiatry on board and appreciate recommendations. will continue local wound care and will need HBO treatments as outpatient - ID on board and monitoring renal function to determine final antibiotic recomm endations. Will need to complete 6 weeks of IV antibiotics - Status post multiple debridement - Imaging studies reviewed. - Vascular input appreciated as well and no need for intervention at this time. Will need to follow up as outpatient 2. Cervical stenosis, arm stiffness, persistent tingling - Neurosurgery consultation appreciated and recommending outpatient follow up once osteomyelitis treatment is completed - Chronic since 2017 - MRI showing moderate canal stenosis 3. Diabetes mellitus - A1c noted - continue lantus and novolog - ISS and accuchecks 4. Dyslipidemia - Continue atorvastatin 5. Questionable history of CVA - No known residual effect - Continue daily aspirin 6. Chronic diabetic foot wounds - Podiatry on board - local wound care - pain control 7. Disposition - Monitoring renal function to determine final antibiotic recommendations. CM on board and awaiting prior auth from [facility] but will be accepted back to [facility] Result Diagram: 02/08/19 0451 02/08/19 0451 Results 24hrs Laboratory Tests Test 02/07/19 17:15 02/07/19 20:37 02/08/19 01:55 02/08/19 04:49 Bedside Glucose 169 216 175 C-Reactive Protein 3.8 H Test 02/08/19 04:51 02/08/19 08:33 02/08/19 13:55 White Blood Count 6.8 Red Blood Count 2.82 L Hemoglobin 7.3 L Hematocrit 23.3 L Mean Corpuscular 82.6 Volume Mean Corpuscular 25.9 L Hemoglobin Mean Corpuscular 31.3 L Hemoglobin Concent Red Cell 13.4 Distribution Width Platelet Count 441 H Mean Platelet Volume 8.9 Immature 1.200 H Granulocytes % Neutrophils % 53.8 Lymphocytes % 31.2 Monocytes % 10.7 Eosinophils % 2.8 Basophils % 0.3 Nucleated Red Blood 0.0 Cells % Immature 0.080 H Granulocytes # Neutrophils # 3.7 Lymphocytes # 2.1 Monocytes # 0.7 Eosinophils # 0.2 Basophils # 0.0 Nucleated Red Blood 0.0 Cells # Sodium Level 140 Potassium Level 4.7 Chloride Level 107 Carbon Dioxide Level 29 Anion Gap 4 L Blood Urea Nitrogen 19 Creatinine 1.28 H Glucose Level 138 # Calcium Level 8.9 Phosphorus Level 3.6 Magnesium Level 1.8 Albumin 2.9 L Bedside Glucose 106 100 Subjective 24 Hr Interval Summary Free Text/Dictation Patient is resting comfortably in no acute distress. No acute overnight events. Exam/Review of Systems Exam Vitals Vital Signs Date Temp Pulse Resp B/P (MAP) Pulse Ox O2 O2 Flow FiO2 Time Delivery Rate 02/08/19 98.6 66 18 168/100 96 14:30 (122) 02/07/19 Room Air 02:00 Intake and Output 02/07/19 02/07/19 02/08/19 1515:00 23:00 07:00 IntakeIntake Total 1730 ml 950 ml 100 ml OutputOutput Total 500 ml 1800 ml 1000 ml BalanceBalance 1230 ml -850 ml -900 ml Exam General: Patient is sitting up in bed, no acute distress Neck: Supple, nontender, midline Respiratory: Clear to auscultation bilaterally. no wheezing or rhonchi Cardiovascular: regular rate and rhythm, no obvious murmurs Gastrointestinal: soft, non-tender to palpation, nondistended, bowel sounds heard. Neurological: Moves all extremities spontaneously Skin: bilateral feet, bandaged, CDI Results Results 24hrs Laboratory Tests Test 02/07/19 17:15 02/07/19 20:37 02/08/19 01:55 02/08/19 04:49 Bedside Glucose 169 216 175 C-Reactive Protein 3.8 H Test 02/08/19 04:51 02/08/19 08:33 02/08/19 13:55 White Blood Count 6.8 Red Blood Count 2.82 L Hemoglobin 7.3 L Hematocrit 23.3 L Mean Corpuscular 82.6 Volume Mean Corpuscular 25.9 L Hemoglobin Mean Corpuscular 31.3 L Hemoglobin Concent Red Cell 13.4 Distribution Width Platelet Count 441 H Mean Platelet Volume 8.9 Immature 1.200 H Granulocytes % Neutrophils % 53.8 Lymphocytes % 31.2 Monocytes % 10.7 Eosinophils % 2.8 Basophils % 0.3 Nucleated Red Blood 0.0 Cells % Immature 0.080 H Granulocytes # Neutrophils # 3.7 Lymphocytes # 2.1 Monocytes # 0.7 Eosinophils # 0.2 Basophils # 0.0 Nucleated Red Blood 0.0 Cells # Sodium Level 140 Potassium Level 4.7 Chloride Level 107 Carbon Dioxide Level 29 Anion Gap 4 L Blood Urea Nitrogen 19 Creatinine 1.28 H Glucose Level 138 # Calcium Level 8.9 Phosphorus Level 3.6 Magnesium Level 1.8 Albumin 2.9 L Bedside Glucose 106 100 Medications Medication Current Medications IV Flush (NS 3 ml) 3 ml PER PROTOCOL IV ; Start 02/01/19 at 14:30 Ondansetron HCl (Zofran Inj) 4 mg Q6H PRN IV NAUSEA/VOMITING; Start 02/01/19 at 14:30 Acetaminophen (Tylenol Tab) 650 mg Q6H PRN PO .PAIN 1-3 OR TEMP Last administered on 02/06/19 01:24; Admin Dose 650 MG; Start 02/01/19 at 14:30 Acetaminophen/ Hydrocodone Bitart ([place] (5/325)) 1 tab Q6H PRN PO .PAIN 4-6; Start 02/01/19 at 14:30 Morphine Sulfate (morphine) 2 mg Q4H PRN IV .PAIN 7-10 Last administered on 02/07/19 00:08; Admin Dose 2 MG; Start 02/01/19 at 14:30 Vancomycin HCl (Vanco Iv Per Pharmacy) VANCOMYCIN PER PHARMACY PER PROTOCOL XX ; Start 02/01/19 at 14:30 Insulin Glargine (Lantus) 18 units DAILY@2000 SC Last administered on 02/07/19 20:40; Admin Dose 18 UNITS; Start 02/01/19 at 20:00 Insulin Aspart (Novolog Insulin Pen) 6 unit WITH MEALS SC Last administered on 02/08/19 14:01; Admin Dose 6 UNIT; Start 02/01/19 at 18:00 Vancomycin HCl 250 ml @ 125 mls/hr Q12H IVPB Last administered on 02/08/19 08:36; Admin Dose 125 MLS/HR; Start 02/01/19 at 21:00 Ascorbic Acid (Vitamin C) 500 mg DAILY PO Last administered on 02/08/19 08:36; Admin Dose 500 MG; Start 02/02/19 at 09:00 Gabapentin (Neurontin) 300 mg TID PO Last administered on 02/08/19at 13:53; Admin Dose 300 MG; Start 02/01/19 at 21:00 Lisinopril (Zestril) 5 mg DAILY PO Last administered on 02/08/19 08:34; Admin Dose 5 MG; Start 02/02/19 at 09:00 Sertraline HCl (Zoloft) 25 mg DAILY PO Last administered on 02/08/19 08:36; Admin Dose 25 MG; Start 02/02/19 at 09:00 Zinc Sulfate (Zinc Sulfate) 220 mg DAILY PO Last administered on 02/08/19 08:36; Admin Dose 220 MG; Start 02/02/19 at 09:00 Lidocaine (Xylocaine 1% (Mpf)) 30 ml ONCE PRN INJ PAIN; Start 02/01/19 at 16:30 Collagenase (Santyl) 1 applic DAILY TOP Last administered on 02/08/19 08:33; Admin Dose 1 APPLIC; Start 02/02/19 at 09:00 Miscellaneous Information 1 ea NOTE XX ; Start 02/02/19 at 08:30 Glucose (Glutose) 15 gm Q15M PRN PO DECREASED GLUCOSE; Start 02/02/19 at 08:30 Glucose (Glutose) 22.5 gm Q15M PRN PO DECREASED GLUCOSE; Start 02/02/19 at 08:30 Dextrose (D50w Syringe) 25 ml Q15M PRN IV DECREASED GLUCOSE; Start 02/02/19 at 08:30 Dextrose (D50w Syringe) 50 ml Q15M PRN IV DECREASED GLUCOSE; Start 02/02/19 at 08:30 Glucagon (Glucagen) 1 mg Q15M PRN IM DECREASED GLUCOSE; Start 02/02/19 at 08:30 Glucose (Glutose) 15 gm Q15M PRN BUCCAL DECREASED GLUCOSE; Start 02/02/19 at 08:30 Sodium Hypochlorite (Dakins Diluted (40)) 1 applic DAILY TP Last administered on 02/08/19 08:34; Admin Dose 1 APPLIC; Start 02/02/19 at 11:30 Clonidine (Catapres) 0.1 mg Q6H PRN PO ELEVATED BLOOD PRESSURE Last administe red on 02/08/19at 01:51; Admin Dose 0.1 MG; Start 02/02/19 at 17:30 Diagnostic Test (Pha) (Accu-Chek) 1 ea AC MEALS AND BEDTIME XX Last administered on 02/07/19at 11:30; Admin Dose 1 EA; Start 02/05/19 at 11:30 Tramadol HCl (Ultram) 50 mg Q6H PRN PO MODERATE PAIN LEVEL 4-6 Last administered on 02/08/19at 01:50; Admin Dose 50 MG; Start 02/06/19 at 10:30 Acetaminophen/ Hydrocodone Bitart ([place] (5/325)) 1 tab Q4H PRN PO SEVERE PAIN LEVEL 7-10 Last administered on 02/07/19at 20:37; Admin Dose 1 TAB; Start 02/06/19 at 10:30 Diagnostic Test (Pha) (Accu-Chek) 1 ea 02 XX ; Start 02/07/19 at 02:00 Insulin Aspart (Novolog Insulin Pen) NOVOLOG *MILD* ALGORITHM WITH MEALS BEDTIME SC Last administered on 02/07/19at 20:41; Admin Dose 1 UNIT; Start 02/06/19 at 18:00 Heparin Sodium (Porcine) (Heparin (5000 Units/1ml)) 5,000 unit BID SC Last administered on 02/08/19 08:41; Admin Dose 5,000 UNIT; Start 02/06/19 at 21:00 Miscellaneous Information (*Rx Drug Level Order Reminder*) VANCOMYCIN TROUGH AT 0800 0800 ONCE XX ; Start 02/10/19 at 08:00; Stop 02/10/19 at 08:01 SOLOMON CARLOS MD Feb 08, 2019 15:24
[2019-02-08 20:22] VITALS: BP 169/93; PULSE 70; RESP 18
[2019-02-08] MEDS: INSULIN GLARGINE [LANTus] (100 UNITS/ML) SYG SC SCH (21:21)
[2019-02-09] MEDS: ACCU-CHEK XX SCH ×5 (02:00→20:27)
[2019-02-09 02:35] VITALS: BP 177/99; PULSE 70; RESP 18
[2019-02-09] MEDS: traMADol 50 MG TAB PO PRN ×2 (04:04→11:35)
[2019-02-09 04:58] VITALS: BP 165/91; PULSE 63; RESP 18
[2019-02-09] MEDS: INSULIN ASPART [NOVOLOG] 3 ML PEN SC SCH ×7 (08:00→20:27)
[2019-02-09 08:05] VITALS: BP 174/95; PULSE 66; RESP 19
[2019-02-09] MEDS: GABAPENTIN 300 MG CAP PO SCH ×3 (08:13→20:21)
[2019-02-09] MEDS: ZINC SULFATE 220 MG CAP PO SCH (08:13)
[2019-02-09] MEDS: SERTRALINE 50 MG TAB PO SCH (08:13)
[2019-02-09] MEDS: LISINOPRIL 10 MG TAB PO SCH (08:14)
[2019-02-09] MEDS: ASCORBIC ACID 500 MG TAB PO SCH (08:14)
[2019-02-09] MEDS: COLLAGENASE 5 GM (UD JAR) TOP SCH (08:15)
[2019-02-09] MEDS: HEPARIN 5,000 UNIT/1 ML VIAL SC SCH ×2 (08:18→20:26)
[2019-02-09] MEDS: DAKINS 0.0125%(1/40) 473 ML SOLUTION TP SCH (08:32)
[2019-02-09] MEDS: VANCOMYCIN 1 GM 250 ML IVPB SCH ×2 (08:32→20:21)
--- NOTE | 2019-02-09 11:24 | CONS ---
Assessment/Plan Assessment/Plan Hospital Course (Demo Recall) No acute events no fevers overnight. Wound culture grew MRSA, VRE, strep pyogenous and coag negative staph species Antimicrobials: Vancomycin Physical examination: Well-developed middle-aged -[place] male who is alert in no distress. Head atraumatic normocephalic sclera nonicteric. Neck is supple. Chest rise symmetrical, breath sounds clear. Heart: S1-S2. Abdomen soft bowel sounds present. Extremities with bilateral lower extremities edema and trace erythema with left lower extremity swelling and redness of the great toe Assessment: 1. Status post sepsis on admission 2. Bilateral lower extremities diabetic ulceration 3. Left lower extremity cellulitis/osteomyelitis 4. Diabetes mellitus Plan: Restart Ampicillin IV to cover VRE, anticipate 6 weeks treatment, s/p PICC. If renal f-n gets worse will change abx to Daptomycin Consultation Date/Type/Reason Admit Date/Time Feb 01, 2019 at 13:59 Initial Consult Date Type of Consult id Date/Time of Note DATE: 02/09/19 TIME: 11:22 Exam/Review of Systems Exam Vitals Vital Signs Date Temp Pulse Resp B/P (MAP) Pulse Ox O2 O2 Flow FiO2 Time Delivery Rate 02/09/19 98.4 66 19 174/95 92 Room Air 08:05 (121) Intake and Output 02/08/19 02/08/19 02/09/19 1515:00 23:00 07:00 IntakeIntake Total 1360 ml 1230 ml 490 ml OutputOutput Total 1400 ml 900 ml BalanceBalance 1360 ml -170 ml -410 ml Results Result Diagram: 02/09/19 0516 02/09/19 0516 Results 24hrs Laboratory Tests Test 02/08/19 13:55 02/08/19 15:00 02/08/19 17:23 02/08/19 21:20 Bedside Glucose 100 104 147 Erythrocyte 120 H Sedimentation Rate Test 02/09/19 05:15 02/09/19 05:16 02/09/19 08:23 Iron Level 30 L Total Iron Binding 215 L Capacity Percent Iron 14 L Saturation White Blood Count 6.8 Red Blood Count 2.76 L Hemoglobin 7.1 L Hematocrit 22.8 L Mean Corpuscular 82.6 Volume Mean Corpuscular 25.7 L Hemoglobin Mean Corpuscular 31.1 L Hemoglobin Concent Red Cell 13.7 Distribution Width Platelet Count 497 H Mean Platelet Volume 9.1 Immature 1.000 H Granulocytes % Neutrophils % 59.4 Lymphocytes % 29.6 Monocytes % 7.2 Eosinophils % 2.5 Basophils % 0.3 Nucleated Red Blood 0.0 Cells % Immature 0.070 H Granulocytes # Neutrophils # 4.0 Lymphocytes # 2.0 Monocytes # 0.5 Eosinophils # 0.2 Basophils # 0.0 Nucleated Red Blood 0.0 Cells # Sodium Level 140 Potassium Level 4.2 Chloride Level 107 Carbon Dioxide Level 25 Anion Gap 8 Blood Urea Nitrogen 19 Creatinine 0.93 Glucose Level 141 Calcium Level 8.5 Phosphorus Level 3.8 Magnesium Level 1.8 Albumin 2.6 L Bedside Glucose 112 Medications Medication Current Medications IV Flush (NS 3 ml) 3 ml PER PROTOCOL IV ; Start 02/01/19 at 14:30 Ondansetron HCl (Zofran Inj) 4 mg Q6H PRN IV NAUSEA/VOMITING; Start 02/01/19 at 14:30 Acetaminophen (Tylenol Tab) 650 mg Q6H PRN PO .PAIN 1-3 OR TEMP Last administered on 02/06/19at 01:24; Admin Dose 650 MG; Start 02/01/19 at 14:30 Acetaminophen/ Hydrocodone Bitart ([place] (5/325)) 1 tab Q6H PRN PO .PAIN 4-6; Start 02/01/19 at 14:30 Morphine Sulfate (morphine) 2 mg Q4H PRN IV .PAIN 7-10 Last administered on 02/07/19at 00:08; Admin Dose 2 MG; Start 02/01/19 at 14:30 Vancomycin HCl (Vanco Iv Per Pharmacy) VANCOMYCIN PER PHARMACY PER PROTOCOL XX ; Start 02/01/19 at 14:30 Insulin Glargine (Lantus) 18 units DAILY@2000 SC Last administered on 02/08/19at 21:21; Admin Dose 18 UNITS; Start 02/01/19 at 20:00 Insulin Aspart (Novolog Insulin Pen) 6 unit WITH MEALS SC Last administered on 02/09/19at 08:26; Admin Dose 6 UNIT; Start 02/01/19 at 18:00 Vancomycin HCl 250 ml @ 125 mls/hr Q12H IVPB Last administered on 02/09/19at 08:32; Admin Dose 125 MLS/HR; Start 02/01/19 at 21:00 Ascorbic Acid (Vitamin C) 500 mg DAILY PO Last administered on 02/09/19at 08:14; Admin Dose 500 MG; Start 02/02/19 at 09:00 Gabapentin (Neurontin) 300 mg TID PO Last administered on 02/09/19at 08:13; Admin Dose 300 MG; Start 02/01/19 at 21:00 Sertraline HCl (Zoloft) 25 mg DAILY PO Last administered on 02/09/19at 08:13; Admin Dose 25 MG; Start 02/02/19 at 09:00 Zinc Sulfate (Zinc Sulfate) 220 mg DAILY PO Last administered on 02/09/19 08:13; Admin Dose 220 MG; Start 02/02/19 at 09:00 Lidocaine (Xylocaine 1% (Mpf)) 30 ml ONCE PRN INJ PAIN; Start 02/01/19 at 16:30 Collagenase (Santyl) 1 applic DAILY TOP Last administered on 02/09/19at 08:15; Admin Dose 1 APPLIC; Start 02/02/19 at 09:00 Miscellaneous Information 1 ea NOTE XX ; Start 02/02/19 at 08:30 Glucose (Glutose) 15 gm Q15M PRN PO DECREASED GLUCOSE; Start 02/02/19 at 08:30 Glucose (Glutose) 22.5 gm Q15M PRN PO DECREASED GLUCOSE; Start 02/02/19 at 08:30 Dextrose (D50w Syringe) 25 ml Q15M PRN IV DECREASED GLUCOSE; Start 02/02/19 at 08:30 Dextrose (D50w Syringe) 50 ml Q15M PRN IV DECREASED GLUCOSE; Start 02/02/19 at 08:30 Glucagon (Glucagen) 1 mg Q15M PRN IM DECREASED GLUCOSE; Start 02/02/19 at 08:30 Glucose (Glutose) 15 gm Q15M PRN BUCCAL DECREASED GLUCOSE; Start 02/02/19 at 08:30 Sodium Hypochlorite (Dakins Diluted (1/40)) 1 applic DAILY TP Last administered on 02/09/19at 08:32; Admin Dose 1 APPLIC; Start 02/02/19 at 11:30 Clonidine (Catapres) 0.1 mg Q6H PRN PO ELEVATED BLOOD PRESSURE Last administered on 02/09/19at 05:15; Admin Dose 0.1 MG; Start 02/02/19 at 17:30 Diagnostic Test (Pha) (Accu-Chek) 1 ea AC MEALS AND BEDTIME XX Last administered on 02/07/19 11:30; Admin Dose 1 EA; Start 02/05/19 at 11:30 Tramadol HCl (Ultram) 50 mg Q6H PRN PO MODERATE PAIN LEVEL 4-6 Last administered on 02/09/19 04:04; Admin Dose 50 MG; Start 02/06/19 at 10:30 Acetaminophen/ Hydrocodone Bitart ([place] (5/325)) 1 tab Q4H PRN PO SEVERE PAIN LEVEL 7-10 Last administered on 02/07/19 20:37; Admin Dose 1 TAB; Start 02/06/19 at 10:30 Diagnostic Test (Pha) (Accu-Chek) 1 ea 02 XX ; Start 02/07/19 at 02:00 Insulin Aspart (Novolog Insulin Pen) NOVOLOG *MILD* ALGORITHM WITH MEALS BEDTIME SC Last administered on 02/07/19 20:41; Admin Dose 1 UNIT; Start 02/06/19 at 18:00 Heparin Sodium (Porcine) (Heparin (5000 Units/1ml)) 5,000 unit BID SC Last administered on 02/09/19 08:18; Admin Dose 5,000 UNIT; Start 02/06/19 at 21:00 Miscellaneous Information (*Rx Drug Level Order Reminder*) VANCOMYCIN TROUGH AT 0800 0800 ONCE XX ; Start 02/10/19 at 08:00; Stop 02/10/19 at 08:01 IV Flush (NS 10 ml) 10 ml PRN PRN IV To Maintain Patency; Start 02/08/19 at 18:30 Lisinopril (Zestril) 10 mg DAILY PO Last administered on 02/09/19at 08:14; Admin Dose 10 MG; Start 02/09/19 at 09:00 ROCIO CALDERON NP Feb 09, 2019 11:23
[2019-02-09] MEDS ORDERED: POLYETHYLENE GLYCOL 17 GM PACKET PO PRN (11:30)
--- NOTE | 2019-02-09 11:37 | PN ---
Date/Time of Note Date/Time of Note DATE: 02/09/19 TIME: 11:37 Assessment/Plan VTE Prophylaxis Risk score (from Ns)>0 risk: 7 SCD applied (from Ns): No SCD contraindicated: other Pharmacological prophylaxis: heparin Lines/Catheters IV Catheter Type (from Nrsg): PICC Line Central line still needed: Yes Urinary Cath still in place: No Assessment/Plan Assessment/Plan 1. Bilateral lower extremity wounds with left foot osteomyelitis - Podiatry on board and appreciate recommendations. will continue local wound care and will need HBO treatments as outpatient - ID on board and monitoring renal function to determine final antibiotic recomm endations. Will need to complete 6 weeks of IV antibiotics. Given VRE, restarted on Unasyn and if renal function worsens will need to change to Daptomycin - Status post multiple debridement - Imaging studies reviewed. - Vascular input appreciated as well and no need for intervention at this time. Will need to follow up as outpatient 2. Cervical stenosis, arm stiffness, persistent tingling - Neurosurgery consultation appreciated and recommending outpatient follow up once osteomyelitis treatment is completed - Chronic since 2017 - MRI showing moderate canal stenosis 3. Diabetes mellitus - A1c noted - continue lantus and novolog - ISS and accuchecks 4. Dyslipidemia - Continue atorvastatin 5. Questionable history of CVA - No known residual effect - Continue daily aspirin 6. Chronic diabetic foot wounds - Podiatry on board - local wound care - pain control 7. Disposition - Monitoring renal function to determine final antibiotic recommendations. If renal function remains stable will d/c on Ampicillin and Vancomycin. Anticipate discharge to SNF in next 24-48 hours Result Diagram: 02/09/19 0516 02/09/19 0516 Results 24hrs Laboratory Tests Test 02/08/19 13:55 02/08/19 15:00 02/08/19 17:23 02/08/19 21:20 Bedside Glucose 100 104 147 Erythrocyte 120 H Sedimentation Rate Test 02/09/19 05:15 02/09/19 05:16 02/09/19 08:23 Iron Level 30 L Total Iron Binding 215 L Capacity Percent Iron 14 L Saturation White Blood Count 6.8 Red Blood Count 2.76 L Hemoglobin 7.1 L Hematocrit 22.8 L Mean Corpuscular 82.6 Volume Mean Corpuscular 25.7 L Hemoglobin Mean Corpuscular 31.1 L Hemoglobin Concent Red Cell 13.7 Distribution Width Platelet Count 497 H Mean Platelet Volume 9.1 Immature 1.000 H Granulocytes % Neutrophils % 59.4 Lymphocytes % 29.6 Monocytes % 7.2 Eosinophils % 2.5 Basophils % 0.3 Nucleated Red Blood 0.0 Cells % Immature 0.070 H Granulocytes # Neutrophils # 4.0 Lymphocytes # 2.0 Monocytes # 0.5 Eosinophils # 0.2 Basophils # 0.0 Nucleated Red Blood 0.0 Cells # Sodium Level 140 Potassium Level 4.2 Chloride Level 107 Carbon Dioxide Level 25 Anion Gap 8 Blood Urea Nitrogen 19 Creatinine 0.93 Glucose Level 141 Calcium Level 8.5 Phosphorus Level 3.8 Magnesium Level 1.8 Albumin 2.6 L Bedside Glucose 112 Subjective 24 Hr Interval Summary Free Text/Dictation Patient states hes feeling well but getting restless since nonweight bearing. States Tramadol is helping control pain. no acute overnight events. Exam/Review of Systems Exam Vitals Vital Signs Date Temp Pulse Resp B/P (MAP) Pulse Ox O2 O2 Flow FiO2 Time Delivery Rate 02/09/19 98.4 66 19 174/95 92 Room Air 08:05 (121) Intake and Output 02/08/19 02/08/19 02/09/19 1515:00 23:00 07:00 IntakeIntake Total 1360 ml 1230 ml 490 ml OutputOutput Total 1400 ml 900 ml BalanceBalance 1360 ml -170 ml -410 ml Exam General: Patient is laying in bed, no acute distress Neck: Supple, nontender, midline Respiratory: Clear to auscultation bilaterally. no wheezing or rhonchi Cardiovascular: regular rate and rhythm, no obvious murmurs Gastrointestinal: soft, non-tender to palpation, nondistended, bowel sounds heard. Neurological: Moves all extremities spontaneously Skin: bilateral feet, bandaged, CDI Results Results 24hrs Laboratory Tests Test 02/08/19 13:55 02/08/19 15:00 02/08/19 17:23 02/08/19 21:20 Bedside Glucose 100 104 147 Erythrocyte 120 H Sedimentation Rate Test 02/09/19 05:15 02/09/19 05:16 02/09/19 08:23 Iron Level 30 L Total Iron Binding 215 L Capacity Percent Iron 14 L Saturation White Blood Count 6.8 Red Blood Count 2.76 L Hemoglobin 7.1 L Hematocrit 22.8 L Mean Corpuscular 82.6 Volume Mean Corpuscular 25.7 L Hemoglobin Mean Corpuscular 31.1 L Hemoglobin Concent Red Cell 13.7 Distribution Width Platelet Count 497 H Mean Platelet Volume 9.1 Immature 1.000 H Granulocytes % Neutrophils % 59.4 Lymphocytes % 29.6 Monocytes % 7.2 Eosinophils % 2.5 Basophils % 0.3 Nucleated Red Blood 0.0 Cells % Immature 0.070 H Granulocytes # Neutrophils # 4.0 Lymphocytes # 2.0 Monocytes # 0.5 Eosinophils # 0.2 Basophils # 0.0 Nucleated Red Blood 0.0 Cells # Sodium Level 140 Potassium Level 4.2 Chloride Level 107 Carbon Dioxide Level 25 Anion Gap 8 Blood Urea Nitrogen 19 Creatinine 0.93 Glucose Level 141 Calcium Level 8.5 Phosphorus Level 3.8 Magnesium Level 1.8 Albumin 2.6 L Bedside Glucose 112 Medications Medication Current Medications IV Flush (NS 3 ml) 3 ml PER PROTOCOL IV ; Start 02/01/19 at 14:30 Ondansetron HCl (Zofran Inj) 4 mg Q6H PRN IV NAUSEA/VOMITING; Start 02/01/19 at 14:30 Acetaminophen (Tylenol Tab) 650 mg Q6H PRN PO .PAIN 1-3 OR TEMP Last administered on 02/06/19at 01:24; Admin Dose 650 MG; Start 02/01/19 at 14:30 Acetaminophen/ Hydrocodone Bitart ([place] (5/325)) 1 tab Q6H PRN PO .PAIN 4-6; Start 02/01/19 at 14:30 Morphine Sulfate (morphine) 2 mg Q4H PRN IV .PAIN 7-10 Last administered on 02/07/19at 00:08; Admin Dose 2 MG; Start 02/01/19 at 14:30 Vancomycin HCl (Vanco Iv Per Pharmacy) VANCOMYCIN PER PHARMACY PER PROTOCOL XX ; Start 02/01/19 at 14:30 Insulin Glargine (Lantus) 18 units DAILY@2000 SC Last administered on 02/08/19at 21:21; Admin Dose 18 UNITS; Start 02/01/19 at 20:00 Insulin Aspart (Novolog Insulin Pen) 6 unit WITH MEALS SC Last administered on 02/09/19 08:26; Admin Dose 6 UNIT; Start 02/01/19 at 18:00 Vancomycin HCl 250 ml @ 125 mls/hr Q12H IVPB Last administered on 02/09/19at 08:32; Admin Dose 125 MLS/HR; Start 02/01/19 at 21:00 Ascorbic Acid (Vitamin C) 500 mg DAILY PO Last administered on 02/09/19at 08:14; Admin Dose 500 MG; Start 02/02/19 at 09:00 Gabapentin (Neurontin) 300 mg TID PO Last administered on 02/09/19 08:13; Admin Dose 300 MG; Start 02/01/19 at 21:00 Sertraline HCl (Zoloft) 25 mg DAILY PO Last administered on 02/09/19 08:13; Admin Dose 25 MG; Start 02/02/19 at 09:00 Zinc Sulfate (Zinc Sulfate) 220 mg DAILY PO Last administered on 02/09/19 08:13; Admin Dose 220 MG; Start 02/02/19 at 09:00 Lidocaine (Xylocaine 1% (Mpf)) 30 ml ONCE PRN INJ PAIN; Start 02/01/19 at 16:30 Collagenase (Santyl) 1 applic DAILY TOP Last administered on 02/09/19at 08:15; Admin Dose 1 APPLIC; Start 02/02/19 at 09:00 Miscellaneous Information 1 ea NOTE XX ; Start 02/02/19 at 08:30 Glucose (Glutose) 15 gm Q15M PRN PO DECREASED GLUCOSE; Start 02/02/19 at 08:30 Glucose (Glutose) 22.5 gm Q15M PRN PO DECREASED GLUCOSE; Start 02/02/19 at 08:30 Dextrose (D50w Syringe) 25 ml Q15M PRN IV DECREASED GLUCOSE; Start 02/02/19 at 08:30 Dextrose (D50w Syringe) 50 ml Q15M PRN IV DECREASED GLUCOSE; Start 02/02/19 at 08:30 Glucagon (Glucagen) 1 mg Q15M PRN IM DECREASED GLUCOSE; Start 02/02/19 at 08:30 Glucose (Glutose) 15 gm Q15M PRN BUCCAL DECREASED GLUCOSE; Start 02/02/19 at 08:30 Sodium Hypochlorite (Dakins Diluted (40)) 1 applic DAILY TP Last administered on 02/09/19 08:32; Admin Dose 1 APPLIC; Start 02/02/19 at 11:30 Clonidine (Catapres) 0.1 mg Q6H PRN PO ELEVATED BLOOD PRESSURE Last administered on 02/09/19at 05:15; Admin Dose 0.1 MG; Start 02/02/19 at 17:30 Diagnostic Test (Pha) (Accu-Chek) 1 ea AC MEALS AND BEDTIME XX Last adminis tered on 02/07/19 11:30; Admin Dose 1 EA; Start 02/05/19 at 11:30 Tramadol HCl (Ultram) 50 mg Q6H PRN PO MODERATE PAIN LEVEL 4-6 Last administered on 02/09/19 11:35; Admin Dose 50 MG; Start 02/06/19 at 10:30 Acetaminophen/ Hydrocodone Bitart ([place] (5/325)) 1 tab Q4H PRN PO SEVERE PAIN LEVEL 7-10 Last administered on 02/07/19 20:37; Admin Dose 1 TAB; Start 02/06/19 at 10:30 Diagnostic Test (Pha) (Accu-Chek) 1 ea 02 XX ; Start 02/07/19 at 02:00 Insulin Aspart (Novolog Insulin Pen) NOVOLOG *MILD* ALGORITHM WITH MEALS BEDTIME SC Last administered on 02/07/19 20:41; Admin Dose 1 UNIT; Start at 18:00 Heparin Sodium (Porcine) (Heparin (5000 Units/1ml)) 5,000 unit BID SC Last administered on 02/09/19 08:18; Admin Dose 5,000 UNIT; Start 02/06/19 at 21:00 Miscellaneous Information (*Rx Drug Level Order Reminder*) VANCOMYCIN TROUGH AT 0800 0800 ONCE XX ; Start 02/10/19 at 08:00; Stop 02/10/19 at 08:01 IV Flush (NS 10 ml) 10 ml PRN PRN IV To Maintain Patency; Start 02/08/19 at 18:30 Lisinopril (Zestril) 10 mg DAILY PO Last administered on 02/09/19 08:14; Admin Dose 10 MG; Start 02/09/19 at 09:00 Ferrous Sulfate (Ferrous Sulfate (Ec)) 325 mg DAILY PO ; Start 02/09/19 at 11:30 Polyethylene Glycol (Miralax) 17 gm DAILY PRN PO CONSTIPATION; Start 02/09/19 at 11:30 Ampicillin 50 ml @ 100 mls/hr Q8 IVPB ; Start 02/09/19 at 14:00 SOLOMON CARLOS MD Feb 09, 2019 11:37
[2019-02-09] MEDS: FERROUS SULFATE (EC) 325 MG TAB PO SCH (12:31)
[2019-02-09 13:39] VITALS: BP 128/80; PULSE 69; RESP 18
[2019-02-09] MEDS: AMPICILLIN 1 GM/NS (PMX) 50 ML IVPB SCH ×2 (14:11→23:05)
[2019-02-09 20:02] VITALS: BP 131/79; PULSE 70; RESP 18
[2019-02-09] MEDS: INSULIN GLARGINE [LANTus] (100 UNITS/ML) SYG SC SCH (20:26)
--- NOTE | 2019-02-09 23:11 | CONS ---
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 Discussed with patient concerns for charcot neuroarthropathy in both feet due to the MRI findings of neuropathic changes and would benefit from being non weight bearing. Appreciate and PT/OT input. Appreciate input from vascular surgery. Intra op cultures currently showing right foot with coag staph neg and left foot no growth. Intra op pathology showing osteomyelitis to the right hallux. Tissue biopsy showing no signs of malignancy. Recommend SNF placement. Due to his osteomyelitis patient will likely benefit from HBO therapy in the outpatient setting. Patient would also benefit from PICC line IV abx. Appreciate input from ID. Patient stable for discharge from podiatry standpoint Consultation Date/Type/Reason Admit Date/Time Feb 01, 2019 at 13:59 Initial Consult Date Date/Time of Note DATE: 02/09/19 TIME: 23:11 24 HR Interval Summary Free Text/Dictation No acute events overnight Exam/Review of Systems Exam Vitals Vital Signs Date Temp Pulse Resp B/P (MAP) Pulse Ox O2 O2 Flow FiO2 Time Delivery Rate 02/09/19 98.3 70 18 131/79 91 20:02 (96) 02/09/19 Room Air 08:05 Intake and Output 02/08/19 02/08/19 02/09/19 1515:00 23:00 07:00 IntakeIntake Total 1360 ml 1230 ml 490 ml OutputOutput Total 1400 ml 900 ml BalanceBalance 1360 ml -170 ml -410 ml Exam left 1st MPJ ulceration wound dimension 3 x 6 x 2.0 cm, there was approximately 2-3cm of tunneling towards 2nd metatarsal area and 1st webspace area, wound base more fibrogranular Left plantar 5th metatarsal ulceration 1.2 x 1.4 x 0.4cm which probed to bone. Granular wound base No purulence expressed at the left foot ulceration site Right plantar 1st metatarsal 1.5 x 1.2 x 0.2cm fibrogranular wound bed. Right plantar 4th and 5th ulceration 1.5 x 3 x 0.2cm fibrogranular wound bed. Right plantar 5th metatarsal base extending to heel ulceration 6 x 3 x 0.2cm fibrogranular wound bed. None of the wounds probed to bone, no purulence was appreciated. Absent protective sensations Decreased edema to left lower extremity Results Result Diagram: 02/09/19 0516 02/09/19 0516 Results 24hrs Laboratory Tests Test 02/09/19 05:15 02/09/19 05:16 02/09/19 08:23 02/09/19 12:34 Iron Level 30 L Total Iron Binding 215 L Capacity Percent Iron 14 L Saturation Ferritin 158.0 White Blood Count 6.8 Red Blood Count 2.76 L Hemoglobin 7.1 L Hematocrit 22.8 L Mean Corpuscular 82.6 Volume Mean Corpuscular 25.7 L Hemoglobin Mean Corpuscular 31.1 L Hemoglobin Concent Red Cell 13.7 Distribution Width Platelet Count 497 H Mean Platelet Volume 9.1 Immature 1.000 H Granulocytes % Neutrophils % 59.4 Lymphocytes % 29.6 Monocytes % 7.2 Eosinophils % 2.5 Basophils % 0.3 Nucleated Red Blood 0.0 Cells % Immature 0.070 H Granulocytes # Neutrophils # 4.0 Lymphocytes # 2.0 Monocytes # 0.5 Eosinophils # 0.2 Basophils # 0.0 Nucleated Red Blood 0.0 Cells # Sodium Level 140 Potassium Level 4.2 Chloride Level 107 Carbon Dioxide Level 25 Anion Gap 8 Blood Urea Nitrogen 19 Creatinine 0.93 Glucose Level 141 Calcium Level 8.5 Phosphorus Level 3.8 Magnesium Level 1.8 Albumin 2.6 L Bedside Glucose 112 113 Test 02/09/19 16:51 02/09/19 17:28 02/09/19 20:23 Erythrocyte 105 H Sedimentation Rate C-Reactive Protein 2.1 H Procalcitonin 0.12 H Bedside Glucose 96 105 Medications Medication Current Medications IV Flush (NS 3 ml) 3 ml PER PROTOCOL IV ; Start 02/01/19 at 14:30 Ondansetron HCl (Zofran Inj) 4 mg Q6H PRN IV NAUSEA/VOMITING; Start 02/01/19 at 14:30 Acetaminophen (Tylenol Tab) 650 mg Q6H PRN PO .PAIN 1-3 OR TEMP Last administered on 02/06/19at 01:24; Admin Dose 650 MG; Start 02/01/19 at 14:30 Acetaminophen/ Hydrocodone Bitart ([place] (5/325)) 1 tab Q6H PRN PO .PAIN 4-6; Start 02/01/19 at 14:30 Morphine Sulfate (morphine) 2 mg Q4H PRN IV .PAIN 7-10 Last administered on 02/07/19at 00:08; Admin Dose 2 MG; Start 02/01/19 at 14:30 Vancomycin HCl (Vanco Iv Per Pharmacy) VANCOMYCIN PER PHARMACY PER PROTOCOL XX ; Start 02/01/19 at 14:30 Insulin Glargine (Lantus) 18 units DAILY@2000 SC Last administered on 02/09/19 20:26; Admin Dose 18 UNITS; Start 02/01/19 at 20:00 Insulin Aspart (Novolog Insulin Pen) 6 unit WITH MEALS SC Last administered on 02/09/19 17:37; Admin Dose 6 UNIT; Start 02/01/19 at 18:00 Vancomycin HCl 250 ml @ 125 mls/hr Q12H IVPB Last administered on 02/09/19 20:21; Admin Dose 125 MLS/HR; Start 02/01/19 at 21:00 Ascorbic Acid (Vitamin C) 500 mg DAILY PO Last administered on 02/09/19 08:14; Admin Dose 500 MG; Start 02/02/19 at 09:00 Gabapentin (Neurontin) 300 mg TID PO Last administered on 02/09/19 20:21; Admin Dose 300 MG; Start 02/01/19 at 21:00 Sertraline HCl (Zoloft) 25 mg DAILY PO Last administered on 02/09/19 08:13; Admin Dose 25 MG; Start 02/02/19 at 09:00 Zinc Sulfate (Zinc Sulfate) 220 mg DAILY PO Last administered on 02/09/19 08:13; Admin Dose 220 MG; Start 02/02/19 at 09:00 Lidocaine (Xylocaine 1% (Mpf)) 30 ml ONCE PRN INJ PAIN; Start 02/01/19 at 16:30 Collagenase (Santyl) 1 applic DAILY TOP Last administered on 02/09/19 08:15; Admin Dose 1 APPLIC; Start 02/02/19 at 09:00 Miscellaneous Information 1 ea NOTE XX ; Start 02/02/19 at 08:30 Glucose (Glutose) 15 gm Q15M PRN PO DECREASED GLUCOSE; Start 02/02/19 at 08:30 Glucose (Glutose) 22.5 gm Q15M PRN PO DECREASED GLUCOSE; Start 02/02/19 at 08:30 Dextrose (D50w Syringe) 25 ml Q15M PRN IV DECREASED GLUCOSE; Start 02/02/19 at 08:30 Dextrose (D50w Syringe) 50 ml Q15M PRN IV DECREASED GLUCOSE; Start 02/02/19 at 08:30 Glucagon (Glucagen) 1 mg Q15M PRN IM DECREASED GLUCOSE; Start 02/02/19 at 08:30 Glucose (Glutose) 15 gm Q15M PRN BUCCAL DECREASED GLUCOSE; Start 02/02/19 at 08:30 Sodium Hypochlorite (Dakins Diluted ()) 1 applic DAILY TP Last administered on 02/09/19 08:32; Admin Dose 1 APPLIC; Start 02/02/19 at 11:30 Clonidine (Catapres) 0.1 mg Q6H PRN PO ELEVATED BLOOD PRESSURE Last administered on 02/09/19 05:15; Admin Dose 0.1 MG; Start 02/02/19 at 17:30 Diagnostic Test (Pha) (Accu-Chek) 1 ea AC MEALS AND BEDTIME XX Last administered on 02/07/19 11:30; Admin Dose 1 EA; Start 02/05/19 at 11:30 Tramadol HCl (Ultram) 50 mg Q6H PRN PO MODERATE PAIN LEVEL 4-6 Last administered on 02/09/19 11:35; Admin Dose 50 MG; Start 02/06/19 at 10:30 Acetaminophen/ Hydrocodone Bitart ([place] (5/325)) 1 tab Q4H PRN PO SEVERE PAIN LEVEL 7-10 Last administered on 02/07/19 20:37; Admin Dose 1 TAB; Start 02/06/19 at 10:30 Diagnostic Test (Pha) (Accu-Chek) 1 ea 02 XX ; Start 02/07/19 at 02:00 Insulin Aspart (Novolog Insulin Pen) NOVOLOG *MILD* ALGORITHM WITH MEALS BEDTIME SC Last administered on 02/07/19 20:41; Admin Dose 1 UNIT; Start 02/06/19 at 18:00 Heparin Sodium (Porcine) (Heparin (5000 Units/1ml)) 5,000 unit BID SC Last administered on 02/09/19 20:26; Admin Dose 5,000 UNIT; Start 02/06/19 at 21:00 Miscellaneous Information (*Rx Drug Level Order Reminder*) VANCOMYCIN TROUGH AT 0800 0800 ONCE XX ; Start 02/10/19 at 08:00; Stop 02/10/19 at 08:01 IV Flush (NS 10 ml) 10 ml PRN PRN IV To Maintain Patency; Start 02/08/19 at 18:30 Lisinopril (Zestril) 10 mg DAILY PO Last administered on 02/09/19at 08:14; Admin Dose 10 MG; Start 02/09/19 at 09:00 Ferrous Sulfate (Ferrous Sulfate (Ec)) 325 mg DAILY PO Last administered on 02/09/19at 12:31; Admin Dose 325 MG; Start 02/09/19 at 11:30 Polyethylene Glycol (Miralax) 17 gm DAILY PRN PO CONSTIPATION; Start 02/09/19 at 11:30 Ampicillin 50 ml @ 100 mls/hr Q8 IVPB Last administered on 02/09/19at 23:05; Admin Dose 100 MLS/HR; Start 02/09/19 at 14:00 YING ALMAZAN DPM Feb 09, 2019 23:11
[2019-02-10] MEDS: traMADol 50 MG TAB PO PRN ×2 (01:57→09:57)
[2019-02-10 02:00] VITALS: BP 159/89; PULSE 70; RESP 18
[2019-02-10] MEDS: ACCU-CHEK XX SCH ×4 (02:00→17:23)
[2019-02-10] MEDS: AMPICILLIN 1 GM/NS (PMX) 50 ML IVPB SCH ×2 (05:04→13:26)
[2019-02-10] MEDS: INSULIN ASPART [NOVOLOG] 3 ML PEN SC SCH ×6 (08:00→17:29)
[2019-02-10] MEDS: ASCORBIC ACID 500 MG TAB PO SCH (08:05)
[2019-02-10] MEDS: GABAPENTIN 300 MG CAP PO SCH ×2 (08:05→12:51)
[2019-02-10] MEDS: LISINOPRIL 10 MG TAB PO SCH (08:05)
[2019-02-10] MEDS: ZINC SULFATE 220 MG CAP PO SCH (08:05)
[2019-02-10] MEDS: FERROUS SULFATE (EC) 325 MG TAB PO SCH (08:06)
[2019-02-10] MEDS: SERTRALINE 50 MG TAB PO SCH (08:06)
[2019-02-10] MEDS: COLLAGENASE 5 GM (UD JAR) TOP SCH (08:07)
[2019-02-10] MEDS: DAKINS 0.0125%(1/40) 473 ML SOLUTION TP SCH (08:07)
[2019-02-10 08:12] VITALS: BP 166/93; PULSE 71; RESP 19
[2019-02-10] MEDS: HEPARIN 5,000 UNIT/1 ML VIAL SC SCH (08:13)
[2019-02-10] MEDS: VANCOMYCIN 1 GM 250 ML IVPB SCH ×2 (09:00→10:04)
--- NOTE | 2019-02-10 10:51 | PN ---
Date/Time of Note Date/Time of Note DATE: 02/10/19 TIME: 10:49 Assessment/Plan VTE Prophylaxis Risk score (from Ns)>0 risk: 7 SCD applied (from Ns): No SCD contraindicated: other Pharmacological prophylaxis: LMWH Lines/Catheters IV Catheter Type (from Nrsg): PICC Line Central line still needed: Yes Urinary Cath still in place: No Assessment/Plan Assessment/Plan 1. Bilateral lower extremity wounds with left foot osteomyelitis - Podiatry on board and appreciate recommendations. will continue local wound care and will need HBO treatments as outpatient. - ID on board and monitoring renal function to determine final antibiotic recommendations. Will need to complete 6 weeks of IV antibiotics. - Status post multiple debridement - Imaging studies reviewed. - Vascular input appreciated as well and no need for intervention at this time. Will need to follow up as outpatient 2. Cervical stenosis, arm stiffness, persistent tingling - Neurosurgery consultation appreciated and recommending outpatient follow up once osteomyelitis treatment is completed - Chronic since 2017 - MRI showing moderate canal stenosis 3. Diabetes mellitus - A1c noted - continue lantus and novolog - ISS and accuchecks 4. Dyslipidemia - Continue atorvastatin 5. Questionable history of CVA - No known residual effect - Continue daily aspirin 6. Chronic diabetic foot wounds - Podiatry on board - local wound care - pain control 7. Disposition - Awaiting final antibiotic recommendations from ID which will be determined based on tolerance and renal function. Will d/c to SNF after antibiotic arrangements finalized. Result Diagram: 02/10/19 0510 02/10/19 0510 Results 24hrs Laboratory Tests Test 02/09/19 12:34 02/09/19 16:51 02/09/19 17:28 02/09/19 20:23 Bedside Glucose 113 96 105 Erythrocyte 105 H Sedimentation Rate C-Reactive Protein 2.1 H Procalcitonin 0.12 H Test 02/10/19 05:10 02/10/19 08:00 02/10/19 08:01 White Blood Count 6.9 Red Blood Count 3.32 #L Hemoglobin 8.6 #L Hematocrit 27.6 #L Mean Corpuscular 83.1 Volume Mean Corpuscular 25.9 L Hemoglobin Mean Corpuscular 31.2 L Hemoglobin Concent Red Cell 14.0 Distribution Width Platelet Count 483 H Mean Platelet Volume 8.8 Immature 0.600 H Granulocytes % Neutrophils % 62.2 Lymphocytes % 28.4 Monocytes % 6.8 Eosinophils % 1.7 Basophils % 0.3 Nucleated Red Blood 0.0 Cells % Immature 0.040 H Granulocytes # Neutrophils # 4.3 Lymphocytes # 2.0 Monocytes # 0.5 Eosinophils # 0.1 Basophils # 0.0 Nucleated Red Blood 0.0 Cells # Erythrocyte 114.0 H Sedimentation Rate Sodium Level 141 Potassium Level 4.3 Chloride Level 109 Carbon Dioxide Level 27 Anion Gap 5 Blood Urea Nitrogen 20 Creatinine 1.02 Glucose Level 95 # Calcium Level 8.8 Phosphorus Level 3.6 Magnesium Level 1.8 Albumin 3.0 L Bedside Glucose 96 C-Reactive Protein 2.3 H Vancomycin Level 20.2 *H Trough Subjective 24 Hr Interval Summary Free Text/Dictation Patient states he does experience some burning sensation in his feet and can tell he still has some open wounds. No acute overnight events. Discussed beti iting ID final recommendations then will transition to SNF. Exam/Review of Systems Exam Vitals Vital Signs Date Temp Pulse Resp B/P (MAP) Pulse Ox O2 O2 Flow FiO2 Time Delivery Rate 02/10/19 98.5 71 19 166/93 92 08:12 (117) 02/09/19 Room Air 08:05 Intake and Output 02/09/19 02/09/19 02/10/19 1515:00 23:00 07:00 IntakeIntake Total 1260 ml 970 ml 580 ml OutputOutput Total 1200 ml 1000 ml BalanceBalance 60 ml -30 ml 580 ml Exam General: Patient is laying in bed, no acute distress Neck: Supple, nontender, midline Respiratory: Clear to auscultation bilaterally. no wheezing or rhonchi Cardiovascular: regular rate and rhythm, no obvious murmurs Gastrointestinal: soft, non-tender to palpation, nondistended, bowel sounds heard. Neurological: Moves all extremities spontaneously Skin: bilateral feet, bandaged, CDI Results Results 24hrs Laboratory Tests Test 02/09/19 12:34 02/09/19 16:51 02/09/19 17:28 02/09/19 20:23 Bedside Glucose 113 96 105 Erythrocyte 105 H Sedimentation Rate C-Reactive Protein 2.1 H Procalcitonin 0.12 H Test 02/10/19 05:10 02/10/19 08:00 02/10/19 08:01 White Blood Count 6.9 Red Blood Count 3.32 #L Hemoglobin 8.6 #L Hematocrit 27.6 #L Mean Corpuscular 83.1 Volume Mean Corpuscular 25.9 L Hemoglobin Mean Corpuscular 31.2 L Hemoglobin Concent Red Cell 14.0 Distribution Width Platelet Count 483 H Mean Platelet Volume 8.8 Immature 0.600 H Granulocytes % Neutrophils % 62.2 Lymphocytes % 28.4 Monocytes % 6.8 Eosinophils % 1.7 Basophils % 0.3 Nucleated Red Blood 0.0 Cells % Immature 0.040 H Granulocytes # Neutrophils # 4.3 Lymphocytes # 2.0 Monocytes # 0.5 Eosinophils # 0.1 Basophils # 0.0 Nucleated Red Blood 0.0 Cells # Erythrocyte 114.0 H Sedimentation Rate Sodium Level 141 Potassium Level 4.3 Chloride Level 109 Carbon Dioxide Level 27 Anion Gap 5 Blood Urea Nitrogen 20 Creatinine 1.02 Glucose Level 95 # Calcium Level 8.8 Phosphorus Level 3.6 Magnesium Level 1.8 Albumin 3.0 L Bedside Glucose 96 C-Reactive Protein 2.3 H Vancomycin Level 20.2 *H Trough Medications Medication Current Medications IV Flush (NS 3 ml) 3 ml PER PROTOCOL IV ; Start 02/01/19 at 14:30 Ondansetron HCl (Zofran Inj) 4 mg Q6H PRN IV NAUSEA/VOMITING; Start 02/01/19 at 14:30 Acetaminophen (Tylenol Tab) 650 mg Q6H PRN PO .PAIN 1-3 OR TEMP Last admini stered on 02/06/19at 01:24; Admin Dose 650 MG; Start 02/01/19 at 14:30 Acetaminophen/ Hydrocodone Bitart ([place] (5/325)) 1 tab Q6H PRN PO .PAIN 4-6; Start 02/01/19 at 14:30 Morphine Sulfate (morphine) 2 mg Q4H PRN IV .PAIN 7-10 Last administered on 02/07/19at 00:08; Admin Dose 2 MG; Start 02/01/19 at 14:30 Vancomycin HCl (Vanco Iv Per Pharmacy) VANCOMYCIN PER PHARMACY PER PROTOCOL XX ; Start 02/01/19 at 14:30 Insulin Glargine (Lantus) 18 units DAILY@2000 SC Last administered on 02/09/19at 20:26; Admin Dose 18 UNITS; Start 02/01/19 at 20:00 Insulin Aspart (Novolog Insulin Pen) 6 unit WITH MEALS SC Last administered on 02/10/19 08:12; Admin Dose 6 UNIT; Start 02/01/19 at 18:00 Vancomycin HCl 250 ml @ 125 mls/hr Q12H IVPB Last administered on 02/10/19at 10:04; Admin Dose 125 MLS/HR; Start 02/01/19 at 21:00 Ascorbic Acid (Vitamin C) 500 mg DAILY PO Last administered on 02/10/19 08:05; Admin Dose 500 MG; Start 02/02/19 at 09:00 Gabapentin (Neurontin) 300 mg TID PO Last administered on 02/10/19 08:05; Admin Dose 300 MG; Start 02/01/19 at 21:00 Sertraline HCl (Zoloft) 25 mg DAILY PO Last administered on 02/10/19 08:06; Admin Dose 25 MG; Start 02/02/19 at 09:00 Zinc Sulfate (Zinc Sulfate) 220 mg DAILY PO Last administered on 02/10/19 08:05; Admin Dose 220 MG; Start 02/02/19 at 09:00 Lidocaine (Xylocaine 1% (Mpf)) 30 ml ONCE PRN INJ PAIN; Start 02/01/19 at 16:30 Collagenase (Santyl) 1 applic DAILY TOP Last administered on 02/09/19 08:15; Admin Dose 1 APPLIC; Start 02/02/19 at 09:00 Miscellaneous Information 1 ea NOTE XX ; Start 02/02/19 at 08:30 Glucose (Glutose) 15 gm Q15M PRN PO DECREASED GLUCOSE; Start 02/02/19 at 08:30 Glucose (Glutose) 22.5 gm Q15M PRN PO DECREASED GLUCOSE; Start 02/02/19 at 08:30 Dextrose (D50w Syringe) 25 ml Q15M PRN IV DECREASED GLUCOSE; Start 02/02/19 at 08:30 Dextrose (D50w Syringe) 50 ml Q15M PRN IV DECREASED GLUCOSE; Start 02/02/19 at 08:30 Glucagon (Glucagen) 1 mg Q15M PRN IM DECREASED GLUCOSE; Start 02/02/19 at 08:30 Glucose (Glutose) 15 gm Q15M PRN BUCCAL DECREASED GLUCOSE; Start 02/02/19 at 08:30 Sodium Hypochlorite (Dakins Diluted ()) 1 applic DAILY TP Last administered on 02/09/19at 08:32; Admin Dose 1 APPLIC; Start 02/02/19 at 11:30 Clonidine (Catapres) 0.1 mg Q6H PRN PO ELEVATED BLOOD PRESSURE Last administered on 02/09/19 05:15; Admin Dose 0.1 MG; Start 02/02/19 at 17:30 Diagnostic Test (Pha) (Accu-Chek) 1 ea AC MEALS AND BEDTIME XX Last administered on 02/07/19 11:30; Admin Dose 1 EA; Start 02/05/19 at 11:30 Tramadol HCl (Ultram) 50 mg Q6H PRN PO MODERATE PAIN LEVEL 4-6 Last administered on 02/10/19 09:57; Admin Dose 50 MG; Start 02/06/19 at 10:30 Acetaminophen/ Hydrocodone Bitart ([place] (5/325)) 1 tab Q4H PRN PO SEVERE PAIN LEVEL 7-10 Last administered on 02/07/19 20:37; Admin Dose 1 TAB; Start 02/06/19 at 10:30 Diagnostic Test (Pha) (Accu-Chek) 1 ea 02 XX ; Start 02/07/19 at 02:00 Insulin Aspart (Novolog Insulin Pen) NOVOLOG *MILD* ALGORITHM WITH MEALS BEDTIME SC Last administered on 02/07/19 20:41; Admin Dose 1 UNIT; Start 02/06/19 at 18:00 Heparin Sodium (Porcine) (Heparin (5000 Units/1ml)) 5,000 unit BID SC Last administered on 02/10/19 08:13; Admin Dose 5,000 UNIT; Start 02/06/19 at 21:00 IV Flush (NS 10 ml) 10 ml PRN PRN IV To Maintain Patency; Start 02/08/19 at 18:30 Lisinopril (Zestril) 10 mg DAILY PO Last administered on 02/10/19 08:05; Admin Dose 10 MG; Start 02/09/19 at 09:00 Ferrous Sulfate (Ferrous Sulfate (Ec)) 325 mg DAILY PO Last administered on 02/10/19 08:06; Admin Dose 325 MG; Start 02/09/19 at 11:30 Polyethylene Glycol (Miralax) 17 gm DAILY PRN PO CONSTIPATION; Start 02/09/19 at 11:30 Ampicillin 50 ml @ 100 mls/hr Q8 IVPB Last administered on 02/10/19at 05:04; Admin Dose 100 MLS/HR; Start 02/09/19 at 14:00 SOLOMON CARLOS MD Feb 10, 2019 10:51
--- NOTE | 2019-02-10 12:45 | CONS ---
Assessment/Plan Assessment/Plan Hospital Course (Demo Recall) looks comfortable, no fevers Wound culture grew MRSA, VRE, strep pyogenous and coag negative staph species Antimicrobials: Vancomycin Ampicillin Physical examination: Well-developed middle-aged -[place] male who is alert in no distress. Head atraumatic normocephalic sclera nonicteric. Neck is supple. Chest rise symmetrical, breath sounds clear. Heart: S1-S2. Abdomen soft bowel sounds present. Extremities with bilateral lower extremities edema and trace erythema with left lower extremity swelling and redness of the great toe Assessment: 1. Status post sepsis on admission 2. Bilateral lower extremities diabetic ulceration 3. Left lower extremity cellulitis/osteomyelitis 4. Diabetes mellitus Plan: Stable, ok dc on current abx==> Vanco and IV Ampicillin IV to complete 6 weeks, renal f-n needs to be monitored by PMD at the facility w necessary adjustments in abx Consultation Date/Type/Reason Admit Date/Time Feb 01, 2019 at 13:59 Initial Consult Date Type of Consult id Date/Time of Note DATE: 02/10/19 TIME: 12:42 Exam/Review of Systems Exam Vitals Vital Signs Date Temp Pulse Resp B/P (MAP) Pulse Ox O2 O2 Flow FiO2 Time Delivery Rate 02/10/19 98.5 71 19 166/93 92 08:12 (117) 02/09/19 Room Air 08:05 Intake and Output 02/09/19 02/09/19 02/10/19 1515:00 23:00 07:00 IntakeIntake Total 1260 ml 970 ml 580 ml OutputOutput Total 1200 ml 1000 ml BalanceBalance 60 ml -30 ml 580 ml Results Result Diagram: 02/10/19 0510 02/10/19 0510 Results 24hrs Laboratory Tests Test 02/09/19 16:51 02/09/19 17:28 02/09/19 20:23 02/10/19 05:10 Erythrocyte 105 H 114.0 H Sedimentation Rate C-Reactive Protein 2.1 H Procalcitonin 0.12 H 0.14 H Bedside Glucose 96 105 White Blood Count 6.9 Red Blood Count 3.32 #L Hemoglobin 8.6 #L Hematocrit 27.6 #L Mean Corpuscular 83.1 Volume Mean Corpuscular 25.9 L Hemoglobin Mean Corpuscular 31.2 L Hemoglobin Concent Red Cell 14.0 Distribution Width Platelet Count 483 H Mean Platelet Volume 8.8 Immature 0.600 H Granulocytes % Neutrophils % 62.2 Lymphocytes % 28.4 Monocytes % 6.8 Eosinophils % 1.7 Basophils % 0.3 Nucleated Red Blood 0.0 Cells % Immature 0.040 H Granulocytes # Neutrophils # 4.3 Lymphocytes # 2.0 Monocytes # 0.5 Eosinophils # 0.1 Basophils # 0.0 Nucleated Red Blood 0.0 Cells # Sodium Level 141 Potassium Level 4.3 Chloride Level 109 Carbon Dioxide Level 27 Anion Gap 5 Blood Urea Nitrogen 20 Creatinine 1.02 Glucose Level 95 # Calcium Level 8.8 Phosphorus Level 3.6 Magnesium Level 1.8 Albumin 3.0 L Test 02/10/19 08:00 02/10/19 08:01 Bedside Glucose 96 C-Reactive Protein 2.3 H Vancomycin Level 20.2 *H Trough Medications Medication Current Medications IV Flush (NS 3 ml) 3 ml PER PROTOCOL IV ; Start 02/01/19 at 14:30 Ondansetron HCl (Zofran Inj) 4 mg Q6H PRN IV NAUSEA/VOMITING; Start 02/01/19 at 14:30 Acetaminophen (Tylenol Tab) 650 mg Q6H PRN PO .PAIN 1-3 OR TEMP Last administered on 02/06/19at 01:24; Admin Dose 650 MG; Start 02/01/19 at 14:30 Acetaminophen/ Hydrocodone Bitart ([place] (5/325)) 1 tab Q6H PRN PO .PAIN 4-6; Start 02/01/19 at 14:30 Morphine Sulfate (morphine) 2 mg Q4H PRN IV .PAIN 7-10 Last administered on 02/07/19at 00:08; Admin Dose 2 MG; Start 02/01/19 at 14:30 Vancomycin HCl (Vanco Iv Per Pharmacy) VANCOMYCIN PER PHARMACY PER PROTOCOL XX ; Start 02/01/19 at 14:30 Insulin Glargine (Lantus) 18 units DAILY@2000 SC Last administered on 02/09/19at 20:26; Admin Dose 18 UNITS; Start 02/01/19 at 20:00 Insulin Aspart (Novolog Insulin Pen) 6 unit WITH MEALS SC Last administered on 02/10/19at 08:12; Admin Dose 6 UNIT; Start 02/01/19 at 18:00 Vancomycin HCl 250 ml @ 125 mls/hr Q12H IVPB Last administered on 02/10/19at 10:04; Admin Dose 125 MLS/HR; Start 02/01/19 at 21:00 Ascorbic Acid (Vitamin C) 500 mg DAILY PO Last administered on 02/10/19at 08:05; Admin Dose 500 MG; Start 02/02/19 at 09:00 Gabapentin (Neurontin) 300 mg TID PO Last administered on 02/10/19 08:05; Admin Dose 300 MG; Start 02/01/19 at 21:00 Sertraline HCl (Zoloft) 25 mg DAILY PO Last administered on 02/10/19 08:06; Admin Dose 25 MG; Start 02/02/19 at 09:00 Zinc Sulfate (Zinc Sulfate) 220 mg DAILY PO Last administered on 02/10/19 08:05; Admin Dose 220 MG; Start 02/02/19 at 09:00 Lidocaine (Xylocaine 1% (Mpf)) 30 ml ONCE PRN INJ PAIN; Start 02/01/19 at 16:30 Collagenase (Santyl) 1 applic DAILY TOP Last administered on 02/09/19at 08:15; Admin Dose 1 APPLIC; Start 02/02/19 at 09:00 Miscellaneous Information 1 ea NOTE XX ; Start 02/02/19 at 08:30 Glucose (Glutose) 15 gm Q15M PRN PO DECREASED GLUCOSE; Start 02/02/19 at 08:30 Glucose (Glutose) 22.5 gm Q15M PRN PO DECREASED GLUCOSE; Start 02/02/19 at 08:30 Dextrose (D50w Syringe) 25 ml Q15M PRN IV DECREASED GLUCOSE; Start 02/02/19 at 08:30 Dextrose (D50w Syringe) 50 ml Q15M PRN IV DECREASED GLUCOSE; Start 02/02/19 at 08:30 Glucagon (Glucagen) 1 mg Q15M PRN IM DECREASED GLUCOSE; Start 02/02/19 at 08:30 Glucose (Glutose) 15 gm Q15M PRN BUCCAL DECREASED GLUCOSE; Start 02/02/19 at 08:30 Sodium Hypochlorite (Dakins Diluted (40)) 1 applic DAILY TP Last administered on 02/09/19at 08:32; Admin Dose 1 APPLIC; Start 02/02/19 at 11:30 Clonidine (Catapres) 0.1 mg Q6H PRN PO ELEVATED BLOOD PRESSURE Last administered on 02/09/19 05:15; Admin Dose 0.1 MG; Start 02/02/19 at 17:30 Diagnostic Test (Pha) (Accu-Chek) 1 ea AC MEALS AND BEDTIME XX Last administ ered on 02/07/19 11:30; Admin Dose 1 EA; Start 02/05/19 at 11:30 Tramadol HCl (Ultram) 50 mg Q6H PRN PO MODERATE PAIN LEVEL 4-6 Last administered on 02/10/19 09:57; Admin Dose 50 MG; Start 02/06/19 at 10:30 Acetaminophen/ Hydrocodone Bitart ([place] (5/325)) 1 tab Q4H PRN PO SEVERE PAIN LEVEL 7-10 Last administered on 02/07/19 20:37; Admin Dose 1 TAB; Start 02/06/19 at 10:30 Diagnostic Test (Pha) (Accu-Chek) 1 ea 02 XX ; Start 02/07/19 at 02:00 Insulin Aspart (Novolog Insulin Pen) NOVOLOG *MILD* ALGORITHM WITH MEALS BEDTIME SC Last administered on 02/07/19 20:41; Admin Dose 1 UNIT; Start 9 at 18:00 Heparin Sodium (Porcine) (Heparin (5000 Units/1ml)) 5,000 unit BID SC Last administered on 02/10/19 08:13; Admin Dose 5,000 UNIT; Start 02/06/19 at 21:00 IV Flush (NS 10 ml) 10 ml PRN PRN IV To Maintain Patency; Start 02/08/19 at 18:30 Lisinopril (Zestril) 10 mg DAILY PO Last administered on 02/10/19 08:05; Admin Dose 10 MG; Start 02/09/19 at 09:00 Ferrous Sulfate (Ferrous Sulfate (Ec)) 325 mg DAILY PO Last administered on 02/10/19 08:06; Admin Dose 325 MG; Start 02/09/19 at 11:30 Polyethylene Glycol (Miralax) 17 gm DAILY PRN PO CONSTIPATION; Start 02/09/19 at 11:30 Ampicillin 50 ml @ 100 mls/hr Q8 IVPB Last administered on 02/10/19 05:04; Admin Dose 100 MLS/HR; Start 02/09/19 at 14:00 ROCIO CALDERON NP 12, 2019 12:45
[2019-02-10] MEDS ORDERED: LISI-313 PO (14:21)
[2019-02-10] MEDS ORDERED: GABA100C14 PO (14:21)
[2019-02-10] MEDS ORDERED: INSU500I SQ (14:21)
[2019-02-10] MEDS ORDERED: TRAM50TA2 PO (14:21)
[2019-02-10] MEDS ORDERED: FER325 PO (14:21)
[2019-02-10] MEDS ORDERED: LANT3I SC (14:21)
--- NOTE | 2019-02-10 14:26 | PDOCDIS ---
Discharge Instructions DIAGNOSIS Discharge Diagnosis 1. Bilateral lower extremity wounds with left foot osteomyelitis 2. Cervical stenosis, arm stiffness, persistent tingling 3. Diabetes mellitus 4. Dyslipidemia 5. Questionable history of CVA 6. Chronic diabetic foot wounds CONDITION [id number] Patient Condition: [id number] Stable HOME CARE INSTRUCTIONS: [id number] Diet Instructions: [id number] Low Fat /Cholesterol ACTIVITY: [id number] Activity Restrictions: [id number] Weight Bearing (nonweight bearing for 6 weeks. okay for transfer to wheelchair, bed, and bathroom) FOLLOW UP/APPOINTMENTS Follow-up Plan 1. Follow up with your primary care physician in 1-2 weeks 2. Follow up with Dr. Iyer in [facility] in 1 weeks. You will benefit from hyperbaric oxygen therapy for wound healing that can be set up through the clinic . 3. Once you complete antibiotics and treatment for your lower extremity wounds, you should follow up with Neurosurgery for evaluation for intervention given cervical stenosis. You will need to ask your PCP for a referral 4. Continue all medications as prescribed 5. Follow a low sugar, low carb diet to keep glucose well controlled to help promote wound healing 6. Follow up with Dr. Mesa in [facility] as well 7. If experiencing any concerning symptoms. please go to the nearest emergency department SOLOMON CARLOS MD Feb 10, 2019 14:26
[2019-02-10 14:48] VITALS: BP 165/94; PULSE 73; RESP 19
--- NOTE | 2019-02-10 15:47 | DS ---
Date/Time of Note Date/Time of Note DATE: 02/10/19 TIME: 15:29 Discharge Summary Admission/Discharge Info Admit Date/Time Feb 01, 2019 at 13:59 Discharge Date/Time 02/10/19 Discharge Diagnosis 1. Bilateral lower extremity wounds with left foot osteomyelitis 2. Cervical stenosis, arm stiffness, persistent tingling 3. Diabetes mellitus 4. Dyslipidemia 5. Questionable history of CVA 6. Chronic diabetic foot wounds Patient Condition: Stable Consults Vascular surgery- Dr. Mesa Podiatry- Dr. Iyer Infectious disease- Dr. Funez Neurosurgery- Dr. Branch Diabetic Education Procedures Date/Time of Note DATE: 02/03/19 TIME: 15:40 Operative Report Preoperative Diagnosis b/l diabetic foot ulcerations Left foot osteomyelitis Left foot abscess Left lower extremity cellulitis Left lower extremity edema Left foot deep tissue injury DM2 with peripheral neuropathy Postoperative Diagnosis b/l diabetic foot ulcerations Left foot osteomyelitis Left foot abscess Left lower extremity cellulitis Left lower extremity edema Left foot callus DM2 with peripheral neuropathy Left heel callus paring Operation/Procedure Performed bilateral foot excisional debridement biopsy of left foot bone Hx of Present Illness Patient is a -[place] male with a past medical history significant for chronic foot wounds, diabetes mellitus, dyslipidemia, hypertension who [facility] worsening [facility] foot ulcer. Patient states that he woke up this morning and found the foot worse however d oes not know the onset. Patient was recently hospitalized at [facility] for similar foot wounds and was discharged to longterm facility. Patient states that his issues with his chronic foot wounds has been going on for months and has been getting worse and worse. Patient otherwise feels well, denies chest pain, shortness of breath, headache, nausea, vomiting, abdominal pain or bowel or bladder dysfunction. Patient denies any surgical history Patient denies smoking or drinking, has a remote history of using cocaine more than 5 years ago Hospital Course Patient was admitted for evaluation of foot ulcers and MRI was performed with findings of OM. Podiatry was consulted and patient underwent debridement and biopsy of left foot bone. Infectious disease was consulted for antibiotic recommendations. Patient was complaining of numbness of upper extremities and MRI was performed with findings of stenosis. Patient was evaluated by Neurosurgery and recommendations for outpatient follow up once osteomyelitis resolved. Patient was seen by Vascular surgery and recommended to follow up as outpatient. hospice educator spoke with patient about proper glucose control and adjusted insulin dosages. Patient's pain was controlled with Tramadol. Renal function remained stable on Vancomycin and Ampicillin. Given findings of OM on bone bx and MRI, patient required 6 weeks of IV antibiotics and PICC Line was inserted. Patient was cleared for discharge by specialists and discharged to SNF in good condition. Home Meds Reported Medications Gabapentin* (Gabapentin*) 100 Mg Capsule, 100 MG PO TID, #90 CAP 02/01/19 Insulin Regular, Human (Humulin R U-500 Kwikpen) 500 Unit/1 Ml Insuln.pen, 7 UNIT SQ AC A 02/01/19 Ibuprofen* (Motrin*) 600 Mg Tab, 600 MG PO Q8H PRN for PAIN LEVEL 6-10, TAB 02/01/19 Insulin Glargine* (Lantus*) 100 Unit/Ml Soln, 10 UNIT SC QHS, #1 VIAL 02/01/19 Lisinopril* (Lisinopril*) 5 Mg Tablet, 5 MG PO DAILY, #30 TAB HOLD IF SBP <110 OR HR <60 02/01/19 Metformin Hcl* (Metformin Hcl*) 1,000 Mg Tablet, 1000 MG PO WITH BREAKFAST DINNE, #60 TAB 02/01/19 Multivitamin with Minerals (Daily Vitamin Formula-Minerals) 1 Each Tablet, 1 EACH PO DAILY, TAB 02/01/19 Amino Acids/Protein Hydrolys (Pro-Stat Awc Liquid) 30 Ml Liquid, 30 ML PO BID 02/01/19 Sertraline Hcl* (Sertraline Hcl*) 25 Mg Tablet, 25 MG PO DAILY, #30 TAB 02/01/19 Ascorbic Acid* (Vitamin C*) 500 Mg Capsule.sa, 500 MG PO DAILY, CAP 02/01/19 Zinc Sulfate* (Zinc Sulfate*) 220 Mg Tablet, 220 MG PO DAILY, TAB STOP 7-8-02/01/19 Acetaminophen* (Acetaminophen*) 650 Mg Tablet, 650 MG PO Q6H PRN for PAIN LEVEL 1-5, #30 TAB AND FEVER 02/01/19 Arginine/Ascorbate Sod/Fred AC (Arginaid Powder) 1 Each Powd.pack, 1 EACH PO BID 02/01/19 Follow-up Plan 1. Follow up with your primary care physician in 1-2 weeks 2. Follow up with Dr. Iyer in [facility] in 1 weeks. You will benefit from hyperbaric oxygen therapy for wound healing that can be set up through the clinic . 3. Once you complete antibiotics and treatment for your lower extremity wounds, you should follow up with Neurosurgery for evaluation for intervention given cervical stenosis. You will need to ask your PCP for a referral 4. Continue all medications as prescribed 5. Follow a low sugar, low carb diet to keep glucose well controlled to help promote wound healing 6. Follow up with Dr. Mesa in [facility] as well 7. If experiencing any concerning symptoms. please go to the nearest emergency department Primary Care Provider Not On Staff Doctor Time spent on discharge: > 30 minutes Pending Labs Laboratory Tests Test 02/09/19 16:51 02/09/19 17:28 02/09/19 20:23 02/10/19 05:10 Erythrocyte 105 114.0 Sedimentation mm/Hr (0-20) mm/Hr (0-20) Rate C-Reactive 2.1 Protein mg/dl (0.0-0.9) Procalcitonin 0.12 0.14 ng/mL (0.00-0.1 ng/mL (0.00-0. 0) 10) Bedside 96 105 Glucose mg/dL (70-220) mg/dL (70-220) White Blood 6.9 Count 10^3/ul (4.8-1 0.8) Red Blood 3.32 Count 10^6/ul (4.70- 6.10) Hemoglobin 8.6 g/dl (14.0-18. 0) Hematocrit 27.6 % (42.0-52.0) Mean 83.1 Corpuscular fl (82.0-101.0 Volume ) Mean 25.9 Corpuscular pg (29.0-33.0) Hemoglobin Mean 31.2 Corpuscular g/dl (32.0-37. Hemoglobin Conc 0) ent Red Cell 14.0 Distribution % (11.5-14.5) Width Platelet Count 483 10^3/UL (140-4 15) Mean Platelet 8.8 Volume fl (7.4-10.4) Immature 0.600 Granulocytes % % (0.001-0.429 ) Neutrophils % 62.2 % (39.0-77.0) Lymphocytes % 28.4 % (15.0-51.0) Monocytes % 6.8 % (0.0-11.0) Eosinophils % 1.7 % (0.0-7.0) Basophils % 0.3 % (0.0-2.0) Nucleated Red 0.0 Blood Cells % /100WBC (0.0-0 .0) Immature 0.040 Granulocytes # 10^3/ul (0.0-0 .031) Neutrophils # 4.3 10^3/ul (1.6-7 .5) Lymphocytes # 2.0 10^3/ul (0.8-2 .9) Monocytes # 0.5 10^3/ul (0.3-0 .9) Eosinophils # 0.1 10^3/ul (0.0-0 .5) Basophils # 0.0 10^3/ul (0.0-0 .1) Nucleated Red 0.0 Blood Cells # 10^3/ul (0.0-0 .0) Sodium Level 141 mmol/L (135-14 4) Potassium 4.3 Level mmol/L (3.5-5. 1) Chloride Level 109 mmol/L (97-110 ) Carbon Dioxide 27 Level mmol/L (21-31) Anion Gap 5 (5-13) Blood Urea 20 Nitrogen mg/dl (7-20) Creatinine 1.02 mg/dl (0.61-1. 24) Glucose Level 95 mg/dl (70-220) Calcium Level 8.8 mg/dl (8.4-10. 2) Phosphorus 3.6 Level mg/dl (2.5-4.9 ) Magnesium 1.8 Level mg/dl (1.7-2.5 ) Albumin 3.0 g/dl (3.3-4.9) Test 02/10/19 08:00 02/10/19 08:01 02/10/19 12:51 Bedside 96 78 Glucose mg/dL (70-220) mg/dL (70-220) C-Reactive 2.3 Protein mg/dl (0.0-0.9 ) Vancomycin 20.2 Level Trough ug/ml (10.0-20 .0) SOLOMON CARLOS MD Feb 10, 2019 15:46
[2019-02-10] MEDS: HYDROCODONE/APAP (5/325) TAB PO PRN (16:45)
[2019-02-10 18:24] VITALS: BP 156/86; PULSE 66
[2019-02-10 19:55] VITALS: BP 157/85; PULSE 59; RESP 16
[2019-02-10] MEDS ORDERED: VANCOMYCIN 750 MG (PMX) 250 ML IVPB SCH (23:00)
== END 2019-02-10 20:20 | DRG 853 ==
LOC: E/R 12:59 → 2NE 13:59 → SUATTDRO 14:10
PROVIDERS: ADMIT Internal Medicine; ATTEND Internal Medicine
PROC: 0JBQ0ZZ Excision of Right Foot Subcutaneous Tissue and Fascia, Open Approach (ICD-10-PCS; 2019-02-01)
PROC: 0KBW0ZZ Excision of Left Foot Muscle, Open Approach (ICD-10-PCS; 2019-02-01)
PROC: 0QBN0ZZ Excision of Right Metatarsal, Open Approach (ICD-10-PCS; 2019-02-03)
PROC: 0QBP0ZZ Excision of Left Metatarsal, Open Approach (ICD-10-PCS; principal; 2019-02-03 14:00)
PROC: 02HV33Z Insertion of Infusion Device into Superior Vena Cava, Percutaneous Approach (ICD-10-PCS; 2019-02-08)
DX: A41.9 Sepsis, unspecified organism (principal); L89.893 Pressure ulcer of other site, stage 3; M86.172 Other acute osteomyelitis, left ankle and foot; L03.116 Cellulitis of left lower limb; E11.621 Type 2 diabetes mellitus with foot ulcer; E11.40 Type 2 diabetes mellitus with diabetic neuropathy, unspecified; E11.69 Type 2 diabetes mellitus with other specified complication; L97.529 Non-pressure chronic ulcer of other part of left foot with unspecified severity; I10 Essential (primary) hypertension; E78.5 Hyperlipidemia, unspecified; B95.62 Methicillin resistant Staphylococcus aureus infection as the cause of diseases classified elsewhere; B95.0 Streptococcus, group A, as the cause of diseases classified elsewhere; B95.2 Enterococcus as the cause of diseases classified elsewhere; Z79.4 Long term (current) use of insulin; Z79.82 Long term (current) use of aspirin; M48.02 Spinal stenosis, cervical region
CPT/HCPCS: 36415; 36569; 71045; 72141; 73610; 73630; 73718; 73721; 76937; 80048; 80053; 80061; 80069; 80202; 81001; 82728; 82962; 83036; 83540; 83605; 83735; 84100; 84145; 84443; 84484; 85025; 85610; 85651; 85730; 86140; 86704; 86708; 86709; 86803; 86850; 86900; 86901; 87070; 87075; 87081; 87086; 87102; 87116; 87340; 88304; 88305; 93005; 93922; 93970; 96365; 97110; 97161; 97166; 97530; J0290; J0295; J1644; J1815; J2250; J2270; J2405; J2543; J3010; J3370; J7030; J7042